=== PATIENT | male | born 1960 | race Hispanic/Latino ===

== ENCOUNTER 2019-07-14 14:22 | Observation (INO) | payer MEDICARE, OTHER ==
[~2019-07-14] VITALS: Ht 167.6 cm; Wt 92.6 kg
[~2019-07-14 14:22] MED LIST: TRUVADA 200 MG1 EACH
[2019-07-14] MEDS ORDERED: SODIUM CHLORIDE 0.9% 1000ML 1,000 ML IV STA (14:23)
--- OUTSIDE RECORDS SUMMARY | 2019-07-14 14:25 | XMS REPORT ---
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 Conditions or Problems Problem Name Problem Code Onset Date Status Entry Date Provider Comment Standard Description Annotate Hepatitis C antibody test positive 795.79 Active Nikolay Sol DAY CARE SUPERVISOR-C Other and unspecified nonspecific immunological findings Immunity status testing, antibody response V72.61 Active Nikolay Sol DAY CARE SUPERVISOR-C Antibody response examination Skin lesions, multiple 709.9 Active Nikolay Sol DAY CARE SUPERVISOR-C Unspecified disorder of skin and subcutaneous tissue Transaminases, serum, elevated 790.4 Active Nikolay Sol DAY CARE SUPERVISOR-C Nonspecific elevation of levels of transaminase or lactic acid dehydrogenase [LDH] Screening, colon cancer V76.51 Active Nikolay Sol DAY CARE SUPERVISOR-C Screening for malignant neoplasms of colon Astigmatism - OU 367.2 Active Angela Bhakhrani OD Astigmatism Myopia - OU 367.1 Active Angela Bhakhrani OD Myopia Corneal scar, 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 Efra Tariq OD Corneal opacity, unspecified Encounter for screening for eye and ear disorders Active Josesito Perry MD Obesity 278.00 Active Radha Posey MD Obesity, unspecified HYPERLIPIDEMIA 272.4 Active Chad Navarro MD Other and unspecified hyperlipidemia Open angle with borderline findings, high risk, 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 Efra Tariq OD Open angle with borderline findings, high risk BACK PAIN 724.5 1998 Active Chad Navarro MD Backache, unspecified Diabetes mellitus, type II 250.00 05/2014 Active Chad Navarro MD Diabetes mellitus without mention of complication, type II or unspecified type, not stated as uncontrolled HIV INFECTION 042 1997 Active Chad Navarro MD Human immunodeficiency virus [HIV] disease 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 Cherrie Munoz Herpes simplex without mention of complication Symptoms of DEPRESSION 311 12/2009 Active Venkata Michaels Depressive disorder, not elsewhere classified Loss of interest, Change in sleep pattern History of OTHER INJURY OF OTHER SITES OF TRUNK 959.19 1998 Correction Chad Navarro MD Other injury of other sites of trunk Lumbar Disc Injury Vaccination against influenza ICD-V04.81 Inactive Nikolay Sol DAY CARE SUPERVISOR-C Vaccination for strep pneumonia with pneumovax ICD-V03.82 Inactive Nikolay Sol DAY CARE SUPERVISOR-C Screening for std ICD-V74.5 Inactive Nikolay Sol DAY CARE SUPERVISOR-C Myopia - OU 367.1 Inactive Chad Navarro MD Myopia Myopia - OU ICD-367.1 Inactive Chad Navarro MD Regular astigmatism, bilateral 367.21 Inactive Chad Navarro MD Regular astigmatism Regular astigmatism, bilateral ICD-367.21 Inactive Chad Navarro MD URI 465.9 Inactive Chad Navarro MD Acute upper respiratory infections of unspecified site URI ICD-465.9 Inactive Chad Navarro MD Immunization update ICD-V15.9 Inactive Nikolay Sol DAY CARE SUPERVISOR-C Otitis media, right 382.9 Inactive Chad Navarro MD Unspecified otitis media Otitis media, right ICD-382.9 Inactive Chad Navarro MD GLAUCOMA, SUSPECT 365.01 Inactive Efra Tariq OD Open angle with borderline findings, low risk ALLERGIC RHINITIS ICD-477.9 Inactive Chad Navarro MD ASTIGMATISM 367.20 Inactive Chad Navarro MD Astigmatism, unspecified ASTIGMATISM 367.20 Inactive Chad Navarro MD Astigmatism, unspecified ASTIGMATISM 367.20 Inactive Chad Navarro MD Astigmatism, unspecified ASTIGMATISM ICD-367.20 Inactive Chad Navarro MD DIABETES MELLITUS, BORDERLINE 790.29 Inactive Radha Posey MD Other abnormal glucose HEPATITIS C ICD-070.51 Inactive Nikolay Sol DAY CARE SUPERVISOR-C MYOPIA 367.1 Inactive Chad Navarro MD Myopia MYOPIA 367.1 Inactive Chad Navarro MD Myopia MYOPIA 367.1 Inactive Chad Navarro MD Myopia MYOPIA ICD-367.1 Inactive Chad Navarro MD OTHER INJURY OF OTHER SITES OF TRUNK ICD-959.19 Inactive Chad Navarro MD PRESBYOPIA 367.4 Inactive Chad Navarro MD Presbyopia PRESBYOPIA 367.4 Inactive Chad Navarro MD Presbyopia PRESBYOPIA 367.4 Inactive Chad Navarro MD Presbyopia PRESBYOPIA 367.4 Inactive Chad Navarro MD Presbyopia PRESBYOPIA ICD-367.4 Inactive Chad Navarro MD THRUSH ICD-112.0 Inactive Chad Navarro MD Vaccination against influenza V04.81 Resolved Nikolay Sol DAY CARE SUPERVISOR-C Need for prophylactic vaccination and inoculation against influenza Vaccination for strep pneumonia with pneumovax V03.82 Resolved Nikolay Sol NP-Titus Need for prophylactic vaccination against Streptococcus pneumoniae [pneumococcus] Screening for std V74.5 Resolved Nikolay BRADEN Screening examination for venereal disease Immunization update V15.9 Resolved Nikolay BRADEN Unspecified personal history presenting hazards to health ALLERGIC RHINITIS 477.9 Resolved Chad Navarro MD Allergic rhinitis, cause unspecified DIABETES MELLITUS, BORDERLINE 790.29 Resolved Chad Navarro MD Other abnormal glucose HEPATITIS C 070.51 2004 Resolved Nikolay BLANCHARDC Acute hepatitis C without mention of hepatic coma S/P peg/riba 2004 THRUSH 112.0 Resolved Chad Navarro MD Candidiasis of mouth Medication List Medication Instructions Start Date Stop Date Generic Name NDC Status Provider Patient Instruction LISINOPRIL 5 MG ORAL TABLET Take one tablet by mouth once daily LISINOPRIL 12949254261 Active Nikolay Sol NP-C Active ATORVASTATIN CALCIUM 20 MG ORAL TABLET Take one tablet by mouth once daily at bedtime ATORVASTATIN CALCIUM 90786090783 Active Nikolay Sol NP-C Active GLIPIZIDE 5 MG ORAL TABLET Take one tablet by mouth once daily 30 minutes before breakfast GLIPIZIDE 10209231652 Active Nikolay Sol NP-C Active NIACIN ER (ANTIHYPERLIPIDEMIC) 500 MG ORAL TABLET EXTENDED RELEASE Take one tablet by mouth once daily with dinner NIACIN (ANTIHYPERLIPIDEMIC) 32133528776 Active Nikolay Sol DAY CARE SUPERVISOR-C Active CLINDAMYCIN PHOSPHATE 1 % GEL APPLY TO AFFECTED AREA(S) ONCE DAILY CLINDAMYCIN PHOSPHATE 07608666535 Active Chloe Franco MedAdherence, ob nurse Active METFORMIN HCL 1000 MG ORAL TABLET Take one tablet by mouth twice daily with a meal METFORMIN HCL 09297993849 Active Nikolay Sol DAY CARE SUPERVISOR-C Active VALACYCLOVIR HCL 1 GM ORAL TABLET Take one tablet by mouth once daily VALACYCLOVIR HCL 73667205999 Active Nikolay Sol DAY CARE SUPERVISOR-C Active DESCOVY 200-25 MG ORAL TABLET Take one tablet by mouth once daily EMTRICITABINE-TENOFOVIR AF 36816479575 Active Nikoaly Hernándezmons DAY CARE SUPERVISOR-C Active NORVIR 100 MG ORAL TABLET Take one tablet by mouth once daily with food RITONAVIR 04397620911 Active Nikolay Hernándezmons DAY CARE SUPERVISOR-C Active REYATAZ 300 MG ORAL CAPSULE Take one capsule by mouth once daily with food ATAZANAVIR SULFATE 38494751314 Active Nikolay Hernándezmons DAY CARE SUPERVISOR-C Active DOXYCYCLINE HYCLATE 100 MG ORAL CAPSULE Take one capsule by mouth every 12 hours DOXYCYCLINE HYCLATE 100 MG ORAL CAPSULE 1100140 DOXYCYCLINE HYCLATE Inactive CLINDAMYCIN PHOSPHATE 1 % EXTERNAL GEL Apply once daily to affected area CLINDAMYCIN PHOSPHATE 1 % EXTERNAL GEL 209874 CLINDAMYCIN PHOSPHATE Inactive FENOFIBRATE MICRONIZED 130 MG ORAL CAPSULE Take one tablet by mouth once daily FENOFIBRATE MICRONIZED 130 MG ORAL CAPSULE 182410 FENOFIBRATE MICRONIZED Inactive CLINDAMYCIN PHOSPHATE 1 % EXTERNAL GEL Apply to affected areas Twice a Day CLINDAMYCIN PHOSPHATE 1 % EXTERNAL GEL 679745 CLINDAMYCIN PHOSPHATE Inactive AMOXICILLIN-POT CLAVULANATE 875-125 MG ORAL TABLET 1 By Mouth Twice a Day for 10 days AMOXICILLIN-POT CLAVULANATE 875-125 MG ORAL TABLET 307909 AMOXICILLIN-POT CLAVULANATE Inactive METFORMIN HCL 500 MG ORAL TABLET 1 by mouth twice a day METFORMIN HCL 500 MG ORAL TABLET 879463 METFORMIN HCL Inactive AUGMENTIN 875-125 MG ORAL TABLET Take one tablet by mouth twice daily for 10 days AUGMENTIN 875-125 MG ORAL TABLET AMOXICILLIN-POT CLAVULANATE Inactive BROMFED DM 30-2-10 MG/5ML ORAL SYRUP 10 mL every four hours as needed for cough/congestion BROMFED DM 30-2-10 MG/5ML ORAL SYRUP 0697503 [id number] Inactive FLONASE ALLERGY RELIEF 50 MCG/ACT NASAL SUSPENSION 2 sprays each nostril every day FLONASE ALLERGY RELIEF 50 MCG/ACT NASAL SUSPENSION 6442475 FLUTICASONE PROPIONATE Inactive FENOFIBRATE MICRONIZED 134 MG ORAL CAPSULE 1 By Mouth Every Day FENOFIBRATE MICRONIZED 134 MG ORAL CAPSULE 545316 FENOFIBRATE MICRONIZED Inactive ZITHROMAX 250 MG ORAL TABLET 2 by mouth now, then 1 by mouth every day for 4 more days ZITHROMAX 250 MG ORAL TABLET 561749 AZITHROMYCIN Inactive VIAGRA 50 MG ORAL TABLET use as directed VIAGRA 50 MG ORAL TABLET 380934 SILDENAFIL CITRATE Inactive BENZOYL PEROXIDE-ERYTHROMYCIN 5-3 % EXTERNAL GEL Apply as directed BENZOYL PEROXIDE-ERYTHROMYCIN 5-3 % EXTERNAL GEL 017293 BENZOYL PEROXIDE-ERYTHROMYCIN Inactive BENZAMYCIN 5-3 % EXTERNAL GEL apply to face nightly at bedtime BENZAMYCIN 5-3 % EXTERNAL GEL 347069 BENZOYL PEROXIDE-ERYTHROMYCIN Inactive VIAGRA 50 MG ORAL TABLET take 1/2 a tablet PO at bedtime VIAGRA 50 MG ORAL TABLET 086514 SILDENAFIL CITRATE Inactive TRUVADA TABLET 1 By Mouth Every Day TRUVADA TABLET EMTRICITABINE- TENOFOVIR TABS Inactive DOXYCYCLINE HYCLATE 100 MG ORAL CAPSULE Take one capsule by mouth every 12 hours DOXYCYCLINE HYCLATE 96315867674 No Longer Active Nikolay Sol NP-C Active CLINDAMYCIN PHOSPHATE 1 % EXTERNAL GEL Apply once daily to affected area CLINDAMYCIN PHOSPHATE 19659464308 No Longer Active Nikolay Sol DAY CARE SUPERVISOR-C Active FENOFIBRATE MICRONIZED 130 MG ORAL CAPSULE Take one tablet by mouth once daily FENOFIBRATE MICRONIZED 40595434057 No Longer Active Nikolay Sol DAY CARE SUPERVISOR-C Active CLINDAMYCIN PHOSPHATE 1 % EXTERNAL GEL Apply to affected areas Twice a Day CLINDAMYCIN PHOSPHATE 20136218930 No Longer Active Nikolay Sol DAY CARE SUPERVISOR-C Active AMOXICILLIN-POT CLAVULANATE 875-125 MG ORAL TABLET 1 By Mouth Twice a Day for 10 days AMOXICILLIN-POT CLAVULANATE 81821981734 No Longer Active Josesito Perry MD Active METFORMIN HCL 500 MG ORAL TABLET 1 by mouth twice a day METFORMIN HCL 56484715891 No Longer Active Josesito Perry MD Active AUGMENTIN 875-125 MG ORAL TABLET Take one tablet by mouth twice daily for 10 days AMOXICILLIN-POT CLAVULANATE 95551176681 No Longer Active Chad Navarro MD Active BROMFED DM 30-2-10 MG/5ML ORAL SYRUP 10 mL every four hours as needed for cough/congestion [id number] 12300908365 No Longer Active Nikolay Sol NP-Titus Active FLONASE ALLERGY RELIEF 50 MCG/ACT NASAL SUSPENSION 2 sprays each nostril every day FLUTICASONE PROPIONATE 65486061872 No Longer Active Chad Navarro MD Active FENOFIBRATE MICRONIZED 134 MG ORAL CAPSULE 1 By Mouth Every Day FENOFIBRATE MICRONIZED 99254709209 No Longer Active Josesito Perry MD Active ZITHROMAX 250 MG ORAL TABLET 2 by mouth now, then 1 by mouth every day for 4 more days AZITHROMYCIN 48033109270 No Longer Active Nikolay BRADEN Active VIAGRA 50 MG ORAL TABLET use as directed SILDENAFIL CITRATE 19679019451 No Longer Active Nikolay BRADEN Active BENZOYL PEROXIDE-ERYTHROMYCIN 5-3 % EXTERNAL GEL Apply as directed BENZOYL PEROXIDE-ERYTHROMYCIN 62946103924 No Longer Active Chad Navarro MD Active BENZAMYCIN 5-3 % EXTERNAL GEL apply to face nightly at bedtime BENZOYL PEROXIDE-ERYTHROMYCIN 72424736934 No Longer Active Chad Navarro MD Active VIAGRA 50 MG ORAL TABLET take 1/2 a tablet PO at bedtime SILDENAFIL CITRATE 83531819332 No Longer Active Chad Navarro MD Active TRUVADA TABLET 1 By Mouth Every Day EMTRICITABINE-TENOFOVIR TABS 94648506415 No Longer Active Dona You Active Advance Directives Directive Description Start Date DISCUSSED - NO DECISION MADE Immunizations Vaccine Administration Date Value Standard Description influenza immunization (Flu Vax) has been administered given influenza virus vaccine, unspecified formulation pneumococcal immunization administered given pneumococcal polysaccharide vaccine, 23 valent influenza immunization (Flu Vax) has been administered given influenza virus vaccine, unspecified formulation influenza immunization (Flu Vax) has been administered given elsewhere influenza virus vaccine, unspecified formulation influenza immunization (Flu Vax) has been administered given influenza virus vaccine, unspecified formulation PEDIATRIC PNEUMOCOCCAL VACCINE ([id number]) #2 given pneumococcal conjugate vaccine, 13 valent influenza immunization (Flu Vax) has been administered given elsewhere influenza virus vaccine, unspecified formulation pneumococcal immunization administered given pneumococcal polysaccharide vaccine, 23 valent influenza immunization (Flu Vax) has been administered transcribed from official record influenza virus vaccine, unspecified formulation hepatitis B vaccine #1 given transcribed from official record hepatitis B vaccine, unspecified formulation hepatitis B vaccine #3 transcribed from official record hepatitis B vaccine, unspecified formulation dT (Diphtheria and Tetanus) immunization for children, #1 transcribed from official record Td(adult) unspecified formulation hepatitis B vaccine #2 given transcribed from official record hepatitis B vaccine, unspecified formulation hepatitis A immunization #1 transcribed from official record hepatitis A vaccine, unspecified formulation hepatitis B vaccine #1 given transcribed from official record hepatitis B vaccine, unspecified formulation PEDIATRIC PNEUMOCOCCAL VACCINE ([id number]) #1 transcribed from official record pneumococcal conjugate vaccine, 13 valent pneumococcal immunization administered transcribed from official record pneumococcal polysaccharide vaccine, 23 valent Vital Signs Date Name Value Unit Range Description blood pressure, diastolic, second observation 93 mm[Hg] BP tejeda blood pressure, diastolic 85 mm[Hg] BP tejeda blood pressure, systolic, second observation 137 mm[Hg] BP sys blood pressure, systolic 144 mm[Hg] BP sys height E&M 67 [in_us] Bdy height pulse rate E&M 97 /min Heart rate temperature E&M 98.0 [degF] Body temperature weight E&M 195.25 [lb_av] Weight Measured blood pressure, diastolic, second observation 86 mm[Hg] BP tejeda blood pressure, diastolic 86 mm[Hg] BP tejeda blood pressure, systolic, second observation 126 mm[Hg] BP sys blood pressure, systolic 126 mm[Hg] BP sys height E&M 67 [in_us] Bdy height pulse rate E&M 87 /min Heart rate respiratory rate E&M 16 /min Resp rate temperature E&M 98.5 [degF] Body temperature weight E&M 202.38 [lb_av] Weight Measured blood pressure, diastolic 89 mm[Hg] BP tejeda blood pressure, systolic 134 mm[Hg] BP sys height E&M 67 [in_us] Bdy height pulse rate E&M 93 /min Heart rate respiratory rate E&M 16 /min Resp rate temperature E&M 98.6 [degF] Body temperature weight E&M 204 [lb_av] Weight Measured Diagnostic Results Date Name Value Unit Range Description Lab Report: CD4/CD8 Ratio Profile, Comp. Metabolic Panel (14), Lipid Panel - Hematology T-helper cells (CD4) to T-suppressor cells (CD8) ratio 42.4 % 12.0-35.5 Lab Report: Lipid Panel - Chemistry very low density lipoproteins VLDLCH mg/dL mg/dL 5-40 Lab Report: CD4/CD8 Ratio Profile, Comp. Metabolic Panel (14), Lipid Barrera ... - Chemistry testosterone, total 515 ng/dL [phone] Lab Report: CD4/CD8 Ratio Profile, Comp. Metabolic Panel (14), RNA, Real ... - Chemistry hepatitis B surface antigen Negative Negative chloride, serum 97 mmol/L 96-106 Lab Report: CD4/CD8 Ratio Profile, Lipid Panel, Chlamydia/GC Amplificati ... - Microbiology hepatitis A antibody, total Positive Negative Lab Report: CD4/CD8 Ratio Profile, Comp. Metabolic Panel (14), RNA, Real ... - Chemistry urea nitrogen, blood 17 mg/dL 6-24 Lab Report: CD4/CD8 Ratio Profile, Comp. Metabolic Panel (14), Lipid Barrera ... - Hematology Quantiferon Gold TB blood test for tuberculosis screening Negative Negative Lab Report: CD4/CD8 Ratio Profile, Comp. Metabolic Panel (14), RNA, Real ... - Hematology mean corpuscular hemoglobin concentration, RBC 34.8 G/DL % 31.5-35.7 erythrocyte (RBC) count 5.32 X10E6/UL 10*6/mm3 4.14-5.80 Lab Report: CD4/CD8 Ratio Profile, Comp. Metabolic Panel (14), RNA, Real ... - Serology hepatitis C antibody, serum >11.0 0.0-0.9 Lab Report: CD4/CD8 Ratio Profile, Comp. Metabolic Panel (14), RNA, Real ... - Chemistry absolute CD8 764 742-033 3798/04/05 Absolute Neutrophils 3.0 X10E3/UL 10*3/uL 1.4-7.0 Lab Report: Lipid Panel - Chemistry LDL cholesterol, serum TRIGHI mg/dL mg/dL 0-99 Lab Report: CD4/CD8 Ratio Profile, Comp. Metabolic Panel (14), RNA, Real ... - Chemistry urea nitrogen/creatinine ratio, serum 19 9-20 Lab Report: CD4/CD8 Ratio Profile, Comp. Metabolic Panel (14), RNA, Real ... - Hematology mean corpuscular volume, RBC 92 fL 79-97 Lab Report: CD4/CD8 Ratio Profile, Comp. Metabolic Panel (14), Lipid Barrera ... - Serology Hepatitis C virus (HCV) RNA, PCR, quantitative HCV Not Detected IU/mL [iU]/mL Internal Correspondence: Pre-Visit Planning:f/u 06/14/15@11:30am-confirmed - CC care steam table attendant #1, name [facility] AM-B Jaydon Osborne MD, Chad Navarro MD, Nikolay Sol, DAY CARE SUPERVISOR-C, Yaya Cartagena, ALBERTO-C, Dalila Peoples MA, Marilu Barajas MA, Josey Castellanos MA, Preston Candelario MA, Lina Dias, [facility] Lab Report: Lipid Panel - Chemistry HDL cholesterol, serum 52 mg/dL >39 Lab Report: CD4/CD8 Ratio Profile, Comp. Metabolic Panel (14), RNA, Real ... - Hematology monocytes as percent of blood leukocytes 8 % Not Estab. Lab Report: CD4/CD8 Ratio Profile, Comp. Metabolic Panel (14), RNA, Real ... - Chemistry albumin/globulin ratio, serum 1.6 1.2-2.2 creatinine, serum 0.88 mg/dL 0.76-1.27 Lab Report: Lipid Panel - Chemistry cholesterol, serum 276 mg/dL 100-199 Lab Report: CD4/CD8 Ratio Profile, Comp. Metabolic Panel (14), RNA, Real ... - Chemistry bilirubin, serum, total 0.6 mg/dL 0.0-1.2 Lab Report: CD4/CD8 Ratio Profile, Comp. Metabolic Panel (14), RNA, Real ... - Hematology Eosinophil Absolute Count 0.4 X10E3/UL 10*3/uL 0.0-0.4 Lab Report: Chlamydia/GC Amplification - Lab chlamydia DNA probe Negative Negative Lab Report: CD4/CD8 Ratio Profile, Comp. Metabolic Panel (14), RNA, Real ... - Chemistry aspartate aminotransferase (SGOT), serum 33 U/L 0-40 Lab Report: CD4/CD8 Ratio Profile, Comp. Metabolic Panel (14), RNA, Real ... - Hematology red blood cell distribution width 14.2 % 12.3-15.4 leukocyte count, blood 6.1 X10E3/UL 10*3/mm3 3.4-10.8 Lab Report: CD4/CD8 Ratio Profile, Comp. Metabolic Panel (14), RNA, Real ... - Chemistry potassium, serum 4.1 mmol/L 3.5-5.2 albumin, serum 4.6 g/dL 3.5-5.5 immature granulocytes, percentage of total cells, blood 0 % Not Estab. Lab Report: CD4/CD8 Ratio Profile, Comp. Metabolic Panel (14), RNA, Real ... - Hematology lymphocyte count, blood, automated 2.1 X10E3/UL 10*3/mm3 0.7-3.1 hematocrit, blood 49.1 % 37.5-51.0 Lab Report: Chlamydia/GC Amplification - Microbiology Neisseria gonorrhoeae DNA probe Negative Negative Lab Report: CD4/CD8 Ratio Profile, Comp. Metabolic Panel (14), RNA, Real ... - Chemistry sodium, serum 137 mmol/L 134-144 Lab Report: CD4/CD8 Ratio Profile, Lipid Panel, Chlamydia/GC Amplificati ... - Serology toxoplasma gondii antibody, IgG <3.0 0.0-7.1 Lab Report: CD4/CD8 Ratio Profile, Comp. Metabolic Panel (14), RNA, Real ... - Hematology neutrophils as percent of blood leukocytes 50 % Not Estab. basophils as percent of blood leukocytes 1 % Not Estab. Internal Correspondence: Pre-Visit Planning=Mykel 05/27/14 @ 12:00pm LVM - Other List of providers caring for patient Eda Nogueira MD, Chad Navarro MD, Patricia Salazar MD, Ana Maria MOLINAP, Zelalem MOLINAP, Nikolay BLANCHARDC, Linda Ruggiero MA, Waldemar Burr M.A. ,, Dalila Peoples MA, Lou Ren MA, Dona Jimenez MA, Iraj You MA, Makenna Hicks MA, Cha Rodriguez CTAA[place] CTA. Lab Report: CD4/CD8 Ratio Profile, Comp. Metabolic Panel (14), RNA, Real ... - Serology HIV-1RNA, serum, by PCR, quantitative <20 copies/mL {Copies}/mL rapid plasma reagin antibody, serum Non Reactive Non Reactive Lab Report: CD4/CD8 Ratio Profile, Comp. Metabolic Panel (14), RNA, Real ... - Chemistry CD4/CD8 ratio 0.99 0.92-3.72 carbon dioxide, venous blood 21 mmol/L 20-29 Lab Report: CD4/CD8 Ratio Profile, Lipid Panel, Chlamydia/GC Amplificati ... - Serology hepatitis B core antibody, total Negative Negative Lab Report: Lipid Panel - Chemistry triglyceride, serum, fasting 615 mg/dL 0-149 Lab Report: CD4/CD8 Ratio Profile, Comp. Metabolic Panel (14), RNA, Real ... - Chemistry calcium, serum 10.0 mg/dL 8.7-10.2 alanine aminotransferase (SGPT), serum 65 U/L 0-44 Lab Report: CD4/CD8 Ratio Profile, Comp. Metabolic Panel (14), RNA, Real ... - Hematology mean corpuscular hemoglobin, RBC 32.1 pg 26.6-33.0 Lab Report: CD4/CD8 Ratio Profile, Comp. Metabolic Panel (14), RNA, Real ... - Chemistry protein, total, serum 7.4 g/dL 6.0-8.5 alkaline phosphatase, serum 80 U/L 39-117 Lab Report: CD4/CD8 Ratio Profile, Comp. Metabolic Panel (14), RNA, Real ... - Hematology T-helper cells (CD4) as percent of blood lymphocytes 36.0 % 30.8-58.5 hemoglobin, blood 17.1 g/dL 13.0-17.7 T-suppressor cells (CD8) as percent of blood lymphocytes 36.4 % 12.0-35.5 lymphocytes as percent of blood leukocytes 34 % Not Estab. Lab Report: CD4/CD8 Ratio Profile, Comp. Metabolic Panel (14), Lipid Barrera ... - Chemistry hemoglobin A1C, blood, as % of total hemoglobin 9.3 % 4.8-5.6 Lab Report: CD4/CD8 Ratio Profile, Comp. Metabolic Panel (14), RNA, Real ... - Genetics/fertility eGFR if 109 mL/min/1.73m2 >59 Lab Report: CD4/CD8 Ratio Profile, Comp. Metabolic Panel (14), RNA, Real ... - Hematology basophil count, absolute 0.0 x10E3/uL 0.0-0.2 Lab Report: CD4/CD8 Ratio Profile, Comp. Metabolic Panel (14), RNA, Real ... - Chemistry globulin, serum 2.8 1.5-4.5 Estimated Glomerular Filtration Rate (calc) 95 mL/min/1.73m2 >59 Lab Report: CD4/CD8 Ratio Profile, Lipid Panel, Chlamydia/GC Amplificati ... - Serology hepatitis B surface antibody Non Reactive Lab Report: CD4/CD8 Ratio Profile, Comp. Metabolic Panel (14), RNA, Real ... - Hematology eosinophils as percent of blood leukocytes 7 % Not Estab. Office Visit: HIV / DM F/U - Chemistry blood glucose, random 226 mg/dL Lab Report: CD4/CD8 Ratio Profile, Comp. Metabolic Panel (14), Lipid Barrera ... - Chemistry prostate specific antigen 1.3 ng/mL 0.0-4.0 Lab Report: CD4/CD8 Ratio Profile, Comp. Metabolic Panel (14), Lipid Panel - Chemistry estimated glomerular filtration rate >59 mL/min/1.73 mL/min >59 Lab Report: CD4/CD8 Ratio Profile, Comp. Metabolic Panel (14), RNA, Real ... - Hematology monocyte count, blood, automated 0.5 X10E3/UL 10*3/uL 0.1-0.9 T-helper cells (CD4) count 756 /UL uL 359-1519 platelet count 218 X10E3/UL 10*3/mm3 150-379 Encounters Date Encounter Provider Code Facility 16:28:17 CDT Est Patient Exp Problem - [id number] Nikolay Sol DAY CARE SUPERVISOR-C CPT-07450 [facility] Adult Medicine 14:21:32 PHYSICIAN SPECIALIST Est Patient Detailed - 84635 Nikolay Sol DAY CARE SUPERVISOR-C CPT-02297 [facility] Adult [facility] 08:59:34 CDT Est Patient Exp Problem - 63139 Nikolay Sol DAY CARE SUPERVISOR-C CPT-04192 [facility] Adult Medicine 14:25:15 CDT Est Patient Exp Problem - 78466 Nikolay Sol DAY CARE SUPERVISOR-C CPT-41735 [facility] Adult Medicine 11:04:02 CDT Ofc Vst, Est Level IV Chad Navarro MD CPT-87373 [facility] Adult Medicine 14:08:58 CDT Est Patient Detailed - 73440 Radha Posey MD CPT-51137 [facility] Adult [facility] 12:13:20 CDT Ofc Vst, Est Level IV Chad Navarro MD CPT-53974 [facility] Adult [facility] 12:09:57 CDT Ofc Vst, Est Level IV Chad Navarro MD CPT-13043 [facility] Adult Medicine 11:34:40 PHYSICIAN SPECIALIST Est Patient Exp Problem - 69693 Nikolay Sol DAY CARE SUPERVISOR-C CPT-46996 [facility] Adult Medicine 12:21:03 PHYSICIAN SPECIALIST Est Patient Detailed - [id number] Radha Posey MD CPT-39135 [facility] Adult Medicine 12:22:22 CDT Ofc Vst, Est Level IV Chad Navarro MD CPT-01228 [facility] Adult Medicine 12:16:04 CDT Ofc Vst, Est Level III Chad Navarro MD CPT-54398 [facility] Adult Medicine 10:56:56 PHYSICIAN SPECIALIST Ofc Vst, Est Level III Chad Navarro MD CPT-93448 [facility] Adult Medicine 12:25:42 CDT Ofc Vst, Est Level IV Chad Navarro MD CPT-46527 [facility] Adult Medicine Procedures Code Procedure Name Date Entry Date Standard Description CPT-82823 Pneumovax Vaccine PPSV23 16:41:12 PHYSICIAN SPECIALIST CPT-38712 INFLUENZA VACCINE QUADRIVALENT 3 YRS PLUS IM 16:41:12 PHYSICIAN SPECIALIST CPT-75660 Glucose Stick 16:41:11 PHYSICIAN SPECIALIST CPT-76899 Dispensing Visit (UNLIVSTED OPHTHALMOLOGICAL SERVICE/PROCEDURE) 15:01:33 CDT CPT-01045 COMPUTERIZED OPHTHALMIC IMAGING OPTIC NERVE 12:14:56 CDT CPT-99552 Est Patient Comprehensive Opt - 83539 12:14:56 CDT CPT-11395 Est Patient Intermediate Opt - 92225 11:44:03 CDT CPT-19775 INFLUENZA VACCINE QUADRIVALENT 3 YRS PLUS IM 14:09:09 CDT CPT-97946 Contact Insp/Mod (MODIFICAJ CONTACT LENX SPX SUPVJ ADAPTATION) 13:09:36 PHYSICIAN SPECIALIST CPT-69822 COMPUTERIZED OPHTHALMIC IMAGING OPTIC NERVE 15:29:08 PHYSICIAN SPECIALIST CPT-26633 Est Patient Intermediate Opt - 33677 15:29:07 PHYSICIAN SPECIALIST CPT-14274 Dispensing Visit (Non-Billable) 15:03:51 PHYSICIAN SPECIALIST CPT-29755 COMPUTERIZED OPHTHALMIC IMAGING OPTIC NERVE 15:03:51 PHYSICIAN SPECIALIST CPT-24360 Contact Lens Fitting (RX&FITG C-LENS SUPVJ CRNL LENS OU XCPT APHK) 14:41:10 PHYSICIAN SPECIALIST CPT-12876 Est Patient Intermediate Opt - 34027 14:41:09 PHYSICIAN SPECIALIST CPT-56596 Handling of specimen for transfer 10:31:14 PHYSICIAN SPECIALIST CPT-04849 Venipuncture 10:31:13 PHYSICIAN SPECIALIST CPT-11352 Dispensing Visit (UNLIVSTED OPHTHALMOLOGICAL SERVICE/PROCEDURE) 11:14:37 CDT CPT-56441 COMPUTERIZED OPHTHALMIC IMAGING OPTIC NERVE 14:15:48 CDT CPT-83704 Est Patient Intermediate Opt - 21342 14:15:48 CDT CPT-77022 Contact Lens Fitting (RX&FITG C-LENS SUPVJ CRNL LENS OU XCPT APHK) 13:30:24 CDT CPT-30151 Est Patient Intermediate Opt - 81666 13:30:24 CDT CPT-17939 Influenza - Adult - Injection 12:14:52 CDT CPT-56095 Handling of specimen for transfer 11:54:36 PHYSICIAN SPECIALIST CPT-58213 Venipuncture 11:54:36 PHYSICIAN SPECIALIST CPT-84456 Prevnar (PCV13) IM 12:10:04 CDT CPT-59584 Handling of specimen for transfer 11:11:04 CDT CPT-58875 Venipuncture 11:11:04 CDT CPT-50327 Dispensing Visit (UNLIVSTED OPHTHALMOLOGICAL SERVICE/PROCEDURE) 15:56:46 CDT CPT-29231 Contact Insp/Mod (MODIFICAJ CONTACT LENX SPX SUPVJ ADAPTATION) 09:50:41 CDT CPT-93151 OPH US DX CRNL PACHYMETRY UNI/BI 11:13:19 CDT CPT-92116 Est Patient Intermediate Opt - 89422 11:13:19 CDT CPT-86684 Contact Lens Fitting (RX&FITG C-LENS SUPVJ CRNL LENS OU XCPT APHK) 10:44:52 CDT CPT-55394 Est Patient Intermediate Opt - 29529 10:44:52 CDT CPT-38771 Pneumovax Vaccine 12:24:12 CDT
--- OUTSIDE RECORDS SUMMARY | 2019-07-14 14:26 | XMS REPORT ---
Author Author [facility] Address Unknown Phone Unavailable Care Team Providers Care Rn Plastics Name Role Phone Unavailable Unavailable Payers Payer Name Policy Type Policy Number Effective Date Expiration Date Problems This patient has no known problems. Allergies, Adverse Reactions, Alerts Allergy Name Allergy Type Status Severity Reaction(s) Onset Date Inactive Date Treating Clinician Comments No Known Allergies DA Active U 2019-02-14 00:00:00 No Known Contrast Allergies DA Active U 2007-09-07 00:00:00 No Known Drug Allergies DA Active U 2007-09-07 00:00:00 No Known Food Allergies DA Active U 2007-09-07 00:00:00 No Known Other Allergies DA Active U 2007-09-07 00:00:00 No Known Drug Intolerances DA Active U 2006-08-14 00:00:00 Medications This patient has no known medications. Results Test Description Test Time Test Comments Text Results Atomic Results Result Comments GLUBED 2019-02-15 23:57:00 GLUBED (test code=GLUBED) 148 mg/dL 74-106 Performed by certified plastic press operator at [facility] [id number] 20:52:00* Test Item Value Reference Range Comments GLUBED (test code=GLUBED) 271 mg/dL 74-106 Performed by certified plastic press operator at [facility] [id number] 17:36:00* Test Item Value Reference Range Comments GLUBED (test code=GLUBED) 241 mg/dL 74-106 Performed by certified plastic press operator at [facility] [id number] 11:22:00* Test Item Value Reference Range Comments GLUBED (test code=GLUBED) 195 mg/dL 74-106 Performed by certified plastic press operator at [facility] [id number] 08:09:00* Test Item Value Reference Range Comments GLUBED (test code=GLUBED) 358 mg/dL 74-106 Performed by certified plastic press operator at [facility] COMPREHENSIVE METABOLIC [id number] 04:09:00* Test Item Value Reference Range Comments SODIUM (test code=NA) 137 mmol/L 136-145 POTASSIUM (test code=K) 4.2 mmol/L 3.5-5.1 CHLORIDE (test code=CL) 103.0 mmol/L 98-107 CARBON DIOXIDE (test code=CO2) 28.0 mmol/L 21-32 ANION GAP (test code=GAP) 10.2 10-20 GLUCOSE (test code=GLU) 257 mg/dL 74-106 BLOOD UREA NITROGEN (test code=BUN) 31 mg/dL 7-18 GLOMERULAR FILTRATION RATE (test code=GFR) > 60 mL/min >=60 Estimated GFR by using Modified MDRD formula.Chronic kidney disease is defined as either kidney damageor GFR <60 mL/min/1.73 m2 for >3 months. CREATININE (test code=CREAT) 0.90 mg/dL 0.7-1.3 BUN/CREATININE RATIO (test code=BUN/CREA) 35.3 10-20 TOTAL PROTEIN (test code=PROT) 6.3 gram/dL 6.4-8.2 ALBUMIN (test code=ALB) 3.2 g/dL 3.4-5.0 GLOBULIN (test code=GLOB) 3.1 gram/dL 2.7-4.2 ALBUMIN/GLOBULIN RATIO (test code=A/G) 1.0 0.75-1.50 CALCIUM (test code=CA) 9.5 mg/dL 8.5-10.1 BILIRUBIN TOTAL (test code=BILT) 0.30 mg/dL 0.0-1.0 SGOT/AST (test code=AST) 18 IUnit/L 15-37 SGPT/ALT (test code=ALT) 27 IUnit/L 12-78 ALKALINE PHOSPHATASE TOTAL (test code=ALKP) 82 IUnit/L 45-117 Note change in reference range due to change in reagent. [id number] 04:09:00* Test Item Value Reference Range Comments PHOSPHORUS (test code=PHOS) 3.5 mg/dL 2.5-4.9 [id number] 04:09:00* Test Item Value Reference Range Comments MAGNESIUM (test code=MAG) 1.9 mg/dL 1.8-2.4 COMPREHENSIVE METABOLIC [id number] 04:02:00* Test Item Value Reference Range Comments SODIUM (test code=NA) 137 mmol/L 136-145 POTASSIUM (test code=K) 4.2 mmol/L 3.5-5.1 CHLORIDE (test code=CL) 103.0 mmol/L 98-107 CARBON DIOXIDE (test code=CO2) mmol/L 21-32 ANION GAP (test code=GAP) 10-20 GLUCOSE (test code=GLU) mg/dL 74-106 BLOOD UREA NITROGEN (test code=BUN) mg/dL 7-18 GLOMERULAR FILTRATION RATE (test code=GFR) mL/min >=60 CREATININE (test code=CREAT) mg/dL 0.7-1.3 BUN/CREATININE RATIO (test code=BUN/CREA) 10-20 TOTAL PROTEIN (test code=PROT) gram/dL 6.4-8.2 ALBUMIN (test code=ALB) g/dL 3.4-5.0 GLOBULIN (test code=GLOB) gram/dL 2.7-4.2 ALBUMIN/GLOBULIN RATIO (test code=A/G) 0.75-1.50 CALCIUM (test code=CA) mg/dL 8.5-10.1 BILIRUBIN TOTAL (test code=BILT) mg/dL 0.0-1.0 SGOT/AST (test code=AST) IUnit/L 15-37 SGPT/ALT (test code=ALT) IUnit/L 12-78 ALKALINE PHOSPHATASE TOTAL (test code=ALKP) IUnit/L 45-117 [id number] 04:02:00* Test Item Value Reference Range Comments PHOSPHORUS (test code=PHOS) mg/dL 2.5-4.9 [id number] 04:02:00* Test Item Value Reference Range Comments MAGNESIUM (test code=MAG) mg/dL 1.8-2.4 CBC W/O [id number] 04:01:00* Test Item Value Reference Range Comments WHITE BLOOD CELL (test code=WBC) 7.8 K/mm3 4.5-12.5 RED BLOOD CELL (test code=RBC) 4.20 mill/mm3 4.0-5.8 HEMOGLOBIN (test code=HGB) 13.3 gram/dL 13.0-17.5 RESULT VERIFIED BY REPEAT ANALYSIS HEMATOCRIT (test code=HCT) 38.5 % 42.0-52.0 MEAN CELL VOLUME (test code=MCV) 91.7 fL 80-98 MEAN CELL HGB (test code=MCH) 31.7 picogram 27.0-33.0 MEAN CELL HGB CONCETRATION (test code=MCHC) 34.5 gram/dL 33.0-36.0 RED CELL DISTRIBUTION WIDTH (test code=RDW) 12.3 % 11.6-16.2 PLATELET COUNT (test code=PLT) 194 K/mm3 150-450 RESULT VERIFIED BY REPEAT ANALYSIS MEAN PLATELET VOLUME (test code=MPV) 10.0 fL 6.7-11.0 BASIC METABOLIC [id number] 21:27:00* Test Item Value Reference Range Comments SODIUM (test code=NA) 141 mmol/L 136-145 POTASSIUM (test code=K) 3.7 mmol/L 3.5-5.1 CHLORIDE (test code=CL) 107.0 mmol/L 98-107 CARBON DIOXIDE (test code=CO2) 29.0 mmol/L 21-32 ANION GAP (test code=GAP) 8.7 10-20 GLUCOSE (test code=GLU) 87 mg/dL 74-106 BLOOD UREA NITROGEN (test code=BUN) 33 mg/dL 7-18 GLOMERULAR FILTRATION RATE (test code=GFR) > 60 mL/min >=60 Estimated GFR by using Modified MDRD formula.Chronic kidney disease is defined as either kidney damageor GFR <60 mL/min/1.73 m2 for >3 months. CREATININE (test code=CREAT) 0.90 mg/dL 0.7-1.3 BUN/CREATININE RATIO (test code=BUN/CREA) 35.4 10-20 CALCIUM (test code=CA) 10.1 mg/dL 8.5-10.1 SPECIMEN COMMENTS: Q4H while on insulin [id number] 20:55:00* Test Item Value Reference Range Comments GLUBED (test code=GLUBED) 74 mg/dL 74-106 Performed by certified plastic press operator at [facility] [id number] 19:14:00* Test Item Value Reference Range Comments GLUBED (test code=GLUBED) 158 mg/dL 74-106 [facility] certified plastic press [facility]~ BASIC METABOLIC [id number] 19:00:00* Test Item Value Reference Range Comments SODIUM (test code=NA) 137 mmol/L 136-145 RESULT VERIFIED BY REPEAT ANALYSIS POTASSIUM (test code=K) 3.9 mmol/L 3.5-5.1 CHLORIDE (test code=CL) 104.0 mmol/L 98-107 CARBON DIOXIDE (test code=CO2) 27.0 mmol/L 21-32 ANION GAP (test code=GAP) 9.9 10-20 GLUCOSE (test code=GLU) 234 mg/dL 74-106 BLOOD UREA NITROGEN (test code=BUN) 34 mg/dL 7-18 GLOMERULAR FILTRATION RATE (test code=GFR) > 60 mL/min >=60 Estimated GFR by using Modified MDRD formula.Chronic kidney disease is defined as either kidney damageor GFR <60 mL/min/1.73 m2 for >3 months. CREATININE (test code=CREAT) 1.10 mg/dL 0.7-1.3 BUN/CREATININE RATIO (test code=BUN/CREA) 31.5 10-20 CALCIUM (test code=CA) 10.2 mg/dL 8.5-10.1 SPECIMEN COMMENTS: Q4H while on insulin dripSPECIMEN COMMENTS: Q8H while on insu yen [id number] 19:00:00* Test Item Value Reference Range Comments MAGNESIUM (test code=MAG) 2.0 mg/dL 1.8-2.4 SPECIMEN COMMENTS: Q4H while on insulin dripSPECIMEN COMMENTS: Q8H while on insu yen [id number] 18:52:00* Test Item Value Reference Range Comments GLUBED (test code=GLUBED) 285 mg/dL 74-106 Performed by certified plastic press operator at [facility] [id number] 18:52:00* Test Item Value Reference Range Comments GLUBED (test code=GLUBED) 317 mg/dL 74-106 Performed by certified plastic press operator at [facility] [id number] 18:15:00* Test Item Value Reference Range Comments GLUBED (test code=GLUBED) 223 mg/dL 74-106 Performed by certified plastic press operator at [facility] - XR CHEST 1 [id number] 16:39:00 FAX: Smith Ramos MD [phone] [place]: St: ADM Name: JOHAN XAVIER [facility] : [birth year] 59 Age/S: 58/M [address] [facility] Unit #: [id number] [place]: [place] [address] Phys: Smith Ramos MD Acct: [id number] Dis Date: Status: ADM IN PHONE #: [phone] Exam Date: 02/14/2019 1620 FAX #: [phone] Reason: concern for PNA EXAMS: CPT CODE: [id number] XR CHEST 1 V 59800 REASON FOR EXAM: concern for PNA EXAM ORDER DATE: 02/14/2019 3:34 PM Ordering: Smith Ramos MD Attending:Sabine Mullins MD Location: PROCEDURE: - XR CHEST 1 V COMPARISON: FINDIN GS: Portable AP frontal view of the chest obtained at 4:20 PM shows clear lungs without evidence of consolidation. There is no evidence of effusion. The heart size is within normal limits. Pulmonary vasculatures are unrem arkable. IMPRESSION: No active disease. Electronica lly Signed by Cynthia Joy on 02/14/2019 at 1639 Reporte d and signed by: Nawaf Joy M.D. CC: Smith Ramos MD Technologist: Alyce Reyez) Trnscrd Date/Time/By: 02/14/2019 (1630) : By: LarisaL Orig Print D/T: S: 02/14/2019 (7791) PAGE 1 Signed Report VENOUS BLOOD GAS 2019-02-14 14:54:00* Test Item Value Reference Range Comments VENOUS BLOOD GAS PH (test code=PHV) 7.30 7.30-7.40 VENOUS BLOOD GAS PCO2 (test code=PCO2V) 51.0 mm Hg 39.0-51.0 VENOUS BLOOD GAS PO2 (test code=PO2V) < 45.9 mm Hg 30.0-50.0 VBG HCO3 (test code=HCO3V) 24.4 mmol/L 17.0-30.0 VBG BASE EXCESS (test code=RICK) -2.6 mmol/L -5.0-5.0 VENOUS BLOOD GAS O2 SAT. (test code=O2SATV) 51 % 94-98 VENOUS BLOOD GAS FIO2 (test code=FIO2V) 21.0 PT. HGB (test code=PHGBVBG) 13.8 gram/dL 13.0-17.5 VENOUS BLOOD GAS SITE (test code=SITEV) IVC HEMATOCRIT (test code=HCT/VBG) 41 % 42-52 HGB O2 SAT (test code=HBOSAT) 49.0 % 94.00-98.00 CARBOXYHEMOGLOBIN (test code=HOHGBT) 4.1 %totalHg 0.5-1.5 Results called to and read back by servando 14:54 - 02/14/2019; by aziza METHEMOGLOBIN (test code=METHGB) 0.3 % 0.0-1.50 BASIC METABOLIC [id number] 12:37:00* Test Item Value Reference Range Comments SODIUM (test code=NA) 128 mmol/L 136-145 POTASSIUM (test code=K) 4.0 mmol/L 3.5-5.1 CHLORIDE (test code=CL) 89.0 mmol/L 98-107 CARBON DIOXIDE (test code=CO2) 29.0 mmol/L 21-32 ANION GAP (test code=GAP) 14.0 10-20 GLUCOSE (test code=GLU) 529 mg/dL 74-106 Results called to [id number] by TANIKA 02/14/19 1236Critical results verified and read back by Nurse? Y BLOOD UREA NITROGEN (test code=BUN) 39 mg/dL 7-18 GLOMERULAR FILTRATION RATE (test code=GFR) 36 mL/min >=60 Estimated GFR by using Modified MDRD formula.Chronic kidney disease is defined as either kidney damageor GFR <60 mL/min/1.73 m2 for >3 months. CREATININE (test code=CREAT) 1.90 mg/dL 0.7-1.3 BUN/CREATININE RATIO (test code=BUN/CREA) 20.5 10-20 CALCIUM (test code=CA) 12.5 mg/dL 8.5-10.1 Results called to [id number] by WILLIENK1 02/14/19 1237Critical results verified and read back by Nurse? Y HEPATIC FUNCTION [id number] 12:37:00* Test Item Value Reference Range Comments TOTAL PROTEIN (test code=PROT) 8.3 gram/dL 6.4-8.2 ALBUMIN (test code=ALB) 3.9 g/dL 3.4-5.0 GLOBULIN (test code=GLOB) 4.4 gram/dL 2.7-4.2 ALBUMIN/GLOBULIN RATIO (test code=A/G) 0.9 0.75-1.50 BILIRUBIN TOTAL (test code=BILT) 0.40 mg/dL 0.0-1.0 BILIRUBIN DIRECT (test code=BILD) 0.09 mg/dL 0.0-0.20 SGOT/AST (test code=AST) 14 IUnit/L 15-37 SGPT/ALT (test code=ALT) 27 IUnit/L 12-78 ALKALINE PHOSPHATASE TOTAL (test code=ALKP) 130 IUnit/L 45-117 Note change in reference range due to change in reagent. [id number] 12:37:00* Test Item Value Reference Range Comments LIPASE (test code=LIP) 132 U/L 73.0-393.0 URINALYSIS [id number] 12:22:00* Test Item Value Reference Range Comments UA COLOR (test code=COLU) Light-Yellow YELLOW UA APPEARANCE (test code=APPU) CLEAR CLEAR UA GLUCOSE DIPSTICK (test code=DGLUU) >1000 (4+) mg/dL NEGATIVE UA BILIRUBIN DIPSTICK (test code=BILU) NEGATIVE mg/dL NEGATIVE UA KETONE DIPSTICK (test code=KETU) NEGATIVE mg/dL NEGATIVE UA SPECIFIC GRAVITY (test code=SGU) 1.017 1.001-1.035 UA BLOOD DIPSTICK (test code=MILAGROS) Negative mg/dL NEGATIVE UA PH DIPSTICK (test code=TEA) 5.5 5.0-8.0 UA PROTEIN DIPSTICK (test code=PROU) NEGATIVE mg/dL NEGATIVE UA UROBILINIOGEN DIPSTICK (test code=URO) Normal mg/dL NEGATIVE UA NITRITE DIPSTICK (test code=ROSIE) NEGATIVE NEGATIVE UA LEUKOCYTE ESTERASE W REFLEX (test code=LEUUR) NEGATIVE Karma/uL NEGATIVE UA WBC (test code=WBCU) 0-5 per HPF 0-5 UA RBC (test code=RBCU) NONE SEEN per HPF 0-5 UA EPITHELIAL CELLS (test code=EPIU) None seen per HPF Few UA BACTERIA (test code=BACU) NONE SEEN per HPF NONE UA MUCUS (test code=MUCU) FEW #/LPF FEW Urine Source? Clean CatchURINALYSIS [id number] 12:05:00* Test Item Value Reference Range Comments UA COLOR (test code=COLU) Light-Yellow YELLOW UA APPEARANCE (test code=APPU) CLEAR CLEAR UA GLUCOSE DIPSTICK (test code=DGLUU) >1000 (4+) mg/dL NEGATIVE UA BILIRUBIN DIPSTICK (test code=BILU) NEGATIVE mg/dL NEGATIVE UA KETONE DIPSTICK (test code=KETU) NEGATIVE mg/dL NEGATIVE UA SPECIFIC GRAVITY (test code=SGU) 1.017 1.001-1.035 UA BLOOD DIPSTICK (test code=MILAGROS) Negative mg/dL NEGATIVE UA PH DIPSTICK (test code=TEA) 5.5 5.0-8.0 UA PROTEIN DIPSTICK (test code=PROU) NEGATIVE mg/dL NEGATIVE UA UROBILINIOGEN DIPSTICK (test code=URO) Normal mg/dL NEGATIVE UA NITRITE DIPSTICK (test code=ROSIE) NEGATIVE NEGATIVE UA LEUKOCYTE ESTERASE W REFLEX (test code=LEUUR) NEGATIVE Karma/uL NEGATIVE UA WBC (test code=WBCU) 0-5 per HPF 0-5 UA RBC (test code=RBCU) per HPF 0-5 UA EPITHELIAL CELLS (test code=EPIU) per HPF Few UA BACTERIA (test code=BACU) per HPF NONE UA MUCUS (test code=MUCU) FEW #/LPF FEW Urine Source? Clean CatchBASIC METABOLIC [id number] 11:45:00* Test Item Value Reference Range Comments SODIUM (test code=NA) 128 mmol/L 136-145 POTASSIUM (test code=K) 4.0 mmol/L 3.5-5.1 CHLORIDE (test code=CL) 89.0 mmol/L 98-107 CARBON DIOXIDE (test code=CO2) mmol/L 21-32 ANION GAP (test code=GAP) 10-20 GLUCOSE (test code=GLU) mg/dL 74-106 BLOOD UREA NITROGEN (test code=BUN) mg/dL 7-18 GLOMERULAR FILTRATION RATE (test code=GFR) mL/min >=60 CREATININE (test code=CREAT) mg/dL 0.7-1.3 BUN/CREATININE RATIO (test code=BUN/CREA) 10-20 CALCIUM (test code=CA) mg/dL 8.5-10.1 HEPATIC FUNCTION [id number] 11:45:00* Test Item Value Reference Range Comments TOTAL PROTEIN (test code=PROT) gram/dL 6.4-8.2 ALBUMIN (test code=ALB) g/dL 3.4-5.0 GLOBULIN (test code=GLOB) gram/dL 2.7-4.2 ALBUMIN/GLOBULIN RATIO (test code=A/G) 0.75-1.50 BILIRUBIN TOTAL (test code=BILT) mg/dL 0.0-1.0 BILIRUBIN DIRECT (test code=BILD) mg/dL 0.0-0.20 SGOT/AST (test code=AST) IUnit/L 15-37 SGPT/ALT (test code=ALT) IUnit/L 12-78 ALKALINE PHOSPHATASE TOTAL (test code=ALKP) IUnit/L 45-117 [id number] 11:45:00* Test Item Value Reference Range Comments LIPASE (test code=LIP) U/L 73.0-393.0 CBC W/O [id number] 11:37:00* Test Item Value Reference Range Comments WHITE BLOOD CELL (test code=WBC) 7.6 K/mm3 4.5-12.5 RED BLOOD CELL (test code=RBC) 4.96 mill/mm3 4.0-5.8 HEMOGLOBIN (test code=HGB) 15.6 gram/dL 13.0-17.5 HEMATOCRIT (test code=HCT) 44.8 % 42.0-52.0 MEAN CELL VOLUME (test code=MCV) 90.3 fL 80-98 MEAN CELL HGB (test code=MCH) 31.5 picogram 27.0-33.0 MEAN CELL HGB CONCETRATION (test code=MCHC) 34.8 gram/dL 33.0-36.0 RED CELL DISTRIBUTION WIDTH (test code=RDW) 12.1 % 11.6-16.2 PLATELET COUNT (test code=PLT) 252 K/mm3 150-450 MEAN PLATELET VOLUME (test code=MPV) 10.4 fL 6.7-11.0 CBC W/O [id number] 11:20:00* Test Item Value Reference Range Comments WHITE BLOOD CELL (test code=WBC) K/mm3 4.5-12.5 RED BLOOD CELL (test code=RBC) mill/mm3 4.0-5.8 HEMOGLOBIN (test code=HGB) 15.6 gram/dL 13.0-17.5 HEMATOCRIT (test code=HCT) 44.8 % 42.0-52.0 MEAN CELL VOLUME (test code=MCV) fL 80-98 MEAN CELL HGB (test code=MCH) picogram 27.0-33.0 MEAN CELL HGB CONCETRATION (test code=MCHC) gram/dL 33.0-36.0 RED CELL DISTRIBUTION WIDTH (test code=RDW) % 11.6-16.2 PLATELET COUNT (test code=PLT) K/mm3 150-450 MEAN PLATELET VOLUME (test code=MPV) fL 6.7-11.0
--- OUTSIDE RECORDS SUMMARY | 2019-07-14 14:26 | XMS REPORT ---
Author Author Admin, [facility] Organization Unknown Address Unknown Phone Unavailable PROBLEMS Condition Status Date Provider Notes Immunity status testing, antibody response active Nikolay Sol Hepatitis C antibody test positive active Nikolay Sol Skin lesions, multiple active Nikolay Sol Transaminases, serum, elevated active Nikolay Sol Vaccination for strep pneumonia with pneumovax completed - Nikolay Sol Vaccination against influenza completed - Nikolay Sol Screening, colon cancer active Nikolay Sol Myopia - OU active Angela Bhakhrani Astigmatism - OU active Angela Zambranoi Screening for std completed - Nikolay Sol Encounter for screening for eye and ear disorders active Josesito Perry Corneal scar, left active Efra Tariq Regular astigmatism, bilateral completed - Chad Navarro Myopia - OU completed - Chad Navarro URI completed - Chad Navarro Obesity active Radha Shrikanth Immunization update completed - Nikolay Sol Otitis media, right completed - Chad Navarro HYPERLIPIDEMIA active Chad Navarro Open angle with borderline findings, high risk, bilateral active Efar Tariq ENCOUNTERS Date Type Provider Location Encounter Diagnosis - [facility] [place] Eligibility UNK - Ambulatory Encounter Naina Cordova [facility] Services UNK - Ambulatory Encounter [facility] [place] [facility] - [facility] - [facility] UNK - Ambulatory Encounter Mac Hernandez [facility] [place] [facility]ender UNK - Ambulatory Encounter Nikolay Sol [facility] [place] Adult Medicine UNK - Ambulatory Encounter Nikolay Hicks [facility] [place] Adult Medicine Vaccination against influenzaVaccination for strep pneumonia with pneumovaxHepatitis C antibody test positiveImmunity status testing, antibody response - Ambulatory Encounter Nikolay Franco [facility], [facility] [place] Adult Medicine UNK - Ambulatory Encounter Paz Campbell [facility] [place] [facility]ender UNK - Ambulatory Encounter Mac Hernandez [facility] [place] [facility] [employer]ender UNK - Ambulatory Encounter Nikolay Sol [facility] [place] Adult Medicine UNK - Ambulatory Encounter Nikolay Sol [facility] [place] Adult Medicine UNK - Ambulatory Encounter Nikolay Sol [facility] [place] Adult Medicine UNK - Ambulatory Encounter Nikolay Armendariz [facility] [place] Adult Medicine UNK - Ambulatory Encounter Nikolay Franco [facility], [facility] [place] Adult Medicine UNK - Ambulatory Encounter Catina Jackson [facility] [place] Adult Medicine UNK - Ambulatory Encounter Antoni Hurtado [facility] [place] Adult Medicine UNK - Ambulatory Encounter Nikolay Sol [facility] [place] [place] Adult Medicine UNK - Ambulatory Encounter Fax Status [facility] Services UNK - Ambulatory Encounter F[facility] Status [facility] UNK - Ambulatory Encounter F[facility] Status [facility] UNK - Ambulatory Encounter Nikolay Sparrow [facility] [place] Adult Medicine UNK - Ambulatory Encounter [facility] [place] Care Coordination Desktop [facility] Contact Center UNK - Ambulatory Encounter Nikolay Sol [facility] [place] [place] Adult Medicine UNK - Ambulatory Encounter Nikolay Sol [facility] [place] [place] Adult Medicine UNK - Ambulatory Encounter Nikolay Sol [facility] [place] Adult Medicine UNK - Ambulatory Encounter Nikolay Sparrow [facility] [place] Adult Medicine Vaccination against influenzaVaccination for strep pneumonia with pneumovaxTransaminases, serum, elevatedSkin lesions, multiple - Ambulatory Encounter Nikolay Sol [facility] [place] Adult Medicine UNK - Ambulatory Encounter Dona Eng [facility] [place] Adult Medicine UNK - Ambulatory Encounter Concepcion Canales [place] [facility] UNK - Ambulatory Encounter Naina Cordova [facility] Services UNK - Ambulatory Encounter Nikolay Leigh [facility] UNK - Ambulatory Encounter Nikolay Sol [employer] [place] Adult Medicine UNK - Ambulatory Encounter Nikolay Sol [employer] [place] Adult Medicine UNK - Ambulatory Encounter Josesito Perry Josesito Delgado Perry [employer] [place] Vision UNK - Ambulatory Encounter Nikolay Sol Chloe Greenfield [facility] [place] [place] Adult Medicine UNK - Ambulatory Encounter Chad Navarro [facility] [place] [place] Adult Medicine UNK - Ambulatory Encounter Chad Navarro [employer] [place] [place] Adult Medicine UNK - Ambulatory Encounter Tracey Bacon [facility] UNK - Ambulatory Encounter Tracey Bacon [facility] UNK - Ambulatory Encounter Fax Status [facility] Services UNK - Ambulatory Encounter Fax Status [facility] Services UNK - Ambulatory Encounter Fax Status [facility] Services UNK - Ambulatory Encounter Nikolay Sol [facility] [place] Adult Medicine UNK - Ambulatory Encounter Nikolay Sparrow [facility] [place] [place] Adult Medicine Immunization updateScreening for stdScreening, colon cancer - Ambulatory Encounter Barb Lopez [facility] UNK - Ambulatory Encounter Josesito Perry Josesito Delgado [facility] Vision UNK - Ambulatory Encounter Anaya Hassan [facility] [place] Vision UNK - Ambulatory Encounter Angela Bhakhrani Angela Bhakhrani C Vision UNK - Ambulatory Encounter Josesito Machuca [facility] [place] Vision UNK - Ambulatory Encounter Angela Bhakhrani Angela Bhakhrani [facility] [place] Vision UNK - Ambulatory Encounter Angela Bhrobhrani Angela Bhrobhrani [facility] UNK - Ambulatory Encounter Angela Bhrobhrani Angela Bhrobhrani Anaya Machuca [facility] Astigmatism - OUMyopia - OU - Ambulatory Encounter Chad Tobiasan [facility] [place] Adult Medicine UNK - Ambulatory Encounter Chad Greenfield [facility] [place] Adult Medicine UNK - Ambulatory Encounter Chad Greenfield [facility] [place] Adult Medicine UNK - Ambulatory Encounter Chad CottrellLogjoy Greenfield [facility] [place] Adult Medicine UNK - Ambulatory Encounter Chad CottrellLogic Chloe Greenfield [facility] [place] Adult Medicine UNK - Ambulatory Encounter Chad CottrellLogic Chloe Greenfield [facility] [place] Adult Medicine UNK - Ambulatory Encounter Chad CottrellLogic [facility] [place] Adult Medicine UNK - Ambulatory Encounter Chad Rice LM Adult Medicine UNK - Ambulatory Encounter Chad Navarro LM Adult Medicine UNK - Ambulatory Encounter Chad Greenfield [facility] [place] Adult Medicine UNK - Ambulatory Encounter Chad Navarro [employer] Chloe Tobiasan [facility] [place] Adult Medicine UNK - [facility] - Ambulatory Encounter Valentina Hernandez [facility] [place] [place] Adult Medicine UNK - Ambulatory Encounter Chad Navarro LM Adult Medicine UNK - Ambulatory Encounter Chad Navarro [facility] UNK - Ambulatory Encounter Chad Navarro LM Adult Medicine UNK - Ambulatory Encounter Chad Navarro [facility] UNK - Ambulatory Encounter Chad Navarro [facility] [place] [place] Adult Medicine Screening for std - Ambulatory Encounter Chad Greenfield [facility] [place] Adult Medicine UNK - Ambulatory Encounter Enedelia Renetta [employer] Chloe Greenfield [facility] [place] Adult Medicine UNK - Ambulatory Encounter Chad Greenfield [facility] [place] Adult Medicine UNK - Ambulatory Encounter Chad Greenfield [facility] [place] Adult Medicine UNK - Ambulatory Encounter Enedelia Renetta [facility] Chloe Greenfield LM Adult Medicine UNK - Ambulatory Encounter Enedelia Renetta [employer] Chloe Greenfield [facility] [place] [place] Adult Medicine UNK - Ambulatory Encounter Enedelia Renetta [facility] UNK - Ambulatory Encounter Enedelia Renetta [facility] UNK - Ambulatory Encounter Chad Navarro Enedelia Renetta [facility] Adult Medicine UNK - Ambulatory Encounter Enedelia Renetta [facility] UNK - Ambulatory Encounter Enedelia Renetta [facility] LM Adult Medicine UNK - Ambulatory Encounter Enedelia Renetta [facility] LM Adult Medicine UNK - Ambulatory Encounter Chad Navarro [facility] UNK - Ambulatory Encounter Chad Avilez [facility] UNK - Ambulatory Encounter Chad Navarro [facility] UNK - Ambulatory Encounter Chad Navarro [facility] UNK - Ambulatory Encounter Chad Navarro [facility] UNK - Ambulatory Encounter Chad Navarro [facility] UNK - Ambulatory Encounter Chad Navarro [facility] UNK - Ambulatory Encounter Chad Barajas C Adult Medicine URIMyopia - OURegular astigmatism, bilateral - Ambulatory Encounter Milana Lopez [facility] UNK - Ambulatory Encounter [facility] UNK - Ambulatory Encounter Chad Jackson [facility] UNK - Ambulatory Encounter Enedelia Jackson [facility] UNK - Ambulatory Encounter Chad Jackson [facility] Adult Medicine UNK - Ambulatory Encounter Enedelia Renetta [facility] UNK - Ambulatory Encounter Radha Posey [facility] UNK - Ambulatory Encounter Josesito Perry [facility] UNK - Ambulatory Encounter Efra Tariq C Vision UNK - Ambulatory Encounter Efra Tariq [facility] UNK - Ambulatory Encounter Efra Edmond [facility] UNK - Ambulatory Encounter Radha Posey [employer] [place] [place] Adult Medicine UNK - Ambulatory Encounter Efra Tariq [facility] UNK - Ambulatory Encounter Efra Tariq [facility] UNK - Ambulatory Encounter Josesito Perry C Vision UNK - Ambulatory Encounter Josesito Perry [facility] [place] Vision UNK - Ambulatory Encounter Tracey Bacon [facility] UNK - Ambulatory Encounter Josesito Perry Tracey Bacon [facility] [place] Vision Encounter for screening for eye and ear disorders - Ambulatory Encounter Efra Tariq [facility] UNK - Ambulatory Encounter Efra Tariq [facility] UNK - Ambulatory Encounter Efra Edmond LM Vision Open angle with borderline findings, high risk, bilateralMyopia - OURegular astigmatism, bilateralCorneal scar, left - Ambulatory Encounter Chad Navarro [employer] [place] Adult Medicine UNK - Ambulatory Encounter F[facility] - Ambulatory Encounter Fax Status [facility] UNK - Ambulatory Encounter [facility] - Ambulatory Encounter Radha Posey [facility] [place] [place] Adult Medicine UNK - Ambulatory Encounter Radha Rowlandmarlonishan [facility] UNK - Ambulatory Encounter Radha Rowlandmarlonishan [facility] UNK - Ambulatory Encounter Radha Rowlandmarlonishan Jen Lopez [facility] Adult Medicine UNK - Ambulatory Encounter Radha Posey Jenrai Lopez Stephanie Whittaker [facility] Adult Medicine UNK - Ambulatory Encounter Chad Navarro [facility] UNK - Ambulatory Encounter Chad Navarro [facility] UNK - Ambulatory Encounter Chad Greenfield [facility] Adult Medicine UNK - Ambulatory Encounter Lina Dias [facility] Adult Medicine UNK - Ambulatory Encounter Yuko Edmond [facility] UNK - Ambulatory Encounter Chad Veliz [facility] Services [facility] Center UNK - Ambulatory Encounter Chad Navarro [facility] UNK - Ambulatory Encounter Chad Navarro [facility] Adult [facility] UNK - Ambulatory Encounter Chad Hodgsonard [facility] Adult Medicine URI - Ambulatory Encounter Lina Dias [facility] Adult Medicine UNK - Ambulatory Encounter Chad Navarro [facility] UNK - Ambulatory Encounter Chad Navarro [facility] Adult [facility] UNK - Ambulatory Encounter Robert Mott [facility] Adult Medicine UNK - Ambulatory Encounter Robert Mott LM Adult Medicine UNK - Ambulatory Encounter [facility] - Ambulatory Encounter Radha Posey [facility] Adult Medicine UNK - Ambulatory Encounter Radha Rowlandnth [facility] Adult Medicine UNK - Ambulatory Encounter Radha Morah [facility] Adult Medicine UNK - Ambulatory Encounter Radha Morah LM Adult Medicine UNK - Ambulatory Encounter Christopher Chano [facility] Services UNK - Ambulatory Encounter Radha Morah Link[facility]ic LM Adult Medicine UNK - Ambulatory Encounter [facility] - Ambulatory Encounter Christopher Chano [facility] Services UNK - Ambulatory Encounter Radha Morah LM Adult Medicine UNK - Ambulatory Encounter Radha Morah [facility] UNK - Ambulatory Encounter Chad Navarro [facility] UNK - Ambulatory Encounter Chad Washburnophjoshua Madden [facility] Adult Medicine Otitis media, right - Ambulatory Encounter Radha Morah [facility] UNK - Ambulatory Encounter Radha Morah [facility] UNK - Ambulatory Encounter Lina Dias [facility] Adult Medicine UNK - Ambulatory Encounter Radha Posey [facility] UNK - Ambulatory Encounter Scott Roger Zhao LM Adult Medicine UNK - Ambulatory Encounter Fax Status [facility] UNK - Ambulatory Encounter Fax Status [facility]K - Ambulatory Encounter Fax Status [facility] UNK - Ambulatory Encounter Nikolay Sol LM Adult Medicine UNK - Ambulatory Encounter Nikolay Castellanos LM Adult Medicine UNK - Ambulatory Encounter Razia Azul [facility] UNK - Ambulatory Encounter Radha Posey [facility] UNK - Ambulatory Encounter Radha Posey [facility] Adult Medicine UNK - Ambulatory Encounter Radha Posey [facility] UNK - Ambulatory Encounter Radha Posey [facility] Adult Medicine UNK - Ambulatory Encounter Radha Posey [facility] UNK - Ambulatory Encounter Chad Greenfield [facility] Adult Medicine UNK - Ambulatory Encounter Enedelia Jackson [facility] Chloe Greenfield [facility] Adult Medicine UNK - Ambulatory Encounter Radha Posey [facility] UNK - Ambulatory Encounter Radha Wellingtonrai CastanedaJohn [facility] Adult Medicine Otitis media, rightImmunization updateObesity - Ambulatory Encounter Jenrichelle Lopez [facility] UNK - Ambulatory Encounter Radha Posey [facility] Adult [facility] UNK - Ambulatory Encounter [facility] UNK - Ambulatory Encounter Chad Greenfield [facility] [place] [place] Adult Medicine UNK - Ambulatory Encounter Enedelia Renetta [employer] Chloe Greenfield [facility] [place] [place] Adult Medicine UNK - Ambulatory Encounter Radha King LM Adult Medicine UNK - Ambulatory Encounter Chad Greenfield [facility] [place] [place] Adult Medicine UNK - Ambulatory Encounter Chda Greenfield LM Adult Medicine UNK - Ambulatory Encounter Chad Greenfield LM Adult Medicine UNK - Ambulatory Encounter Chad Greenfield LM Adult Medicine UNK - Ambulatory Encounter Chad Greenfield [facility] Adult Medicine UNK - Ambulatory Encounter Enedelia Renetta [facility] Chloe Greenfield [facility] Adult Medicine UNK - Ambulatory Encounter Enedelia Renetta LinkLogic Chloe Greenfield LM Adult Medicine UNK - Ambulatory Encounter Enedelia Renetta LinkLog[employer] Chloe Greenfield LM Adult Medicine UNK - Ambulatory Encounter Enedelia Renetta [employer]Log[employer] Chloe Greenfield LM Adult Medicine UNK - Ambulatory Encounter Enedelia Renetta [facility]Log[facility] Chloe Greenfield [facility] Adult Medicine UNK - Ambulatory Encounter Chad Navarro Enedelia Renetta [facility] Adult Medicine UNK - Ambulatory Encounter Chad Navarro Enedelia Renetta [facility] Adult Medicine UNK - Ambulatory Encounter Chad Navarro Enedelia Renetta [facility] Adult Medicine UNK - Ambulatory Encounter Chad Navarro Enedelia Renetta [facility] Adult Medicine UNK - Ambulatory Encounter Chad Navarro Enedelia Renetta [facility] Adult Medicine UNK - Ambulatory Encounter Enedelia Renetta [facility] Adult Medicine UNK - Ambulatory Encounter Enedelia Renetta [facility] Adult Medicine UNK - Ambulatory Encounter Enedelia Renetta [facility] Adult Medicine UNK - Ambulatory Encounter Enedelia Renetta [facility] Adult [facility] UNK - Ambulatory Encounter Enedelia Renetta [facility] Adult [facility] UNK - Ambulatory Encounter Lambert Jones [facility] Adult Medicine UNK - Ambulatory Encounter Chad Navarro [facility] Services UNK - Ambulatory Encounter Lambert Jones [facility] Adult Medicine UNK - Ambulatory Encounter Josesito Perry [facility] UNK - Ambulatory Encounter Efra Tariq [facility] UNK - Ambulatory Encounter Tracey Bacon [facility] UNK - Ambulatory Encounter Lambert Jones [facility] Adult Medicine UNK - Ambulatory Encounter Josesito Perry [facility] UNK - Ambulatory Encounter Yuko Edmond [facility] UNK - Ambulatory Encounter Efrajanet Tariq [facility] UNK - Ambulatory Encounter Chad Navarro [facility] UNK - Ambulatory Encounter Josesito Perry [facility] UNK - Ambulatory Encounter Josesito Perry [facility] UNK - Ambulatory Encounter Josesito Perry Traceyrai HaBacon [facility] UNK - Ambulatory Encounter Efra Tariq [facility] UNK - Ambulatory Encounter Efra Tariq [facility] UNK - Ambulatory Encounter Efra Tariq [facility] UNK - Ambulatory Encounter Efra Edmond [facility] - Ambulatory Encounter Chad Navarro [facility] UNK - Ambulatory Encounter Chad Navarro [facility] Adult [facility] UNK - Ambulatory Encounter Chad Navarro [facility] Adult [facility] UNK - Ambulatory Encounter Chad Jackson [facility] Adult Medicine UNK - Ambulatory Encounter Chad Jackson [facility] Adult Medicine UNK - Ambulatory Encounter Enedelia Jackson [facility] Adult Medicine UNK - Ambulatory Encounter Chad Jackson [facility] Adult Medicine UNK - Ambulatory Encounter Enedelia Renetta [facility] Adult Medicine UNK - Ambulatory Encounter Chad Navarro Enedelia Renetta [facility] Adult Medicine UNK - Ambulatory Encounter Enedelia Renetta [facility] Adult Medicine UNK - Ambulatory Encounter Enedelia Renetta [facility] Adult Medicine UNK - Ambulatory Encounter Enedelia Renetta [facility] Adult Medicine UNK - Ambulatory Encounter Enedelia Renetta [facility] Adult Medicine UNK - Ambulatory Encounter Dona You LM Adult Medicine UNK - Ambulatory Encounter Dona You [facility] Adult Medicine UNK - Ambulatory Encounter Dona You [facility] Adult Medicine UNK - Ambulatory Encounter Dona You [facility] Adult Medicine UNK - Ambulatory Encounter Enedelia Renetta LinkLogic Dona You [facility] Adult Medicine UNK - Ambulatory Encounter Enedelia Renetta LinkLogic Dona You [facility] Adult Medicine UNK - Ambulatory Encounter Enedelia Renetta LinkLog[facility] Dona You [facility] Adult Medicine UNK - Ambulatory Encounter Enedelia Renetta [facility] Dona oYu [facility] Adult Medicine UNK - Ambulatory Encounter Merry Garcia [facility] UNK - Ambulatory Encounter Chad Navarro LinkLogic Maria Eugenia Del Cidro LM Adult Medicine UNK - Ambulatory Encounter Chad Navarro [facility] Adult Medicine UNK - Ambulatory Encounter Merry Garcia [facility] [place] [place] Grain Blender UNK - Ambulatory Encounter Chad Ruggiero LM Adult Medicine HYPERLIPIDEMIA - Ambulatory Encounter Cha Girard-Michael LM Adult Medicine UNK - Ambulatory Encounter Chad Navarro LinkLogic LM Adult Medicine UNK - Ambulatory Encounter Chad Navarro LinkLogic LM Adult Medicine UNK - Ambulatory Encounter Chad Ren [facility] [place] Adult Medicine UNK - Ambulatory Encounter Chad Rodriges [facility] [place] Adult Medicine UNK - Ambulatory Encounter Enedelia Renetta LinkLogic Lou Ren [facility] [place] Adult Medicine UNK - Ambulatory Encounter Mario Bardales [facility] [place] Adult Medicine UNK - Ambulatory Encounter Chad Ren [facility] [place] Adult Medicine UNK - Ambulatory Encounter Enedelia Renetta LinkLogic Lou Ren [facility] [place] Adult Medicine UNK - Ambulatory Encounter Enedelia Renetta LinkLogic Lou Ren [facility] [place] Adult Medicine UNK - Ambulatory Encounter Cha Girard-Michael LM Adult Medicine UNK - Ambulatory Encounter Renee Palafox [facility] [place] Dental UNK - Ambulatory Encounter Chad Ren [facility] [place] Adult Medicine UNK - Ambulatory Encounter Enedelia Renetta LinkLogic Lou Ren [facility] [place] Adult Medicine UNK - Ambulatory Encounter Chad You [facility] [place] Adult Medicine UNK - Ambulatory Encounter Enedelia Renetta LinkLogic Dona You [facility] [place] [place] Adult Medicine UNK - Ambulatory Encounter Chad Peoples [facility] UNK - Ambulatory Encounter Enedelia Jackson LinkLogjoy Peoples [facility] Adult Medicine UNK - Ambulatory Encounter Chad Jackson [facility] Adult Medicine UNK - Ambulatory Encounter Enedelia Jackson LinkLogjoy Navarro [facility] Adult Medicine UNK - Ambulatory Encounter Chad Navarro [facility] Adult Medicine UNK - Ambulatory Encounter Chad Navarro [facility] Adult Medicine UNK - Ambulatory Encounter Chad Ruggiero [facility] Adult Medicine UNK - Ambulatory Encounter Aurora Vail [facility] Adult Medicine UNK - Ambulatory Encounter Chad Navarro [facility] Adult [facility] UNK - Ambulatory Encounter Cha Arriaza [facility] Adult Medicine UNK - Ambulatory Encounter Chad Navarro [facility] Services UNK - Ambulatory Encounter Chad Navarro [facility] Adult Medicine UNK - Ambulatory Encounter Chad Navarro [facility] Adult Medicine UNK - Ambulatory Encounter Chad Mitchell [facility] Adult Medicine UNK - Ambulatory Encounter Robert Mott [facility] UNK - Ambulatory Encounter Chad Ren [facility] UNK - Ambulatory Encounter Enedelia Jackson [facility] Ren [facility] UNK - Ambulatory Encounter Chad Navarro Enedelia Renetta [facility] UNK - Ambulatory Encounter Enedelia Renetta [facility] UNK - Ambulatory Encounter Kathe See [facility] UNK - Ambulatory Encounter Lou Mikal [facility] UNK - Ambulatory Encounter Lou Mikal [facility] UNK - Ambulatory Encounter Enedelia Renetta [facility] Lou Mikal [facility] UNK - Ambulatory Encounter Enedelia Renetta [facility] Lou Mikal [facility] UNK - Ambulatory Encounter Enedelia Renetta [facility] UNK - Ambulatory Encounter Enedelia Renetta [facility] UNK - Ambulatory Encounter Enedelia Renetta [facility] UNK - Ambulatory Encounter Enedelia Renetta [facility] UNK - Ambulatory Encounter Enedelia Renetta [facility] UNK - Ambulatory Encounter Enedelia Renetta [facility] UNK - Ambulatory Encounter Lou Mikal [facility] UNK - Ambulatory Encounter Lou Mikal [facility] UNK - Ambulatory Encounter Enedelia Renetta [facility] Lou Mikal [facility] UNK - Ambulatory Encounter Enedelia Renetta [facility] Lou Mikal [facility] UNK - Ambulatory Encounter Chad Navarro [facility] UNK - Ambulatory Encounter Gracie Jansen [facility] UNK - Ambulatory Encounter Chad Galeas [facility] - Ambulatory Encounter Chad Navarro Enedelia Renetta [facility] UNK - Ambulatory Encounter Enedelia Renetta [facility] Chad Navarro [facility] UNK - Ambulatory Encounter Chad Navarro Chelsi Fierro [facility] UNK - Ambulatory Encounter Enedelia Renetta [facility] Chelsi Fierro [facility] UNK - Ambulatory Encounter Chad Navarro [facility] UNK - Ambulatory Encounter Chad Navarro [facility] UNK - Ambulatory Encounter Chad Navarro Enedelia Renetta [facility] UNK - Ambulatory Encounter Chad Navarro Enedelia Renetta [facility] UNK - Ambulatory Encounter Enedelia Renetta [facility] UNK - Ambulatory Encounter Chad Navarro Enedelia Renetta [facility] UNK - Ambulatory Encounter Chad Navarro Enedelia Renetta [facility] UNK - Ambulatory Encounter Chad Navarro Enedelia Renetta [facility] UNK - Ambulatory Encounter Enedelia Renetta [facility] UNK - Ambulatory Encounter Enedelia Renetta [facility] UNK - Ambulatory Encounter Enedelia Renetta [facility] UNK - Ambulatory Encounter Efra Tariq [facility] UNK - Ambulatory Encounter Tracey Bacon [facility] UNK - Ambulatory Encounter Yuko Edmond [facility] UNK - Ambulatory Encounter Efra Tariq Yuko Edmond [facility] UNK - Ambulatory Encounter Yuko Edmond [facility] UNK - Ambulatory Encounter Yuko Edmond [facility] UNK - Ambulatory Encounter Josesito Sandy Orlando Bellamy Sandy Perry [facility] UNK - Ambulatory Encounter Efra Tariq Yuko Edmond [facility] Open angle with borderline findings, high risk, bilateral - Ambulatory Encounter Chad Navarro [facility] [place] Adult Medicine UNK - Ambulatory Encounter Chad Nevarez [facility] [place] Adult Medicine - Ambulatory Encounter Dona You [facility] [place] Adult Medicine UNK - Ambulatory Encounter Chad Navarro [facility] Adult Medicine UNK - Ambulatory Encounter Chad CottrellLogic [facility] [place] Adult Medicine UNK - Ambulatory Encounter Chad Velázquez [facility] [place] Adult Medicine UNK - Ambulatory Encounter Renée Zavala [facility] UNK - Ambulatory Encounter Renée Zavala [facility] UNK - Ambulatory Encounter Dona You [facility] [place] Adult Medicine UNK - Ambulatory Encounter Chad You [facility] [place] Adult Medicine UNK - Ambulatory Encounter Dona You [facility] UNK - Ambulatory Encounter Chad You [facility] Adult Medicine UNK - Ambulatory Encounter Chelsijohn Monroyamillo [facility] Medicine UNK - Ambulatory Encounter Chelsijohn Monroyamillo [facility] Medicine UNK - Ambulatory Encounter Venkata Michaels [facility] Adult Medicine - Ambulatory Encounter Chad Navarro [facility] UNK - Ambulatory Encounter Chad Navarro [facility] UNK - Ambulatory Encounter Chad Navarro [facility] UNK - Ambulatory Encounter Chad Navarro [facility] UNK - Ambulatory Encounter Chad Navarro [facility] UNK - Ambulatory Encounter Chad Navarro [facility] UNK - Ambulatory Encounter Elise Mejia [facility] - Ambulatory Encounter Martita Michaels [facility] [place] Adult Medicine - Ambulatory Encounter Yaya CottrellLogic Test Location of Care UNK - Ambulatory Encounter Yaya Olsen [facility] Test [facility] of Care UNK - [facility] [place] [facility] - [facility] [place] [facility] UNK - Ambulatory Encounter [facility] Lab Provider [facility] - Ambulatory Encounter [facility] Lab Provider [facility] - Ambulatory Encounter [facility] Lab Provider [facility] - Ambulatory Encounter [facility] Lab Provider [facility] VITAL SIGNS No Information Available Allergies No Known Allergy Information REASON FOR REFERRAL Start Date - End Date Service - Colonoscopy, Screening - External - Ultrasound - Liver and Gallbladder RESULTS Date Observation Value Provider Reference Range Interpretation Location blood glucose, random 226 mg/dL Tangela Reyados Neisseria gonorrhoeae DNA probe Negative Link[facility] Negative " chlamydia DNA probe Negative [facility] Negative hepatitis B surface antigen Negative [facility] Negative " hepatitis C antibody, serum >11.0 [facility] 0.0-0.9 High " rapid plasma reagin antibody, serum Non Reactive [facility] Non Reactive " HIV-1RNA, serum, by PCR, quantitative <20 copies/mL [facility] " alanine aminotransferase (SGPT), serum 65 1/L [facility] 0-44 High " aspartate aminotransferase (SGOT), serum 33 1/L [facility] 0-40 " alkaline phosphatase, serum 80 1/L [facility] 39-117 " bilirubin, serum, total 0.6 mg/dL [facility] 0.0-1.2 " albumin/globulin ratio, serum 1.6 [facility] 1.2-2.2 " globulin, serum 2.8 [facility] 1.5-4.5 " albumin, serum 4.6 g/dL [facility] 3.5-5.5 " protein, total, serum 7.4 g/dL [facility] 6.0-8.5 " calcium, serum 10.0 mg/dL [facility] 8.7-10.2 " carbon dioxide, venous blood 21 mmol/L [facility] 20-29 " chloride, serum 97 mmol/L [facility] 96-106 " potassium, serum 4.1 mmol/L [facility] 3.5-5.2 " sodium, serum 137 mmol/L [facility] 134-144 " urea nitrogen/creatinine ratio, serum 19 [facility] 9-20 " eGFR if 109 mL/min/((173/100).m2) [facility] >59 " Estimated Glomerular Filtration Rate (calc) 95 mL/min/((173/100).m2) [facility] >59 " creatinine, serum 0.88 mg/dL [facility] 0.76-1.27 " urea nitrogen, blood 17 mg/dL [facility] 6-24 " blood glucose, random 313 mg/dL [facility] 65-99 High " immature granulocytes, percentage of total cells, blood 0 % [facility] Not Estab. " basophil count, absolute 0.0 x10E3/uL [facility] 0.0-0.2 " Eosinophil Absolute Count 0.4 X10E3/UL [facility] 0.0-0.4 " monocyte count, blood, automated 0.5 X10E3/UL [facility] 0.1-0.9 " lymphocyte count, blood, automated 2.1 X10E3/UL [facility] 0.7-3.1 " Absolute Neutrophils 3.0 X10E3/UL [facility] 1.4-7.0 " basophils as percent of blood leukocytes 1 % [facility] Not Estab. " eosinophils as percent of blood leukocytes 7 % [facility] Not Estab. " monocytes as percent of blood leukocytes 8 % [facility] Not Estab. " lymphocytes as percent of blood leukocytes 34 % [facility] Not Estab. " neutrophils as percent of blood leukocytes 50 % [facility] Not Estab. " platelet count 218 X10E3/UL [facility] 150-379 " red blood cell distribution width 14.2 % [facility] 12.3-15.4 " mean corpuscular hemoglobin concentration, RBC 34.8 G/DL [facility] 31.5-35.7 " mean corpuscular hemoglobin, RBC 32.1 pg [facility] 26.6-33.0 " mean corpuscular volume, RBC 92 fL [facility] 79-97 " hematocrit, blood 49.1 % [facility] 37.5-51.0 " hemoglobin, blood 17.1 g/dL [facility] 13.0-17.7 " erythrocyte (RBC) count 5.32 X10E6/UL [facility] 4.14-5.80 " leukocyte count, blood 6.1 X10E3/UL [facility] 3.4-10.8 " CD4/CD8 ratio 0.99 [facility] 0.92-3.72 " T-suppressor cells (CD8) as percent of blood lymphocytes 36.4 % [facility] 12.0-35.5 High " absolute CD8 764 Link[facility] 109-897 " T-helper cells (CD4) as percent of blood lymphocytes 36.0 % [facility] 30.8-58.5 " T-helper cells (CD4) count 756 /UL [facility] [phone] LDL cholesterol, serum TRIGHI mg/dL [facility] 0-99 " very low density lipoproteins VLDLCH mg/dL [facility] 5-40 " HDL cholesterol, serum 52 mg/dL [facility] >39 " triglyceride, serum, fasting 615 mg/dL [facility] 0-149 Panic high " cholesterol, serum 276 mg/dL [facility] 100-199 High blood glucose, random 268 mg/dL Nikolay Sol rapid plasma reagin antibody, serum Non Reactive [facility]ic Non Reactive " hemoglobin A1C, blood, as % of total hemoglobin 9.3 % [facility] 4.8-5.6 High " HIV-1RNA, serum, by PCR, quantitative <20 copies/mL [facility] " LDL cholesterol, serum 139 mg/dL [facility] 0-99 High " very low density lipoproteins 77 mg/dL [facility] 5-40 High " HDL cholesterol, serum 60 mg/dL [facility] >39 " triglyceride, serum, fasting 387 mg/dL [facility] 0-149 High " cholesterol, serum 276 mg/dL [facility] 100-199 High " alanine aminotransferase (SGPT), serum 66 1/L [facility] 0-44 High " aspartate aminotransferase (SGOT), serum 43 1/L [facility] 0-40 High " alkaline phosphatase, serum 93 1/L [facility] 39-117 " bilirubin, serum, total 1.4 mg/dL [facility] 0.0-1.2 High " albumin/globulin ratio, serum 1.6 [facility] 1.2-2.2 " globulin, serum 2.7 [facility] 1.5-4.5 " albumin, serum 4.4 g/dL [facility] 3.5-5.5 " protein, total, serum 7.1 g/dL [facility] 6.0-8.5 " calcium, serum 9.6 mg/dL [facility] 8.7-10.2 " carbon dioxide, venous blood 24 mmol/L [facility] 20-29 " chloride, serum 97 mmol/L [facility] 96-106 " potassium, serum 4.3 mmol/L [facility] 3.5-5.2 " sodium, serum 137 mmol/L [facility] 134-144 " urea nitrogen/creatinine ratio, serum 22 [facility] 9-20 High " eGFR if 94 mL/min/((173/100).m2) [facility] >59 " Estimated Glomerular Filtration Rate (calc) 82 mL/min/((173/100).m2) [facility] >59 " creatinine, serum 1.01 mg/dL [facility] 0.76-1.27 " urea nitrogen, blood 22 mg/dL [facility] 6-24 " blood glucose, random 295 mg/dL [facility] 65-99 High " immature granulocytes, percentage of total cells, blood 0 % [facility] Not Estab. " basophil count, absolute 0.0 x10E3/uL [facility] 0.0-0.2 " Eosinophil Absolute Count 0.3 X10E3/UL [facility] 0.0-0.4 " monocyte count, blood, automated 0.6 X10E3/UL [facility] 0.1-0.9 " lymphocyte count, blood, automated 2.3 X10E3/UL [facility] 0.7-3.1 " Absolute Neutrophils 3.9 X10E3/UL [facility] 1.4-7.0 " basophils as percent of blood leukocytes 0 % [facility] Not Estab. " eosinophils as percent of blood leukocytes 4 % [facility] Not Estab. " monocytes as percent of blood leukocytes 8 % [facility] Not Estab. " lymphocytes as percent of blood leukocytes 32 % [facility] Not Estab. " neutrophils as percent of blood leukocytes 56 % [facility] Not Estab. " platelet count 199 X10E3/UL [facility] 150-379 " red blood cell distribution width 14.5 % [facility] 12.3-15.4 " mean corpuscular hemoglobin concentration, RBC 34.8 G/DL [facility] 31.5-35.7 " mean corpuscular hemoglobin, RBC 33.5 pg [facility] 26.6-33.0 High " mean corpuscular volume, RBC 96 fL [facility] 79-97 " hematocrit, blood 49.7 % [facility] 37.5-51.0 " hemoglobin, blood 17.3 g/dL [facility] 13.0-17.7 " erythrocyte (RBC) count 5.16 X10E6/UL [facility] 4.14-5.80 " leukocyte count, blood 7.2 X10E3/UL [facility] 3.4-10.8 " CD4/CD8 ratio 0.95 [facility] 0.92-3.72 " T-suppressor cells (CD8) as percent of blood lymphocytes 36.2 % [facility] 12.0-35.5 High " absolute CD8 833 [facility] 109-897 " T-helper cells (CD4) as percent of blood lymphocytes 34.5 % [facility] 30.8-58.5 " T-helper cells (CD4) count 794 /UL [facility] [id number] rapid plasma reagin antibody, serum Non Reactive [facility]ic Non Reactive " HIV-1RNA, serum, by PCR, quantitative 60 /mL [facility] " LDL cholesterol, serum TRIGHI mg/dL [facility] 0-99 " very low density lipoproteins VLDLCH mg/dL [facility] 5-40 " HDL cholesterol, serum 50 mg/dL [facility] >39 " triglyceride, serum, fasting 627 mg/dL [facility] 0-149 Panic high " cholesterol, serum 225 mg/dL [facility] 100-199 High " alanine aminotransferase (SGPT), serum 69 1/L [facility] 0-44 High " aspartate aminotransferase (SGOT), serum 36 1/L [facility] 0-40 " alkaline phosphatase, serum 93 1/L [facility] 39-117 " bilirubin, serum, total 1.0 mg/dL [facility] 0.0-1.2 " albumin/globulin ratio, serum 1.7 [facility] 1.2-2.2 " globulin, serum 2.7 [facility] 1.5-4.5 " albumin, serum 4.5 g/dL [facility] 3.5-5.5 " protein, total, serum 7.2 g/dL [facility] 6.0-8.5 " calcium, serum 9.9 mg/dL [facility] 8.7-10.2 " carbon dioxide, venous blood 21 mmol/L [facility] 18-29 " chloride, serum 100 mmol/L [facility] 96-106 " potassium, serum 4.3 mmol/L [facility] 3.5-5.2 " sodium, serum 140 mmol/L [facility] 134-144 " urea nitrogen/creatinine ratio, serum 24 [facility] 9-20 High " eGFR if 118 mL/min/((173/100).m2) [facility] >59 " Estimated Glomerular Filtration Rate (calc) 102 mL/min/((173/100).m2) [facility] >59 " creatinine, serum 0.75 mg/dL [facility] 0.76-1.27 Low " urea nitrogen, blood 18 mg/dL [facility] 6-24 " blood glucose, random 120 mg/dL [facility] 65-99 High " immature granulocytes, percentage of total cells, blood 0 % [facility] Not Estab. " basophil count, absolute 0.0 x10E3/uL [facility] 0.0-0.2 " Eosinophil Absolute Count 0.5 X10E3/UL [facility] 0.0-0.4 High " monocyte count, blood, automated 0.5 X10E3/UL [facility] 0.1-0.9 " lymphocyte count, blood, automated 2.5 X10E3/UL [facility] 0.7-3.1 " Absolute Neutrophils 3.5 X10E3/UL [facility] 1.4-7.0 " basophils as percent of blood leukocytes 0 % [facility] Not Estab. " eosinophils as percent of blood leukocytes 7 % [facility] Not Estab. " monocytes as percent of blood leukocytes 7 % [facility] Not Estab. " lymphocytes as percent of blood leukocytes 36 % [facility] Not Estab. " neutrophils as percent of blood leukocytes 50 % [facility] Not Estab. " platelet count 251 X10E3/UL [facility] 150-379 " red blood cell distribution width 14.2 % [facility] 12.3-15.4 " mean corpuscular hemoglobin concentration, RBC 35.1 G/DL [facility] 31.5-35.7 " mean corpuscular hemoglobin, RBC 32.7 pg [facility] 26.6-33.0 " mean corpuscular volume, RBC 93 fL [facility] 79-97 " hematocrit, blood 46.5 % [facility] 37.5-51.0 " hemoglobin, blood 16.3 g/dL [facility] 13.0-17.7 " erythrocyte (RBC) count 4.98 X10E6/UL [facility] 4.14-5.80 " leukocyte count, blood 7.1 X10E3/UL [facility] 3.4-10.8 " CD4/CD8 ratio 1.06 [facility] 0.92-3.72 " T-suppressor cells (CD8) as percent of blood lymphocytes 38.8 % [facility] 12.0-35.5 High " absolute CD8 970 [facility] 109-897 High " T-helper cells (CD4) as percent of blood lymphocytes 41.2 % [facility] 30.8-58.5 " T-helper cells (CD4) count 1030 /UL [facility] [id number] rapid plasma reagin antibody, serum Non Reactive LinkLog Non Reactive " HIV-1RNA, serum, by PCR, quantitative <20 copies/mL [facility] " LDL cholesterol, serum TRIGHI mg/dL [facility] 0-99 " very low density lipoproteins VLDLCH mg/dL [facility] 5-40 " HDL cholesterol, serum 51 mg/dL [facility] >39 " triglyceride, serum, fasting 839 mg/dL [facility] 0-149 Panic high " cholesterol, serum 269 mg/dL [facility] 100-199 High " alanine aminotransferase (SGPT), serum 93 1/L [facility] 0-44 High " aspartate aminotransferase (SGOT), serum 55 1/L [facility] 0-40 High " alkaline phosphatase, serum 92 1/L [facility] 39-117 " bilirubin, serum, total 2.0 mg/dL [facility] 0.0-1.2 High " albumin/globulin ratio, serum 1.6 [facility] 1.2-2.2 " globulin, serum 2.9 [facility] 1.5-4.5 " albumin, serum 4.5 g/dL [facility] 3.5-5.5 " protein, total, serum 7.4 g/dL [facility] 6.0-8.5 " calcium, serum 9.9 mg/dL [facility] 8.7-10.2 " carbon dioxide, venous blood 23 mmol/L [facility] 18-29 " chloride, serum 95 mmol/L [facility] 96-106 Low " potassium, serum 4.6 mmol/L [facility] 3.5-5.2 " sodium, serum 137 mmol/L [facility] 134-144 " urea nitrogen/creatinine ratio, serum 18 [facility] 9-20 " eGFR if 108 mL/min/((173/100).m2) [facility] >59 " Estimated Glomerular Filtration Rate (calc) 93 mL/min/((173/100).m2) [facility] >59 " creatinine, serum 0.91 mg/dL [facility] 0.76-1.27 " urea nitrogen, blood 16 mg/dL [facility] 6-24 " blood glucose, random 254 mg/dL [facility] 65-99 High " immature granulocytes, percentage of total cells, blood 0 % [facility] Not Estab. " basophil count, absolute 0.0 x10E3/uL [facility] 0.0-0.2 " Eosinophil Absolute Count 0.4 X10E3/UL [facility] 0.0-0.4 " monocyte count, blood, automated 0.5 X10E3/UL [facility] 0.1-0.9 " lymphocyte count, blood, automated 2.0 X10E3/UL [facility] 0.7-3.1 " Absolute Neutrophils 2.7 X10E3/UL [facility] 1.4-7.0 " basophils as percent of blood leukocytes 0 % [facility] Not Estab. " eosinophils as percent of blood leukocytes 7 % [facility] Not Estab. " monocytes as percent of blood leukocytes 9 % [facility] Not Estab. " lymphocytes as percent of blood leukocytes 35 % [facility] Not Estab. " neutrophils as percent of blood leukocytes 49 % [facility] Not Estab. " platelet count 206 X10E3/UL [facility] 150-379 " red blood cell distribution width 14.4 % [facility] 12.3-15.4 " mean corpuscular hemoglobin concentration, RBC 35.5 G/DL [facility] 31.5-35.7 " mean corpuscular hemoglobin, RBC 33.1 pg [facility] 26.6-33.0 High " mean corpuscular volume, RBC 93 fL [facility] 79-97 " hematocrit, blood 46.2 % [facility] 37.5-51.0 " hemoglobin, blood 16.4 g/dL [facility] 13.0-17.7 " erythrocyte (RBC) count 4.96 X10E6/UL [facility] 4.14-5.80 " leukocyte count, blood 5.7 X10E3/UL [facility] 3.4-10.8 " CD4/CD8 ratio 1.24 [facility] 0.92-3.72 " T-suppressor cells (CD8) as percent of blood lymphocytes 36.3 % [facility] 12.0-35.5 High " absolute CD8 726 [facility] 109-897 " T-helper cells (CD4) as percent of blood lymphocytes 45.1 % [facility] 30.8-58.5 " T-helper cells (CD4) count 902 /UL [facility] [id number] rapid plasma reagin antibody, serum Non Reactive LinkLog Non Reactive " hemoglobin A1C, blood, as % of total hemoglobin 6.6 % LinkLog 4.8-5.6 High " HIV-1RNA, serum, by PCR, quantitative <20 copies/mL [facility] " LDL cholesterol, serum 104 mg/dL [facility] 0-99 High " very low density lipoproteins 59 mg/dL [facility] 5-40 High " HDL cholesterol, serum 61 mg/dL [facility] >39 " triglyceride, serum, fasting 296 mg/dL [facility] 0-149 High " cholesterol, serum 224 mg/dL [facility] 100-199 High " alanine aminotransferase (SGPT), serum 33 1/L [facility] 0-44 " aspartate aminotransferase (SGOT), serum 25 1/L [facility] 0-40 " alkaline phosphatase, serum 94 1/L [facility] 39-117 " bilirubin, serum, total 0.8 mg/dL [facility] 0.0-1.2 " albumin/globulin ratio, serum 2.0 [facility] 1.2-2.2 " globulin, serum 2.4 [facility] 1.5-4.5 " albumin, serum 4.8 g/dL [facility] 3.5-5.5 " protein, total, serum 7.2 g/dL [facility] 6.0-8.5 " calcium, serum 10.3 mg/dL [facility] 8.7-10.2 High " carbon dioxide, venous blood 26 mmol/L [facility] 18-29 " chloride, serum 100 mmol/L [facility] 96-106 " potassium, serum 4.7 mmol/L [facility] 3.5-5.2 " sodium, serum 141 mmol/L [facility] 134-144 " urea nitrogen/creatinine ratio, serum 20 [facility] 9-20 " eGFR if 101 mL/min/((173/100).m2) [facility] >59 " Estimated Glomerular Filtration Rate (calc) 87 mL/min/((173/100).m2) [facility] >59 " creatinine, serum 0.96 mg/dL [facility] 0.76-1.27 " urea nitrogen, blood 19 mg/dL [facility] 6-24 " blood glucose, random 142 mg/dL [facility] 65-99 High " immature granulocytes, percentage of total cells, blood 0 % [facility] Not Estab. " basophil count, absolute 0.0 x10E3/uL [facility] 0.0-0.2 " Eosinophil Absolute Count 0.2 X10E3/UL [facility] 0.0-0.4 " monocyte count, blood, automated 0.5 X10E3/UL [facility] 0.1-0.9 " lymphocyte count, blood, automated 2.1 X10E3/UL [facility] 0.7-3.1 " Absolute Neutrophils 4.1 X10E3/UL [facility] 1.4-7.0 " basophils as percent of blood leukocytes 0 % [facility] Not Estab. " eosinophils as percent of blood leukocytes 3 % [facility] Not Estab. " monocytes as percent of blood leukocytes 8 % [facility] Not Estab. " lymphocytes as percent of blood leukocytes 31 % [facility] Not Estab. " neutrophils as percent of blood leukocytes 58 % [facility] Not Estab. " platelet count 226 X10E3/UL [facility] 150-379 " red blood cell distribution width 14.2 % [facility] 12.3-15.4 " mean corpuscular hemoglobin concentration, RBC 35.1 G/DL [facility] 31.5-35.7 " mean corpuscular hemoglobin, RBC 32.8 pg [facility] 26.6-33.0 " mean corpuscular volume, RBC 94 fL [facility] 79-97 " hematocrit, blood 46.5 % [facility] 37.5-51.0 " hemoglobin, blood 16.3 g/dL [facility] 12.6-17.7 " erythrocyte (RBC) count 4.97 X10E6/UL [facility] 4.14-5.80 " leukocyte count, blood 7.0 X10E3/UL [facility] 3.4-10.8 " CD4/CD8 ratio 0.97 [facility] 0.92-3.72 " T-suppressor cells (CD8) as percent of blood lymphocytes 38.2 % [facility] 12.0-35.5 High " absolute CD8 802 [facility] 109-897 " T-helper cells (CD4) as percent of blood lymphocytes 37.1 % [facility] 30.8-58.5 " T-helper cells (CD4) count 779 /UL [facility] [phone] Neisseria gonorrhoeae DNA probe Negative [facility] Negative " chlamydia DNA probe Negative [facility] Negative rapid plasma reagin antibody, serum Non Reactive [facility] Non Reactive " hemoglobin A1C, blood, as % of total hemoglobin 13.7 % [facility] 4.8-5.6 High " HIV-1RNA, serum, by PCR, quantitative <20 copies/mL [facility] " LDL cholesterol, serum 138 mg/dL [facility] 0-99 High " very low density lipoproteins 73 mg/dL [facility] 5-40 High " HDL cholesterol, serum 53 mg/dL [facility] >39 " triglyceride, serum, fasting 366 mg/dL [facility] 0-149 High " cholesterol, serum 264 mg/dL [facility] 100-199 High " alanine aminotransferase (SGPT), serum 72 1/L [facility] 0-44 High " aspartate aminotransferase (SGOT), serum 26 1/L [facility] 0-40 " alkaline phosphatase, serum 81 1/L [facility] 39-117 " bilirubin, serum, total 1.7 mg/dL [facility] 0.0-1.2 High " albumin/globulin ratio, serum 1.8 [facility] 1.1-2.5 " globulin, serum 2.5 [facility] 1.5-4.5 " albumin, serum 4.6 g/dL [facility] 3.5-5.5 " protein, total, serum 7.1 g/dL [facility] 6.0-8.5 " calcium, serum 9.4 mg/dL [facility] 8.7-10.2 " carbon dioxide, venous blood 21 mmol/L [facility] 18-29 " chloride, serum 98 mmol/L [facility] 96-106 " potassium, serum 4.3 mmol/L [facility] 3.5-5.2 " sodium, serum 138 mmol/L [facility] 134-144 " urea nitrogen/creatinine ratio, serum 15 [facility] 9-20 " eGFR if 117 mL/min/((173/100).m2) [facility] >59 " Estimated Glomerular Filtration Rate (calc) 101 mL/min/((173/100).m2) [facility] >59 " creatinine, serum 0.78 mg/dL [facility] 0.76-1.27 " urea nitrogen, blood 12 mg/dL [facility] 6-24 " blood glucose, random 254 mg/dL [facility] 65-99 High " immature granulocytes, percentage of total cells, blood 0 % [facility] " basophil count, absolute 0.0 x10E3/uL [facility] 0.0-0.2 " Eosinophil Absolute Count 0.2 X10E3/UL [facility] 0.0-0.4 " monocyte count, blood, automated 0.4 X10E3/UL [facility] 0.1-0.9 " lymphocyte count, blood, automated 2.5 X10E3/UL [facility] 0.7-3.1 " Absolute Neutrophils 2.6 X10E3/UL [facility] 1.4-7.0 " basophils as percent of blood leukocytes 1 % [facility] " eosinophils as percent of blood leukocytes 4 % [facility] " monocytes as percent of blood leukocytes 7 % [facility] " lymphocytes as percent of blood leukocytes 43 % [facility] " neutrophils as percent of blood leukocytes 45 % [facility] " platelet count 208 X10E3/UL [facility] 150-379 " red blood cell distribution width 14.9 % [facility] 12.3-15.4 " mean corpuscular hemoglobin concentration, RBC 35.1 G/DL [facility] 31.5-35.7 " mean corpuscular hemoglobin, RBC 31.6 pg [facility] 26.6-33.0 " mean corpuscular volume, RBC 90 fL [facility] 79-97 " hematocrit, blood 44.4 % [facility] 37.5-51.0 " hemoglobin, blood 15.6 g/dL [facility] 12.6-17.7 " erythrocyte (RBC) count 4.93 X10E6/UL [facility] 4.14-5.80 " leukocyte count, blood 5.8 X10E3/UL [facility] 3.4-10.8 " CD4/CD8 ratio 0.99 [facility] 0.92-3.72 " T-suppressor cells (CD8) as percent of blood lymphocytes 40.9 % [facility] 12.0-35.5 High " absolute CD8 1023 [facility] 109-897 High " T-helper cells (CD4) as percent of blood lymphocytes 40.6 % [facility] 30.8-58.5 " T-helper cells (CD4) count 1015 /UL [facility] [phone] Quantiferon Gold TB blood test for tuberculosis screening Negative [facility] Negative " rapid plasma reagin antibody, serum Non Reactive [facility] Non Reactive " hemoglobin A1C, blood, as % of total hemoglobin 7.7 % [facility] 4.8-5.6 High " HIV-1RNA, serum, by PCR, quantitative <20 copies/mL [facility] " LDL cholesterol, serum 98 mg/dL [facility] 0-99 " very low density lipoproteins 67 mg/dL [facility] 5-40 High " HDL cholesterol, serum 51 mg/dL [facility] >39 " triglyceride, serum, fasting 337 mg/dL [facility] 0-149 High " cholesterol, serum 216 mg/dL [facility] 100-199 High " alanine aminotransferase (SGPT), serum 45 1/L [facility] 0-44 High " aspartate aminotransferase (SGOT), serum 35 1/L [facility] 0-40 " alkaline phosphatase, serum 56 1/L [facility] 39-117 " bilirubin, serum, total 0.3 mg/dL [facility] 0.0-1.2 " albumin/globulin ratio, serum 1.6 [facility] 1.1-2.5 " globulin, serum 2.8 [facility] 1.5-4.5 " albumin, serum 4.6 g/dL [facility] 3.5-5.5 " protein, total, serum 7.4 g/dL [facility] 6.0-8.5 " calcium, serum 9.5 mg/dL [facility] 8.7-10.2 " carbon dioxide, venous blood 23 mmol/L [facility] 18-29 " chloride, serum 102 mmol/L [facility] 97-108 " potassium, serum 4.5 mmol/L [facility] 3.5-5.2 " sodium, serum 140 mmol/L [facility] 134-144 " urea nitrogen/creatinine ratio, serum 17 [facility] 9-20 " eGFR if 99 mL/min/((173/100).m2) [facility] >59 " Estimated Glomerular Filtration Rate (calc) 86 mL/min/((173/100).m2) [facility] >59 " creatinine, serum 0.98 mg/dL [facility] 0.76-1.27 " urea nitrogen, blood 17 mg/dL [facility] 6-24 " blood glucose, random 145 mg/dL [facility] 65-99 High " immature granulocytes, percentage of total cells, blood 0 % [facility] " basophil count, absolute 0.0 x10E3/uL [facility] 0.0-0.2 " Eosinophil Absolute Count 0.2 X10E3/UL [facility] 0.0-0.4 " monocyte count, blood, automated 0.5 X10E3/UL [facility] 0.1-0.9 " lymphocyte count, blood, automated 2.1 X10E3/UL [facility] 0.7-3.1 " Absolute Neutrophils 3.1 X10E3/UL [facility] 1.4-7.0 " basophils as percent of blood leukocytes 1 % [facility] " eosinophils as percent of blood leukocytes 4 % [facility] " monocytes as percent of blood leukocytes 8 % [facility] " lymphocytes as percent of blood leukocytes 35 % [facility] " neutrophils as percent of blood leukocytes 52 % [facility] " platelet count 218 X10E3/UL [facility] 150-379 " red blood cell distribution width 14.3 % [facility] 12.3-15.4 " mean corpuscular hemoglobin concentration, RBC 34.9 G/DL [facility] 31.5-35.7 " mean corpuscular hemoglobin, RBC 32.5 pg [facility] 26.6-33.0 " mean corpuscular volume, RBC 93 fL [facility] 79-97 " hematocrit, blood 47.0 % [facility] 37.5-51.0 " hemoglobin, blood 16.4 g/dL [facility] 12.6-17.7 " erythrocyte (RBC) count 5.04 X10E6/UL [facility] 4.14-5.80 " leukocyte count, blood 5.9 X10E3/UL [facility] 3.4-10.8 " CD4/CD8 ratio 1.17 [facility] 0.92-3.72 " T-suppressor cells (CD8) as percent of blood lymphocytes 35.6 % [facility] 12.0-35.5 High " [id number] " T-helper cells (CD4) as percent of blood lymphocytes 41.5 % [facility] 30[facility]58[facility] " T-helper cells (CD4) count 872 /UL [facility] [phone] HIV-1RNA, serum, by PCR, quantitative 40 /mL [facility] rapid plasma reagin antibody, serum Non Reactive [facility] Non Reactive " hemoglobin A1C, blood, as % of total hemoglobin 11.8 % [facility] 4.8-5.6 High " Hepatitis C virus (HCV) RNA, PCR, quantitative HCV Not Detected IU/mL [facility] " LDL cholesterol, serum 80 mg/dL [facility] 0-99 " very low density lipoproteins 71 mg/dL [facility] 5-40 High " HDL cholesterol, serum 52 mg/dL [facility] >39 " [facility], serum, [facility] " cholesterol, serum 203 mg/dL [facility] 100-199 High " alanine aminotransferase (SGPT), serum 49 1/L [facility] 0-44 High " aspartate aminotransferase (SGOT), serum 31 1/L [facility] 0-40 " alkaline phosphatase, serum 165 1/L [facility] 39-117 High " bilirubin, serum, total 0.4 mg/dL [facility] 0.0-1.2 " albumin/globulin ratio, serum 1.7 [facility] 1.1-2.5 " globulin, serum 2.5 [facility] 1.5-4.5 " albumin, serum 4.3 g/dL [facility] 3.5-5.5 " protein, total, serum 6.8 g/dL [facility] 6.0-8.5 " calcium, serum 9.2 mg/dL [facility] 8.7-10.2 " carbon dioxide, venous blood 24 mmol/L [facility] 18-29 " chloride, serum 97 mmol/L [facility] 97-108 " potassium, serum 4.4 mmol/L [facility] 3.5-5.2 " sodium, serum 137 mmol/L [facility] 134-144 " urea nitrogen/creatinine ratio, serum 22 [facility] 9-20 High " eGFR if 111 mL/min/((173/100).m2) [facility] >59 " Estimated Glomerular Filtration Rate (calc) 96 mL/min/((173/100).m2) [facility] >59 " creatinine, serum 0.90 mg/dL [facility] 0.76-1.27 " urea nitrogen, blood 20 mg/dL [facility] 6-24 " blood glucose, random 251 mg/dL [facility] 65-99 High " immature granulocytes, percentage of total cells, blood 0 % [facility] " basophil count, absolute 0.0 x10E3/uL [facility] 0.0-0.2 " Eosinophil Absolute Count 0.2 X10E3/UL [facility] 0.0-0.4 " monocyte count, blood, automated 0.4 X10E3/UL [facility] 0.1-0.9 " lymphocyte count, blood, automated 2.6 X10E3/UL [facility] 0.7-3.1 " Absolute Neutrophils 3.7 X10E3/UL [facility] 1.4-7.0 " basophils as percent of blood leukocytes 0 % [facility] " eosinophils as percent of blood leukocytes 3 % [facility] " monocytes as percent of blood leukocytes 6 % [facility] " lymphocytes as percent of blood leukocytes 38 % [facility] " neutrophils as percent of blood leukocytes 53 % [facility] " platelet count 232 X10E3/UL [facility] 150-379 " red blood cell distribution width 14.4 % [facility] 12.3-15.4 " mean corpuscular hemoglobin concentration, RBC 34.2 G/DL [facility] 31.5-35.7 " mean corpuscular hemoglobin, RBC 33.0 pg [facility] 26.6-33.0 " mean corpuscular volume, RBC 97 fL [facility] 79-97 " hematocrit, blood 47.7 % [facility] 37.5-51.0 " hemoglobin, blood 16.3 g/dL [facility] 12.6-17.7 " erythrocyte (RBC) count 4.94 X10E6/UL [facility] 4.14-5.80 " leukocyte count, blood 7.0 X10E3/UL [facility] 3.4-10.8 " CD4/CD8 ratio 1.06 [facility] 0.92-3.72 " T-suppressor cells (CD8) as percent of blood lymphocytes 38.9 % [facility] 12.0-35.5 High " absolute CD8 1011 [facility] 109-897 High " T-helper cells (CD4) as percent of blood lymphocytes 41.1 % [facility] 30.8-58.5 " T-helper cells (CD4) count 1069 /UL [facility] [id number] rapid plasma reagin antibody, serum Non Reactive [facility] Non Reactive " HIV-1RNA, serum, by PCR, quantitative 20 /mL [facility] " LDL cholesterol, serum 155 mg/dL [facility] 0-99 High " very low density lipoproteins 51 mg/dL [facility] 5-40 High " HDL cholesterol, serum 63 mg/dL [facility] >39 " triglyceride, serum, fasting 253 mg/dL [facility] 0-149 High " cholesterol, serum 269 mg/dL [facility] 100-199 High " alanine aminotransferase (SGPT), serum 71 1/L [facility] 0-44 High " aspartate aminotransferase (SGOT), serum 26 1/L [facility] 0-40 " alkaline phosphatase, serum 92 1/L [facility] 39-117 " bilirubin, serum, total 0.5 mg/dL [facility] 0.0-1.2 " albumin/globulin ratio, serum 1.8 [facility] 1.1-2.5 " globulin, serum 2.5 [facility] 1.5-4.5 " albumin, serum 4.6 g/dL [facility] 3.5-5.5 " protein, total, serum 7.1 g/dL [facility] 6.0-8.5 " calcium, serum 9.8 mg/dL [facility] 8.7-10.2 " carbon dioxide, venous blood 22 mmol/L [facility] 18-29 " chloride, serum 98 mmol/L [facility] 97-108 " potassium, serum 4.3 mmol/L [facility] 3.5-5.2 " sodium, serum 139 mmol/L [facility] 134-144 " urea nitrogen/creatinine ratio, serum 19 [facility] 9-20 " eGFR if 111 mL/min/((173/100).m2) [facility] >59 " Estimated Glomerular Filtration Rate (calc) 96 mL/min/((173/100).m2) [facility] >59 " creatinine, serum 0.90 mg/dL [facility] 0.76-1.27 " urea nitrogen, blood 17 mg/dL [facility] 6-24 " blood glucose, random 211 mg/dL [facility] 65-99 High " immature granulocytes, percentage of total cells, blood 0 % [facility] " basophil count, absolute 0.0 x10E3/uL [facility] 0.0-0.2 " Eosinophil Absolute Count 0.1 X10E3/UL [facility] 0.0-0.4 " monocyte count, blood, automated 0.4 X10E3/UL [facility] 0.1-0.9 " lymphocyte count, blood, automated 2.4 X10E3/UL [facility] 0.7-3.1 " Absolute Neutrophils 3.6 X10E3/UL [facility] 1.4-7.0 " basophils as percent of blood leukocytes 0 % [facility] " eosinophils as percent of blood leukocytes 2 % [facility] " monocytes as percent of blood leukocytes 7 % [facility] " lymphocytes as percent of blood leukocytes 36 % [facility] " neutrophils as percent of blood leukocytes 55 % [facility] " platelet count 182 X10E3/UL [facility] 150-379 " red blood cell distribution width 14.2 % [facility] 12.3-15.4 " mean corpuscular hemoglobin concentration, RBC 35.0 G/DL [facility] 31.5-35.7 " mean corpuscular hemoglobin, RBC 33.3 pg [facility] 26.6-33.0 High " mean corpuscular volume, RBC 95 fL [facility] 79-97 " hematocrit, blood 48.0 % [facility] 37.5-51.0 " hemoglobin, blood 16.8 g/dL [facility] 12.6-17.7 " erythrocyte (RBC) count 5.04 X10E6/UL [facility] 4.14-5.80 " leukocyte count, blood 6.5 X10E3/UL [facility] 3.4-10.8 " CD4/CD8 ratio 0.95 [facility] 0.92-3.72 " T-suppressor cells (CD8) as percent of blood lymphocytes 41.0 % [facility] 12.0-35.5 High " absolute CD8 984 [facility] 109-897 High " T-helper cells (CD4) as percent of blood lymphocytes 39.1 % [facility] 30.8-58.5 " T-helper cells (CD4) count 938 /UL [facility] [id number] hepatitis A antibody, total Positive [facility] Negative Abnormal " hepatitis B core antibody, total Negative [facility] Negative " hepatitis B surface antigen Negative [facility] Negative " rapid plasma reagin antibody, serum Non Reactive [facility] Non Reactive " hepatitis C antibody, serum >11.0 [facility] 0.0-0.9 High " toxoplasma gondii antibody, IgG <3.0 [facility] 0.0-7.1 " hepatitis B surface antibody Non Reactive [facility] " HIV-1RNA, serum, by PCR, quantitative <20 copies/mL [facility] " Neisseria gonorrhoeae DNA probe Negative [facility] Negative " chlamydia DNA probe Negative [facility] Negative " LDL cholesterol, serum TRIGHI mg/dL [facility] 0-99 " very low density lipoproteins VLDLCH mg/dL [facility] 5-40 " HDL cholesterol, serum 32 mg/dL [facility] >39 Low " triglyceride, serum, fasting 2225 mg/dL [facility] 0-149 Panic high " cholesterol, serum 485 mg/dL [facility] 100-199 High " immature granulocytes, percentage of total cells, blood 0 % [facility] " basophil count, absolute 0.0 x10E3/uL [facility] 0.0-0.2 " Eosinophil Absolute Count 0.2 X10E3/UL [facility] 0.0-0.4 " monocyte count, blood, automated 0.3 X10E3/UL [facility] 0.1-0.9 " lymphocyte count, blood, automated 2.0 X10E3/UL [facility] 0.7-3.1 " Absolute Neutrophils 2.6 X10E3/UL [facility] 1.4-7.0 " basophils as percent of blood leukocytes 1 % [facility] " eosinophils as percent of blood leukocytes 4 % [facility] " monocytes as percent of blood leukocytes 5 % [facility] " lymphocytes as percent of blood leukocytes 39 % [facility] " neutrophils as percent of blood leukocytes 51 % [facility] " platelet count 173 X10E3/UL [facility] 150-379 " red blood cell distribution width 14.0 % [facility] 12.3-15.4 " mean corpuscular hemoglobin concentration, RBC 36.3 G/DL [facility] 31.5-35.7 High " mean corpuscular hemoglobin, RBC 33.9 pg [facility] 26.6-33.0 High " mean corpuscular volume, RBC 93 fL [facility] 79-97 " hematocrit, blood 45.2 % [facility] 37.5-51.0 " hemoglobin, blood 16.4 g/dL [facility] 12.6-17.7 " erythrocyte (RBC) count 4.84 X10E6/UL [facility] 4.14-5.80 " leukocyte count, blood 5.0 X10E3/UL [facility] 3.4-10.8 " CD4/CD8 ratio 0.89 [facility] 0.92-3.72 Low " T-suppressor cells (CD8) as percent of blood lymphocytes 37.4 % [facility] 12.0-35.5 High " absolute CD8 748 [facility] 109-897 " T-helper cells (CD4) as percent of blood lymphocytes 33.3 % [facility] 30.8-58.5 " T-helper cells (CD4) count 666 /UL [facility] [phone] HIV-1RNA, serum, by PCR, quantitative <20 copies/mL [facility] " rapid plasma reagin antibody, serum Non Reactive [facility] Non Reactive " prostate specific antigen 1.3 ng/mL [facility] 0.0-4.0 " LDL cholesterol, serum 80 mg/dL [facility] 0-99 " very low density lipoproteins 79 mg/dL [facility] 5-40 High " HDL cholesterol, serum 57 mg/dL [facility] >39 " triglyceride, serum, fasting 395 mg/dL [facility] 0-149 High " cholesterol, serum 216 mg/dL [facility] 100-199 High " alanine aminotransferase (SGPT), serum 73 1/L [facility] 0-44 High " aspartate aminotransferase (SGOT), serum 39 1/L [facility] 0-40 " alkaline phosphatase, serum 71 1/L [facility] 39-117 " bilirubin, serum, total 0.9 mg/dL [facility] 0.0-1.2 " albumin/globulin ratio, serum 1.6 [facility] 1.1-2.5 " globulin, serum 2.8 [facility] 1.5-4.5 " albumin, serum 4.6 g/dL [facility] 3.5-5.5 " protein, total, serum 7.4 g/dL [facility] 6.0-8.5 " calcium, serum 9.9 mg/dL [facility] 8.7-10.2 " carbon dioxide, venous blood 22 mmol/L [facility] 18-29 " chloride, serum 100 mmol/L [facility] 97-108 " potassium, serum 4.4 mmol/L [facility] 3.5-5.2 " sodium, serum 138 mmol/L [facility] 134-144 " urea nitrogen/creatinine ratio, serum 14 [facility] 9-20 " eGFR if 67 mL/min/((173/100).m2) [facility] >59 " Estimated Glomerular Filtration Rate (calc) 58 mL/min/((173/100).m2) [facility] >59 Low " creatinine, serum 1.38 mg/dL [facility] 0.76-1.27 High " urea nitrogen, blood 19 mg/dL [facility] 6-24 " blood glucose, random 126 mg/dL [facility] 65-99 High " immature granulocytes, percentage of total cells, blood 0 % [facility] " basophil count, absolute 0.0 x10E3/uL [facility] 0.0-0.2 " Eosinophil Absolute Count 0.2 X10E3/UL [facility] 0.0-0.4 " monocyte count, blood, automated 0.4 X10E3/UL [facility] 0.1-0.9 " lymphocyte count, blood, automated 2.0 X10E3/UL [facility] 0.7-3.1 " Absolute Neutrophils 3.1 X10E3/UL [facility] 1.4-7.0 " basophils as percent of blood leukocytes 1 % [facility] " eosinophils as percent of blood leukocytes 4 % [facility] " monocytes as percent of blood leukocytes 7 % [facility] " lymphocytes as percent of blood leukocytes 35 % [facility] " neutrophils as percent of blood leukocytes 53 % [facility] " platelet count 223 X10E3/UL [facility] 150-379 " red blood cell distribution width 14.6 % [facility] 12.3-15.4 " mean corpuscular hemoglobin concentration, RBC 33.5 G/DL [facility] 31.5-35.7 " mean corpuscular hemoglobin, RBC 32.7 pg [facility] 26.6-33.0 " mean corpuscular volume, RBC 98 fL [facility] 79-97 High " hematocrit, blood 48.6 % [facility] 37.5-51.0 " hemoglobin, blood 16.3 g/dL [facility] 12.6-17.7 " erythrocyte (RBC) count 4.98 X10E6/UL [facility] 4.14-5.80 " leukocyte count, blood 5.8 X10E3/UL [facility] 3.4-10.8 " CD4/CD8 ratio 0.95 [facility] 0.92-3.72 " T-suppressor cells (CD8) as percent of blood lymphocytes 37.1 % [facility] 12.0-35.5 High " absolute CD8 742 [facility] 109-897 " T-helper cells (CD4) as percent of blood lymphocytes 35.3 % [facility] 30.8-58.5 " T-helper cells (CD4) count 706 /UL [facility] [phone] " Quantiferon Gold TB blood test for tuberculosis screening Negative [facility] Negative " Neisseria gonorrhoeae DNA probe Negative [facility] Negative " chlamydia DNA probe Negative [facility] Negative HIV-1RNA, serum, by PCR, quantitative <20 copies/mL [facility] " hepatitis A antibody, total Positive [facility] Negative Abnormal " hepatitis B core antibody, total Negative [facility] Negative " hepatitis B surface antigen Negative [facility] Negative " rapid plasma reagin antibody, serum Non Reactive [facility] Non Reactive " hepatitis C antibody, serum >11.0 [facility] 0.0-0.9 High " toxoplasma gondii antibody, IgG <3.0 [facility] 0.0-5.9 " hepatitis B surface antibody Non Reactive [facility] " LDL cholesterol, serum Triglyceride result indicated is too high for an accurate LDL mg/dL [facility] 0-99 " very low density lipoproteins The calculation for the VLDL cholesterol is not valid when mg/dL [facility] 5-40 " HDL cholesterol, serum 36 mg/dL [facility] >39 Low " triglyceride, serum, fasting 1111 mg/dL [facility] 0-149 Panic high " cholesterol, serum 244 mg/dL [facility] 100-199 High " alanine aminotransferase (SGPT), serum 68 1/L [facility] 0-44 High " aspartate aminotransferase (SGOT), serum 28 1/L [facility] 0-40 " alkaline phosphatase, serum 123 1/L [facility] 39-117 High " bilirubin, serum, total 0.4 mg/dL [facility] 0.0-1.2 " albumin/globulin ratio, serum 1.5 [facility] 1.1-2.5 " globulin, serum 2.8 [facility] 1.5-4.5 " albumin, serum 4.2 g/dL [facility] 3.5-5.5 " protein, total, serum 7.0 g/dL [facility] 6.0-8.5 " calcium, serum 9.0 mg/dL [facility] 8.7-10.2 " carbon dioxide, venous blood 24 mmol/L [facility] 18-29 " chloride, serum 99 mmol/L [facility] 97-108 " potassium, serum 4.2 mmol/L [facility] 3.5-5.2 " sodium, serum 138 mmol/L [facility] 134-144 " urea nitrogen/creatinine ratio, serum 18 [facility] 9-20 " eGFR if 115 mL/min/((173/100).m2) [facility] >59 " Estimated Glomerular Filtration Rate (calc) 99 mL/min/((173/100).m2) [facility] >59 " creatinine, serum 0.84 mg/dL [facility] 0.76-1.27 " urea nitrogen, blood 15 mg/dL [facility] 6-24 " blood glucose, random 239 mg/dL [facility] 65-99 High " immature granulocytes, percentage of total cells, blood 0 % [facility] " basophil count, absolute 0.0 x10E3/uL [facility] 0.0-0.2 " Eosinophil Absolute Count 0.4 X10E3/UL [facility] 0.0-0.4 " monocyte count, blood, automated 0.5 X10E3/UL [facility] 0.1-0.9 " lymphocyte count, blood, automated 2.2 X10E3/UL [facility] 0.7-3.1 " Absolute Neutrophils 3.2 X10E3/UL [facility] 1.4-7.0 " basophils as percent of blood leukocytes 1 % [facility] " eosinophils as percent of blood leukocytes 6 % [facility] " monocytes as percent of blood leukocytes 7 % [facility] " lymphocytes as percent of blood leukocytes 35 % [facility] " neutrophils as percent of blood leukocytes 51 % [facility] " platelet count 184 X10E3/UL [facility] 150-379 " red blood cell distribution width 13.9 % [facility] 12.3-15.4 " mean corpuscular hemoglobin concentration, RBC 35.2 G/DL [facility] 31.5-35.7 " mean corpuscular hemoglobin, RBC 33.8 pg [facility] 26.6-33.0 High " mean corpuscular volume, RBC 96 fL [facility] 79-97 " hematocrit, blood 45.7 % [facility] 37.5-51.0 " hemoglobin, blood 16.1 g/dL [facility] 12.6-17.7 " erythrocyte (RBC) count 4.77 X10E6/UL [facility] 4.14-5.80 " leukocyte count, blood 6.4 X10E3/UL [facility] 3.4-10.8 " CD4/CD8 ratio 0.93 [facility] 0.92-3.72 " T-suppressor cells (CD8) as percent of blood lymphocytes 39.9 % [facility] 12.0-35.5 High " absolute CD8 878 [facility] [id number] " T-helper cells (CD4) as percent of blood lymphocytes 37.2 % [facility] 30.8-58.5 " T-helper cells (CD4) count 818 /UL [facility] [phone] PSA (prostate specific antigent), recommendation and action CONSIDER [place] HIV-1RNA, serum, by PCR, quantitative <20 copies/mL [facility] " hepatitis A antibody, total Positive [facility] Negative Abnormal " hepatitis B core antibody, total Negative [facility] Negative " hepatitis B surface antigen Negative [facility] Negative " rapid plasma reagin antibody, serum Non Reactive [facility] Non Reactive " hepatitis C antibody, serum >11.0 [facility] 0.0-0.9 High " toxoplasma gondii antibody, IgG <3.0 [facility] 0.0-5.9 " hepatitis B surface antibody Non Reactive [facility] " LDL cholesterol, serum Triglyceride result indicated is too high for an accurate LDL mg/dL [facility] 0-99 " very low density lipoproteins The calculation for the VLDL cholesterol is not valid when mg/dL [facility] 5-40 " HDL cholesterol, serum 48 mg/dL [facility] >39 " triglyceride, serum, fasting 444 mg/dL [facility] 0-149 High " cholesterol, serum 186 mg/dL [facility] 100-199 " alanine aminotransferase (SGPT), serum 65 1/L [facility] 0-44 High " aspartate aminotransferase (SGOT), serum 40 1/L [facility] 0-40 " alkaline phosphatase, serum 77 1/L [facility] 39-117 " bilirubin, serum, total 1.8 mg/dL [facility] 0.0-1.2 High " albumin/globulin ratio, serum 1.8 [facility] 1.1-2.5 " globulin, serum 2.5 [facility] 1.5-4.5 " albumin, serum 4.6 g/dL [facility] 3.5-5.5 " protein, total, serum 7.1 g/dL [facility] 6.0-8.5 " calcium, serum 9.8 mg/dL [facility] 8.7-10.2 " carbon dioxide, venous blood 24 mmol/L [facility] 18-29 " chloride, serum 100 mmol/L [facility] 97-108 " potassium, serum 4.3 mmol/L [facility] 3.5-5.2 " sodium, serum 138 mmol/L [facility] 134-144 " urea nitrogen/creatinine ratio, serum 14 [facility] 9-20 " eGFR if 86 mL/min/((173/100).m2) [facility] >59 " Estimated Glomerular Filtration Rate (calc) 75 mL/min/((173/100).m2) [facility] >59 " creatinine, serum 1.12 mg/dL [facility] 0.76-1.27 " urea nitrogen, blood 16 mg/dL [facility] 6-24 " blood glucose, random 100 mg/dL [facility] 65-99 High " immature granulocytes, percentage of total cells, blood 0 % [facility] 0-2 " basophil count, absolute 0.0 x10E3/uL [facility] 0.0-0.2 " Eosinophil Absolute Count 0.3 X10E3/UL [facility] 0.0-0.4 " monocyte count, blood, automated 0.5 X10E3/UL [facility] 0.1-0.9 " lymphocyte count, blood, automated 2.1 X10E3/UL [facility] 0.7-3.1 " Absolute Neutrophils 3.5 X10E3/UL [facility] 1.4-7.0 " basophils as percent of blood leukocytes 1 % [facility] 0-3 " eosinophils as percent of blood leukocytes 5 % [facility] 0-5 " monocytes as percent of blood leukocytes 8 % [facility] 4-12 " lymphocytes as percent of blood leukocytes 32 % [facility] 14-46 " neutrophils as percent of blood leukocytes 54 % [facility] 40-74 " platelet count 163 X10E3/UL [facility] 150-379 " red blood cell distribution width 14.8 % [facility] 12.3-15.4 " mean corpuscular hemoglobin concentration, RBC 34.6 G/DL [facility] 31.5-35.7 " mean corpuscular hemoglobin, RBC 33.1 pg [facility] 26.6-33.0 High " mean corpuscular volume, RBC 96 fL [facility] 79-97 " hematocrit, blood 47.7 % [facility] 37.5-51.0 " hemoglobin, blood 16.5 g/dL [facility] 12.6-17.7 " erythrocyte (RBC) count 4.99 X10E6/UL [facility] 4.14-5.80 " leukocyte count, blood 6.4 X10E3/UL [facility] 3.4-10.8 " CD4/CD8 ratio 1.04 [facility] 0.92-3.72 " T-suppressor cells (CD8) as percent of blood lymphocytes 38.3 % [facility] 12.0-35.5 High " absolute CD8 804 [facility] [id number] " T-helper cells (CD4) as percent of blood lymphocytes 39.9 % [facility] 30.8-58.5 " T-helper cells (CD4) count 838 /UL [facility] [id number] HIV-1RNA, serum, by PCR, quantitative <20 copies/mL [facility] " rapid plasma reagin antibody, serum Non Reactive [facility] Non Reactive " LDL cholesterol, serum 134 mg/dL [facility] 0-99 High " very low density lipoproteins 52 mg/dL [facility] 5-40 High " HDL cholesterol, serum 59 mg/dL [facility] >39 " triglyceride, serum, fasting 259 mg/dL [facility] 0-149 High " cholesterol, serum 245 mg/dL [facility] 100-199 High " alanine aminotransferase (SGPT), serum 62 1/L [facility] 0-44 High " aspartate aminotransferase (SGOT), serum 38 1/L [facility] 0-40 " alkaline phosphatase, serum 87 1/L [facility] 39-117 " bilirubin, serum, total 0.9 mg/dL [facility] 0.0-1.2 " albumin/globulin ratio, serum 1.6 [facility] 1.1-2.5 " globulin, serum 2.9 [facility] 1.5-4.5 " albumin, serum 4.7 g/dL [facility] 3.5-5.5 " protein, total, serum 7.6 g/dL [facility] 6.0-8.5 " calcium, serum 9.5 mg/dL [facility] 8.7-10.2 " carbon dioxide, venous blood 17 mmol/L [facility] 19-28 Low " chloride, serum 105 mmol/L [facility] 97-108 " potassium, serum 4.5 mmol/L [facility] 3.5-5.2 " sodium, serum 144 mmol/L [facility] 134-144 " urea nitrogen/creatinine ratio, serum 20 [facility] 9-20 " eGFR if 108 mL/min/((173/100).m2) [facility] >59 " Estimated Glomerular Filtration Rate (calc) 93 mL/min/((173/100).m2) [facility] >59 " creatinine, serum 0.93 mg/dL [facility] 0.76-1.27 " urea nitrogen, blood 19 mg/dL [facility] 6-24 " blood glucose, random 115 mg/dL [facility] 65-99 High " immature granulocytes, percentage of total cells, blood 0 % [facility] 0-2 " basophil count, absolute 0.0 x10E3/uL [facility] 0.0-0.2 " Eosinophil Absolute Count 0.4 X10E3/UL [facility] 0.0-0.4 " monocyte count, blood, automated 0.6 X10E3/UL [facility] 0.1-0.9 " lymphocyte count, blood, automated 1.7 X10E3/UL [facility] 0.7-3.1 " Absolute Neutrophils 3.1 X10E3/UL [facility] 1.4-7.0 " basophils as percent of blood leukocytes 1 % [facility] 0-3 " eosinophils as percent of blood leukocytes 6 % [facility] 0-5 High " monocytes as percent of blood leukocytes 11 % [facility] 4-12 " lymphocytes as percent of blood leukocytes 29 % [facility] 14-46 " neutrophils as percent of blood leukocytes 53 % [facility] 40-74 " platelet count 185 X10E3/UL [facility] 155-379 " red blood cell distribution width 14.0 % [facility] 12.3-15.4 " mean corpuscular hemoglobin concentration, RBC 34.6 G/DL [facility] 31.5-35.7 " mean corpuscular hemoglobin, RBC 33.8 pg [facility] 26.6-33.0 High " mean corpuscular volume, RBC 98 fL [facility] 79-97 High " hematocrit, blood 46.5 % [facility] 37.5-51.0 " hemoglobin, blood 16.1 g/dL [facility] 12.6-17.7 " erythrocyte (RBC) count 4.77 X10E6/UL [facility] 4.14-5.80 " leukocyte count, blood 5.8 X10E3/UL [facility] 3.4-10.8 " CD4/CD8 ratio 0.95 [facility] 0.92-3.72 " absolute CD8 629 [facility] 109-897 " T-helper cells (CD4) as percent of blood lymphocytes 35.2 % [facility] 30.8-58.5 " T-helper cells (CD4) count 598 /UL [facility] [phone] HIV-1RNA, serum, by PCR, quantitative <20 copies/mL [facility] " rapid plasma reagin antibody, serum Non Reactive [facility] Non Reactive " LDL cholesterol, serum 107 mg/dL [facility] 0-99 High " very low density lipoproteins 52 mg/dL [facility] 5-40 High " HDL cholesterol, serum 47 mg/dL [facility] >39 " triglyceride, serum, fasting 262 mg/dL [facility] 0-149 High " cholesterol, serum 206 mg/dL [facility] 100-199 High " alanine aminotransferase (SGPT), serum 107 1/L [facility] 0-44 High " aspartate aminotransferase (SGOT), serum 57 1/L [facility] 0-40 High " alkaline phosphatase, serum 80 1/L [facility] 25-150 " bilirubin, serum, total 0.6 mg/dL [facility] 0.0-1.2 " albumin/globulin ratio, serum 1.4 [facility] 1.1-2.5 " globulin, serum 3.3 [facility] 1.5-4.5 " albumin, serum 4.5 g/dL [facility] 3.5-5.5 " protein, total, serum 7.8 g/dL [facility] 6.0-8.5 " calcium, serum 9.1 mg/dL [facility] 8.7-10.2 " carbon dioxide, venous blood 23 mmol/L [facility] 20-32 " chloride, serum 104 mmol/L [facility] 97-108 " potassium, serum 4.2 mmol/L [facility] 3.5-5.2 " sodium, serum 138 mmol/L [facility] 134-144 " urea nitrogen/creatinine ratio, serum 18 [facility] 9-20 " Estimated Glomerular Filtration Rate (calc) 95 mL/min/((173/100).m2) [facility] >59 " creatinine, serum 0.92 mg/dL [facility] 0.76-1.27 " urea nitrogen, blood 17 mg/dL [facility] 6-24 " blood glucose, random 107 mg/dL [facility] 65-99 High " immature granulocytes, percentage of total cells, blood 0 % [facility] 0-2 " basophil count, absolute 0.0 x10E3/uL [facility] 0.0-0.2 " Eosinophil Absolute Count 0.4 X10E3/UL [facility] 0.0-0.4 " monocyte count, blood, automated 0.5 X10E3/UL [facility] 0.1-1.0 " lymphocyte count, blood, automated 2.1 X10E3/UL [facility] 0.7-4.5 " Absolute Neutrophils 2.5 X10E3/UL [facility] 1.8-7.8 " basophils as percent of blood leukocytes 1 % [facility] 0-3 " eosinophils as percent of blood leukocytes 8 % [facility] 0-7 High " monocytes as percent of blood leukocytes 9 % [facility] 4-13 " lymphocytes as percent of blood leukocytes 37 % [facility] 14-46 " neutrophils as percent of blood leukocytes 45 % [facility] 40-74 " platelet count 239 X10E3/UL [facility] 140-415 " red blood cell distribution width 14.3 % [facility] 12.3-15.4 " mean corpuscular hemoglobin concentration, RBC 36.0 G/DL [facility] 31.5-35.7 High " mean corpuscular hemoglobin, RBC 34.1 pg [facility] 26.6-33.0 High " mean corpuscular volume, RBC 95 fL [facility] 79-97 " hematocrit, blood 46.9 % [facility] 37.5-51.0 " hemoglobin, blood 16.9 g/dL [facility] 12.6-17.7 " erythrocyte (RBC) count 4.95 X10E6/UL [facility] 4.14-5.80 " leukocyte count, blood 5.6 X10E3/UL [facility] 4.0-10.5 " CD4/CD8 ratio 0.90 [facility] 0.92-3.72 Low " absolute CD8 846 [facility] 109-897 " T-helper cells (CD4) as percent of blood lymphocytes 36.4 % [facility] 30.8-58.5 " T-helper cells (CD4) count 764 /UL [facility] [phone] Hepatitis C virus (HCV) RNA, PCR, quantitative HCV Not Detected IU/mL [facility] " HIV-1RNA, serum, by PCR, quantitative <20 copies/mL [facility] rapid plasma reagin antibody, serum Non Reactive [facility] Non Reactive " LDL cholesterol, serum Triglyceride result indicated is too high for an accurate LDL mg/dL [facility] 0-99 " very low density lipoproteins The calculation for the VLDL cholesterol is not valid when mg/dL [facility] 5-40 " HDL cholesterol, serum 41 mg/dL [facility] >39 " triglyceride, serum, fasting 653 mg/dL [facility] 0-149 Panic high " cholesterol, serum 224 mg/dL [facility] 100-199 High " alanine aminotransferase (SGPT), serum 67 1/L [facility] 0-55 High " aspartate aminotransferase (SGOT), serum 44 1/L [facility] 0-40 High " alkaline phosphatase, serum 86 1/L [facility] 25-150 " bilirubin, serum, total 1.6 mg/dL [facility] 0.0-1.2 High " albumin/globulin ratio, serum 1.4 [facility] 1.1-2.5 " globulin, serum 2.9 [facility] 1.5-4.5 " albumin, serum 4.1 g/dL [facility] 3.5-5.5 " protein, total, serum 7.0 g/dL [facility] 6.0-8.5 " calcium, serum 9.2 mg/dL [facility] 8.7-10.2 " carbon dioxide, venous blood 23 mmol/L [facility] 20-32 " chloride, serum 102 mmol/L [facility] 97-108 " potassium, serum 4.0 mmol/L [facility] 3.5-5.2 " sodium, serum 140 mmol/L [facility] 134-144 " urea nitrogen/creatinine ratio, serum 16 [facility] 9-20 " Estimated Glomerular Filtration Rate (calc) 99 mL/min/((173/100).m2) [facility] >59 " creatinine, serum 0.88 mg/dL [facility] 0.76-1.27 " urea nitrogen, blood 14 mg/dL [facility] 6-24 " blood glucose, random 101 mg/dL [facility] 65-99 High " immature granulocytes, percentage of total cells, blood 0 % [facility] 0-2 " basophil count, absolute 0.0 x10E3/uL [facility] 0.0-0.2 " Eosinophil Absolute Count 0.4 X10E3/UL [facility] 0.0-0.4 " monocyte count, blood, automated 0.6 X10E3/UL [facility] 0.1-1.0 " lymphocyte count, blood, automated 1.6 X10E3/UL [facility] 0.7-4.5 " Absolute Neutrophils 3.5 X10E3/UL [facility] 1.8-7.8 " basophils as percent of blood leukocytes 1 % [facility] 0-3 " eosinophils as percent of blood leukocytes 7 % [facility] 0-7 " monocytes as percent of blood leukocytes 10 % [facility] 4-13 " lymphocytes as percent of blood leukocytes 26 % [facility] 14-46 " neutrophils as percent of blood leukocytes 56 % [facility] 40-74 " platelet count 195 X10E3/UL [facility] 140-415 " red blood cell distribution width 15.3 % [facility] 12.3-15.4 " mean corpuscular hemoglobin concentration, RBC 33.5 G/DL [facility] 31.5-35.7 " mean corpuscular hemoglobin, RBC 32.4 pg [facility] 26.6-33.0 " mean corpuscular volume, RBC 97 fL [facility] 79-97 " hematocrit, blood 46.6 % [facility] 37.5-51.0 " hemoglobin, blood 15.6 g/dL [facility] 12.6-17.7 " erythrocyte (RBC) count 4.81 X10E6/UL [facility] 4.14-5.80 " leukocyte count, blood 6.2 X10E3/UL [facility] 4.0-10.5 " CD4/CD8 ratio 1.02 [facility] 0.92-3.72 " absolute CD8 624 [facility] 109-897 " T-helper cells (CD4) as percent of blood lymphocytes 39.9 % [facility] 30.8-58.5 " T-helper cells (CD4) count 638 /UL [facility] [id number] HIV-1RNA, serum, by PCR, quantitative <20 copies/mL [facility] rapid plasma reagin antibody, serum Non Reactive [facility] Non Reactive " testosterone, total 515 ng/dL [facility] [phone] " LDL cholesterol, serum Triglyceride result indicated is too high for an accurate LDL mg/dL [facility] 0-99 " very low density lipoproteins The calculation for the VLDL cholesterol is not valid when mg/dL [facility] 5-40 " HDL cholesterol, serum 36 mg/dL [facility] >39 Low " triglyceride, serum, fasting 508 mg/dL [facility] 0-149 High " cholesterol, serum 206 mg/dL [facility] 100-199 High " alanine aminotransferase (SGPT), serum 62 1/L [facility] 0-55 High " aspartate aminotransferase (SGOT), serum 37 1/L [facility] 0-40 " alkaline phosphatase, serum 93 1/L [facility] 25-150 " bilirubin, serum, total 1.5 mg/dL [facility] 0.0-1.2 High " albumin/globulin ratio, serum 1.3 [facility] 1.1-2.5 " globulin, serum 3.3 [facility] 1.5-4.5 " albumin, serum 4.2 g/dL [facility] 3.5-5.5 " protein, total, serum 7.5 g/dL [facility] 6.0-8.5 " calcium, serum 9.7 mg/dL [facility] 8.7-10.2 " carbon dioxide, venous blood 22 mmol/L [facility] 20-32 " chloride, serum 103 mmol/L [facility] 97-108 " potassium, serum 4.0 mmol/L [facility] 3.5-5.2 " sodium, serum 140 mmol/L [facility] 134-144 " urea nitrogen/creatinine ratio, serum 19 [facility] 9-20 " eGFR if 107 mL/min/((173/100).m2) [facility] >59 " Estimated Glomerular Filtration Rate (calc) 92 mL/min/((173/100).m2) [facility] >59 " creatinine, serum 0.95 mg/dL [facility] 0.76-1.27 " urea nitrogen, blood 18 mg/dL [facility] 6-24 " blood glucose, random 96 mg/dL [facility] 65-99 " immature granulocytes, percentage of total cells, blood 0 % [facility] 0-2 " basophil count, absolute 0.1 x10E3/uL [facility] 0.0-0.2 " Eosinophil Absolute Count 0.4 X10E3/UL [facility] 0.0-0.4 " monocyte count, blood, automated 0.7 X10E3/UL [facility] 0.1-1.0 " lymphocyte count, blood, automated 3.0 X10E3/UL [facility] 0.7-4.5 " Absolute Neutrophils 4.3 X10E3/UL [facility] 1.8-7.8 " basophils as percent of blood leukocytes 1 % [facility] 0-3 " eosinophils as percent of blood leukocytes 5 % [facility] 0-7 " monocytes as percent of blood leukocytes 9 % [facility] 4-13 " lymphocytes as percent of blood leukocytes 35 % [facility] 14-46 " neutrophils as percent of blood leukocytes 50 % [facility] 40-74 " platelet count 246 X10E3/UL [facility] 140-415 " red blood cell distribution width 14.0 % [facility] 11.7-15.0 " mean corpuscular hemoglobin concentration, RBC 34.3 G/DL [facility] 32.0-36.0 " mean corpuscular hemoglobin, RBC 33.0 pg [facility] 27.0-34.0 " mean corpuscular volume, RBC 96 fL [facility] 80-98 " hematocrit, blood 45.8 % [facility] 36.0-50.0 " hemoglobin, blood 15.7 g/dL [facility] 12.5-17.0 " erythrocyte (RBC) count 4.76 X10E6/UL [facility] 4.10-5.60 " leukocyte count, blood 8.5 X10E3/UL [facility] 4.0-10.5 " CD4/CD8 ratio 0.88 [facility] 0.92-3.72 Low " absolute CD8 1251 [facility] 109-897 High " T-helper cells (CD4) as percent of blood lymphocytes 36.6 % [facility] 30.8-58.5 " T-helper cells (CD4) count 1098 /UL [facility] [id number] Neisseria gonorrhoeae DNA probe Negative [facility] Negative " chlamydia DNA probe Negative [facility] Negative rapid plasma reagin antibody, serum nr Martita Adhiakri HIV-1RNA, serum, by PCR, quantitative <20 copies/mL [facility] hepatitis A antibody, total Positive [facility] (Negative) Abnormal " hepatitis B core antibody, total Negative [facility] (Negative) " hepatitis B surface antigen Negative [facility] (Negative) " hepatitis C antibody, serum >11.0 [facility] (0.0-0.9) High toxoplasma gondii antibody, IgG <6.5 [facility] (0.0-6.4) hepatitis B surface antibody 0.23 [facility] (0.00-0.99) rapid plasma reagin antibody, serum Non Reactive [facility] (Non Reactive) LDL cholesterol, serum Triglyceride result indicated is too high for an accurate LDL mg/dL [facility] (0-99) " very low density lipoproteins The calculation for the VLDL cholesterol is not valid when mg/dL [facility] (5-40) HDL cholesterol, serum 42 mg/dL [facility] (>39) triglyceride, serum, fasting 1078 mg/dL [facility] (0-149) Panic high cholesterol, serum 220 mg/dL [facility] (100-199) High " alanine aminotransferase (SGPT), serum 119 1/L [facility] (0-55) High " aspartate aminotransferase (SGOT), serum 57 1/L [facility] (0-40) High " alkaline phosphatase, serum 88 1/L [facility] (25-150) " bilirubin, serum, total 0.5 mg/dL [facility] (0.0-1.2) " albumin/globulin ratio, serum 1.7 [facility] (1.1-2.5) " globulin, serum 2.6 [facility] (1.5-4.5) " albumin, serum 4.5 g/dL [facility] (3.5-5.5) " protein, total, serum 7.1 g/dL [facility] (6.0-8.5) " calcium, serum 8.9 mg/dL [facility] (8.7-10.2) " carbon dioxide, venous blood 24 mmol/L [facility] (20-32) " chloride, serum 103 mmol/L [facility] (97-108) " potassium, serum 4.1 mmol/L [facility] (3.5-5.2) " sodium, serum 140 mmol/L [facility] (135-145) " urea nitrogen/creatinine ratio, serum 24 [facility] (9-20) High " creatinine, serum 0.84 mg/dL [facility] (0.76-1.27) " urea nitrogen, blood 20 mg/dL [facility] (6-24) " blood glucose, random 84 mg/dL [facility] (65-99) immature granulocytes, percentage of total cells, blood 0 % [facility] (0-2) " basophil count, absolute 0.1 x10E3/uL [facility] (0.0-0.2) " Eosinophil Absolute Count 0.5 X10E3/UL [facility] (0.0-0.4) High " monocyte count, blood, automated 0.7 X10E3/UL [facility] (0.1-1.0) " lymphocyte count, blood, automated 2.5 X10E3/UL [facility] (0.7-4.5) " Absolute Neutrophils 2.8 X10E3/UL [facility] (1.8-7.8) " basophils as percent of blood leukocytes 1 % [facility] (0-3) " eosinophils as percent of blood leukocytes 8 % [facility] (0-7) High " monocytes as percent of blood leukocytes 10 % [facility] (4-13) " lymphocytes as percent of blood leukocytes 38 % [facility] (14-46) " neutrophils as percent of blood leukocytes 43 % [facility] (40-74) " platelet count 236 X10E3/UL [facility] (140-415) " red blood cell distribution width 14.6 % [facility] (11.7-15.0) " mean corpuscular hemoglobin concentration, RBC 35.3 G/DL [facility] (32.0-36.0) " mean corpuscular hemoglobin, RBC 34.6 pg [facility] (27.0-34.0) High " mean corpuscular volume, RBC 98 fL [facility] (80-98) " hematocrit, blood 44.5 % [facility] (36.0-50.0) " hemoglobin, blood 15.7 g/dL [facility] (12.5-17.0) " erythrocyte (RBC) count 4.54 X10E6/UL [facility] (4.10-5.60) " leukocyte count, blood 6.5 X10E3/UL [facility] (4.0-10.5) absolute CD8 1083 [facility] (109-897) High " T-helper cells (CD4) as percent of blood lymphocytes 36.9 % [facility] (30.8-58.5) " T-helper cells (CD4) count 923 /UL [facility] ([id number]) LDL cholesterol, serum 99 mg/dL [facility] 0-99 " very low density lipoproteins 40 mg/dL [facility] 5-40 " HDL cholesterol, serum 49 mg/dL [facility] >39 " triglyceride, serum, fasting 202 mg/dL [facility] 0-149 High " cholesterol, serum 188 mg/dL [facility] 100-199 " alanine aminotransferase (SGPT), serum 47 1/L [facility] 0-55 " aspartate aminotransferase (SGOT), serum 31 1/L [facility] 0-40 " alkaline phosphatase, serum 93 1/L [facility] 25-150 " bilirubin, serum, total 0.6 mg/dL [facility] 0.1-1.2 " albumin/globulin ratio, serum 1.7 [facility] 1.1-2.5 " globulin, serum 2.6 [facility] 1.5-4.5 " albumin, serum 4.4 g/dL [facility] 3.5-5.5 " protein, total, serum 7.0 g/dL [facility] 6.0-8.5 " calcium, serum 9.6 mg/dL [facility] 8.5-10.6 " carbon dioxide, venous blood 19 mmol/L [facility] 20-32 Low " chloride, serum 104 mmol/L [facility] 97-108 " potassium, serum 4.3 mmol/L [facility] 3.5-5.2 " sodium, serum 143 mmol/L [facility] 135-145 " urea nitrogen/creatinine ratio, serum 19 [facility] 8-27 " estimated glomerular filtration rate >59 mL/min/1.73 [facility] >59 " creatinine, serum 0.97 mg/dL [facility] 0.76-1.27 " urea nitrogen, blood 18 mg/dL [facility] 5-26 " blood glucose, random 100 mg/dL [facility] 65-99 High basophil count, absolute 0.1 x10E3/uL [facility] 0.0-0.2 " Eosinophil Absolute Count 0.4 X10E3/UL [facility] 0.0-0.4 " monocyte count, blood, automated 0.4 X10E3/UL [facility] 0.1-1.0 " lymphocyte count, blood, automated 1.8 X10E3/UL [facility] 0.7-4.5 " Absolute Neutrophils 3.0 X10E3/UL [facility] 1.8-7.8 " basophils as percent of blood leukocytes 1 % [facility] 0-3 " eosinophils as percent of blood leukocytes 7 % [facility] 0-7 " monocytes as percent of blood leukocytes 7 % [facility] 4-13 " lymphocytes as percent of blood leukocytes 32 % [facility] 14-46 " neutrophils as percent of blood leukocytes 53 % [facility] 40-74 " platelet count 202 X10E3/UL [facility] 140-415 " red blood cell distribution width 14.1 % [facility] 11.7-15.0 " mean corpuscular hemoglobin concentration, RBC 34.3 G/DL [facility] 32.0-36.0 " mean corpuscular hemoglobin, RBC 32.8 pg [facility] 27.0-34.0 " mean corpuscular volume, RBC 96 fL [facility] 80-98 " hematocrit, blood 44.2 % [facility] 36.0-50.0 " hemoglobin, blood 15.2 g/dL [facility] 12.5-17.0 " erythrocyte (RBC) count 4.62 X10E6/UL [facility] 4.10-5.60 " leukocyte count, blood 5.7 X10E3/UL [facility] 4.0-10.5 CD4/CD8 ratio 0.75 [facility] 0.92-3.72 Low " T-helper cells (CD4) to T-suppressor cells (CD8) ratio 41.7 % [facility] 12.0-35.5 High " absolute CD8 751 [facility] 109-897 " T-helper cells (CD4) count 31.3 % [facility] 30.8-58.5 " T-helper cells (CD4) as percent of blood lymphocytes 563 /UL [facility] [id number] HIV-1RNA, serum, by PCR, quantitative <48 copies/mL [facility] LDL cholesterol, serum 48 mg/dL [facility] 0-99 " very low density lipoproteins 61 mg/dL [facility] 5-40 High " HDL cholesterol, serum 52 mg/dL [facility] >39 " triglyceride, serum, fasting 307 mg/dL [facility] 0-149 High " cholesterol, serum 161 mg/dL [facility] 100-199 " alanine aminotransferase (SGPT), serum 45 1/L [facility] 0-55 " aspartate aminotransferase (SGOT), serum 27 1/L [facility] 0-40 " alkaline phosphatase, serum 112 1/L [facility] 25-150 " bilirubin, serum, total 1.1 mg/dL [facility] 0.1-1.2 " albumin/globulin ratio, serum 1.4 [facility] 1.1-2.5 " globulin, serum 3.0 [facility] 1.5-4.5 " albumin, serum 4.1 g/dL [facility] 3.5-5.5 HISTORY OF IMMUNIZATIONS No Information Available HISTORY OF MEDICATION USE Medication Instructions Dates Provider Comments LISINOPRIL 5 MG ORAL TABLET Take one tablet by mouth once daily Nikolay Sol CLINDAMYCIN PHOSPHATE 1 % GEL APPLY TO AFFECTED AREA(S) ONCE DAILY Nikolay Sol DOXYCYCLINE HYCLATE 100 MG ORAL CAPSULE Take one capsule by mouth every 12 hours - Nikolay Sol ATORVASTATIN CALCIUM 20 MG ORAL TABLET Take one tablet by mouth once daily at bedtime Nikolay Sol NIACIN ER (ANTIHYPERLIPIDEMIC) 500 MG ORAL TABLET EXTENDED RELEASE Take one tablet by mouth once daily with dinner Nikolay Sol GLIPIZIDE 5 MG ORAL TABLET Take one tablet by mouth once daily 30 minutes before breakfast Nikolay Sol FENOFIBRATE MICRONIZED 130 MG ORAL CAPSULE Take one tablet by mouth once daily - Nikolay Sol CLINDAMYCIN PHOSPHATE 1 % EXTERNAL GEL Apply once daily to affected area - Nikolay Sol CLINDAMYCIN PHOSPHATE 1 % EXTERNAL GEL Apply to affected areas Twice a Day - Nikolay Sol METFORMIN HCL 1000 MG ORAL TABLET Take one tablet by mouth twice daily with a meal Nikolay Sol METFORMIN HCL 500 MG ORAL TABLET 1 by mouth twice a day - Josesito Perry AMOXICILLIN-POT CLAVULANATE 875-125 MG ORAL TABLET 1 By Mouth Twice a Day for 10 days - Josesito Perry FLOYA ALLERGY RELIEF 50 MCG/ACT NASAL SUSPENSION 2 sprays each nostril every day - Chad Navarro BROMFED DM 30-2-10 MG/5ML ORAL SYRUP 10 mL every four hours as needed for cough/congestion - Nikolay Sol AUGMENTIN 875-125 MG ORAL TABLET Take one tablet by mouth twice daily for 10 days - Chad Navarro ZITHROMAX 250 MG ORAL TABLET 2 by mouth now, then 1 by mouth every day for 4 more days - Nikolay Sol FENOFIBRATE MICRONIZED 134 MG ORAL CAPSULE 1 By Mouth Every Day - Josesito Perry VIAGRA 50 MG ORAL TABLET use as directed - Nikolay Sol BENZOYL PEROXIDE-ERYTHROMYCIN 5-3 % EXTERNAL GEL Apply as directed - Chad Navarro DESCOVY 200-25 MG ORAL TABLET Take one tablet by mouth once daily Nikolay Sol BENZAMYCIN 5-3 % EXTERNAL GEL apply to face nightly at bedtime - Chad Navarro VIAGRA 50 MG ORAL TABLET take 1/2 a tablet PO at bedtime - Chad Navarro VALACYCLOVIR HCL 1 GM ORAL TABLET Take one tablet by mouth once daily Nikolay Sol NORVIR 100 MG ORAL TABLET Take one tablet by mouth once daily with food Nikolay Sol REYATAZ 300 MG ORAL CAPSULE Take one capsule by mouth once daily with food Nikolay Sol SOCIAL HISTORY Date Observation Value Provider drug use, illicit Never Tangela Hicks " alcohol use Currently Tangela Hicks " social history E&M Single. Not homeless. Born in [facility]. City: [address]. State: [place]. 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 Gender of partner(s): female. Age of first sexual intercourse: 14. Tangela Hicks " social history reviewed E&M reviewed today Tangela Hicks " sexual orientation Heterosexual Tangela Hicks " assessment of health literacy ([facility] 2014 Standards, 3C10) Adequate Tangela Hicks " passive cigarette smoke exposure No Tangela Hicks " smoking status former smoker Tangela Hicks " Exercise Program Referral T Tangela Reyados " Weight Management Counseling Provided T Tangela Hicks " Nutrition intervention T Tangela Reyados Exercise Program Referral T Nikolay Sol " Weight Management Counseling Provided T Nikolay Sol " Nutrition intervention T Nikolay Sol " drug use, illicit Never Lori J Sparrow " alcohol use Currently Lori J Sparrow " social history E&M Single. Not homeless. Born in [facility]. City: [address]. State: [place]. 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 Gender of partner(s): female. Age of first sexual intercourse: 14. Lori J Sparrow " social history reviewed E&M reviewed today Lori J Sparrow " passive cigarette smoke exposure No Lori J Sparrow " smoking status former smoker Lori J Sparrow time of call 10/29/2017 3:13 PM Magda Leigh Exercise Program Referral T Nikolay Sol " Weight Management Counseling Provided T Nikolay Sol " Nutrition intervention T Nikolay Sol " sexual orientation Heterosexual Lori J Sparrow " drug use, illicit Never Lori J Sparrow " alcohol use Currently Lori J Sparrow " social history E&M Single. Not homeless. Born in [facility]. City: [address]. State: [place]. 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 Gender of partner(s): female. Age of first sexual intercourse: 14. Lori J Sparrow " social history reviewed E&M reviewed today Lori J Sparrow " assessment of health literacy ([facility] 2014 Standards, 3C10) Adequate Lori J Sparrow " passive cigarette smoke exposure No Lori J Sparrow " smoking status former smoker Lori J Sparrow time of call 09/10/2017 2:49 PM Barb Lopez sexual orientation Heterosexual Rekha Machuca sexual orientation Heterosexual Anaya Hassan time of call 07/05/2017 4:26 PM Renetta Adleros drug use, illicit Never Marilu Barajas " alcohol use Currently Marilu Barajas " sexual orientation Heterosexual Marilu Barajas " smoking status former smoker Marilu Barajas " passive cigarette smoke exposure No Marilu Barajas " assessment of health literacy ([facility] 2014 Standards, 3C10) Adequate Marilu Barajas " social history E&M Single. Not homeless. Born in [facility]. City: [place] [address]. State: [place]. 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 Gender of partner(s): female. Age of first sexual intercourse: 14. Marilu Barajas " social history reviewed E&M reviewed today Marilu Barajas " Exercise Program Referral T Marilu Barajas " Weight Management Counseling Provided T Marilu Barajas " Nutrition intervention T Marilu Barajas sexual orientation Heterosexual Yuko Edmond drug use, illicit Never Jen John " alcohol use Currently Jen John " social history E&M Single. Not homeless. Born in [facility]. City: [address]. State: [place]. 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 Gender of partner(s): female. Age of first sexual intercourse: 14. Jen John " social history reviewed E&M reviewed today Jen John " is there any chance that you could be ? No Jen John " passive cigarette smoke exposure No Jen John " smoking status former smoker Jen Lopez time of call 11/04/2015 11:39 AM Cindi De Leon sexual orientation Heterosexual Chad Navarro " Exercise Program Referral T Chad Navarro " Weight Management Counseling Provided Jose Navarro " Nutrition intervention T Chad Navarro " drug use, illicit Never Marilu Barajas " alcohol use Currently Marilu Barajas " social history E&M Single. Not homeless. Born in [facility]. City: [address]. State: [place]. 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 Gender of partner(s): female. Age of first sexual intercourse: 14. Marilu Barajas " social history reviewed E&M reviewed today Marilu Barajas " passive cigarette smoke exposure No Marilu Barajas " smoking status former smoker Marilu Barajas sexual orientation Heterosexual Chad Navarro " drug use, illicit Never Marilu Barajas " alcohol use Currently Marilu Barajas " social history E&M Single. Not homeless. Born in [facility]. City: [address]. State: [place]. 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 Gender of partner(s): female. Age of first sexual intercourse: 14. Marilu Barajas " social history reviewed E&M reviewed today Marilu Barajas " passive cigarette smoke exposure No Marilu Barajas " smoking status former smoker Marilu Barajas drug use, illicit Never Liudmila Castellanos " alcohol use Currently Liudmila Castellanos " passive cigarette smoke exposure No Liudmila Castellanos " smoking status former smoker Liudmila Castellanos drug use, illicit Never Jen John " alcohol use Currently Jen John " social history E&M Single. Not homeless. Born in [facility]. City: [place] [address]. State: [place]. 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 Gender of partner(s): female. Age of first sexual intercourse: 14. Jen John " social history reviewed E&M reviewed today Jen John " passive cigarette smoke exposure No Jen John " smoking status former smoker Jen John sexual orientation Heterosexual Tracey Jordi sexual orientation Heterosexual Yuko Mayito sexual orientation Heterosexual Chad Martínezmarybel " social history E&M Single. Not homeless. Born in [facility]. City: [place] [address]. State: [place]. 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 Gender of partner(s): female. Age of first sexual intercourse: 14. Chad Navarro " social history reviewed E&M reviewed today Chad Nemecek " passive cigarette smoke exposure No Linda Ruggiero " smoking, advice to quit Yes Linda Ruggiero " smoking status former smoker Linda Woodruffardo time of call 03/02/2014 3:47 PM Mario Bardales time of call 02/24/2014 8:11 AM Renee Palafox alcohol use, frequency few times per week Chad Melanie " alcohol use Currently Chad Navarro " social history E&M Single. Not homeless. Born in [facility]. City: [place]. State: [place]. 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 Gender of partner(s): female. Age of first sexual intercourse: 14. Chad Navarro " social history reviewed E&M reviewed today Chad Navarro " sexual orientation Heterosexual Chad Navarro " sex at male Linda Ruggiero " passive cigarette smoke exposure No Lindaaddison Woodruffardo " cigarettes, number smoked per day 20 a week Linda Ruggiero " smoking, advice to quit Yes Linda Ruggiero " smoking status current every day smoker Lindaaddison Bailono " social history E&M Single. Not homeless. Born in [facility]. City: [address]. State: [place]. 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 Gender of partner(s): female. Age of first sexual intercourse: 14. Chad Nemecek " social history reviewed E&M reviewed today Chad Navarro " sexual orientation Heterosexual Chad Navarro " drug use, illicit Never Cammy Adal " alcohol use Never Cammy Galeas " passive cigarette smoke exposure No Cammy Adal " smoking status former smoker Cammy Adal sexual orientation Heterosexual Yuko Edmond sexual orientation Heterosexual Chad Navarro " drug use, illicit Never Sara Vente " alcohol use, frequency few times per month Sara Vente " alcohol use Currently Sara Vente " social history reviewed E&M reviewed today Sara Vente " social history E&M Single. Not homeless. Born in [facility]. City: [address]. State: [place]. 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 Gender of partner(s): female. Age of first sexual intercourse: 14. 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 Sara Vente " patient considered to be homeless No Sara Nevarez " passive cigarette smoke exposure No Sara Nevarez " smoking, advice to quit Yes Sara Nevarez " smoking status current every day smoker Sara Nevarez FUNCTIONAL STATUS No Information Available MENTAL STATUS Date Observation Value Provider assessment of mood and affect E&M no agitation Nikolay Sol " Generalized Anxiety Disorder Questionnaire - Question 2 0 Tangela Hicks " Generalized Anxiety Disorder Questionnaire - Question 1 0 Tangela Hicks assessment of mood and affect E&M no agitation Nikolay Sol " Generalized Anxiety Disorder Questionnaire - Question 2 0 Lori Sparrow " Generalized Anxiety Disorder Questionnaire - Question 1 0 Lori Sparrow assessment of mood and affect E&M no agitation Nikolay Sol " Generalized Anxiety Disorder Questionnaire - Question 2 0 Lori Sparrow " Generalized Anxiety Disorder Questionnaire - Question 1 0 Lori Sparrow assessment of mood and affect E&M good eye contact, normal affect Josesito Perry " mental status examination: orientation E&M alert and oriented to person, place, and time Josesito Perry mental status examination: orientation E&M alert and oriented to person, place, and time Chad Navarro " assessment of mood and affect E&M good eye contact, normal affect Chad Navarro " Generalized Anxiety Disorder Questionnaire - Question 2 0 Marilu Barajas " Generalized Anxiety Disorder Questionnaire - Question 1 0 Marilu Barajas assessment of mood and affect E&M good eye contact, normal affect Josesito Perry " mental status examination: orientation E&M alert and oriented to person, place, and time Josesito Perry Generalized Anxiety Disorder Questionnaire - Question 2 0 Jen Lopez " Generalized Anxiety Disorder Questionnaire - Question 1 0 Jen Lopez assessment of mood and affect E&M no depression, anxiety, or agitation Chad Navarro " Generalized Anxiety Disorder Questionnaire - Question 2 0 Marilu Barajas " Generalized Anxiety Disorder Questionnaire - Question 1 0 Marilu Barajas assessment of mood and affect E&M no depression, anxiety, or agitation Chad Nemmarybel " Generalized Anxiety Disorder Questionnaire - Question 2 0 Marilu Barajas " Generalized Anxiety Disorder Questionnaire - Question 1 0 Marilu Barajas Generalized Anxiety Disorder Questionnaire - Question 2 0 Liudmila Castellanos " Generalized Anxiety Disorder Questionnaire - Question 1 0 Liudmila Castellanos assessment of judgment and insight E&M intact Radha Posey " assessment of mood and affect E&M no depression, anxiety, or agitation Radhajuan c Rowlandntishan " Generalized Anxiety Disorder Questionnaire - Question 2 0 Jen Lopez " Generalized Anxiety Disorder Questionnaire - Question 1 0 Jen Lopez assessment of mood and affect E&M good eye contact, normal affect Josesito Perry " mental status examination: orientation E&M alert and oriented to person, place, and time Josesito Delgado Perry assessment of mood and affect E&M good eye contact, normal affect Chad Lazarok " Generalized Anxiety Disorder Questionnaire - Question 2 0 Linda Ruggiero " Generalized Anxiety Disorder Questionnaire - Question 1 0 Linda Ruggiero assessment of mood and affect E&M good eye contact, normal affect Chad Nemecek " Generalized Anxiety Disorder Questionnaire - Question 2 0 Linda Ruggiero " Generalized Anxiety Disorder Questionnaire - Question 1 0 Linda Ruggiero Generalized Anxiety Disorder Questionnaire - Question 2 0 Cammy Galeas " Generalized Anxiety Disorder Questionnaire - Question 1 0 Cammy Galeas assessment of mood and affect E&M good eye contact, normal affect Josesito Perry " mental status examination: orientation E&M alert and oriented to person, place, and time Josesito Umañayer MEDICAL EQUIPMENT No Information Available FAMILY HISTORY No Information Available INSURANCE PROVIDERS Payer name Policy type / Coverage type Covered green party ID Errol White 101-200% Other [id number] Errol White 101-200% Other Errol White 101-200% Other Errol White 101-200% Other Sliding Fee - Cat 5 [employer] [id number] Errol White 101-200% Other [id number] Errol White 101-200% Other Errol White 101-200% 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 Metabolic Panel (14) CBC With Differential/Platelet CD4/CD8 Ratio Profile RNA, Real Time PCR (Graph) Hep B Surface Ab Hep B Core Ab, Tot HCV RNA by PCR, Qn Rfx Mary Hemoglobin A1c Chlamydia/GC Amplification (Urine) HBsAg Screen HCV Antibody Lipid Panel RPR, Rfx Qn RPR/Confirm TP Comp. Metabolic Panel (14) CBC With Differential/Platelet CD4/CD8 Ratio Profile RNA, Real Time PCR (Graph) Lipid Panel RPR, Rfx Qn RPR/Confirm TP Comp. Metabolic Panel (14) CBC With Differential/Platelet CD4/CD8 Ratio Profile RNA, Real Time PCR (Graph) Hemoglobin A1c RPR, Rfx Qn RPR/Confirm TP Comp. Metabolic Panel (14) CBC With Differential/Platelet CD4/CD8 Ratio Profile Lipid Panel RNA, Real Time PCR (Graph) RPR, Rfx Qn RPR/Confirm TP Comp. Metabolic Panel (14) CBC With Differential/Platelet CD4/CD8 Ratio Profile Lipid Panel RNA, Real Time PCR (Graph) RPR, Rfx Qn RPR/Confirm TP Comp. Metabolic Panel (14) CBC With Differential/Platelet CD4/CD8 Ratio Profile Lipid Panel RNA, Real Time PCR (Graph) Hemoglobin A1c Chlamydia/GC Amplification (Urine) Hemoglobin A1c RPR, Rfx Qn RPR/Confirm TP Comp. Metabolic Panel (14) CD4/CD8 Ratio Profile Lipid Panel RNA, Real Time PCR (Graph) QuantiFERON TB Gold (In Tube) Lipid Panel RPR, Rfx Qn RPR/Confirm TP Comp. Metabolic Panel (14) CD4/CD8 Ratio Profile RNA, Real Time PCR (Graph) Hemoglobin A1c HCV RT-PCR, Quant (Graph) Lipid Panel RPR, Rfx Qn RPR/Confirm TP Comp. Metabolic Panel (14) CD4/CD8 Ratio Profile RNA, Real Time PCR (Graph) Hemoglobin A1c FIT- Fecal immunoassay test Lipid Panel RPR, Rfx Qn RPR/Confirm TP Comp. Metabolic Panel (14) CD4/CD8 Ratio Profile RNA, Real Time PCR (Graph) Toxoplasma gondii Ab, IgG, Qn RPR RNA, Real Time PCR (Graph) Lipid Panel HCV Antibody HBsAg Screen Hep B Surface Ab Hep B Core Ab, Tot Hep A Ab, Total Chlamydia/GC Amplification CD4/CD8 Ratio Profile PSA, Serum (Serial Monitor) QuantiFERON TB Gold (In Tube) Chlamydia/GC Amplification Lipid Panel RPR, Rfx Qn RPR/Confirm TP Comp. Metabolic Panel (14) CD4/CD8 Ratio Profile RNA, Real Time PCR (Graph) Toxoplasma gondii Ab, IgG, Qn RPR RNA, Real Time PCR (Graph) Lipid Panel HCV Antibody HBsAg Screen Hep B Surface Ab Hep B Core Ab, Tot Hep A Ab, Total Comp. Metabolic Panel (14) CD4/CD8 Ratio Profile Toxoplasma gondii Ab, IgG, Qn RPR RNA, Real Time PCR (Graph) Lipid Panel HCV Antibody HBsAg Screen Hep B Surface Ab Hep B Core Ab, Tot Hep A Ab, Total Comp. Metabolic Panel (14) CD4/CD8 Ratio Profile Lipid Panel RPR, Rfx Qn RPR/Confirm TP Comp. Metabolic Panel (14) CD4/CD8 Ratio Profile RNA, Real Time PCR (Graph) Lipid Panel RPR, Rfx Qn RPR/Confirm TP Comp. Metabolic Panel (14) CD4/CD8 Ratio Profile RNA, Real Time PCR (Graph) - - Est Patient Exp Problem - 26020 Primary Care - Assesment-Brief - SLW Primary Care Service Linkage Primary Care Service Linkage Est Patient Detailed - 43360 Pneumovax Vaccine [id number] INFLUENZA VACCINE QUADRIVALENT 3 YRS PLUS IM Glucose Stick Dispensing Visit (UNLIVSTED OPHTHALMOLOGICAL SERVICE/PROCEDURE) Est Patient Exp Problem - 23911 Est Patient Exp Problem - 08564 COMPUTERIZED OPHTHALMIC IMAGING OPTIC NERVE Est Patient Comprehensive Opt - 20332 Spherocyl, SV, plano to +/- 4.00d sphere, 0.12 to 2.00d cyl, per lens Spherocyl, SV, plano to +/- 4.00d sphere, 2.12 to 4.00d cyl, per lens Add to lens; tint, any color, solid, gradient or equal, excl photochro, any niles Frames, purchases Est Patient Intermediate Opt - 54891 Ofc Vst, Est Level IV Contact Insp/Mod (MODIFICAJ CONTACT LENX SPX SUPVJ ADAPTATION) COMPUTERIZED OPHTHALMIC IMAGING OPTIC NERVE Est [facility] [address] Dispensing Visit (Non-Billable) COMPUTERIZED OPHTHALMIC IMAGING OPTIC NERVE Contact Lens Fitting (RX&FITG C-LENS SUPVJ CRNL LENS OU XCPT APHK) Est [facility]mediate [facility] 13862 Est Patient Detailed - 27380 INFLUENZA VACCINE QUADRIVALENT 3 YRS PLUS IM Ofc Vst, Est Level IV Nutrition - Internal Ofc Vst, Est Level IV Est Patient Exp Problem - 64212 Est Patient Detailed - 87620 Handling of specimen for transfer Venipuncture Dispensing Visit (UNLIVSTED OPHTHALMOLOGICAL SERVICE/PROCEDURE) Add to lens; tint, any color, solid, gradient or equal, excl photochro, any niles Frames, purchases Spherocyl, SV, +/- 4.25 to +/- 7.00 sphere, 0.12 to 2.00d cyl, per lens Spherocyl, SV, plano to +/- 4.00d sphere, 0.12 to 2.00d cyl, per lens COMPUTERIZED OPHTHALMIC IMAGING OPTIC NERVE Est Patient Intermediate Opth - 44167 Contact Lens Fitting (RX&FITG C-LENS SUPVJ CRNL LENS OU XCPT APHK) Est Patient Intermediate Opth - 90397 Primary Care - Assesment-Brief - SLW Primary Care Service Linkage Ofc Vst, Est Level IV Influenza - Adult - Injection Handling of specimen for transfer Venipuncture Ofc Vst, Est Level III Prevnar (PCV13) IM Handling of specimen for transfer Venipuncture Ofc Vst, Est Level III Pfh Referral (N) Pfh Message Delivered (C) Pfh Clinic Visit (R) Pfh Session Conducted (Y) Dispensing Visit (UNLIVSTED OPHTHALMOLOGICAL SERVICE/PROCEDURE) Contact lens, gas permeable, spherical, per lens Contact Insp/Mod (MODIFICAJ CONTACT LENX SPX SUPVJ ADAPTATION) Tint, photochromatic, per lens Frames, purchases Spherocyl, SV, +/- 4.25 to +/- 7.00 sphere, 0.12 to 2.00d cyl, per lens OPH US DX CRNL PACHYMETRY UNI/BI Est Patient Intermediate Opth - 19516 Contact Lens Fitting (RX&FITG C-LENS SUPVJ CRNL LENS OU XCPT APHK) Est Patient Intermediate Opth - 07142 Ofc Vst, Est Level IV Pneumovax Vaccine Primary Care Medical Case Management Primary Care Medical Case Management HISTORY OF PROCEDURES Procedure Date Procedure Name Provider Procedure Notes Status Primary Care - Assesment-Brief - SLW Mac Hernandez Time spent with patient: 15 completed Primary Care Service Linkage Mac Hernandez Time spent with patient: 60 completed Primary Care Service Linkage Mac Hernandez Time spent with patient: 20 completed Glucose Stick Nikolay Sol completed Dispensing Visit (UNLIVSTED OPHTHALMOLOGICAL SERVICE/PROCEDURE) Tracey Bacon completed COMPUTERIZED OPHTHALMIC IMAGING OPTIC NERVE Josesito Perry completed Est Patient Comprehensive Opt - 65554 Josesito Perry completed Spherocyl, SV, plano to +/- 4.00d sphere, 0.12 to 2.00d cyl, per lens Anaya Hassan completed Spherocyl, SV, plano to +/- 4.00d sphere, 2.12 to 4.00d cyl, per lens Anaya Hassan completed Add to lens; tint, any color, solid, gradient or equal, excl photochro, any niles [employer] completed Frames, purchases [employer] Frame #[id number] (Pd 5.00) completed Est Patient Intermediate Opt - 23344 Angela Aldrich completed Contact Insp/Mod (MODIFICAJ CONTACT LENX SPX SUPVJ ADAPTATION) Efra Tariq completed COMPUTERIZED OPHTHALMIC IMAGING OPTIC NERVE Josesito Perry completed Est [facility] [address] Josesito Perry completed Dispensing Visit (Non-Billable) Tracey Bacon completed COMPUTERIZED OPHTHALMIC IMAGING OPTIC NERVE Tracey Bacon completed Contact Lens Fitting (RX&FITG C-LENS SUPVJ CRNL LENS OU XCPT APHK) Efra Tariq completed Est Patient Intermediate Opt - 88084 Efra Tariq completed Venipuncture Radha Posey completed Dispensing Visit (UNLIVSTED OPHTHALMOLOGICAL SERVICE/PROCEDURE) Tracey Bacon completed Add to lens; tint, any color, solid, gradient or equal, excl photochro, any niles Yuko Edmond 5.00 completed Frames, purchases Yuko Edmond completed Spherocyl, SV, +/- 4.25 to +/- 7.00 sphere, 0.12 to 2.00d cyl, per lens Yuko Edmond completed Spherocyl, SV, plano to +/- 4.00d sphere, 0.12 to 2.00d cyl, per lens Yuko Edmond completed COMPUTERIZED OPHTHALMIC IMAGING OPTIC NERVE Josesito Perry completed Est Patient Intermediate Opt - 86479 Josesito Perry completed Contact Lens Fitting (RX&FITG C-LENS SUPVJ CRNL LENS OU XCPT APHK) Efra Tariq completed Est Patient Intermediate Opt - 65014 Efra Tariq completed Primary Care - Assesment-Brief - SLW Merry Gracia Time spent with patient:15 completed Primary Care Service Linkage Merry Garcia Time spent with patient:60 completed Venipuncture Chad Navarro completed Venipuncture Chad Navarro completed Pfh Referral (N) Chad Navarro completed Pfh Message Delivered (C) Chad Navarro completed Pfh Clinic Visit (R) Chad Navarro completed Pfh Session Conducted (Y) Chad Navarro completed Dispensing Visit (UNLIVSTED OPHTHALMOLOGICAL SERVICE/PROCEDURE) Tracey Bacon completed Contact lens, gas permeable, spherical, per lens Yuko Edmond completed Contact Insp/Mod (MODIFICAJ CONTACT LENX SPX SUPVJ ADAPTATION) Efra Tariq completed Tint, photochromatic, per lens Yuko Edmond $5.00 completed Frames, purchases Yuko Edmond completed Spherocyl, SV, +/- 4.25 to +/- 7.00 sphere, 0.12 to 2.00d cyl, per lens Yuko Edmond completed OPH US DX CRNL PACHYMETRY UNI/BI Josesito Perry completed Est Patient Intermediate Opth - 61755 Josesito Perry completed Contact Lens Fitting (RX&FITG C-LENS SUPVJ CRNL LENS OU XCPT APHK) Efra Tariq completed Est Patient Intermediate Opth - 04624 Efra Tariq completed Primary Care Medical Case Management Renée Zavala Time spent with patient: 15 completed Primary Care Medical Case Management Renée Zavala Time spent with patient: 15 completed GOALS No Information Available HEALTH CONCERNS No Information Available
--- OUTSIDE RECORDS SUMMARY | 2019-07-14 14:28 | XMS REPORT ---
Author Author Admin, [place] Organization Unknown Address Unknown Phone Unavailable PROBLEMS [...] Angela Bhakhrani Astigmatism - OU active Angela Bhdamiani Screening for std completed - Nikolay Sol [...] with borderline findings, high risk, bilateral active Efra Tariq ENCOUNTERS Date Type Provider Location Encounter Diagnosis - Ambulatory Encounter Nikolay Sol [facility] LM Adult Medicine UNK - Ambulatory Encounter Nikolay Sol [facility] LM Adult Medicine UNK - Ambulatory Encounter Nikolay Sol Dona Sandyierrez [facility] Adult Medicine UNK - Ambulatory Encounter Nikolay Sol [facility] Adult Medicine UNK - Ambulatory Encounter Nikolay Sol [facility] Adult Medicine UNK - Ambulatory [facility] UNK - Ambulatory Encounter Mario Rojas [facility] Tian Eligibility UNK - Ambulatory Encounter Naina Cordova [facility] Services UNK - Ambulatory Encounter Fax Status [facility] Services UNK - Ambulatory Encounter Fax Status [facility] Services UNK - Ambulatory Encounter Fax Status [facility] Services UNK - Ambulatory Encounter Fax Status [facility] Services UNK - Ambulatory Encounter Mac Hernandez [facility] Program Review Director UNK - Ambulatory Encounter Nikolay Sol [facility] Adult Medicine UNK - Ambulatory Encounter Nikolay Hicks [facility] Adult Medicine Vaccination against influenzaVaccination for strep pneumonia with pneumovaxHepatitis C antibody test positiveImmunity status testing, antibody response - Ambulatory Encounter Nikolay Franco [facility], [facility] Adult Medicine UNK - Ambulatory Encounter Paz Campbell [facility] Program Review Director UNK - Ambulatory Encounter Mac Hernandez [facility] Program Review Director UNK - Ambulatory Encounter [facility] UNK - Ambulatory Encounter Nikolay Sol [facility] LM Adult Medicine UNK - Ambulatory Encounter Nikolay Sol [facility] LM Adult Medicine UNK - Ambulatory Encounter Nikolay Sol Max Armendariz LM Adult Medicine UNK - Ambulatory Encounter Nikolay Franco [facility], LM Adult Medicine UNK - Ambulatory Encounter Catina Jackson LM Adult Medicine UNK - Ambulatory Encounter Antoni Hurtado [facility] Adult Medicine UNK - Ambulatory Encounter Nikolay Sol [facility] Adult Medicine UNK - Ambulatory Encounter Fax Status [facility] Services UNK - Ambulatory Encounter Fax Status [facility] Services UNK - Ambulatory Encounter Fax Status [facility] Services UNK - Ambulatory Encounter Nikolay Sparrow [facility] Adult Medicine UNK - Ambulatory Encounter [facility] Care Coordination Desktop Lori Scott [facility] Services Contact Center UNK - Ambulatory Encounter Nikolay Sol [facility] LM Adult Medicine UNK - Ambulatory Encounter Nikolay Sol LM Adult Medicine UNK - Ambulatory Encounter Nikolay Sol LM Adult Medicine UNK - Ambulatory Encounter Nikolay Sparrow LM Adult Medicine Vaccination against influenzaVaccination for strep pneumonia with pneumovaxTransaminases, serum, elevatedSkin lesions, multiple - Ambulatory Encounter Nikolay Sol [facility] Adult Medicine UNK - Ambulatory Encounter Dona Eng [facility] Adult Medicine UNK - Ambulatory En[facility] Con[facility]ion [facility] UNK - Ambulatory Encounter Naina Cordova [facility] Services UNK - Ambulatory Encounter Nikolay Faganrade [facility] UNK - Ambulatory Encounter Nikolay Sol [facility] Adult Medicine UNK - Ambulatory Encounter Nikolay Sol [facility] Adult Medicine UNK - Ambulatory Encounter Josesito Perry [facility] Vision UNK - Ambulatory Encounter Nikolay Greenfield [facility] Adult Medicine UNK - Ambulatory Encounter Chad Navarro [facility] Adult Medicine UNK - Ambulatory Encounter Chad Navarro [facility] Adult Medicine UNK - Ambulatory Encounter Tracey Bacon [facility] Vision UNK - Ambulatory Encounter Tracey Bacon [facility] Vision UNK - Ambulatory Encounter Fax Status [facility] Services UNK - Ambulatory Encounter Fax Status [facility] Services UNK - Ambulatory Encounter [facility] - Ambulatory Encounter Nikolay Sol [facility] Adult Medicine UNK - Ambulatory Encounter Nikolay Whittaker Lori J Sparrow [facility] Adult Medicine Immunization updateScreening for stdScreening, colon cancer - Ambulatory Encounter Barb Lopez [facility] Public Health Services UNK - Ambulatory Encounter Josesito Perry [facility] Vision UNK - Ambulatory Encounter Anaya Hassan [facility] Vision UNK - Ambulatory Encounter Angela Bhakhrani Angela Bhakhrani [facility] Vision UNK - Ambulatory Encounter Josesito Perry Rekha Machuca [facility] Vision UNK - Ambulatory Encounter Angela Bhakhrani Angela Bhakhrani [facility] Vision UNK - Ambulatory Encounter Angela Bhakhrani Angela Bhakhrani [facility] Vision UNK - Ambulatory Encounter Angela Bhakhrani Angela Bhakhrani Anaya Gonzalezra Machuca [facility] Vision Astigmatism - OUMyopia - OU - Ambulatory Encounter Chad Corona Greenfield [facility] Adult Medicine UNK - Ambulatory Encounter Chad Greenfield [facility] Adult Medicine UNK - Ambulatory Encounter Chad Corona Greenfield [facility] Adult Medicine UNK - Ambulatory Encounter Chad CottrellLogjoy Greenfield [facility] Adult Medicine UNK - Ambulatory Encounter Chad Greenfield [facility] Adult Medicine UNK - Ambulatory Encounter Chad Greenfield [facility] Adult Medicine UNK - Ambulatory Encounter [facility] Adult Medicine UNK - Ambulatory Encounter Chad Lundkiran Manzano Rice LM Adult Medicine UNK - Ambulatory Encounter Chad Navarro LM Adult Medicine UNK - Ambulatory Encounter Chad Greenfield [facility] Adult Medicine UNK - Ambulatory Encounter Chad Navarro [facility] Greenfield [facility] Adult Medicine UNK - Ambulatory Encounter Montserrat Siucios [facility] UNK - Ambulatory Encounter Valentina Hernandez [facility] Adult Medicine UNK - Ambulatory Encounter Chad Navarro [facility] Adult Medicine UNK - Ambulatory Encounter Chad Navarro [facility] LM Adult Medicine UNK - Ambulatory Encounter Chad Navarro LM Adult Medicine UNK - Ambulatory Encounter Chad Navarro [facility] LM Adult Medicine UNK - Ambulatory Encounter Chad Navarro [facility] Adult Medicine Screening for std - Ambulatory Encounter Chad Greenfield [facility] Adult Medicine UNK - Ambulatory Encounter Enedleia Jackson [facility]Logic Chloe Greenfield [facility] Adult Medicine UNK - Ambulatory Encounter Chad Greenfield LM Adult Medicine UNK - Ambulatory Encounter Chad Greenfield [facility] Adult Medicine UNK - Ambulatory Encounter Enedelia Jackson [facility]Logic Chloe Greenfield [facility] Adult Medicine UNK - Ambulatory Encounter Enedelia [...] [facility] Adult Medicine UNK - Ambulatory Encounter Chda Navarro [facility] Adult Medicine UNK - Ambulatory Encounter Chad Navarro [facility] Adult Medicine UNK - Ambulatory Encounter Chad Navarro [facility] Adult Medicine UNK - Ambulatory Encounter Chad Navarro [facility] Adult Medicine UNK - Ambulatory Encounter Chad Navarro [facility] Adult Medicine UNK - Ambulatory Encounter Chad Barajas C Adult Medicine URIMyopia - OURegular astigmatism, bilateral - Ambulatory Encounter Milana Lopez [facility] Services [facility] Center UNK - Ambulatory Encounter [facility] UNK - Ambulatory Encounter Chad Jackson [facility] Adult Medicine UNK - Ambulatory Encounter Enedelia Jackson [facility] Adult Medicine UNK - Ambulatory Encounter Chad Tanyamarybel Bonilla Lazaroraquel Mcdaniels Renetta [facility] Adult Medicine UNK - Ambulatory [...] Perry [facility] Vision UNK - Ambulatory Encounter Tracey Bacon [facility] Vision UNK - Ambulatory Encounter Josesito Perry Tracey Bacon [facility] Vision Encounter for screening for eye and ear disorders - Ambulatory Encounter Efra Tariq [facility] Vision UNK - Ambulatory Encounter Efra Tariq [facility] Vision UNK - Ambulatory Encounter Efra Edmond C Vision Open angle with borderline findings, high risk, bilateralMyopia - OURegular astigmatism, bilateralCorneal scar, left - Ambulatory Encounter Chad Navarro [facility] Adult Medicine UNK - Ambulatory Encounter [facility] - Ambulatory Encounter Fax Status [facility] Services UNK - Ambulatory Encounter Fax Status [facility] UNK - Ambulatory Encounter Radha Posey LM Adult Medicine UNK - Ambulatory Encounter Radha Spearikamarlonh [facility] Adult Medicine UNK - Ambulatory Encounter Radha Rowlandnth [facility] Adult Medicine UNK - Ambulatory Encounter Radha Morah Jen Lopez [facility] Adult Medicine UNK - Ambulatory Encounter Radhajuan c Spearikanth Jenrai Whittaker [facility] Adult Medicine UNK - Ambulatory Encounter Chad Navarro [facility] Adult Medicine UNK - Ambulatory Encounter Chad Navarro [facility] Adult Medicine UNK - Ambulatory Encounter Chad Greenfield [facility] Adult Medicine UNK - Ambulatory Encounter Lina Dias [facility] Adult Medicine UNK - Ambulatory Encounter Yuko Edmond [facility] Vision UNK - Ambulatory Encounter Chad Veliz [facility] Contact Center UNK - Ambulatory Encounter Chad Navarro [facility] Adult Medicine UNK - Ambulatory Encounter Chad Navarro [facility] Adult Medicine UNK - Ambulatory Encounter Chad Navarro Marilu Barajas [facility] Adult Medicine URI - Ambulatory Encounter Lina Dias [facility] Adult Medicine UNK - Ambulatory Encounter Chad Navarro [facility] Adult Medicine UNK - Ambulatory Encounter Chad Navarro [facility] Adult Medicine UNK - Ambulatory Encounter Robert Mott [facility] Adult Medicine UNK - Ambulatory Encounter Robert Mott [facility] Adult Medicine UNK - Ambulatory Encounter Christopher Chano [facility] Health Services UNK - Ambulatory Encounter Radha Posey [facility] Adult Medicine UNK - Ambulatory Encounter Radha Posey [facility] Adult Medicine UNK - Ambulatory Encounter Radha Posey [facility] Adult Medicine UNK - Ambulatory Encounter Radha Posey [facility] Adult Medicine UNK - Ambulatory [facility]counter [facility] - Ambulatory Encounter Radha Posey [facility] Adult Medicine UNK - Ambulatory Encounter Christopher Chano [facility] Services UNK - Ambulatory Encounter [facility] - Ambulatory Encounter Radha Morah [facility] Adult Medicine UNK - Ambulatory Encounter Radha Posey [facility] Adult Medicine UNK - Ambulatory Encounter Chad Navarro [facility] Adult Medicine UNK - Ambulatory Encounter Chad Madden LM Adult Medicine Otitis media, right - Ambulatory Encounter Radha Posey [facility] Adult Medicine UNK - Ambulatory Encounter Radha Posey [facility] LM Adult Medicine UNK - Ambulatory Encounter Lina Dias LM Adult Medicine UNK - Ambulatory Encounter Radha Posey [facility] LM Adult Medicine UNK - Ambulatory Encounter Scott [place] Cece LM Adult Medicine UNK - Ambulatory Encounter Fax Status [facility] - Ambulatory Encounter Fax Status [facility] UN[facility] - Ambulatory Encounter Fax Status [facility] UNK - Ambulatory Encounter Nikolay Sol [facility] Adult Medicine UNK - Ambulatory Encounter Nikolay Castellanos [facility] Adult Medicine UNK - Ambulatory Encounter Razia [facility] UNK - Ambulatory Encounter Radha Posey [facility] Adult Medicine UNK - Ambulatory Encounter Radha Posey LM Adult Medicine UNK - Ambulatory Encounter Radha Posey [facility] Adult Medicine UNK - Ambulatory Encounter Radha Posey [facility] Adult Medicine UNK - Ambulatory Encounter Radha Posey [facility] Adult Medicine UNK - Ambulatory Encounter Chad Greenfield [facility] Adult Medicine UNK - Ambulatory Encounter Enedelia Greenfield [facility] Adult Medicine UNK - Ambulatory Encounter Radha Posey [facility] Adult Medicine UNK - Ambulatory Encounter Radha Lopez [facility] Adult Medicine Otitis media, rightImmunization updateObesity - Ambulatory Encounter Jen Lopez [facility] Adult Medicine UNK - Ambulatory Encounter Radha Posey [facility] Adult Medicine UNK - Ambulatory Encounter Elaina Canales [facility] Services [facility] Center UNK - Ambulatory Encounter Chad Greenfield [facility] Adult Medicine UNK - Ambulatory Encounter Enedelia Greenfield [facility] Adult Medicine UNK - Ambulatory Encounter Radha King [facility] Adult Medicine UNK - Ambulatory Encounter Chad Greenfield [facility] Adult Medicine UNK - Ambulatory Encounter Chad Greenfield [facility] Adult Medicine UNK - Ambulatory Encounter Chad Greenfield [facility] Adult Medicine UNK - Ambulatory Encounter Chad Navarro Chloe Gin LM Adult Medicine UNK - Ambulatory Encounter Chad Navarro Chloe Greenfield LM Adult Medicine UNK - Ambulatory Encounter Enedelia Renetta [facility] Chloe Gin LM Adult Medicine UNK - Ambulatory Encounter Enedelia Renetta [facility]ic Chloe Gin LM Adult Medicine UNK - Ambulatory Encounter Enedelia Renetta [facility] Chloedaniele Greenfield LM Adult Medicine UNK - Ambulatory Encounter Enedelia Renetta [facility] Chloedaniele Greenfield LM Adult Medicine UNK - Ambulatory [...] UNK - Ambulatory Encounter Chad Navarro [facility] Services UNK - Ambulatory Encounter Lambert Jones [facility] Adult Medicine UNK - Ambulatory Encounter Josesito Perry [facility] Vision UNK - Ambulatory Encounter Efrajanet [...] - Ambulatory Encounter Josesito Perry Tracey Bacon [facility] Vision UNK - Ambulatory Encounter Efra [...] Adult Medicine UNK - Ambulatory Encounter Enedelia Renteta [facility] Adult Medicine UNK - Ambulatory [...] [facility] Adult Medicine UNK - Ambulatory Encounter Enedeliasujit Jackson [facility] Dona Avelnio [facility] Adult Medicine UNK - Ambulatory Encounter Enedeliasujit Jackson [facility] Dona Avelino [facility] Adult Medicine UNK - Ambulatory Encounter Merry Garcia LinkLogic [facility] Program Review Director UNK - Ambulatory Encounter Chad Navarro [facility] Maria Eugenia Wolfe LM Adult Medicine UNK - Ambulatory Encounter Chad Navarro [facility] Adult Medicine UNK - Ambulatory Encounter Merry Garcia [facility] Program Review Director UNK - Ambulatory Encounter Chad Ruggiero [facility] Adult Medicine HYPERLIPIDEMIA - Ambulatory Encounter Cha Mitchell LM Adult Medicine UNK - Ambulatory Encounter Chad Navarro [facility] Adult Medicine UNK - Ambulatory Encounter Chad Navarro [facility] Adult Medicine UNK - Ambulatory Encounter Chad Ren [facility] Adult Medicine UNK - Ambulatory Encounter Chad Rodrgies LM Adult Medicine UNK - Ambulatory Encounter Enedelia Renetta [facility]ic Lou Ren LM Adult Medicine UNK - Ambulatory Encounter Mario Bardales LM Adult Medicine UNK - Ambulatory Encounter Chad Ren [facility] Adult Medicine UNK - Ambulatory Encounter Enedelia Renetta [facility]ic Lou Ren LM Adult Medicine UNK - Ambulatory Encounter Enedelia Renetta [facility]ic Lou Ren [facility] Adult Medicine UNK - Ambulatory Encounter Cha Mitchell LM Adult Medicine UNK - Ambulatory Encounter Renee Javy [facility] Dental UNK - Ambulatory Encounter Chad Navarro Lou Mikal [facility] Adult Medicine UNK - Ambulatory Encounter Enedelia Jackson LinkLogjoy Lou Mikal [facility] Adult Medicine UNK - Ambulatory Encounter Chad You [facility] Adult Medicine UNK - Ambulatory Encounter Enedelia You LM Adult Medicine UNK - Ambulatory Encounter Chad Peoples [facility] Adult Medicine UNK - Ambulatory Encounter Enedelia Jackson [facility] Dalila Peoples [facility] Adult Medicine UNK - Ambulatory Encounter Chad Jackson [facility] Adult Medicine UNK - Ambulatory Encounter Enedelia Jackson LinkLogjoy Navarro [facility] Adult Medicine UNK - Ambulatory Encounter Chad Navarro Link[facility] Adult Medicine UNK - Ambulatory Encounter Chad Navarro [facility] Adult Medicine UNK - Ambulatory Encounter Chad Ruggiero [facility] Adult Medicine UNK - Ambulatory Encounter Aurora Vail [facility] Adult Medicine UNK - Ambulatory Encounter Chad CottrellLogjoy LM Adult Medicine UNK - Ambulatory Encounter Cha Arriaza [facility] Adult Medicine UNK - Ambulatory Encounter Chad Navarro [facility] UNK - Ambulatory Encounter Chad Navarro [facility]ic [facility] Adult Medicine UNK - Ambulatory Encounter Chad Navarro [facility] Adult Medicine UNK - Ambulatory Encounter Chad Navarro Cha MarciMichael [facility] Adult Medicine UNK - Ambulatory Encounter Robert Mott [facility] Adult Medicine UNK - Ambulatory Encounter Chad Navarro Lou Mikal [facility] Adult Medicine UNK - Ambulatory Encounter Enedelia Renetta [facility]ic Lou Mikal [facility] Adult Medicine UNK - Ambulatory Encounter Chad Navarro Enedelia Renetta [facility] Adult Medicine UNK - Ambulatory Encounter Enedelia Renetta [facility] Adult Medicine UNK - Ambulatory Encounter Kathe See [facility] Services UNK - Ambulatory Encounter Lou Mikal [...] LM Adult Medicine UNK - Ambulatory Encounter Lou [facility] Adult Medicine UNK - Ambulatory Encounter Lou [facility] Adult Medicine UNK - Ambulatory Encounter Enedelia Renetta [facility] Adult Medicine UNK - Ambulatory Encounter Enedelia Renetta [facility] Adult Medicine UNK - Ambulatory Encounter Chad Navarro LinkLogic [facility] Adult Medicine UNK - Ambulatory Encounter Gracie Jansen [facility] Adult Medicine UNK - Ambulatory Encounter Chad Galeas [facility] Adult Medicine - Ambulatory Encounter Chad Navarro Enedelia Renetta LM Adult Medicine UNK - Ambulatory Encounter Enedelia Renetta [facility]Logic Chad Navarro LM Adult Medicine UNK - Ambulatory Encounter Chad Navarro Chelsi Fierro LM Adult Medicine UNK - Ambulatory Encounter Enedelia Renetta [facility]ic Chelsi Fierro LM Adult Medicine UNK - Ambulatory Encounter Chad Navarro [facility] Adult Medicine UNK - Ambulatory Encounter Chad Navarro LinkLogic LM Adult Medicine UNK - Ambulatory Encounter Chad Navarro Enedelia Renetta LM Adult Medicine UNK - Ambulatory Encounter Chad Navarro Enedelia Renetta LM Adult Medicine UNK - Ambulatory Encounter [...] [facility] Adult Medicine UNK - Ambulatory Encounter Eneedlia Renetta [facility] Adult Medicine UNK - Ambulatory Encounter Efra Tariq [facility] Vision UNK - Ambulatory Encounter Tracey Haarra [facility] Vision UNK - Ambulatory Encounter Yuko [...] bilateral - Ambulatory Encounter Chad Navarro [facility] Adult Medicine UNK - Ambulatory Encounter Chad Nevarez [facility] Adult Medicine - Ambulatory Encounter Dona You LM Adult Medicine UNK - Ambulatory Encounter Chad Navarro [facility] Adult Medicine UNK - Ambulatory Encounter Chad Navarro [facility] Adult Medicine UNK - Ambulatory Encounter Chad Velázquez LM Adult Medicine UNK - Ambulatory Encounter Renée Zavaal [facility] Program Review Director UNK - Ambulatory Encounter Renée Zavala [facility] Program Review Director UNK - Ambulatory Encounter Dona Avelino [facility] Adult Medicine UNK - Ambulatory Encounter Chad You [facility] Adult Medicine UNK - Ambulatory Encounter Dona You [facility] Adult Medicine UNK - Ambulatory Encounter Chad You LM Adult Medicine UNK - Ambulatory Encounter Chelsi Fierro [facility] Adult Medicine UNK - Ambulatory Encounter Chelsi Fierro [facility] Adult Medicine UNK - Ambulatory Encounter Venkata Michaels [facility] Adult Medicine - Ambulatory Encounter Chad Navarro [...] Mejia [facility] Vision - Ambulatory Encounter Martita Munoz Venkata Michaels [facility] Adult Medicine - Ambulatory Encounter Yaya Olsen [facility] Test Location of Care UNK - Ambulatory Encounter Yaya Olsen [facility] Test Location of Care UNK - Ambulatory Encounter LC Lab Provider [facility] Services UNK - Ambulatory Encounter LC Lab Provider [facility] Services UNK - Ambulatory Encounter LC Lab Provider [facility] Services UNK - Ambulatory Encounter LC Lab Provider [facility] Services UNK - Ambulatory Encounter LC Lab Provider [facility] Services UNK - Ambulatory Encounter LC Lab Provider [facility] Services UNK - Ambulatory Encounter LC Lab Provider [facility] Services UNK - Ambulatory Encounter LC Lab Provider [facility] Services UNK VITAL SIGNS No Information Available Allergies No Known Allergy Information REASON FOR REFERRAL Start Date - End Date Service - Colonoscopy, Screening - External - Ultrasound - Liver and Gallbladder RESULTS Date Observation Value Provider Reference Range Interpretation Location rapid plasma reagin antibody, serum Non Reactive [facility] Non Reactive " hemoglobin A1C, blood, as % of total hemoglobin 14.1 % [facility] 4.8-5.6 High " HIV-1RNA, serum, by PCR, quantitative <20 copies/mL [facility] " LDL cholesterol, serum TRIGHI mg/dL [facility] 0-99 " very low density lipoproteins VLDLCH mg/dL [facility] 5-40 " HDL cholesterol, serum 44 mg/dL [facility] >39 " triglyceride, serum, fasting 1804 mg/dL [facility] 0-149 Panic high " cholesterol, serum 384 mg/dL [facility] 100-199 High " alanine aminotransferase (SGPT), serum 15 1/L [facility] 0-44 " aspartate aminotransferase (SGOT), serum 11 1/L [facility] 0-40 " alkaline phosphatase, serum 160 1/L [facility] 39-117 High " bilirubin, serum, total 1.1 mg/dL [facility] 0.0-1.2 " albumin/globulin ratio, serum 1.7 [facility] 1.2-2.2 " globulin, serum 2.7 [facility] 1.5-4.5 " albumin, serum 4.7 g/dL [facility] 3.5-5.5 " protein, total, serum 7.4 g/dL [facility] 6.0-8.5 " calcium, serum 10.5 mg/dL [facility] 8.7-10.2 High " carbon dioxide, venous blood 17 mmol/L [facility] 20-29 Low " chloride, serum 90 mmol/L [facility] 96-106 Low " potassium, serum 4.8 mmol/L [facility] 3.5-5.2 " sodium, serum 129 mmol/L [facility] 134-144 Low " urea nitrogen/creatinine ratio, serum 23 [facility] 9-20 High " eGFR if 94 mL/min/((173/100).m2) [facility] >59 " Estimated Glomerular Filtration Rate (calc) 81 mL/min/((173/100).m2) [facility] >59 " creatinine, serum 1.01 mg/dL [facility] 0.76-1.27 " urea nitrogen, blood 23 mg/dL [facility] 6-24 " blood glucose, random 632 mg/dL [facility] 65-99 " immature granulocytes, percentage of total cells, blood 0 % [facility] Not Estab. " basophil count, absolute 0.0 x10E3/uL [facility] 0.0-0.2 " Eosinophil Absolute Count 0.4 X10E3/UL [facility] 0.0-0.4 " monocyte count, blood, automated 0.5 X10E3/UL [facility] 0.1-0.9 " lymphocyte count, blood, automated 2.3 X10E3/UL [facility] 0.7-3.1 " Absolute Neutrophils 5.2 X10E3/UL LinkLogic 1.4-7.0 " basophils as percent of blood leukocytes 0 % LinkLogic Not Estab. " eosinophils as percent of blood leukocytes 5 % LinkLog[facility] Not Estab. " monocytes as percent of blood leukocytes 6 % LinkLog[facility] Not Estab. " lymphocytes as percent of blood leukocytes 27 % [employer] Not Estab. " neutrophils as percent of blood leukocytes 62 % LinkLog[facility] Not Estab. " platelet count 282 X10E3/UL LinkLogic 150-450 " red blood cell distribution width 13.1 % LinkLog[facility] 12.3-15.4 " mean corpuscular hemoglobin concentration, RBC 34.0 G/DL [facility] 31.5-35.7 " mean corpuscular hemoglobin, RBC 32.4 pg [facility] 26.6-33.0 " mean corpuscular volume, RBC 95 fL [facility] 79-97 " hematocrit, blood 47.3 % [facility] 37.5-51.0 " hemoglobin, blood 16.1 g/dL [facility] 13.0-17.7 " erythrocyte (RBC) count 4.97 X10E6/UL Link[facility] 4.14-5.80 " leukocyte count, blood 8.5 X10E3/UL [facility] 3.4-10.8 " CD4/CD8 ratio 1.12 LinkLog[facility] 0.92-3.72 " T-suppressor cells (CD8) as percent of blood lymphocytes 34.8 % [facility] 12.0-35.5 " absolute CD8 800 LinkLog[facility] 109-897 " T-helper cells (CD4) as percent of blood lymphocytes 38.9 % [facility] 30.8-58.5 " T-helper cells (CD4) count 895 /UL Link[facility] 359-1519 blood glucose, random 226 mg/dL Tangela Hicks Neisseria gonorrhoeae DNA probe Negative LinkLog[facility] Negative [...] LinkLogic 12.0-35.5 High " absolute CD8 764 LinkLog 109-897 " T-helper cells (CD4) as percent [...] as % of total hemoglobin 9.3 % LinkLog 4.8-5.6 High " HIV-1RNA, serum, by PCR, quantitative <20 copies/mL LinkLog " LDL cholesterol, serum 139 mg/dL [facility]Log[facility] [...] as % of total hemoglobin 6.6 % [facility] 4.8-5.6 High " HIV-1RNA, serum, [...] for tuberculosis screening Negative [facility] Negative " rapid plasma reagin [...] " mean corpuscular volume, RBC 93 fL LinkLog 79-97 " hematocrit, blood 47.0 % LinkLog 37.5-51.0 " hemoglobin, blood 16.4 g/dL [facility] 12.6-17.7 " erythrocyte (RBC) count 5.04 X10E6/UL [facility] 4.14-5.80 " leukocyte count, blood 5.9 X10E3/UL [facility] 3.4-10.8 " CD4/CD8 ratio 1.17 Link[facility] 0.92-3.72 " T-suppressor cells (CD8) as percent of blood lymphocytes 35.6 % [facility] 12.0-35.5 High " absolute CD8 748 LinkLog 109-897 " T-helper cells (CD4) as percent of blood lymphocytes 41.5 % LinkLog 30.8-58.5 " T-helper cells (CD4) count 872 /UL LinkLog 359-1519 HIV-1RNA, serum, by PCR, quantitative 40 /mL [facility] rapid plasma reagin antibody, serum Non [facility]active [facility] Non [facility] " hemoglobin A1C, blood, as % of total hemoglobin 11.8 % LinkLog 4.8-5.6 High " Hepatitis C virus (HCV) RNA, PCR, quantitative HCV Not Detected IU/mL [facility] " LDL cholesterol, serum 80 mg/dL LinkLog 0-99 " very low density lipoproteins 71 mg/dL [facility] 5-40 High " HDL cholesterol, serum 52 mg/dL Link[facility] >39 " triglyceride, serum, fasting 356 mg/dL [facility] 0-149 High " cholesterol, serum 203 mg/dL [...] specific antigent), recommendation and action CONSIDER Aurora Belloez HIV-1RNA, serum, by PCR, quantitative <20 copies/mL [...] LinkLogic Non Reactive " LDL cholesterol, serum Triglyceride [...] rapid plasma reagin antibody, serum nr Martita Adhikari HIV-1RNA, serum, by PCR, quantitative <20 copies/mL [...] alkaline phosphatase, serum 93 1/L Link[facility] 25-150 HISTORY OF IMMUNIZATIONS No Information Available HISTORY OF MEDICATION USE Medication Instructions Dates Provider Comments LISINOPRIL 5 MG ORAL TABLET Take one tablet by mouth once daily Nikolay Sol CLINDAMYCIN PHOSPHATE 1 % GEL APPLY TO AFFECTED AREA(S) ONCE DAILY iNkolay Sol DOXYCYCLINE HYCLATE 100 MG ORAL CAPSULE [...] Day for 10 days - Josesito Perry FLONASE ALLERGY RELIEF 50 MCG/ACT NASAL SUSPENSION [...] history E&M Single. Not homeless. Born in [facility]. City: [place]. State: [place]. 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 Gender of partner(s): female. Age of first sexual intercourse: 14. Tangela Hicks " social history reviewed E&M reviewed today Tangela Hicks " sexual orientation Heterosexual Tangela Hicks " assessment of health literacy ([facility] 2014 Standards, 3C10) Adequate Tangela Hicks " passive cigarette smoke exposure No Tangela Hicks " smoking status former smoker Tangela Hicks " Exercise Program Referral T Tangela Hicks " Weight Management Counseling Provided T Tangela Hicsk " Nutrition intervention Jose Hicks Exercise Program Referral Jose Sol " Weight Management Counseling Provided Jose Sol " Nutrition intervention T Nikolay Sol " drug use, illicit Never Lori Sparrow " alcohol use Currently Lori Sparrow " social history E&M Single. Not homeless. Born in [facility]. City: [place]. State: [place]. 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 Gender of partner(s): female. Age of first sexual intercourse: 14. Lori Sparrow " social history reviewed E&M reviewed today Lori Sparrow " passive cigarette smoke exposure No Lori Sparrow " smoking status former smoker Lori Sparrow time of call 10/29/2017 3:13 PM Magda Leigh Exercise Program Referral T Nikolay Sol " Weight Management Counseling Provided Jose Sol " Nutrition intervention Jose Sol " sexual orientation Heterosexual Lori Sparrow " drug use, illicit Never Lori Sparrow " alcohol use Currently Lori Sparrow " social history E&M Single. Not homeless. Born in [facility]. City: [place]. State: [place]. 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 Gender of partner(s): female. Age of first sexual intercourse: 14. Lori Sparrow " social history reviewed E&M reviewed today Lori Sparrow " assessment of health literacy ([facility] 2014 Standards, 3C10) Adequate Lori J Sparrow " passive cigarette smoke exposure No Lori Evelin OsmanSparrow " smoking status former smoker Lori Sparrow time of call 09/10/2017 2:49 PM Barb Lopez sexual orientation Heterosexual Rekha Machuca sexual orientation Heterosexual Anaya Hassan time of call 07/05/2017 4:26 PM Renetta Lars drug use, illicit Never Marilu Barajas " alcohol use Currently Marilu Barajas " sexual orientation Heterosexual Marilu Barajas " smoking status former smoker Marilu Barajas " passive cigarette smoke exposure No Marilu Barajas " assessment of health literacy ([facility] 2014 Standards, 3C10) Adequate Marilu Barajas " social history E&M Single. Not homeless. Born in [facility]. City: [place]. State: [place]. 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 Gender of [...] history E&M Single. Not homeless. Born in [facility]. City: [place]. State: [place]. 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 Gender of partner(s): female. Age of first sexual intercourse: 14. Jen John " social history reviewed E&M reviewed today Jen Lopez " is there any chance that you could be ? No Jen Lopez " passive cigarette smoke exposure No Jen John " smoking status former smoker Jen Lopez time of call 11/04/2015 11:39 AM Cindi De Leon sexual orientation Heterosexual Chad Navarro " Exercise Program Referral Jose Navarro " Weight Management Counseling Provided Jose Navarro " Nutrition intervention Jose Navarro " drug use, illicit Never Marilu Barajas " alcohol use Currently Marilu Barajas " social history E&M Single. Not homeless. Born in [facility]. City: [place]. State: [place]. 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 Gender of partner(s): female. Age of first sexual intercourse: 14. Marilu Barajas " social history reviewed E&M reviewed today Marilu Barajas " passive cigarette smoke exposure No Marilu Barajas " smoking status former smoker Marilu Barajas sexual orientation Heterosexual Chad Martínezmarybel " drug use, illicit Never Marilu Barajas " alcohol use Currently Marilu Barajas " social history E&M Single. Not homeless. Born in [facility]. City: [place]. State: [place]. 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 Gender of [...] history E&M Single. Not homeless. Born in [facility]. City: [place]. State: [place]. 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 Gender of partner(s): female. Age of first sexual intercourse: 14. Jen Lopez " social history reviewed E&M reviewed today Jen Lopez " passive cigarette smoke exposure No Jen Lopez " smoking status former smoker Jen Lopez sexual orientation Heterosexual Tracey Bacon sexual orientation Heterosexual Yuko Edmond sexual orientation Heterosexual Chad Navarro " social history E&M Single. Not homeless. Born in [facility]. City: [place]. State: [place]. 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 Gender of partner(s): female. Age of first sexual intercourse: 14. Chad Navarro " social history reviewed E&M reviewed today Chad Navarro " passive cigarette smoke exposure No Linda Ruggiero " smoking, advice to quit Yes Linda Ruggiero " smoking status former smoker Lindaaddison Woodruffardo time of call 03/02/2014 3:47 PM Mario Bardales time of call 02/24/2014 8:11 AM Renee Palafox alcohol use, frequency few times per week Chad Navarro " alcohol use Currently Chad Tanyamarybel " social history E&M Single. Not homeless. Born in [facility]. City: [place]. State: [place]. 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 Gender of partner(s): female. Age of first sexual intercourse: 14. Chad Navarro " social history reviewed E&M reviewed today Chad Navarro " sexual orientation Heterosexual Chad Willisraquel " sex at male Linda Bailono " passive cigarette smoke exposure No Linda Ruggiero " cigarettes, number smoked per day 20 a week Linda Ruggiero " smoking, advice to quit Yes Linda Ruggiero " smoking status current every day smoker Linda Ruggiero " social history E&M Single. Not homeless. Born in [facility]. City: [place]. State: [place]. 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 Gender of partner(s): female. Age of first sexual intercourse: 14. Chad Navarro " social history reviewed E&M reviewed today Chad Navarro " sexual orientation Heterosexual Chad Navarro " drug use, illicit Never Cammy Galeas " alcohol use Never Cammyrai Galeas " passive cigarette smoke exposure No [...] history E&M Single. Not homeless. Born in [facility]. City: [place]. State: [place]. 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 Gender of partner(s): female. Age of first sexual intercourse: 14. 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 Sara Vente " patient considered to be homeless No Sara Vente " passive cigarette smoke exposure No Sara Vente " smoking, advice to quit Yes Sara Vente " smoking status current every day smoker Sara Vente FUNCTIONAL STATUS No Information Available MENTAL STATUS [...] Disorder Questionnaire - Question 1 0 Marilu Jenn assessment of mood and affect E&M good eye contact, normal affect [facility] " mental status examination: orientation E&M alert and oriented to person, place, and time [facility] Generalized Anxiety Disorder Questionnaire - Question 2 0 Jen Lopez " Generalized Anxiety Disorder Questionnaire - Question 1 0 Jen Lopez assessment of mood and affect E&M no depression, anxiety, or agitation Chad Nemecek " Generalized Anxiety Disorder Questionnaire - Question 2 0 Marilu Barajas " Generalized Anxiety Disorder Questionnaire - Question 1 0 Marilu Hodgsonard assessment of mood and affect E&M no depression, anxiety, or agitation Chad Nemecek " Generalized Anxiety Disorder Questionnaire - Question 2 0 Marilu Barajas " Generalized Anxiety Disorder Questionnaire - Question 1 0 Marilu Barajas Generalized Anxiety Disorder Questionnaire - Question 2 0 Liudmila Castellanos " Generalized Anxiety Disorder Questionnaire - Question 1 0 Liudmila Castellanos assessment of judgment and insight [facility] assessment of mood and affect E&M no depression, anxiety, or agitation Radha Shrikanth " Generalized Anxiety Disorder Questionnaire - Question 2 0 Jen Lopez " Generalized Anxiety Disorder Questionnaire - Question 1 0 Jen Lopez assessment of mood and affect E&M good eye contact, normal affect [facility] " mental status examination: orientation E&M alert and oriented to person, place, and time [facility] assessment of mood and affect E&M good [...] affect E&M good eye contact, normal affect [facility] " mental status examination: orientation E&M alert and oriented to person, place, and time Josesito Perry MEDICAL EQUIPMENT No Information Available FAMILY HISTORY No Information Available INSURANCE PROVIDERS Payer name Policy type / Coverage type Covered green party ID Errol White 101-200% Other [id number] Errol White 101-200% Other Errol White 101-200% Other 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 White 101-200% Other [id number] Errol White 101-200% Other Errol White 101-200% Other Errol White 101-200% Other 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 [id number] Errol White 101-200% Other [id number] Errol White 101-200% Other Errol White 101-200% Other 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 White 101-200% Other Errol White 101-200% Other 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 [id number] Errol White 101-200% Other [id number] 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 [id number] Sliding Fee Scale 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 [id number] Errol White up to 300% Other [id number] ADVANCE DIRECTIVES Name Date DISCUSSED - NO [...] - - Est Patient Exp Problem - 57387 Primary Care - Assesment-Brief - SLW Primary Care Service Linkage Primary Care Service Linkage Est Patient Detailed - 34267 Pneumovax Vaccine PPSV23 INFLUENZA VACCINE QUADRIVALENT 3 YRS PLUS IM Glucose Stick Dispensing Visit (UNLIVSTED OPHTHALMOLOGICAL SERVICE/PROCEDURE) Est Patient Exp Problem - 92830 Est Patient Exp Problem - 90238 COMPUTERIZED OPHTHALMIC IMAGING OPTIC NERVE Est Patient Comprehensive Opth - 84474 Spherocyl, SV, plano to +/- 4.00d sphere, 0.12 to 2.00d cyl, per lens Spherocyl, SV, plano to +/- 4.00d sphere, 2.12 to 4.00d cyl, per lens Add to lens; tint, any color, solid, gradient or equal, excl photochro, any niles Frames, purchases Est Patient Intermediate Opth - 77073 Ofc Vst, Est Level IV Contact Insp/Mod (MODIFICAJ CONTACT LENX SPX SUPVJ ADAPTATION) COMPUTERIZED OPHTHALMIC IMAGING OPTIC NERVE Est Patient Intermediate Opth - 70042 Dispensing Visit (Non-Billable) COMPUTERIZED OPHTHALMIC IMAGING OPTIC NERVE Contact Lens Fitting (RX&FITG C-LENS SUPVJ CRNL LENS OU XCPT APHK) Est Patient Intermediate Opth - 31170 Est Patient Detailed - 95726 INFLUENZA VACCINE QUADRIVALENT 3 YRS PLUS IM Ofc Vst, Est Level IV Nutrition - Internal Ofc Vst, Est Level IV Est Patient Exp Problem - 28487 Est Patient Detailed - 72910 Handling of specimen for transfer Venipuncture Dispensing [...] OPTIC NERVE Est Patient Intermediate Opth - 31038 Contact Lens Fitting (RX&FITG C-LENS SUPVJ CRNL LENS OU XCPT APHK) Est Patient Intermediate Opth - 30517 Primary Care - Assesment-Brief - SLW Primary [...] DX CRNL PACHYMETRY UNI/BI Est Patient Intermediate Opt - 46870 Contact Lens Fitting (RX&FITG C-LENS SUPVJ CRNL LENS OU XCPT APHK) Est Patient Intermediate Opt - 62387 Ofc Vst, Est Level IV Pneumovax Vaccine [...] Perry completed Est Patient Comprehensive Opt - 50518 Josesito Perry completed Spherocyl, SV, plano to +/- 4.00d sphere, 0.12 to 2.00d cyl, per lens Anaya Hassan completed Spherocyl, SV, plano to +/- 4.00d sphere, 2.12 to 4.00d cyl, per lens Anaya Hassan completed Add to lens; tint, any color, solid, gradient or equal, excl photochro, any niles Anaya Hassan completed Frames, purchases Anaya Hassan Frame #[id number] (Pd 5.00) completed Est Patient Intermediate Opt - 60805 Angela Aldrich completed Contact Insp/Mod (MODIFICAJ CONTACT LENX SPX SUPVJ ADAPTATION) Efra Tariq completed COMPUTERIZED OPHTHALMIC IMAGING OPTIC NERVE Josesito Perry completed Est Patient Intermediate Opt - 60874 Josesito Perry completed Dispensing Visit (Non-Billable) Tracey Bacon completed COMPUTERIZED OPHTHALMIC IMAGING OPTIC NERVE Tracey Bacon completed Contact Lens Fitting (RX&FITG C-LENS SUPVJ CRNL LENS OU XCPT APHK) Efra Tariq completed Est Patient Intermediate Opt - 11547 Efra Tariq completed Venipuncture Radha Posey completed Dispensing Visit (UNLIVSTED OPHTHALMOLOGICAL SERVICE/PROCEDURE) Tracey Bacon completed Add to lens; tint, any color, solid, gradient or equal, excl photochro, any niles Yuko Edmond 5.00 completed Frames, purchases Yuko Edmond completed Spherocyl, SV, +/- 4.25 to +/- 7.00 sphere, 0.12 to 2.00d cyl, per lens Yuko Mayito completed Spherocyl, SV, plano to +/- 4.00d sphere, 0.12 to 2.00d cyl, per lens Yukoshaheen Edmond completed COMPUTERIZED OPHTHALMIC IMAGING OPTIC NERVE Josesito Perry completed Est Patient Intermediate Opt - 04084 Josesito Perry completed Contact Lens Fitting (RX&FITG C-LENS SUPVJ CRNL LENS OU XCPT APHK) Efra Tariq completed Est Patient Intermediate Opt - 00900 Efra Tariq completed Primary Care - Assesment-Brief - SLW Merry Garcia Time spent with patient:15 completed Primary Care Service Linkage Merry Garcia Time spent with patient:60 completed Venipuncture Chad Navarro completed Venipuncture Chad Navarro completed [facility] Referral (N) Chad Navarro completed [facility] Message Delivered (C) Chad Navarro completed [facility] Clinic Visit (R) Chad Martíneznancyraquel completed [facility] Session Conducted (Y) Chad Martínezmarybel completed Dispensing Visit (UNLIVSTED OPHTHALMOLOGICAL SERVICE/PROCEDURE) Tracey [...] Perry completed Est Patient Intermediate Opth - 49931 Josesito Perry completed Contact Lens Fitting (RX&FITG C-LENS SUPVJ CRNL LENS OU XCPT APHK) Efra Tariq completed Est Patient Intermediate Opt - 18839 Efra Tariq completed Primary Care Medical Case Management Renée Zavala Time spent with patient: 15 completed Primary Care Medical Case Management Renée Zavala Time spent with patient: 15 completed GOALS No Information Available HEALTH CONCERNS No Information Available
--- OUTSIDE RECORDS SUMMARY | 2019-07-14 14:29 | XMS REPORT ---
Author Author Admin, [place] Organization Unknown Address Unknown Phone Unavailable PROBLEMS Condition Status Date Provider Notes Immunity status testing, antibody response active Nikolay Sol Hepatitis C antibody test positive active Nikolay Sol Skin lesions, multiple active Nikolay Sol Transaminases, serum, elevated active Nikolay Sol Vaccination for strep pneumonia with pneumovax completed - Nikolay Slo Vaccination against influenza completed - Nikolay Sol [...] Location Encounter Diagnosis - Ambulatory Encounter Nikolay Armendariz LM Adult Medicine UNK - Ambulatory Encounter Nikolay Hernandez [facility] Adult Medicine UNK - Ambulatory Encounter Nikolay Franco [facility], [facility] Adult Medicine UNK - Ambulatory Encounter Dona Eng LM Adult Medicine UNK - Ambulatory Encounter Nikolay Black [facility]Adherence [facility] UNK - Ambulatory Encounter Nikolay Sol LinkLogic LM Adult Medicine UNK - Ambulatory Encounter Nikolay Sol LinkLogic LM Adult Medicine UNK - Ambulatory Encounter Nikolay Eng LM Adult Medicine UNK - Ambulatory Encounter Nikolay Sol [facility]Logic LM Adult Medicine UNK - Ambulatory Encounter Nikolay Sol LinkLogic LM Adult Medicine UNK - Ambulatory Encounter Nikolay Sol LinkLogic [facility] Adult Medicine UNK - Ambulatory Encounter Mario Canales [place] [facility] Eligibility UNK - Ambulatory Encounter Naina Cordova [facility] UNK - Ambulatory Encounter Fax Status [facility] UNK - Ambulatory Encounter Fax Status [facility] Services UNK - Ambulatory Encounter Fax Status [facility] UNK - Ambulatory Encounter Fax Status [facility] UNK - Ambulatory Encounter Mac Hernandez [facility] Community Youth Secretary UNK - Ambulatory Encounter Nikolay Sol LM Adult Medicine UNK - Ambulatory Encounter Nikolay Hicks [facility] Adult Medicine Vaccination against influenzaVaccination for strep pneumonia with pneumovaxHepatitis C antibody test positiveImmunity status testing, antibody response - Ambulatory Encounter Nikolay Franco MedAdherence, [facility] Adult Medicine UNK - Ambulatory Encounter Paz Campbell [facility] Community Youth Secretary UNK - Ambulatory Encounter Mac Hernandez [facility] Community Youth Secretary UNK - Ambulatory [facility] - [facility] - [facility]ulatory [facility] UNK - Ambulatory Encounter Nikolay Armendariz [facility] Adult Medicine UNK - Ambulatory Encounter Nikolay Franco MedAdherence, [facility] Adult Medicine UNK - Ambulatory Encounter Lorenzodemarcusbeulah Jackson [facility] Adult Medicine UNK - Ambulatory Encounter Antoni Hurtado [facility] Adult Medicine UNK - Ambulatory Encounter Nikolay Sol [facility] Adult Medicine UNK - Ambulatory Encounter Fax Status [facility] Services UNK - Ambulatory Encounter Fax Status [facility] Services UNK - Ambulatory Encounter Fax Status [facility] Services UNK - Ambulatory Encounter Nikolay Sparrow [facility] Adult Medicine UNK - Ambulatory Encounter [facility] UNK - Ambulatory Encounter Nikolay Sol [facility] Adult Medicine UNK - Ambulatory Encounter Nikolay Sol [facility] Adult Medicine UNK - Ambulatory Encounter Nikolay Sol [facility] Adult Medicine UNK - Ambulatory Encounter Nikolay Sparrow [facility] Adult Medicine Vaccination against influenzaVaccination for strep pneumonia with pneumovaxTransaminases, serum, elevatedSkin lesions, multiple - Ambulatory Encounter Nikolay Sol [facility] Adult Medicine UNK - Ambulatory Encounter Dona Eng [facility] Adult Medicine UNK - Ambulatory Encounter Concepcion Rodgers [facility] PROTECTION CONSULTANT UNK - Ambulatory Encounter Naina Cordova [facility] Services UNK - Ambulatory Encounter Nikolay Leigh [facility] UNK - Ambulatory Encounter Nikolay Sol [...] Vision UNK - Ambulatory Encounter [facility] - [facility]ulatory Encounter [facility]K - Ambulatory Encounter Fax Status [facility] Services UNK - Ambulatory Encounter Nikolay Sol [facility] Adult Medicine UNK - Ambulatory Encounter Nikolay Sparrow [facility] Adult Medicine Immunization updateScreening for stdScreening, colon cancer - Ambulatory Encounter Barb Lopez [facility] Services UNK - Ambulatory Encounter Josesito Perry LM Vision UNK - Ambulatory Encounter Anaya Hassan [facility] Vision UNK - Ambulatory Encounter Angela Bhakhrani Angela Bhakhrani [facility] Vision UNK - Ambulatory Encounter Josesito Perry Rekha Machuca [facility] Vision UNK - Ambulatory Encounter Angela Bhakhrani Angela Bhakhrani [facility] Vision UNK - Ambulatory Encounter Angela Bhakhrani Angela Bhakhrani [facility] Vision UNK - Ambulatory Encounter Angela Bhakhrani Angela Bhakhrani Anaya Landonndra Machuca [facility] Vision Astigmatism - OUMyopia - OU - Ambulatory Encounter Chad Greenfield [facility] Adult Medicine UNK - Ambulatory Encounter Chad Greenfield [facility] Adult Medicine UNK - Ambulatory Encounter Chad Navarro Chloe Greenfield [facility] Adult Medicine UNK - Ambulatory Encounter Chad Navarro LinkLogic Chloe Greenfield LM Adult Medicine UNK - Ambulatory Encounter Chad Navarro LinkLogic Chloe Greenfield LM Adult Medicine UNK - Ambulatory Encounter Chad Navarro LinkLogic Chloe Greenfield [facility] Adult Medicine UNK - Ambulatory Encounter Chad Navarro [facility] Adult Medicine UNK - Ambulatory Encounter Chad Rice [facility] Adult Medicine UNK - Ambulatory Encounter Chad Navarro LM Adult Medicine UNK - Ambulatory Encounter Chad Navarro Chloe Greenfield [facility] Adult Medicine UNK - Ambulatory Encounter Chad Navarro LinkLogic Chloe Greenfield [facility] Adult Medicine UNK - Ambulatory Encounter Choice [facility] UNK - Ambulatory Encounter Valentina Hernandez LM Adult Medicine UNK - Ambulatory Encounter Chad Navarro [facility] Adult Medicine UNK - Ambulatory Encounter Chad Navarro [facility] Adult Medicine UNK - Ambulatory Encounter Chad Navarro LM Adult Medicine UNK - Ambulatory Encounter Chad Navarro [facility] Adult Medicine UNK - Ambulatory Encounter Chad Navarro [facility] Adult Medicine Screening for std - Ambulatory Encounter Chad Navarro Chloe Greenfield [...] Ambulatory Encounter Enedelia Renetta LinkLogic Chloe Greenfield [facility] Adult Medicine UNK - Ambulatory Encounter Enedelia [...] Adult Medicine UNK - Ambulatory Encounter Chad Evans Avilez [facility] Adult Medicine UNK - Ambulatory Encounter Chad Navarro [facility] Adult Medicine UNK - Ambulatory Encounter Chad Navarro [facility] Adult Medicine UNK - Ambulatory Encounter Chad Navarro [facility] Adult Medicine UNK - Ambulatory Encounter Chad Navarro LM Adult Medicine UNK - Ambulatory Encounter Chad Navarro [facility] Adult Medicine UNK - Ambulatory Encounter Chad Chavez [facility] Adult Medicine URIMyopia - OURegular astigmatism, bilateral - Ambulatory Encounter Milana Lopez [facility] UNK - Ambulatory Encounter [facility] UNK - Ambulatory Encounter Chad Jackson LM Adult Medicine UNK - Ambulatory Encounter Enedelia Jackson LinkLogic [facility] Adult Medicine UNK - Ambulatory Encounter Chad Jackson [facility] Adult Medicine UNK - Ambulatory Encounter Enedelia Jackson [facility] Adult Medicine UNK - Ambulatory Encounter Radha Posey LinkLogic LM Adult Medicine UNK - Ambulatory Encounter Josesito Perry [facility]Logic C Vision UNK - Ambulatory Encounter Efra Tariq [facility] Vision UNK - Ambulatory Encounter Efra Tariq [facility] Vision UNK - Ambulatory Encounter Efra Edmond [facility] Vision UNK - Ambulatory Encounter Radha Posey LinkLogic LM Adult Medicine UNK - Ambulatory Encounter Efra Tariq [facility] Vision UNK - Ambulatory Encounter Efra Tariq [facility] Vision UNK - Ambulatory Encounter Josesito Perry [facility] Vision UNK - Ambulatory Encounter Josesito Perry LM Vision UNK - Ambulatory Encounter Tracey Bacon [facility] Vision UNK - Ambulatory Encounter Josesito Perry Tracey Bacon [facility] Vision Encounter for screening for eye and ear disorders - Ambulatory Encounter Efra Tariq [facility] Vision UNK - Ambulatory Encounter Efra Tariq [facility] Vision UNK - Ambulatory Encounter Efra Ricoilia Mayito [facility] Vision Open angle with borderline findings, high risk, bilateralMyopia - OURegular astigmatism, bilateralCorneal scar, left - Ambulatory Encounter Chad Navarro LinkLogic [facility] Adult Medicine UNK - Ambulatory Encounter Fax Status [facility] UNK - Ambulatory Encounter Fax Status [facility] UNK - Ambulatory Encounter [facility] UNK - Ambulatory Encounter Radha Posey LM Adult Medicine UNK - Ambulatory Encounter Radha Posey LinkLogic LM Adult Medicine UNK - Ambulatory Encounter Radha Posey LinkLogic LM Adult Medicine UNK - Ambulatory Encounter Radhajuan c Lopez [facility] Adult Medicine UNK - Ambulatory Encounter Radha Whittaker LM Adult Medicine UNK - Ambulatory Encounter Chad Navarro [facility] Adult Medicine UNK - Ambulatory Encounter Chad Navarro [facility] Adult Medicine UNK - Ambulatory Encounter Chad Navarro Chloe Greenfield [facility] Adult Medicine UNK - Ambulatory Encounter Lina Dias [facility] Adult Medicine UNK - Ambulatory Encounter Yuko Edmond [facility] Vision UNK - Ambulatory Encounter Chad Veliz [facility] Center UNK - Ambulatory Encounter Chad Navarro [facility] Adult Medicine UNK - Ambulatory Encounter Chad Navarro [facility] Adult Medicine UNK - Ambulatory Encounter Chad Chavez [facility] Adult Medicine URI - Ambulatory Encounter Lina Dias [facility] Adult Medicine UNK - Ambulatory Encounter Chad Navarro [facility] Adult Medicine UNK - Ambulatory Encounter Chad Navarro [facility] Adult Medicine UNK - Ambulatory Encounter Robert Mott [facility] Adult Medicine UNK - Ambulatory Encounter Robert Mott [facility] Adult Medicine UNK - Ambulatory Encounter Michael Madden [facility] Services UNK - Ambulatory Encounter Radha Posey [facility] Adult Medicine UNK - Ambulatory Encounter Radha Posey [facility] Adult Medicine UNK - Ambulatory Encounter Radha Posey [facility] Adult Medicine UNK - Ambulatory Encounter Radha Posey [facility] Adult Medicine UNK - Ambulatory En[facility] - Ambulatory Encounter Radha Posey [facility] Adult Medicine UNK - Ambulatory Encounter Christopher Chano [facility] UNK - Ambulatory Encounter Christopher Chano [facility] Services UNK - Ambulatory Encounter Radha Posey [...] Adult Medicine UNK - Ambulatory Encounter Scott Zhao [facility] Adult Medicine UNK - Ambulatory Encounter Fax Status [facility] - Ambulatory Encounter Fax Status [facility] - Ambulatory Encounter Fax Status [facility] - Ambulatory Encounter Nikolay Sol LM Adult Medicine UNK - Ambulatory Encounter Nikolay Castellanos LM Adult Medicine UNK - Ambulatory Encounter Razia Azul [facility] UNK - Ambulatory Encounter Radha Morah [facility] Adult Medicine UNK - Ambulatory Encounter Radha Spearikamarlonh [facility] Adult Medicine UNK - Ambulatory Encounter [...] Medicine UNK - Ambulatory Encounter Radha Lopez LM Adult Medicine Otitis media, rightImmunization updateObesity - Ambulatory Encounter Jen Lopez [facility] Adult Medicine UNK - Ambulatory Encounter Radha Posey LinkLogic LM Adult Medicine UNK - Ambulatory Encounter Elaina Burleson [facility] Contact Center UNK - Ambulatory Encounter Chad Greenfield LM Adult Medicine UNK - Ambulatory Encounter Enedelia Renetta LinkLogic Chloe Greenfield [facility] Adult Medicine UNK - Ambulatory Encounter Radha King [facility] Adult Medicine UNK - Ambulatory Encounter Chad Corona Greenfield [facility] Adult Medicine UNK - Ambulatory Encounter Chad Corona Greenfield [facility] Adult Medicine UNK - Ambulatory Encounter Chad Corona Greenfield [facility] Adult Medicine UNK - Ambulatory Encounter Chad Corona Greenfield [facility] Adult Medicine UNK - Ambulatory Encounter Chad Corona Greenfield [facility] Adult Medicine UNK - Ambulatory Encounter Enedelia Renetta LinkLogic Chloe Greenfield [facility] Adult Medicine UNK - Ambulatory Encounter Enedelia Renetta LinkLogic Chloe Greenfield [facility] Adult Medicine UNK - Ambulatory Encounter Enedelia Renetta LinkLogic Chloe [facility] Adult Medicine UNK - Ambulatory Encounter Enedelia Renetta LinkLogic Chloe [facility] Adult Medicine UNK - Ambulatory Encounter Enedelia Renetta LinkLogic Chloe Greenfield [facility] Adult Medicine UNK - Ambulatory Encounter Chad [...] UNK - Ambulatory Encounter Chad Navarro [facility] Services UNK - Ambulatory Encounter Lambert [...] UNK - Ambulatory Encounter Josesito Perry Traceyrai Bacon [facility] Vision UNK - Ambulatory Encounter [...] UNK - Ambulatory Encounter Enedeliasujit Jackson [facility] Adult Medicine UNK - Ambulatory Encounter Dona You [facility] Adult Medicine UNK - Ambulatory Encounter Dona You [facility] Adult Medicine UNK - Ambulatory Encounter Donaaddison You [facility] Adult Medicine UNK - Ambulatory Encounter Donaaddison You [facility] Adult Medicine UNK - Ambulatory Encounter Enedelia Renetta LinkLogic Donaaddison You LM Adult Medicine UNK - Ambulatory Encounter Enedelia Renetta LinkLogic Donaaddison You LM Adult Medicine UNK - Ambulatory Encounter Enedelia Renetta LinkLogic Donaaddison You LM Adult Medicine UNK - Ambulatory Encounter Enedelia Renetta LinkLogic Dona You LM Adult Medicine UNK - Ambulatory Encounter Merry Gracia LinkLogic [facility] Community Youth Secretary UNK - Ambulatory Encounter Chad Navarro LinkLogic Maria Eugenia Wolfe LM Adult Medicine UNK - Ambulatory Encounter Chad Navarro [facility] Adult Medicine UNK - Ambulatory Encounter Merry Garcia [facility] Community Youth Secretary UNK - Ambulatory Encounter Chad Ruggiero LM Adult Medicine HYPERLIPIDEMIA - Ambulatory Encounter Cha Girard-Michael LM Adult Medicine UNK - Ambulatory Encounter Chad Navarro [facility] Adult Medicine UNK - Ambulatory Encounter Chad Navarro LinkLogic LM Adult Medicine UNK - Ambulatory Encounter Chad Ren [facility] Adult Medicine UNK - Ambulatory Encounter Chad Navarro Otto Rodriges [facility] Adult Medicine UNK - Ambulatory Encounter Enedelia Renetta LinkLogic Lou Ren [facility] Adult Medicine UNK - Ambulatory Encounter Mario Bardales [facility] Adult Medicine UNK - Ambulatory Encounter Chad Navarro Lou Ren [facility] Adult Medicine UNK - Ambulatory Encounter Enedelia Renetta LinkLogic Lou Ren [facility] Adult Medicine UNK - Ambulatory Encounter Enedelia Renetta LinkLogic Lou Ren [facility] Adult Medicine UNK - Ambulatory Encounter Cha Mitchell [facility] Adult Medicine UNK - Ambulatory Encounter Renee Palafox [facility] Dental UNK - Ambulatory Encounter Chad Navarro Lou Ren [facility] Adult Medicine UNK - Ambulatory Encounter Enedelia Renetta LinkLogic Lou Ren [facility] Adult Medicine UNK - Ambulatory Encounter Chad You LM Adult Medicine UNK - Ambulatory Encounter Enedelia Renetta LinkLogic Dona You LM Adult Medicine UNK - Ambulatory Encounter Chad Peoples [facility] Adult Medicine UNK - Ambulatory Encounter Enedelia Renetta LinkLogic Dalila Peoples LM Adult Medicine UNK - Ambulatory Encounter Chad Jackson LM Adult Medicine UNK - Ambulatory Encounter Enedelia Renetta LinkLogic Chad Navarro LM Adult Medicine UNK - Ambulatory Encounter Chad Navarro [facility] Adult Medicine UNK - Ambulatory Encounter Chad Navarro [facility] Adult Medicine UNK - Ambulatory Encounter Chad Navarro Linda Bahman [facility] Adult Medicine UNK - Ambulatory Encounter Aurora Vail [facility] Adult Medicine UNK - Ambulatory Encounter Chad Navarro [facility] Adult Medicine UNK - Ambulatory Encounter Cha Arriaza LM Adult Medicine UNK - [facility] Chad Navarro [facility] Adult Medicine UNK - Ambulatory Encounter Chad Navarro LinkLogic LM Adult Medicine UNK - Ambulatory Encounter Chad Mitchell LM Adult Medicine UNK - Ambulatory Encounter Robert Mott LM Adult Medicine UNK - Ambulatory Encounter Chad Ren [facility] Adult Medicine UNK - Ambulatory Encounter Enedelia Renetta LinkLogic Lou Ren [facility] Adult Medicine UNK - Ambulatory Encounter Chad Jackson [facility] Adult Medicine UNK - Ambulatory Encounter Enedelia Renetta LinkLogic LM Adult Medicine UNK - Ambulatory Encounter Kathe See [facility] Services UNK - Ambulatory Encounter Lou Ren [facility] Adult Medicine UNK - Ambulatory Encounter Lou Ren [facility] Adult Medicine UNK - Ambulatory Encounter Enedelia Renetta LinkLogic Lou Ren [facility] Adult Medicine UNK - Ambulatory Encounter Enedelia Renetta [facility] Adult Medicine UNK - Ambulatory Encounter Enedelia Reentta [facility] Adult Medicine UNK - Ambulatory Encounter Enedelia Renetta [facility] Adult Medicine UNK - Ambulatory Encounter Enedelia Renetta [facility] Adult Medicine UNK - Ambulatory Encounter Enedelia Renetta [facility]Logic [facility] Adult Medicine UNK - Ambulatory Encounter Enedelia Renetta [facility]ic [facility] Adult Medicine UNK - Ambulatory Encounter Enedelia Renetta LinkLogic LM Adult Medicine UNK - Ambulatory Encounter [facility] Adult Medicine UNK - Ambulatory Encounter [facility] Adult Medicine UNK - Ambulatory Encounter Enedelia Renetta [facility] Adult Medicine UNK - Ambulatory Encounter Enedelia Renetta [facility] Adult Medicine UNK - Ambulatory Encounter Chad Navarro LinkLogic LM Adult Medicine UNK - Ambulatory Encounter Gracie Jansen LM Adult Medicine UNK - Ambulatory Encounter Chad Galeas [facility] Adult Medicine - Ambulatory Encounter Chad Navarro Enedelia Renetta [facility] Adult Medicine UNK - Ambulatory Encounter Enedelia Renetta LinkLogic Chad Navarro LM Adult Medicine UNK - Ambulatory Encounter Chad Fierro LM Adult Medicine UNK - Ambulatory [...] [facility] Vision UNK - Ambulatory Encounter Tracey Jordi [facility] Vision UNK - Ambulatory Encounter Yuko Edmond [facility] Vision UNK - Ambulatory Encounter Efra Edmond [facility] Vision UNK - Ambulatory Encounter Yuko Edmond C Vision UNK - Ambulatory Encounter Yuko Edmond C Vision UNK - Ambulatory Encounter Josesito Perry LM Vision UNK - Ambulatory Encounter Efra Ricoilia Mayito [facility] Vision Open angle with borderline findings, high risk, bilateral - Ambulatory Encounter Chad Navarro LinkLogic [facility] Adult Medicine UNK - Ambulatory Encounter Chad Nevarez [facility] Adult Medicine - Ambulatory Encounter Dona You [facility] Adult Medicine UNK - Ambulatory Encounter Chad Navarro LinkLogic [facility] Adult Medicine UNK - Ambulatory Encounter Chad Navarro LinkLogic [facility] Adult Medicine UNK - Ambulatory Encounter Chad Velázquez [facility] Adult Medicine UNK - Ambulatory Encounter Renéedavid Zavala [facility] Community Youth Secretary UNK - Ambulatory Encounter Renée Zavala [facility] Community Youth Secretary UNK - Ambulatory Encounter Dona oYu [facility] Adult Medicine UNK - Ambulatory Encounter Chad You [facility] Adult Medicine UNK - Ambulatory Encounter Dona You [facility] Adult Medicine UNK - Ambulatory Encounter Chad You [facility] Adult Medicine UNK - Ambulatory Encounter Chelsi Fierro [facility] Adult Medicine UNK - Ambulatory Encounter Chelsi Fierro [facility] Adult Medicine UNK - Ambulatory Encounter Venkata Michaels [facility] Adult Medicine - Ambulatory Encounter Chad CottrellLogic [facility] Adult Medicine UNK - Ambulatory Encounter Chad Martínezecek LinkLogic LM Adult Medicine UNK - Ambulatory Encounter Chad Melanie Navarro LinkLogic LM Adult Medicine UNK - Ambulatory Encounter Chad Bonilla Melanie LinkLogic [facility] Adult Medicine UNK - Ambulatory Encounter Chad Martínezmarybel Chad Melanie LinkLogic [facility] Adult Medicine UNK - Ambulatory Encounter Chad Martínezmarybel Chad Melanie LinkLogic [facility] Adult Medicine UNK - Ambulatory Encounter Elise Mejia [facility] Vision - Ambulatory Encounter Martita Michaels [facility] Adult Medicine - Ambulatory Encounter Yaya CottrellLogic Test Location of Care UNK - Ambulatory Encounter Yaya CottrellLogic Test Location of Care UNK - Ambulatory Encounter LC Lab Provider [facility] Services UNK - Ambulatory Encounter LC Lab Provider [facility] Services UNK - Ambulatory Encounter LC Lab Provider [facility] Services UNK - Ambulatory Encounter LC [facility] UNK - Ambulatory Encounter LC [facility] UNK - Ambulatory Encounter LC Lab Provider [facility] Services UNK - Ambulatory Encounter LC Lab Provider [facility] Services UNK - Ambulatory Encounter LC Lab Provider [facility] Services UNK VITAL SIGNS Date Observation Value Provider blood pressure, diastolic, second observation 93 mm[Hg] Tangela Hicks " blood pressure, systolic, second observation 137 mm[Hg] Tangela Hicks " temperature E&M 98.0 [degF] Tangela Hicks " pulse rate E&M 97 /min Tangela Hicks " oxygen saturation, oximetry 98 % Tangela Hicks " blood pressure, diastolic 85 mm[Hg] Tangela Hicks " blood pressure, systolic 144 mm[Hg] Tangela Hicks " weight E&M 195.25 lbs. Tangela Hicks " weight in kilograms E&M 88.75 kg Tangela Hicks " blood pressure, site #1 left arm Tangela Hicks " Blood Pressure Position 01 sitting Tangela Hicks " method used to obtain blood pressure automatic Tangela Hicks " temperature site oral Tangela Hicks " height E&M 67 [in_i] Tangela Hicks " height in centimeters E&M 170.18 cm Tangela Hicks BP diastolic #1 66 mm[Hg] Nikolay Sol " BP systolic #1 86 mm[Hg] Nikolay Griffins " blood pressure, diastolic, second observation 86 mm[Hg] Lorichiki Sparrow " blood pressure, systolic, second observation 126 mm[Hg] Lori Sparrow " blood pressure, diastolic 86 mm[Hg] Nikolay Hernándezmons " blood pressure, systolic 126 mm[Hg] Nikolay Griffins " oxygen saturation, oximetry 98 % Lori Sparrow " respiratory rate E&M 16 /min Lori Sparrow " pulse rate E&M 87 /min Lorichiki Sparrow " temperature E&M 98.5 [degF] Lori Sparrow " weight E&M 202.38 lbs. Lori Sparrow " weight in kilograms E&M 91.99 kg Lori Sparrow " method used to obtain blood pressure automatic Lori Sparrow " Blood Pressure Position 01 sitting Lori Sparrow " blood pressure, site #1 left arm Lori Sparrow " temperature site oral Lori Sparrow " height E&M 67 [in_i] Lori Sparrow " height in centimeters E&M 170.18 cm Lori Sparrow blood pressure, diastolic 89 mm[Hg] Lori Sparrow " blood pressure, systolic 134 mm[Hg] Lori Sparrow " oxygen saturation, oximetry 97 % Lori Sparrow " respiratory rate E&M 16 /min Lorichiki Sparrow " pulse rate E&M 93 /min Lorichiki Sparrow " temperature E&M 98.6 [degF] Lorichiki Sparrow " weight E&M 204 lbs. Lorichiki Sparrow " weight in kilograms E&M 92.73 kg Lorichiki Shahz " method used to obtain blood pressure automatic Lorichiki Shahz " Blood Pressure Position 01 sitting Lorichiki Osmanmez " blood pressure, site #1 left arm Lorichiki Osmanmez " temperature site tympanic Lorichiki Sparrow " height E&M 67 [in_i] Lori Sparrow " height in centimeters E&M 170.18 cm Lori Waters Sparrow blood pressure, diastolic 88 mm[Hg] Marilu Chavez " blood pressure, systolic 126 mm[Hg] Marilu Chavez " pulse rate E&M 103 /min Marilu Chavez " method used to obtain blood pressure automatic Marilu Chavez " Blood Pressure Position 01 sitting Marilu Chavez " blood pressure, site #1 left arm Marilu Chavez " respiratory rate E&M 20 /min Marilu Chavez " temperature site tympanic Marilu Chavez " oxygen saturation, oximetry 98 % Marilu Chavez " temperature E&M 97.5 [degF] Marilu Chavez " weight E&M 188 lbs. Marilu Chavez " weight in kilograms E&M 85.45 kg Marilu Chavez " height E&M 67 [in_i] Marilu Chavez " height in centimeters E&M 170.18 cm Marilu Chavez blood pressure, diastolic 91 mm[Hg] Jen John " blood pressure, systolic 136 mm[Hg] Jen John " method used to obtain blood pressure automatic Jen John " Blood Pressure Position 01 sitting Jenrichelle Lopez " blood pressure, site #1 left arm Jenrai Lopez " oxygen saturation, oximetry 97 % Jen Lopez " pulse rate E&M 78 /min Jen John " temperature E&M 96.1 [degF] Jen John " weight E&M 230 lbs. Jen John " weight in kilograms E&M 104.55 kg Jen Lopez " temperature site tympanic Jen Lopez " height E&M 67 [in_i] Jen Lopez " height in centimeters E&M 170.18 cm Jen Lopez blood pressure, diastolic 85 mm[Hg] Marilu Chavez " blood pressure, systolic 117 mm[Hg] Marilu Chavez " pulse rate E&M 97 /min Marilu Chavez " method used to obtain blood pressure automatic Marilu Chavez " Blood Pressure Position 01 sitting Marilu Chavez " blood pressure, site #1 left arm Marilu Chavez " temperature site tympanic Marilu Chavez " temperature E&M 97.7 [degF] Marilu Chavez " oxygen saturation, oximetry 98 % Marilu Chavez " weight E&M 218.20 lbs. Marilu Chavez " weight in kilograms E&M 99.18 kg Marilu Chavez " height E&M 67 [in_i] Marilu Chavez " height in centimeters E&M 170.18 cm Marilu Chavez blood pressure, diastolic 89 mm[Hg] Marilu Chavez " blood pressure, systolic 150 mm[Hg] Marilu Chavez " pulse rate E&M 101 /min Marilu Chavez " method used to obtain blood pressure automatic Marilu Chavez " Blood Pressure Position 01 sitting Marilu Chavez " blood pressure, site #1 left arm Marilu Chavez " temperature site tympanic Marilu Chavez " oxygen saturation, oximetry 96 % Marilu Chavez " temperature E&M 97.3 [degF] Marilu Chavez " weight E&M 213.20 lbs. Marilu Chavez " weight in kilograms E&M 96.91 kg Marilu Chavez " height E&M 67 [in_i] Marilu Chavez " height in centimeters E&M 170.18 cm Marilu Chavez blood pressure, diastolic 94 mm[Hg] Liudmila Castellanos " blood pressure, systolic 129 mm[Hg] Liudmila Castellanos " blood pressure, site #1 left arm Liudmila Castellanos " oxygen saturation, oximetry 98 % Liudmila Castellanos " pulse rate E&M 90 /min Liudmila Castellanos " temperature E&M 96.7 [degF] Liudmila Castellanos " weight E&M 210.40 lbs. Liudmila Castellanos " weight in kilograms E&M 95.64 kg Liudmila Castellanos " Blood Pressure Position 01 210.4 Liudmila Castellanos " method used to obtain blood pressure automatic Liudmila Castellanos " temperature site tympanic Liudmila Castellanos " height E&M 67 [in_i] Liudmila Castellanos " height in centimeters E&M 170.18 cm Liudmila Castellanos blood pressure, diastolic 89 mm[Hg] Jen Lopez " blood pressure, systolic 128 mm[Hg] Jen Lopez " oxygen saturation, oximetry 97 % Jen Lopez " pulse rate E&M 115 /min Jen Lopez " temperature E&M 97.3 [degF] Jen John " weight E&M 220 lbs. Jen Lopez " weight in kilograms E&M 100 kg Jen Lopez " method used to obtain blood pressure automatic Jen Lopez " Blood Pressure Position 01 sitting Jen John " blood pressure, site #1 left arm Jen John " temperature site tympanic Jenrai Lopez " height E&M 67 [in_i] Jen John " height in centimeters E&M 170.18 cm Jen Lopez method used to obtain blood pressure manual Lindaaddison Bailono " Blood Pressure Position 01 sitting Linda Ruggiero " blood pressure, site #1 right arm Linda Ruggiero " blood pressure, diastolic 90 mm[Hg] Linda Ruggiero " blood pressure, systolic 136 mm[Hg] Linda Ruggiero " oxygen saturation, oximetry 98 % Linda Ruggiero " temperature E&M 98.0 [degF] Linda Ruggiero " pulse rate E&M 102 /min Linda Ruggiero " weight E&M 242.40 lbs. Linda Ruggiero " weight in kilograms E&M 110.18 kg Linda Ruggiero " temperature site oral Linda Ruggiero " height E&M 67 [in_i] Linda Ruggiero " height in centimeters E&M 170.18 cm Linda Woodruffardo method used to obtain blood pressure manual Lindaaddison Woodruffardo " Blood Pressure Position 01 sitting Lindaaddison Bailono " blood pressure, site #1 right arm Lindaaddison Bailono " blood pressure, diastolic 90 mm[Hg] Linda Ruggiero " blood pressure, systolic 142 mm[Hg] Linda Ruggiero " temperature site tympanic Linda Woodruffardo " oxygen saturation, oximetry 96 % Linda Woodruffardo " pulse rate E&M 110 /min Linda Woodruffardo " temperature E&M 97.6 [degF] Linda Woodruffardo " weight E&M 232 lbs. Linda Bailono " weight in kilograms E&M 105.45 kg Linda Bailono " height E&M 67 [in_i] Linda Woodruffardo " height in centimeters E&M 170.18 cm Linda Bahman blood pressure, site #1 right arm Cammy Galeas " blood pressure, diastolic 80 mm[Hg] Cammy Galeas " blood pressure, systolic 140 mm[Hg] Cammy Galeas " temperature E&M 97.6 [degF] Cammy Galeas " pulse rate E&M 109 /min Cammy Galeas " oxygen saturation, oximetry 94 % Cammy Galeas " weight E&M 234 lbs. Cammy Galeas " weight in kilograms E&M 106.36 kg Cammy Galeas " method used to obtain blood pressure manual Cammy Galeas " Blood Pressure Position 01 sitting Cammy Galeas " temperature site oral Cammy Galeas " height E&M 67 [in_i] Cammy Galeas " height in centimeters E&M 170.18 cm Cammy Galeas method used to obtain blood pressure manual Sara Vente " Blood Pressure Position 01 sitting Sara Vente " blood pressure, site #1 left arm Sara Vente " blood pressure, diastolic 98 mm[Hg] Sara Vente " blood pressure, systolic 138 mm[Hg] Sara Vente " temperature site oral Sara Vente " temperature E&M 96.3 [degF] Sara Vente " oxygen saturation, oximetry 99 % Sara Vente " pulse rate E&M 76 /min Sara Vente " weight E&M 233.38 lbs. Sara Nevarez " weight in kilograms E&M 106.08 kg Sarahumphrey Nevarez " height E&M 67 [in_i] Sara Nevarez " height in centimeters E&M 170.18 cm Sara Nevarez oxygen saturation, oximetry 95 % Venkata Michaels " pulse rate E&M 105 /min Venkata Michaels " temperature E&M 98.4 [degF] Venkata Michaels " blood pressure, diastolic 80 mm[Hg] Venkata Michaels " blood pressure, systolic 118 mm[Hg] Venkata Michaels " weight E&M 220.13 lbs. Venkata Michaels " height E&M 67 [in_i] Venkatawilmer Michaels oxygen saturation, oximetry 98 % Martita Adhikari " pulse rate E&M 103 /min Martita Adhikari " blood pressure, diastolic 80 mm[Hg] Martita Adhikari " blood pressure, systolic 128 mm[Hg] Martita Adhikari " weight E&M 211 lbs. Martita Adhikari " height E&M 67 [in_i] Martita Adhikari Allergies No Known Allergy Information REASON FOR [...] [id number] blood glucose, random 226 mg/dL Tangela [facility] Neisseria gonorrhoeae DNA probe Negative Link[facility] Negative [...] [facility] 12.0-35.5 High " absolute CD8 970 [facility] 109-897 High " T-helper cells (CD4) as percent of blood lymphocytes 41.2 % [facility] 30.8-58.5 " T-helper cells (CD4) count 1030 /UL Link[facility] [id number] rapid plasma reagin antibody, serum Non [...] [facility] 79-97 " hematocrit, blood 44.4 % [facility] 37.5-51.0 " hemoglobin, blood 15.6 g/dL [facility] 12.6-17.7 " erythrocyte (RBC) count 4.93 X10E6/UL [facility] 4.14-5.80 " leukocyte count, blood 5.8 X10E3/UL [facility] 3.4-10.8 " CD4/CD8 ratio 0.99 [facility] 0.92-3.72 " T-suppressor cells (CD8) as percent of blood lymphocytes 40.9 % [facility] 12.0-35.5 High " absolute CD8 1023 [facility] 109-897 High " T-helper cells (CD4) as percent of blood lymphocytes 40.6 % [facility] 30.8-58.5 " T-helper cells (CD4) count 1015 /UL [facility] [id number] Quantiferon Gold TB blood test for [...] as percent of blood leukocytes 52 % LinkLog " platelet count 218 X10E3/UL [facility] 150-379 " red blood cell distribution width 14.3 % [facility] 12.3-15.4 " mean corpuscular hemoglobin concentration, RBC 34.9 G/DL [facility] 31.5-35.7 " mean corpuscular hemoglobin, RBC 32.5 pg [facility] 26.6-33.0 " mean corpuscular volume, RBC 93 fL [facility] 79-97 " hematocrit, blood 47.0 % [facility] 37.5-51.0 " hemoglobin, blood 16.4 g/dL [facility] 12.6-17.7 " erythrocyte (RBC) count 5.04 X10E6/UL [facility] 4.14-5.80 " leukocyte count, blood 5.9 [facility]E3/[facility] " CD4/CD8 ratio 1.17 [facility]Log 0.92-3.72 " T-suppressor cells (CD8) as percent of blood lymphocytes 35.6 % [facility] 12.0-35.5 High " absolute CD8 748 [facility] 109-897 " T-helper cells (CD4) as percent of blood lymphocytes 41.5 % [facility] 30.8-58.5 " T-helper cells (CD4) count 872 /UL [facility] [id number] HIV-1RNA, serum, by PCR, quantitative 40 /mL [facility] rapid plasma reagin antibody, serum Non Reactive [facility] Non Reactive " hemoglobin A1C, blood, as % of total hemoglobin 11.8 % LinkLog 4.8-5.6 High " Hepatitis C virus (HCV) RNA, PCR, quantitative HCV Not Detected IU/mL [facility] " LDL cholesterol, serum 80 mg/dL [facility] 0-99 " very low density lipoproteins 71 mg/dL Link[facility] 5-40 High " HDL cholesterol, serum 52 mg/dL [facility] >39 " triglyceride, serum, fasting 356 mg/dL [facility] 0-149 High " cholesterol, serum 203 mg/dL [...] as percent of blood leukocytes 53 % LinkLog " platelet count 232 X10E3/UL [facility] 150-379 " red blood cell distribution width 14.4 % [facility] 12.3-15.4 " mean corpuscular hemoglobin concentration, RBC 34.2 G/DL [facility] 31.5-35.7 " mean corpuscular hemoglobin, RBC 33.0 pg [facility] 26.6-33.0 " mean corpuscular volume, RBC 97 fL [facility] 79-97 " hematocrit, blood 47.7 % [facility] 37.5-51.0 " hemoglobin, blood 16.3 g/dL [facility] 12.6-17.7 " erythrocyte (RBC) count 4.94 X10E6/UL [facility] 4.14-5.80 " leukocyte count, blood 7.0 X10E3/UL [facility] 3.4-10.8 " CD4/CD8 ratio 1.06 Link[facility] 0.92-3.72 " T-suppressor cells (CD8) as percent of blood lymphocytes 38.9 % [facility] 12.0-35.5 High " absolute CD8 1011 [facility] 109-897 High " T-helper cells (CD4) as percent of blood lymphocytes 41.1 % [facility] 30.8-58.5 " T-helper cells (CD4) count 1069 /UL [facility] [id number] rapid plasma reagin antibody, serum Non Reactive [facility] Non Reactive " HIV-1RNA, serum, by PCR, quantitative 20 /mL [facility] " LDL cholesterol, serum 155 mg/dL [facility] 0-99 High " very low density lipoproteins [...] 79-97 High " hematocrit, blood 48.6 % [facility] 37.5-51.0 " hemoglobin, blood 16.3 g/dL [facility] 12.6-17.7 " erythrocyte (RBC) count 4.98 X10E6/UL [facility] 4.14-5.80 " leukocyte count, blood 5.8 X10E3/UL [facility] 3.4-10.8 " CD4/CD8 ratio 0.95 [facility] 0.92-3.72 " T-suppressor cells (CD8) as percent of blood lymphocytes 37.1 % [facility] 12.0-35.5 High " absolute CD8 742 [facility] 109-897 " T-helper cells (CD4) as percent of blood lymphocytes 35.3 % [facility] 30.8-58.5 " T-helper cells (CD4) count 706 /UL [facility] [phone] " Quantiferon Gold TB blood test [...] [facility]Logic 0.92-3.72 Low " absolute CD8 846 [facility] 109-897 " T-helper cells (CD4) as percent of blood lymphocytes 36.4 % [facility] 30.8-58.5 " T-helper cells (CD4) count 764 /UL [facility] [phone] Hepatitis C virus (HCV) RNA, PCR, quantitative HCV Not Detected IU/mL [facility] " HIV-1RNA, serum, by PCR, quantitative <20 copies/mL [facility] rapid plasma reagin antibody, serum Non Reactive [facility] Non Reactive " LDL cholesterol, serum Triglyceride result indicated is too high for an accurate LDL mg/dL [facility] 0-99 " very low density lipoproteins The calculation for the VLDL cholesterol is not valid when mg/dL [facility] 5-40 " HDL cholesterol, serum 41 mg/dL [facility] >39 " triglyceride, serum, fasting 653 mg/dL [facility] 0-149 Panic high " cholesterol, serum 224 [...] " carbon dioxide, venous blood 23 mmol/L [facility] " chloride, serum 102 mmol/L [facility] [...] Instructions Dates Provider Comments LISINOPRIL 5 MG TABLET TAKE ONE TABLET BY MOUTH DAILY [facility]OS[facility] 1 % GEL APPLY TO [...] with dinner Nikolay Sol GLIPIZIDE 5 MG TABLET TAKE ONE TABLET BY MOUTH EVERY MORNING 30 MINUTES BEFORE BREAKFAST Lisa Black [facility] FENOFIBRATE MICRONIZED 130 MG ORAL CAPSULE Take [...] bedtime - Chad Navarro VALACYCLOVIR HCL 1 GRAM TABLET TAKE ONE TABLET BY MOUTH DAILY Nikolay Sol NORVIR 100 MG ORAL TABLET Take one tablet by mouth once daily with food Nikolay Sol REYATAZ 300 MG ORAL CAPSULE Take one capsule by mouth once daily with food Nikolay Sol SOCIAL HISTORY Date Observation Value Provider drug use, illicit Never Tangela Hicks " alcohol use Currently Tangela Hicks " social history E&M Single. Not homeless. Born in [facility] [place]. City: [place]. State: [place]. 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 Gender of partner(s): female. Age of first sexual intercourse: 14. Tangela Reyados " social history reviewed E&M reviewed today Tangela Hicks " sexual orientation Heterosexual Tangela Hicks " assessment of health literacy ([facility] 2014 Standards, 3C10) Adequate Tangela Hicks " passive cigarette smoke exposure No Tangela Hicks " smoking status former smoker Tangela Hicks " Exercise Program Referral T Tangela Hicks " Weight Management Counseling Provided T Tangela Hicks " Nutrition intervention T Tangela Hicks Exercise Program Referral Jose Sol " Weight Management Counseling Provided T Nikolay Sol " Nutrition intervention T Nikolay Sol " drug use, illicit Never Lori J Sparrow " alcohol use Currently Lori Sparrow " social history E&M Single. Not homeless. Born in [facility] [place]. City: [place]. State: [place]. 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 Gender of partner(s): female. Age of first sexual intercourse: 14. Lorichiki Sparrow " social history reviewed E&M reviewed [...] J Sparrow " alcohol use Currently Lori Sparrow " social history E&M Single. Not homeless. Born in [facility] [place]. City: [place]. State: [place]. 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 Gender of partner(s): female. Age of first sexual intercourse: 14. Lori Sparrow " social history reviewed E&M reviewed today Lori Sparrow " assessment of health literacy ([facility] 2014 Standards, 3C10) Adequate Lori J Sparrow " passive cigarette smoke exposure No Lori J Sparrow " smoking status former smoker Lori Osmanmez time of call 09/10/2017 2:49 PM Barb Lopez sexual orientation Heterosexual Rekha Machuca sexual orientation Heterosexual Anaya Hassan time of call 07/05/2017 4:26 PM Renetta Sosua drug use, illicit Never Marilu Chavez " alcohol use Currently Marilu Chavez " sexual orientation Heterosexual Marilu Chavez " smoking status former smoker Marilu Chavez " passive cigarette smoke exposure No Marilu Chavez " assessment of health literacy ([facility] 2014 Standards, 3C10) Adequate Marilu Chavez " social history E&M Single. Not homeless. Born in [facility] [place]. City: [place]. State: [place]. 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 Gender of partner(s): female. Age of first sexual intercourse: 14. Marilu Chavez " social history reviewed E&M reviewed today Marilu Chavez " Exercise Program Referral T Marilu Chavez " Weight Management Counseling Provided T Marilu Chavez " Nutrition intervention T Marilu Chavez sexual orientation Heterosexual Yuko Edmond drug use, illicit Never Jen Lopez " alcohol use Currently Jen Lopez " social history E&M Single. Not homeless. Born in [facility] [place]. City: [place]. State: [place]. 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 Gender [...] Navarro " drug use, illicit Never Marilu Chavez " alcohol use Currently Marilu Chavez " social history E&M Single. Not homeless. Born in [facility] [place]. City: [place]. State: [place]. 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 Gender of partner(s): female. Age of first sexual intercourse: 14. Marilu Chavez " social history reviewed E&M reviewed today Marilu Chavez " passive cigarette smoke exposure No Marilu Chavez " smoking status former smoker Marilu Chavez sexual orientation Heterosexual Chad Navarro " drug use, illicit Never Marilu Chavez " alcohol use Currently Marilu Chavez " social history E&M Single. Not homeless. Born in [facility] [place]. City: [place]. State: [place]. 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 Gender of partner(s): female. Age of first sexual intercourse: 14. Marilu Chavez " social history reviewed E&M reviewed today Marilu Chavez " passive cigarette smoke exposure No Marilu Chavez " smoking status former smoker Marilu Chavez drug use, illicit Never Liudmila Castellanos " alcohol use Currently Liudmila Castellanos " passive cigarette smoke exposure No Liudmila Castellanos " smoking status former smoker Liudmila Castellanos drug use, illicit Never Jen John " alcohol use Currently Jen John " social history E&M Single. Not homeless. Born in [facility] [place]. City: [place]. State: [place]. 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 Gender [...] history E&M Single. Not homeless. Born in [facility] [place]. City: [place]. State: [place]. 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 Gender of partner(s): female. Age of first sexual intercourse: 14. Chad Navarro " social history reviewed E&M reviewed today Chad Navarro " passive cigarette smoke exposure No Linda Ruggiero " smoking, advice to quit Yes Linda Ruggiero " smoking status former smoker Linda Ruggiero time of call 03/02/2014 3:47 PM Mario Bardales time of call 02/24/2014 8:11 AM Renee Palafox alcohol use, frequency few times per week Chad Navarro " alcohol use Currently Chad Navarro " social history E&M Single. Not homeless. Born in [facility] [place]. City: [place]. State: [place]. 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 Gender of partner(s): female. Age of first sexual intercourse: 14. Chad Navarro " social history reviewed E&M reviewed today Chad Navarro " sexual orientation Heterosexual Chad Navarro " sex at male Lindaaddison Bailono " passive cigarette smoke exposure No Linda Ruggiero " cigarettes, number smoked per day 20 a week Linda Ruggiero " smoking, advice to quit Yes Linda Ruggiero " smoking status current every day smoker Linda Ruggiero " social history E&M Single. Not homeless. Born in [facility] [place]. City: [place]. State: [place]. 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 Gender of partner(s): female. Age of first sexual intercourse: 14. Chad Navarro " social history reviewed E&M reviewed today Chad Navarro " sexual orientation Heterosexual Chad Navarro " drug use, illicit Never Cammy Galeas " alcohol use Never Cammy Galeas " passive cigarette smoke exposure No Cammy Galeas " smoking status former smoker Cammy Galeas sexual orientation Heterosexual Yuko Edmond sexual orientation Heterosexual Chad Martínezmarybel " drug use, illicit Never Sara Vente " alcohol use, frequency few times per month Sara Vente " alcohol use Currently Sara Vente " social history reviewed E&M reviewed today Sara Vente " social history E&M Single. Not homeless. Born in [facility] [place]. City: [place]. State: [place]. 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 Gender of partner(s): female. Age of first sexual intercourse: 14. 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 Sara Vente " patient considered to [...] Disorder Questionnaire - Question 2 0 Marilu Chavez " Generalized Anxiety Disorder Questionnaire - Question 1 0 Marilu Chavez assessment of mood and affect E&M good eye contact, normal affect Josesito Perry " mental status examination: orientation E&M alert and oriented to person, place, and time Josesito S Perry Generalized Anxiety Disorder Questionnaire - Question 2 0 Jen Lopez " Generalized Anxiety Disorder Questionnaire - Question 1 0 Jen Lopez assessment of mood and affect E&M no depression, anxiety, or agitation Chad Nemecek " Generalized Anxiety Disorder Questionnaire - Question 2 0 Marilu Chavez " Generalized Anxiety Disorder Questionnaire - Question 1 0 Marilu Chavez assessment of mood and affect E&M no depression, anxiety, or agitation Chad Nemecek " Generalized Anxiety Disorder Questionnaire - Question 2 0 Marilu Kathy " Generalized Anxiety Disorder Questionnaire - Question 1 0 Marilu Chavez Generalized Anxiety Disorder Questionnaire - Question 2 0 Liudmila Castellanos " Generalized Anxiety Disorder Questionnaire - Question 1 0 Liudmila Emanuel assessment of judgment and insight E&M intact Radha Shrikamarlonh " assessment of mood and affect E&M no depression, anxiety, or agitation Radha Shrikanth " Generalized Anxiety Disorder Questionnaire - Question 2 0 Jen Lopez " Generalized Anxiety Disorder Questionnaire - Question 1 0 Jen Lopez assessment of mood and affect E&M good eye contact, normal affect Josesito S Perry " mental status examination: orientation E&M alert and oriented to person, place, and time Josesito S Perry assessment of mood and affect E&M [...] E&M good eye contact, normal affect Josesito S Perry " mental status examination: orientation E&M alert and oriented to person, place, and time Josesito S [employer] No Information Available FAMILY HISTORY No Information Available INSURANCE PROVIDERS Payer name Policy type / Coverage type Covered green party ID 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 White 101-200% Other [id number] Errol White 101-200% Other Errol White 101-200% Other Errol White 101-200% Other [id number] Errol White 101-200% Other Errol White 101-200% Other Errol White 101-200% Other 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 [id number] Errol White 101-200% Other [id number] Errol White 101-200% Other Errol White 101-200% Other 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 White 101-200% Other Errol White 101-200% Other 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 [id number] Errol White 101-200% Other [id number] 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 [id number] Sliding Fee Scale 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 [id number] Errol White up to 300% Other [id number] ADVANCE DIRECTIVES Name Date DISCUSSED - NO DECISION MADE TREATMENT PLAN Date Name RPR, Rfx Qn RPR/Confirm TP Comp. Metabolic Panel (14) CBC With Differential/Platelet CD4/CD8 Ratio Profile Lipid Panel RNA, Real Time PCR (Graph) SPOT Urine Protein: creatine ratio Hemoglobin A1c [...] - - Est Patient Exp Problem - 71712 Primary Care - Assesment-Brief - SLW Primary Care Service Linkage Primary Care Service Linkage Est Patient Detailed - 51521 Pneumovax Vaccine PPSV23 INFLUENZA VACCINE QUADRIVALENT 3 YRS PLUS IM Glucose Stick Dispensing Visit (UNLIVSTED OPHTHALMOLOGICAL SERVICE/PROCEDURE) Est Patient Exp Problem - 24621 Est Patient Exp Problem - 90666 COMPUTERIZED OPHTHALMIC IMAGING OPTIC NERVE Est Patient Comprehensive Opth - 40791 Spherocyl, SV, plano to +/- 4.00d sphere, 0.12 to 2.00d cyl, per lens Spherocyl, SV, plano to +/- 4.00d sphere, 2.12 to 4.00d cyl, per lens Add to lens; tint, any color, solid, gradient or equal, excl photochro, any niles Frames, purchases Est Patient Intermediate Opth - 48868 Ofc Vst, Est Level IV Contact Insp/Mod (MODIFICAJ CONTACT LENX SPX SUPVJ ADAPTATION) COMPUTERIZED OPHTHALMIC IMAGING OPTIC NERVE Est Patient Intermediate Opth - 07803 Dispensing Visit (Non-Billable) COMPUTERIZED OPHTHALMIC IMAGING OPTIC NERVE Contact Lens Fitting (RX&FITG C-LENS SUPVJ CRNL LENS OU XCPT APHK) Est Patient Intermediate Opt - 64251 Est Patient Detailed - 32541 INFLUENZA VACCINE QUADRIVALENT 3 YRS PLUS IM Ofc Vst, Est Level IV Nutrition - Internal Ofc Vst, Est Level IV Est Patient Exp Problem - 12067 Est Patient Detailed - 84618 Handling of specimen for transfer Venipuncture Dispensing Visit (UNLIVSTED OPHTHALMOLOGICAL SERVICE/PROCEDURE) Add to lens; tint, any color, solid, gradient or equal, excl photochro, any niles Frames, purchases Spherocyl, SV, +/- 4.25 to +/- 7.00 sphere, 0.12 to 2.00d cyl, per lens Spherocyl, SV, plano to +/- 4.00d sphere, 0.12 to 2.00d cyl, per lens COMPUTERIZED OPHTHALMIC IMAGING OPTIC NERVE Est Patient Intermediate Opt - 02823 Contact Lens Fitting (RX&FITG C-LENS SUPVJ CRNL LENS OU XCPT APHK) Est Patient Intermediate Opt - 71849 Primary Care - Assesment-Brief - SLW Primary [...] PACHYMETRY UNI/BI Est Patient Intermediate Opt - 87443 Contact Lens Fitting (RX&FITG C-LENS SUPVJ CRNL LENS OU XCPT APHK) Est Patient Intermediate Opt - 87772 Ofc Vst, Est Level IV Pneumovax Vaccine [...] Perry completed Est Patient Comprehensive Opt - 18393 Josesito Perry completed Spherocyl, SV, plano to [...] 5.00) completed Est Patient Intermediate Opt - 59883 Angela Valdemar completed Contact Insp/Mod (MODIFICAJ CONTACT LENX SPX SUPVJ ADAPTATION) Efra Tariq completed COMPUTERIZED OPHTHALMIC IMAGING OPTIC NERVE Josesito Perry completed Est Patient Intermediate Opt - 49128 Josesito Umañayer completed Dispensing Visit (Non-Billable) Tracey Bacon completed COMPUTERIZED OPHTHALMIC IMAGING OPTIC NERVE Tracey Bacon completed Contact Lens Fitting (RX&FITG C-LENS SUPVJ CRNL LENS OU XCPT APHK) Efra Tariq completed Est Patient Intermediate Opt - 20766 Efra Tariq completed Venipuncture Radha Posey completed Dispensing Visit (UNLIVSTED OPHTHALMOLOGICAL SERVICE/PROCEDURE) Tracey Bacon completed Add to lens; tint, any color, solid, gradient or equal, excl photochro, any niles Yuko Mayito 5.00 completed Frames, purchases Yuko Edmond completed Spherocyl, SV, +/- 4.25 to +/- 7.00 sphere, 0.12 to 2.00d cyl, per lens Yuko Edmond completed Spherocyl, SV, plano to +/- 4.00d sphere, 0.12 to 2.00d cyl, per lens Yuko Edmond completed COMPUTERIZED OPHTHALMIC IMAGING OPTIC NERVE Josesito Perry completed Est Patient Intermediate Opt - 88553 Josesito Delgado Orlando completed Contact Lens Fitting (RX&FITG C-LENS SUPVJ CRNL LENS OU XCPT APHK) Efra Tariq completed Est Patient Intermediate Opt - 55812 Efra Tariq completed Primary Care - Assesment-Brief [...] Perry completed Est Patient Intermediate Opth - 95945 Josesito Perry completed Contact Lens Fitting (RX&FITG C-LENS SUPVJ CRNL LENS OU XCPT APHK) Efra Tariq completed Est Patient Intermediate Opth - 20111 Efra Tariq completed Primary Care Medical Case Management Renée Zavala Time spent with patient: 15 completed Primary Care Medical Case Management Renée Zavala Time spent with patient: 15 completed GOALS No Information Available HEALTH CONCERNS No Information Available
--- OUTSIDE RECORDS SUMMARY | 2019-07-14 14:31 | XMS REPORT ---
Author Author Admin, [place] Organization Unknown Address Unknown Phone Unavailable PROBLEMS [...] Angela Bhakhrani Astigmatism - OU active Angela Aldrich Screening for std completed - Nikolay Sol [...] Provider Location Encounter Diagnosis - Ambulatory Encounter Tangela Hicks [facility] Adult Medicine UNK - Ambulatory Encounter Nikolay Sol [facility]ic [facility] Adult Medicine UNK - Ambulatory Encounter Dona Sandyierrez [facility] UNK - Ambulatory Encounter Nikolay Armendariz [facility] Adult Medicine UNK - Ambulatory Encounter Nikolay Hernandez MedAdherence [facility] Adult Medicine UNK - Ambulatory Encounter Nikolay Franco MedAdherence, [facility] Adult Medicine UNK - Ambulatory Encounter Dona Adamsrez [facility] Adult Medicine UNK - Ambulatory Encounter Nikolay Black MedAdherence [facility] UNK - Ambulatory Encounter Nikolay Sol [facility]ic [facility] Adult Medicine UNK - Ambulatory Encounter Nikolay Sol [facility]ic [facility] Adult Medicine UNK - Ambulatory Encounter Nikolay Fernandesica Velasquez [facility] Adult Medicine UNK - Ambulatory Encounter Nikolay Sol [facility] Adult Medicine UNK - Ambulatory Encounter Nikolay Sol [facility] Adult Medicine UNK - Ambulatory Encounter Nikolay Sol [facility] Adult Medicine UNK - Ambulatory Encounter Mario Canales [facility] Tian Eligibility UNK - Ambulatory Encounter Naina Cordova [facility] Services UNK - Ambulatory Encounter Fax Status [facility] Services UNK - Ambulatory Encounter Fax Status [facility] Services UNK - Ambulatory Encounter Fax Status [facility] Services UNK - Ambulatory Encounter Fax Status [facility] Services UNK - Ambulatory Encounter Mac Hernandez [facility] Chiropractic Practice Manager UNK - Ambulatory Encounter Nikolay Sol [facility] Adult Medicine UNK - Ambulatory Encounter Nikolay Hicks [facility] Adult Medicine Vaccination against influenzaVaccination for strep pneumonia with pneumovaxHepatitis C antibody test positiveImmunity status testing, antibody response - Ambulatory Encounter Nikolay Franco MedAdherence, [facility] Adult Medicine UNK - Ambulatory Encounter Paz Campbell [facility] Chiropractic Practice Manager UNK - Ambulatory Encounter Mac Hernandez [facility] Chiropractic Practice Manager UNK - Ambulatory Encounter Nikolay Sol [facility]Logic [facility] Adult Medicine UNK - Ambulatory Encounter Nikolay Sol [facility]Logic [facility] Adult Medicine UNK - Ambulatory Encounter Nikolay Sol LinkLogic [facility] Adult Medicine UNK - Ambulatory Encounter Nikolay Armendariz [facility] Adult Medicine UNK - Ambulatory Encounter Nikolay Franco MedAdherence, [facility] Adult Medicine UNK - Ambulatory Encounter Catina Jackson [facility] Adult Medicine UNK - Ambulatory Encounter Antoni Hurtado [facility] Adult Medicine UNK - Ambulatory Encounter Nikolay Sol [facility] Adult Medicine UNK - Ambulatory Encounter Fax Status [facility] UNK - Ambulatory Encounter Fax Status [facility] UNK - Ambulatory [facility] - Ambulatory Encounter Nikolya Sparrow [facility] UNK - Ambulatory Encounter [facility] - Ambulatory Encounter Nikolay Sol [facility]ic [facility] Adult Medicine UNK - Ambulatory Encounter Nikolay Sol [facility] Adult Medicine UNK - Ambulatory Encounter Nikolay Sol [facility] Adult Medicine UNK - Ambulatory Encounter Nikolay Sparrow [facility] Adult Medicine Vaccination against influenzaVaccination for strep pneumonia with pneumovaxTransaminases, serum, elevatedSkin lesions, multiple - Ambulatory Encounter Nikoaly Sol [facility] Adult Medicine UNK - Ambulatory Encounter Dona Eng [facility] Adult Medicine UNK - Ambulatory Encounter Concepcion Rodgers [facility] DENTAL CERAMIST UNK - Ambulatory Encounter Naina Cordova [facility] Services UNK - Ambulatory Encounter Nikolay Leigh [facility] Services UNK - Ambulatory Encounter Nikolay Sol [facility] Adult Medicine UNK - Ambulatory Encounter Nikolay Sol [facility] Adult Medicine UNK - Ambulatory Encounter Josesito Perry [facility] Vision UNK - Ambulatory Encounter Nikolay Greenfield [facility] Adult Medicine UNK - Ambulatory Encounter Chad Navarro [facility] Adult Medicine UNK - Ambulatory Encounter Cahd Melanie Navarro [facility]Log[facility] Adult Medicine UNK - Ambulatory Encounter Tracey Haarra [facility] Vision UNK - Ambulatory Encounter Tracey Landaa [facility] Vision UNK - Ambulatory Encounter Fax Status [facility] Services UNK - Ambulatory Encounter Fax Status [facility] Services UNK - Ambulatory Encounter Fax Status [facility] UNK - Ambulatory Encounter Nikolay Sol [facility] Adult Medicine UNK - Ambulatory Encounter Nikolay Sparrow [facility] Adult Medicine Immunization updateScreening for stdScreening, colon cancer - Ambulatory Encounter Barb Lopez [facility] Public [facility] Services UNK - Ambulatory Encounter Josesito Perry [facility] Vision UNK - Ambulatory Encounter Anaya Hassan [facility] Vision UNK - Ambulatory Encounter Angela Bhakhrani Angela Bhakhrani [facility] Vision UNK - Ambulatory Encounter Josesito Perry Rekha Machuca [facility] Vision UNK - Ambulatory Encounter Angela Bhakhrani Angela Bhakhrani [facility] Vision UNK - Ambulatory Encounter Angela Bhakhrani Angela Bhakhrani [facility] Vision UNK - Ambulatory Encounter Angela Bhakhrani Angela Bhakhrani Anaya Landonndra Machuca [facility] Vision Astigmatism - OUMyopia - OU - Ambulatory Encounter Chad Navarro Chloe Greenfield [facility] Adult Medicine UNK - Ambulatory Encounter Chad Navarro Chloe Greenfield [facility] Adult Medicine UNK - Ambulatory Encounter Chad Navarro Chloe Greenfield [facility] Adult Medicine UNK - Ambulatory Encounter Chad Navarro LinkLogic Chloe Greenfield [facility] Adult Medicine UNK - Ambulatory Encounter Chad CottrellLogic Chloe Greenfield [facility] Adult Medicine UNK - Ambulatory Encounter Chad CottrellLogic Chloe Greenfield [facility] Adult Medicine UNK - Ambulatory Encounter Chad Navarro LinkLogic [facility] Adult Medicine UNK - Ambulatory Encounter Chad Rice [facility] Adult Medicine UNK - Ambulatory Encounter Chad Navarro [facility] Adult Medicine UNK - Ambulatory Encounter Chad Navarro Chloe Greenfield [facility] Adult Medicine UNK - Ambulatory Encounter Chad CottrellLogjoy Chloe Greenfield [facility] Adult Medicine UNK - Ambulatory Encounter Choice Marina Sousa [facility] Services [facility] UNK - Ambulatory Encounter Valentina Hernandez [facility] Adult Medicine UNK - Ambulatory Encounter Chad Navarro [facility] Adult Medicine UNK - Ambulatory Encounter Chad CottrellLogic LM Adult Medicine UNK - Ambulatory Encounter Chad Navarro [facility] Adult Medicine UNK - Ambulatory Encounter Chad Navarro LinkLogic LM Adult Medicine UNK - Ambulatory Encounter Chad Navarro [facility] Adult Medicine Screening for std - Ambulatory Encounter Chad Navarro Chloe Greenfield [facility] Adult Medicine UNK - Ambulatory Encounter Enedelia Renetta [facility]Logic Chloe Greenfield [facility] Adult Medicine UNK - Ambulatory Encounter Chad Navarro Chloe Greenfield [facility] Adult Medicine UNK - Ambulatory Encounter Chad Navarro Chloe Greenfield [facility] Adult Medicine UNK - Ambulatory Encounter Enedelia Renetta LinkLogic Chloe Greenfield [facility] Adult Medicine UNK - Ambulatory Encounter Enedelia Renetta LinkLogic Chloe Greenfield [facility] Adult Medicine UNK - Ambulatory Encounter Enedelia [...] Medicine UNK - Ambulatory Encounter Chad Navarro Nathan Avilez [facility] Adult Medicine UNK - Ambulatory Encounter Chad Navarro [facility] Adult Medicine UNK - Ambulatory Encounter Chad Navarro [facility] Adult Medicine UNK - Ambulatory Encounter Chad Navarro [facility] Adult Medicine UNK - Ambulatory Encounter Chad Navarro [facility] Adult Medicine UNK - Ambulatory Encounter Chad Navarro [facility] Adult Medicine UNK - Ambulatory Encounter Chad Navarro Marilu Chavez [facility] Adult Medicine URIMyopia - OURegular astigmatism, bilateral - Ambulatory Encounter Milana Lopez [facility] UNK - Ambulatory Encounter [facility] UNK - Ambulatory Encounter Chad Navarro Enedelia [...] left - Ambulatory Encounter Chad Navarro LinkLogic LM Adult Medicine UNK - Ambulatory Encounter Fax Status [facility] - Ambulatory Encounter Fax Status [facility] UN[facility] - Ambulatory Encounter Fax Status [facility] UNK - Ambulatory Encounter Radha Posey [facility] Adult Medicine UNK - Ambulatory Encounter Radha Posey [facility] Adult Medicine UNK - Ambulatory Encounter Radha Posey [facility] Adult Medicine UNK - Ambulatory Encounter Radha Lopez [facility] Adult Medicine UNK - Ambulatory Encounter Radha Castanedaroberto carlos Brown Panfilo [facility] Adult Medicine UNK - Ambulatory Encounter Chad Navarro [facility] Adult Medicine UNK - Ambulatory Encounter Chad Navarro [facility] Adult Medicine UNK - Ambulatory Encounter Chad Greenfield [facility] Adult Medicine UNK - Ambulatory Encounter Lina Dias [facility] Adult Medicine UNK - Ambulatory Encounter Yuko Edmond [facility] Vision UNK - Ambulatory Encounter Chad Veliz [facility] UNK - Ambulatory Encounter Chad Navarro [...] Medicine UNK - Ambulatory Encounter Michael Madden [facility] Services UNK - Ambulatory Encounter Radhajuan c [place] [facility] Adult Medicine UNK - Ambulatory Encounter Radha [place] [facility]ic [facility] Adult Medicine UNK - Ambulatory Encounter Radha Kalpesh [place] [facility] Adult Medicine UNK - Ambulatory Encounter Radhajuan c [place] [facility] Adult Medicine UNK - Ambulatory En[facility] - Ambulatory Encounter Radhajuan c [place] [facility]ic [facility] Adult Medicine UNK - Ambulatory Encounter Christopher Chano [facility] Services UNK - Ambulatory Encounter Christopher Chano [facility] Services UNK - Ambulatory Encounter Radha Morah [facility] Adult Medicine UNK - Ambulatory Encounter Radha Spearsacha [place] [facility] Adult Medicine UNK - Ambulatory Encounter Chad Navarro [facility] Adult Medicine UNK - Ambulatory Encounter Chad Washburnophjoshua Madden [facility] Adult Medicine Otitis media, right - Ambulatory Encounter Radhajuan c [place] [facility] Adult Medicine UNK - Ambulatory Encounter Radha Kalpesh [place] [facility] Adult Medicine UNK - Ambulatory Encounter Lina Dias [facility] Adult Medicine UNK - Ambulatory Encounter Radha [place] [facility] Adult Medicine UNK - Ambulatory Encounter Scott Zhao [facility] Adult Medicine UNK - Ambulatory Encounter Fax Status LinkLogic [facility] Services UNK - Ambulatory Encounter Fax Status [facility]Logic [facility] Services UNK - Ambulatory Encounter Fax Status LinkLogic [facility] Services UNK - Ambulatory Encounter Nikolay Sol [facility] Adult Medicine UNK - Ambulatory Encounter Nikolay Castellanos LM Adult Medicine UNK - Ambulatory Encounter Razia Jorge Alberto [facility] Health UNK - Ambulatory Encounter Radha Posey LM [...] Ambulatory Encounter Enedelia Jackson LinkLogic Chloe Greenfield LM Adult Medicine UNK - Ambulatory Encounter Radha Posey LM Adult Medicine UNK - Ambulatory Encounter Radha Lopez [facility] Adult Medicine Otitis media, rightImmunization updateObesity - Ambulatory Encounter Jen Lopez [facility] Adult Medicine UNK - Ambulatory Encounter Radha Posey [facility] Adult Medicine UNK - Ambulatory Encounter Elaina Canales [facility] UNK - Ambulatory Encounter Chad Corona iGn [facility] Adult Medicine UNK - Ambulatory Encounter Enedelia Renetta LinkLogic Chloe Greenfield LM Adult Medicine UNK - Ambulatory Encounter Radha King [facility] Adult Medicine UNK - Ambulatory Encounter Chad Greenfield [facility] Adult Medicine UNK - Ambulatory Encounter Chad Tobiasan [facility] Adult Medicine UNK - Ambulatory Encounter Chad Corona Greenfield [facility] Adult Medicine UNK - Ambulatory Encounter Chad Corona Greenfield [facility] Adult Medicine UNK - Ambulatory Encounter Chad Corona Greenfield [facility] Adult Medicine UNK - Ambulatory Encounter Enedelia Renetta LinkLogic Chloe Gin [facility] Adult Medicine UNK - Ambulatory Encounter Enedelia Renetta LinkLogic Chloe Gin LM Adult Medicine UNK - Ambulatory Encounter Enedelia Renetta LinkLogic Chloe Gin LM Adult Medicine UNK - Ambulatory Encounter Enedelia Renetta LinkLogic Chloe Gin [facility] Adult Medicine UNK - Ambulatory Encounter Enedelia Renetta LinkLogic Chloe Gin [facility] Adult Medicine UNK - Ambulatory Encounter Chad [...] [facility] Adult Medicine UNK - Ambulatory Encounter Lamberttu Jones [facility] Adult Medicine UNK - Ambulatory Encounter Chad Navaror LinkLogic [facility] Services UNK - Ambulatory Encounter Lambert Jones [facility] Adult Medicine UNK - Ambulatory Encounter Josesito Perry [facility] Vision UNK - Ambulatory Encounter Efra Tariq [facility] Vision UNK - Ambulatory Encounter Traceyrai HaBacon [facility] Vision UNK - Ambulatory Encounter Lambert [...] Ambulatory Encounter Enedelia Renetta LinkLogic Donaaddison You [facility] Adult Medicine UNK - Ambulatory Encounter Enedelia Renetta LinkLogic Donaaddison You [facility] Adult Medicine UNK - Ambulatory Encounter Enedelia Renetta LinkLogic Dona You LM Adult Medicine UNK - Ambulatory Encounter Enedelia Renetta LinkLogic Donaaddison You LM Adult Medicine UNK - Ambulatory Encounter Merry Garcia [facility]Log[facility] Chiropractic Practice Manager UNK - Ambulatory Encounter Chad Navarro LinkLogic Maria Eugenia Del Cidro LM Adult Medicine UNK - Ambulatory Encounter Chad Navarro [facility] Adult Medicine UNK - Ambulatory Encounter Merry Garcia [facility] Chiropractic Practice Manager UNK - Ambulatory Encounter Chad Ruggiero LM Adult Medicine HYPERLIPIDEMIA - Ambulatory Encounter Cha Mitchell LM Adult Medicine UNK - Ambulatory Encounter Chad Navarro [facility]ic LM Adult Medicine UNK - Ambulatory Encounter Chad Navarro LinkLogic LM Adult Medicine UNK - Ambulatory Encounter Chad Navarro Lou Ren [facility] Adult Medicine UNK - Ambulatory Encounter Chad Rodriges [facility] Adult Medicine UNK - Ambulatory Encounter Enedelia Renetta LinkLogic Lou Ren [facility] Adult Medicine UNK - Ambulatory Encounter Mario Bardales [facility] Adult Medicine UNK - Ambulatory Encounter Chad Navarro [place] Adult Medicine UNK - Ambulatory Encounter Enedelia Renetta LinkLogic Lou Ren [facility] Adult Medicine UNK - Ambulatory Encounter Enedelia Renetta LinkLogic Lou Ren [facility] Adult Medicine UNK - Ambulatory Encounter Cha AndersontidarrelMichael [facility] Adult Medicine UNK - Ambulatory Encounter Renee Palafox [facility] Dental UNK - Ambulatory Encounter Chad Navarro [facility] [place] Adult Medicine UNK - Ambulatory Encounter Enedelia Renetta LinkLogic Lou Ren [facility] Adult Medicine UNK - Ambulatory Encounter Chad You LM Adult Medicine UNK - Ambulatory Encounter Enedelia Renetta LinkLogic Dona You LM Adult Medicine UNK - Ambulatory Encounter Chad Peoples [facility] Adult Medicine UNK - Ambulatory Encounter Enedelia Renetta LinkLogic Dalila Peoples [facility] Adult Medicine UNK - Ambulatory Encounter Chad Jackson [facility] Adult Medicine UNK - Ambulatory Encounter Enedelia Jackson LinkLogjoy Navarro [facility] Adult Medicine UNK - Ambulatory Encounter Chad Navarro [facility]ic [facility] Adult Medicine UNK - Ambulatory Encounter Chad Navarro [facility] Adult Medicine UNK - Ambulatory Encounter Chad Navarro Linda Bahman LM Adult Medicine UNK - Ambulatory Encounter Aurora Vali LM Adult Medicine UNK - Ambulatory Encounter Chad Navarro LinkLogic LM Adult Medicine UNK - Ambulatory Encounter Cha Arriaza LM Adult Medicine UNK - Ambulatory Encounter Chad CottrellLogic [facility] UNK - Ambulatory Encounter Chad Navarro LinkLogic LM Adult Medicine UNK - Ambulatory Encounter Chad Navarro LinkLogic LM Adult Medicine UNK - Ambulatory Encounter Chad Mitchell LM Adult Medicine UNK - Ambulatory Encounter Robert Mott LM Adult Medicine UNK - Ambulatory Encounter Chad Ren LM Adult Medicine UNK - Ambulatory Encounter Enedelia Jackson LinkLogic Lou Ren [facility] Adult Medicine UNK - Ambulatory Encounter Chad Jackson LM Adult Medicine UNK - Ambulatory Encounter Enedelai Jackson [facility]ic [facility] Adult Medicine UNK - Ambulatory Encounter Kathe See [facility] Services UNK - Ambulatory Encounter [...] Medicine UNK - Ambulatory Encounter Lou Mikal LM Adult Medicine UNK - Ambulatory Encounter Lou Mikal [facility] Adult Medicine UNK - Ambulatory Encounter Enedelia Renetta LinkLogic Lou Mikal [facility] Adult Medicine UNK - Ambulatory Encounter Enedelia Renetta LinkLogic Lou Mikal [facility] Adult Medicine UNK - Ambulatory Encounter Cahd Navarro [facility] Adult Medicine UNK - Ambulatory Encounter Gracie Jansen [facility] Adult Medicine UNK - Ambulatory Encounter Chad Galeas [facility] Adult Medicine - Ambulatory Encounter Chad Navarro Enedelia Renetta [facility] Adult Medicine UNK - Ambulatory Encounter Enedelia Renetta LinkLogic Chad Navarro [facility] Adult Medicine UNK - Ambulatory Encounter Chad Monroyamillo [facility] Adult Medicine UNK - Ambulatory [...] Medicine UNK - Ambulatory Encounter Chad Navarro Eneedlia Renetta [facility] Adult Medicine UNK - Ambulatory [...] Perry C Vision UNK - Ambulatory Encounter Efra Tariq Yuko Edmond [facility] Vision Open angle with borderline findings, high risk, bilateral - Ambulatory Encounter Chad Navarro LinkLogic [facility] Adult Medicine UNK - Ambulatory Encounter Chad Nevarez [facility] Adult Medicine - Ambulatory Encounter Dona You [facility] Adult Medicine UNK - Ambulatory Encounter Chad CottrellLogic [facility] Adult Medicine UNK - Ambulatory Encounter Chad Navarro LinkLogic [facility] Adult Medicine UNK - Ambulatory Encounter Chad Velázquez [facility] Adult Medicine UNK - Ambulatory Encounter Renée Lucas [facility] Chiropractic Practice Manager UNK - Ambulatory Encounter Renée Zavala [facility] Chiropractic Practice Manager UNK - Ambulatory Encounter Dona You [facility] Adult Medicine UNK - Ambulatory Encounter Chad You [facility] Adult Medicine UNK - Ambulatory Encounter Dona You [facility] Adult Medicine UNK - Ambulatory Encounter Chad You [facility] Adult Medicine UNK - Ambulatory Encounter Chelsi Fierro [facility] Adult Medicine UNK - Ambulatory Encounter Chelsi Sri [facility] Adult Medicine UNK - Ambulatory Encounter [...] [facility] Adult Medicine UNK - Ambulatory Encounter lEise Mejia [facility] Vision - Ambulatory Encounter Martita Michaels [facility] Adult Medicine - Ambulatory Encounter Yaya CottrellLogic Test Location of Care UNK - Ambulatory Encounter Yaya Olsen LinkLogic Test Location of Care UNK - Ambulatory Encounter [facility] - [facility] - Ambulatory Encounter LC Lab [facility] UNK - Ambulatory Encounter LC Lab Provider [facility] UNK - Ambulatory Encounter LC [facility] UNK - Ambulatory Encounter LC Lab Provider [facility] UNK - Ambulatory Encounter LC Lab Provider [facility] Services UNK - Ambulatory Encounter [facility] V[facility] SIGNS Date Observation Value Provider [...] " BP systolic #1 86 mm[Hg] Nikolay Sol " blood pressure, diastolic, second observation 86 mm[Hg] Lori Evelin Sparrow " blood pressure, systolic, second observation 126 mm[Hg] Lori Sparrow " blood pressure, diastolic 86 mm[Hg] Nikolay Sol " blood pressure, systolic 126 mm[Hg] Nikolay Sol " oxygen saturation, oximetry 98 % Lori Sparrow " respiratory rate E&M 16 /min Lori Sparrow " pulse rate E&M 87 /min Lori Sparrow " temperature E&M 98.5 [degF] Lori [...] Sparrow blood pressure, diastolic 89 mm[Hg] Lori J Andrews " blood pressure, systolic 134 mm[Hg] Lori Waters Andrews " oxygen saturation, oximetry 97 % Lori J Andrews " respiratory rate E&M 16 /min Lori J Andrews " pulse rate E&M 93 /min Lori Evelin Andrews " temperature E&M 98.6 [degF] Lori J Andrews " weight E&M 204 lbs. Lori Osmanmez " weight in kilograms E&M 92.73 kg Lori J Andrews " method used to obtain blood pressure automatic Lori Sparrow " Blood Pressure Position 01 sitting Lori J Andrews " blood pressure, site #1 left arm Lori J Andrews " temperature site tympanic Lori Waters Andrews " height E&M 67 [in_i] Lori Evelin Andrews " height in centimeters E&M 170.18 cm Lori Sparrow blood pressure, diastolic 88 mm[Hg] Marilu [...] Chavez blood pressure, diastolic 91 mm[Hg] Jen Lopez " blood pressure, systolic 136 mm[Hg] Jen John " method used to obtain blood pressure automatic Jen John " Blood Pressure Position 01 sitting Jen Lopez " blood pressure, site #1 left arm Jen Lopez " oxygen saturation, oximetry 97 % Jen Lopez " pulse rate E&M 78 /min Jen Lopez " temperature E&M 96.1 [degF] Jen Lopez " weight E&M 230 lbs. Jen Lopez " weight in kilograms E&M 104.55 kg [...] height in centimeters E&M 170.18 cm Liudmila Emanuel blood pressure, diastolic 89 mm[Hg] Jen John " blood pressure, systolic 128 mm[Hg] Jen [...] arm Jen John " temperature site tympanic Jen John " height E&M 67 [in_i] Jen John " height in centimeters E&M 170.18 cm Jen Lopez method used to obtain blood pressure manual Linda Ruggiero " Blood Pressure Position 01 sitting Linda [...] height in centimeters E&M 170.18 cm Linda Ruggiero method used to obtain blood pressure manual Linda Ruggiero " Blood Pressure Position 01 sitting Linda Ruggiero " blood pressure, site #1 right arm Linda Ruggiero " blood pressure, diastolic 90 mm[Hg] Linda Ruggiero " blood pressure, systolic 142 mm[Hg] Linda Ruggiero " temperature site tympanic Linda Ruggiero " oxygen saturation, oximetry 96 % Linda Ruggiero " pulse rate E&M 110 /min Linda Ruggiero " temperature E&M 97.6 [degF] Linda Ruggiero " weight E&M 232 lbs. Linda Ruggiero " weight in kilograms E&M 105.45 kg Linda Ruggiero " height E&M 67 [in_i] Linda Ruggiero " height in centimeters E&M 170.18 cm Linda Ruggiero blood pressure, site #1 right arm Cammy [...] Cammy Galeas " height E&M 67 [in_i] aCmmy Galeas " height in centimeters E&M 170.18 cm Cammy Galeas method used to obtain blood pressure manual Sara Vente " Blood Pressure Position 01 sitting Sara Vente " blood pressure, site #1 left arm Sara Vente " blood pressure, diastolic 98 mm[Hg] Sara Vente " blood pressure, systolic 138 mm[Hg] Sara Vente " temperature site oral Sara Katinae " temperature E&M 96.3 [degF] Sara Vente " oxygen saturation, oximetry 99 % Sara Katinae " pulse rate E&M 76 /min Sara Katinae " weight E&M 233.38 lbs. Sara Katinae " weight in kilograms E&M 106.08 kg Sara Katinae " height E&M 67 [in_i] Sara Katinae " height in centimeters E&M 170.18 cm Sara Katinae oxygen saturation, oximetry 95 % Venkata Michaels " pulse rate E&M 105 /min Venkata Michaels " temperature E&M 98.4 [degF] Venkata Michaels " blood pressure, diastolic 80 mm[Hg] Venkatawilmer Michaels " blood pressure, systolic 118 mm[Hg] Venkata Michaels " weight E&M 220.13 lbs. Venkatawilmer Michaels " height E&M 67 [in_i] Venkata Michaels oxygen saturation, oximetry 98 % Martita [...] <20 copies/mL [facility] " LDL cholesterol, serum 62 mg/dL [facility] 0-99 " very low density lipoproteins 60 mg/dL [facility] 5-40 High " HDL cholesterol, serum 49 mg/dL [facility] >39 " triglyceride, serum, fasting 299 mg/dL [facility] 0-149 High " cholesterol, serum 171 mg/dL [facility] 100-199 " alanine aminotransferase (SGPT), serum 29 1/L [facility] 0-44 " aspartate aminotransferase (SGOT), serum 22 1/L [facility] 0-40 " alkaline phosphatase, serum 91 1/L [facility] 39-117 " bilirubin, serum, total 0.8 mg/dL [facility] 0.0-1.2 " albumin/globulin ratio, serum 1.8 [facility] 1.2-2.2 " globulin, serum 2.4 [facility] 1.5-4.5 " albumin, serum 4.3 g/dL [facility] 3.8-4.9 " protein, total, serum 6.7 g/dL [facility] 6.0-8.5 " calcium, serum 10.0 mg/dL [facility] 8.7-10.2 " carbon dioxide, venous blood 22 mmol/L [facility] 20-29 " chloride, serum 98 mmol/L [facility] 96-106 " potassium, serum 4.6 mmol/L [facility] 3.5-5.2 " sodium, serum 137 mmol/L [facility] 134-144 " urea nitrogen/creatinine ratio, serum 24 [facility] 9-20 High " eGFR if 115 mL/min/((173/100).m2) [facility] >59 " Estimated Glomerular Filtration Rate (calc) 100 mL/min/((173/100).m2) [facility] >59 " creatinine, serum 0.76 mg/dL [facility] 0.76-1.27 " urea nitrogen, blood 18 mg/dL [facility] 6-24 " blood glucose, random 172 mg/dL [facility] 65-99 High " immature granulocytes, percentage of total cells, blood 0 % [facility] Not Estab. " basophil count, absolute 0.0 x10E3/uL [facility] 0.0-0.2 " Eosinophil Absolute Count 0.6 X10E3/UL [facility] 0.0-0.4 High " monocyte count, blood, automated 0.5 X10E3/UL [facility] 0.1-0.9 " lymphocyte count, blood, automated 2.5 X10E3/UL [facility] 0.7-3.1 " Absolute Neutrophils 2.5 X10E3/UL [facility] 1.4-7.0 " basophils as percent of blood leukocytes 1 % [facility] Not Estab. " eosinophils as percent of blood leukocytes 10 % [facility] Not Estab. " monocytes as percent of blood leukocytes 9 % [facility] Not Estab. " lymphocytes as percent of blood leukocytes 40 % [facility] Not Estab. " neutrophils as percent of blood leukocytes 40 % [facility] Not Estab. " platelet count 200 X10E3/UL [facility] 150-450 " red blood cell distribution width 13.9 % [facility] 11.6-15.4 " mean corpuscular hemoglobin concentration, RBC 34.6 G/DL [facility] 31.5-35.7 " mean corpuscular hemoglobin, RBC 32.0 pg [facility] 26.6-33.0 " mean corpuscular volume, RBC 93 fL [facility] 79-97 " hematocrit, blood 41.9 % [facility] 37.5-51.0 " hemoglobin, blood 14.5 g/dL [facility] 13.0-17.7 " erythrocyte (RBC) count 4.53 X10E6/UL [facility] 4.14-5.80 " leukocyte count, blood 6.2 X10E3/UL [facility] 3.4-10.8 " CD4/CD8 ratio 1.13 [facility] 0.92-3.72 " T-suppressor cells (CD8) as percent of blood lymphocytes 37.4 % [facility] 12.0-35.5 High " absolute CD8 935 [facility] 109-897 High " T-helper cells (CD4) as percent of blood lymphocytes 42.4 % [facility] 30.8-58.5 " T-helper cells (CD4) count 1060 /UL [facility] 359-1519 rapid plasma reagin antibody, [...] HIV-1RNA, serum, by PCR, quantitative 40 /mL [facility] rapid plasma reagin antibody, serum Non Reactive [facility] Non Reactive " hemoglobin A1C, blood, as % of total hemoglobin 11.8 % [facility] 4.8-5.6 High " Hepatitis C virus (HCV) RNA, PCR, quantitative HCV Not Detected IU/mL [facility] " LDL cholesterol, serum 80 mg/dL [...] is not valid when mg/dL [facility] (5-40) HISTORY OF IMMUNIZATIONS No Information Available HISTORY OF MEDICATION USE Medication Instructions Dates Provider Comments LISINOPRIL 5 MG TABLET TAKE ONE TABLET BY MOUTH DAILY [facility] CLINDAM[facility] PHOSPHATE 1 % GEL APPLY TO [...] a tablet PO at bedtime - Chad Navaror VALACYCLOVIR HCL 1 GRAM TABLET TAKE ONE [...] history E&M Single. Not homeless. Born in [facility]. City: [place]. State: [place]. 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 Gender of partner(s): female. Age of first sexual intercourse: 14. Tangela Reyados " social history reviewed E&M reviewed today Tangela Hicks " sexual orientation Heterosexual Tangela Hicks " assessment of health literacy ([employer] 2014 Standards, 3C10) Adequate Tangela Hicks " [...] Sol " drug use, illicit Never Lori Evelin Sparrow " alcohol use Currently Lori Sparrow " social history E&M Single. Not homeless. Born in [facility]. City: [place]. State: [place]. 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 Gender of partner(s): female. Age of first sexual intercourse: 14. Lori Sparrow " social history reviewed E&M reviewed today Lori Sparrow " passive cigarette smoke exposure No Lori J Sparrow " smoking status former smoker Lori Evelin OsmanSparrow time of call 10/29/2017 3:13 PM Magda Leigh Exercise Program Referral T Nikolay Sol " Weight Management Counseling Provided T Nikolay Sol " Nutrition intervention T Nikolay Sol " sexual orientation Heterosexual Lori J Sparrow " drug use, illicit Never Lori J Sparrow " alcohol use Currently Lorichiki Sparrow " social history E&M Single. Not homeless. Born in [facility]. City: [place]. State: [place]. 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 Gender of partner(s): female. Age of first sexual intercourse: 14. Lori Sparrow " social history reviewed E&M reviewed today Lori Sparrow " assessment of health literacy ([employer] 2014 Standards, 3C10) Adequate Lori J Sparrow " passive cigarette smoke exposure No Lori J Sparrow " smoking status former smoker Lori Osmanmez time of call 09/10/2017 2:49 PM Barb Lopez sexual orientation Heterosexual Rekha Machuca sexual orientation Heterosexual Anaya Hassan time of call 07/05/2017 4:26 PM Renetta Sousa drug use, illicit Never Marilu Chavez " alcohol use Currently Marilu Chavez " sexual orientation Heterosexual Marilu Chavez " smoking status former smoker Marilu Chavez " passive cigarette smoke exposure No Marilu Chavez " assessment of health literacy ([employer] 2014 Standards, 3C10) Adequate Marilu Chavez " social history E&M Single. Not homeless. Born in [facility]. City: [place]. State: [place]. 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 Gender of partner(s): female. Age of first sexual intercourse: 14. Marilu Chavez " social history reviewed E&M reviewed today Marilu Chavez " Exercise Program Referral T Marilu Kathy " Weight Management Counseling Provided T Mariludavid Chavez " Nutrition intervention T Marilu Kathy sexual orientation Heterosexual Yuko Mayito drug use, illicit Never Jen Lopez " alcohol use Currently Jen Lopez " social history E&M Single. Not homeless. Born in [facility]. City: [place]. State: [place]. 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 Highest education [...] Cindi De Leon sexual orientation Heterosexual Chad Tanyamarybel " Exercise Program Referral Jose Navarro " Weight Management Counseling Provided Jose Navarro " Nutrition intervention Jose Navarro " drug use, illicit Never Marilu Chavez " alcohol use Currently Marilu Chavez " social history E&M Single. Not homeless. Born in [facility]. City: [place]. State: [place]. 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 [...] history E&M Single. Not homeless. Born in [facility]. City: [place]. State: [place]. 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 Highest education [...] Liudmila Castellanos drug use, illicit Never Jen Lopez " alcohol use Currently Jen Lopez " social history E&M Single. Not homeless. Born in [facility]. City: [place]. State: [place]. 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 Gender of partner(s): female. Age of first sexual intercourse: 14. Jen Lopez " social history reviewed E&M reviewed today Jen Castanedanandez " passive cigarette smoke exposure No Jen Lopez " smoking status former smoker Jen Lopez sexual orientation Heterosexual Tracey Bacon sexual orientation Heterosexual Yuko Edmond sexual orientation Heterosexual Chad Navarro " social history E&M Single. Not homeless. Born in [facility]. City: [place]. State: [place]. 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 [...] history E&M Single. Not homeless. Born in [facility]. City: [place]. State: [place]. 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 Gender of partner(s): female. Age of first sexual intercourse: 14. Chad Willisraquel " social history reviewed E&M reviewed today [...] history E&M Single. Not homeless. Born in [facility]. City: [place]. State: [place]. 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 [...] history E&M Single. Not homeless. Born in [facility]. City: [place]. State: [place]. 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 [id number] Errol White 101-200% Other [id number] 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 [id number] Sliding Fee Scale 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 [id number] Errol White up to 300% Other [id number] ADVANCE DIRECTIVES Name Date DISCUSSED - NO [...] - - Est Patient Exp Problem - 43004 Primary Care - Assesment-Brief - SLW Primary Care Service Linkage Primary Care Service Linkage Est Patient Detailed - 57492 Pneumovax Vaccine PPSV23 INFLUENZA VACCINE QUADRIVALENT 3 YRS PLUS IM Glucose Stick Dispensing Visit (UNLIVSTED OPHTHALMOLOGICAL SERVICE/PROCEDURE) Est Patient Exp Problem - 57499 Est Patient Exp Problem - 12421 COMPUTERIZED OPHTHALMIC IMAGING OPTIC NERVE Est Patient Comprehensive Opth - 73487 Spherocyl, SV, plano to +/- 4.00d sphere, 0.12 to 2.00d cyl, per lens Spherocyl, SV, plano to +/- 4.00d sphere, 2.12 to 4.00d cyl, per lens Add to lens; tint, any color, solid, gradient or equal, excl photochro, any niles Frames, purchases Est Patient Intermediate Opth - 29822 Ofc Vst, Est Level IV Contact Insp/Mod (MODIFICAJ CONTACT LENX SPX SUPVJ ADAPTATION) COMPUTERIZED OPHTHALMIC IMAGING OPTIC NERVE Est Patient Intermediate Opth - 29237 Dispensing Visit (Non-Billable) COMPUTERIZED OPHTHALMIC IMAGING OPTIC NERVE Contact Lens Fitting (RX&FITG C-LENS SUPVJ CRNL LENS OU XCPT APHK) Est Patient Intermediate Opth - 50226 Est Patient Detailed - 55356 INFLUENZA VACCINE QUADRIVALENT 3 YRS PLUS IM Ofc Vst, Est Level IV Nutrition - Internal Ofc Vst, Est Level IV Est Patient Exp Problem - 47445 Est Patient Detailed - 03163 Handling of specimen for transfer Venipuncture Dispensing [...] OPTIC NERVE Est Patient Intermediate Opt - 06558 Contact Lens Fitting (RX&FITG C-LENS SUPVJ CRNL LENS OU XCPT APHK) Est Patient Intermediate Opt - 36282 Primary Care - Assesment-Brief - SLW Primary [...] PACHYMETRY UNI/BI Est Patient Intermediate Opt - 52993 Contact Lens Fitting (RX&FITG C-LENS SUPVJ CRNL LENS OU XCPT APHK) Est Patient Intermediate Opt - 40331 Ofc Vst, Est Level IV Pneumovax Vaccine Primary Care Medical Case Management Primary Care Medical Case Management HISTORY OF PROCEDURES Procedure Date Procedure Name Provider Procedure Notes Status Primary Care - Assesment-Brief - SLW Mac Hernandez Time spent with patient: 15 completed Primary Care Service Linkage Mac Hernandez Time spent with patient: 60 completed Primary Care Service Linkage Mac Hernadnez Time spent with patient: 20 completed Glucose Stick Nikolay Sol completed Dispensing Visit (UNLIVSTED OPHTHALMOLOGICAL SERVICE/PROCEDURE) Tracey Bacon completed COMPUTERIZED OPHTHALMIC IMAGING OPTIC NERVE Josesito Perry completed Est Patient Comprehensive Opt - 09038 Josesito Perry completed Spherocyl, SV, plano to [...] 5.00) completed Est Patient Intermediate Opt - 63099 Angela Annbonifacio completed Contact Insp/Mod (MODIFICAJ CONTACT LENX SPX SUPVJ ADAPTATION) Efra Tariq completed COMPUTERIZED OPHTHALMIC IMAGING OPTIC NERVE Josesito Perry completed Est Patient Intermediate Opt - 35330 Josesito Delgado Orlando completed Dispensing Visit (Non-Billable) Tracey Bacon completed COMPUTERIZED OPHTHALMIC IMAGING OPTIC NERVE Tracey Bacon completed Contact Lens Fitting (RX&FITG C-LENS SUPVJ CRNL LENS OU XCPT APHK) Efra Tariq completed Est Patient Intermediate Opt - 61924 Efra Tariq completed Venipuncture Radha Posey completed Dispensing Visit (UNLIVSTED OPHTHALMOLOGICAL SERVICE/PROCEDURE) Tracey Haarra completed Add to lens; tint, any color, solid, gradient or equal, excl photochro, any niles Yukoshaheen Edmond 5.00 completed Frames, purchases Yuko Edmond completed Spherocyl, SV, +/- 4.25 to +/- 7.00 sphere, 0.12 to 2.00d cyl, per lens Yuko Edmond completed Spherocyl, SV, plano to +/- 4.00d sphere, 0.12 to 2.00d cyl, per lens Yuko Edmond completed COMPUTERIZED OPHTHALMIC IMAGING OPTIC NERVE Josesito Perry completed Est Patient Intermediate Opt - 78270 Josesito Delgado Orlando completed Contact Lens Fitting (RX&FITG C-LENS SUPVJ CRNL LENS OU XCPT APHK) Efra Tariq completed Est Patient Intermediate Opt - 09050 Efra Tariq completed Primary Care - Assesment-Brief - W Merry Garcia Time spent with patient:15 completed Primary Care Service Linkage Merry Garcia Time spent with patient:60 completed Venipuncture Chad Navarro completed Venipuncture Chad Navarro completed [facility] Referral (N) Chad Navarro completed [facility] Message Delivered (C) Chad Navarro completed [facility] Clinic Visit (R) Chad Navarro completed [facility] Session Conducted (Y) Chad Navarro completed Dispensing Visit (UNLIVSTED OPHTHALMOLOGICAL SERVICE/PROCEDURE) Tracey Jordi completed Contact lens, gas permeable, spherical, per [...] Perry completed Est Patient Intermediate Opth - 32772 Josesito Perry completed Contact Lens Fitting (RX&FITG C-LENS SUPVJ CRNL LENS OU XCPT APHK) Efra Tariq completed Est Patient Intermediate Opth - 43195 Efra Tariq completed Primary Care Medical Case Management Renée Zavala Time spent with patient: 15 completed Primary Care Medical Case Management Renée Zavala Time spent with patient: 15 completed GOALS No Information Available HEALTH CONCERNS No Information Available
--- OUTSIDE RECORDS SUMMARY | 2019-07-14 14:33 | XMS REPORT ---
Author Author Admin, [place] Organization Unknown Address Unknown Phone Unavailable PROBLEMS Condition Status Date Provider Notes Hip pain, left active Nikolay Sol Immunity status testing, antibody response active Nikolay Sol Hepatitis C antibody test positive active Nikolay Sol Skin lesions, multiple completed - Nikolay Sol Transaminases, serum, elevated completed - Nikolay Sol Vaccination for strep pneumonia with pneumovax completed - Nikolay Sol Vaccination against influenza completed - Nikolay Sol Screening, colon cancer active Nikolay Sol Myopia - OU active Angela Bhakhrani Astigmatism - OU active Angela Bhakhrani Screening for std completed - Nikolay Sol [...] Provider Location Encounter Diagnosis - Ambulatory Encounter Fax Status [facility] Services UNK - Ambulatory Encounter Fax Status [facility] UNK - Ambulatory Encounter Fax Status [facility] UNK - Ambulatory Encounter Nikolay CottrellLogic [facility] Adult Medicine UNK - Ambulatory Encounter Nikolay Sol [facility] Adult Medicine UNK - Ambulatory Encounter Nikolay Honeycutt [facility] Adult Medicine Transaminases, serum, elevatedSkin lesions, multipleHip pain, left - Ambulatory Encounter Tangela Hicks [facility] Adult Medicine UNK - Ambulatory Encounter Nikolay Sol LinkLog[facility] Adult Medicine UNK - Ambulatory Encounter Dona Eng [facility] Adult Medicine UNK - Ambulatory Encounter Nikolay Armendariz [facility] Adult Medicine UNK - Ambulatory Encounter Nikolay Hernandez MedAdherence [facility] Adult Medicine UNK - Ambulatory Encounter Nikolay Franco [facility]herence, [facility] Adult Medicine UNK - Ambulatory Encounter Dona Eng [facility] Adult Medicine UNK - Ambulatory Encounter Nikolay Black MedAdherence [facility] UNK - Ambulatory Encounter Nikolay Sol [facility] Adult Medicine UNK - Ambulatory Encounter Nikolay Sol [facility] Adult Medicine UNK - Ambulatory Encounter Nikolay Eng [facility] Adult Medicine UNK - Ambulatory Encounter Nikolay Sol [facility] Adult Medicine UNK - [facility] - [facility] - Ambulatory Encounter Mario Rojas [facility] Eligibility UNK - Ambulatory Encounter Naina Cordova [facility] UNK - Ambulatory Encounter Fax Status [facility] UNK - Ambulatory Encounter Fax Status [facility] UNK - Ambulatory Encounter Fax Status [facility] UNK - Ambulatory Encounter Fax Status [facility] Services UNK - Ambulatory Encounter Mac Hernandez [facility] Egg Packer UNK - Ambulatory Encounter Nikolay Sol [facility] Adult Medicine UNK - Ambulatory Encounter Nikolay Hicks [facility] Adult Medicine Vaccination against influenzaVaccination for strep pneumonia with pneumovaxHepatitis C antibody test positiveImmunity status testing, antibody response - Ambulatory Encounter Nikolay Franco MedAdherence, [facility] Adult Medicine UNK - Ambulatory Encounter Paz Campbell [facility] Packer UNK - Ambulatory Encounter Mac Hernandez [facility] Egg Packer UNK - Ambulatory Encounter [facility] - [facility] - Ambulatory Encounter Nikolay Sol [facility] Adult Medicine UNK - Ambulatory Encounter Nikolay Armendariz [facility] Adult Medicine UNK - Ambulatory Encounter Nikolay Franco [facility]herence, [facility] Adult Medicine UNK - Ambulatory Encounter Catina Jackson [facility] Adult Medicine UNK - Ambulatory Encounter Antoni Hurtado [facility] Adult Medicine UNK - Ambulatory Encounter Nikolay Sol [facility] Adult Medicine UNK - Ambulatory Encounter Fax Status [facility] UNK - Ambulatory Encounter Fax Status [facility] UNK - Ambulatory Encounter Fax Status [facility] UNK - Ambulatory Encounter Nikolay Sparrow [facility] Adult Medicine UNK - Ambulatory Encounter LM Care Coordination Desktop [facility] UNK - Ambulatory Encounter Nikolay Sol [facility] LM Adult Medicine UNK - Ambulatory Encounter Nikolay Sol LM Adult Medicine UNK - Ambulatory Encounter Nikolay Sol LM Adult Medicine UNK - Ambulatory Encounter Nikolay Sparrow [facility] Adult Medicine Vaccination against influenzaVaccination for strep pneumonia with pneumovaxTransaminases, serum, elevatedSkin lesions, multiple - Ambulatory Encounter Nikolay Sol [facility] LM Adult Medicine UNK - Ambulatory Encounter Dona Eng [facility] Adult Medicine UNK - Ambulatory Encounter Concepcion Rodgers [facility] ASSISTANT PRESS 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 OFFSET UNK - Ambulatory Encounter Naina Cordova [facility] UNK - Ambulatory Encounter Nikolay Faganrade [facility] UNK - Ambulatory Encounter Nikolay Sol [facility]Logic [facility] Adult Medicine UNK - Ambulatory Encounter Nikolay Sol [facility]Log[facility] Adult Medicine UNK - Ambulatory Encounter Josesito Perry [facility] Vision UNK - Ambulatory Encounter Nikolay Greenfield [facility] Adult Medicine UNK - Ambulatory Encounter Chad Navarro [facility] Adult Medicine UNK - Ambulatory Encounter Chad Navarro [facility] Adult Medicine UNK - Ambulatory Encounter Tracey Bacon [facility] UNK - Ambulatory Encounter Tracey Haarra [facility] UNK - Ambulatory Encounter Fax Status [facility] Services UNK - Ambulatory Encounter Fax Status [facility] Services UNK - Ambulatory Encounter [facility] - Ambulatory Encounter Nikolay Sol [facility] Adult Medicine UNK - Ambulatory Encounter Nikolay Sparrow [facility] Adult Medicine Immunization updateScreening for stdScreening, colon cancer - Ambulatory Encounter Barb Lopez [facility] UNK - Ambulatory Encounter Josesito Perry [facility] UNK - Ambulatory Encounter Anaya Hassan [facility] UNK - Ambulatory Encounter Angela Bhakhrani Angela Bhakhrani [facility] UNK - Ambulatory Encounter Josesito Perry Rekha Machuca [facility] UNK - Ambulatory Encounter Angela Bhakhrani Angela Bhakhrani [facility] UNK - Ambulatory Encounter Angela Bhakhrani Angela Bhakhrani [facility] UNK - Ambulatory Encounter Angela Bhakhrani Angela Bhakhrani Anaya Gonzalezra Machuca [facility] Astigmatism - OUMyopia - OU - Ambulatory Encounter Chad Greenfield [facility] Adult Medicine UNK - Ambulatory Encounter Chad Corona Greenfield [facility] Adult Medicine UNK - Ambulatory Encounter Chad Greenfield [facility] Adult Medicine UNK - Ambulatory Encounter Chad Greenfield [facility] Adult Medicine UNK - Ambulatory Encounter Chad Greenfield [facility] Adult Medicine UNK - Ambulatory Encounter Chad Greenfield [facility] Adult Medicine UNK - Ambulatory Encounter Chad Mcintyre [facility] Adult Medicine UNK - Ambulatory Encounter Chad Rice [facility] Adult Medicine UNK - Ambulatory Encounter Chad Navarro [facility] Adult Medicine UNK - Ambulatory Encounter Chad Greenfield [facility] Adult Medicine UNK - Ambulatory Encounter Chad Navarro [facility] [place] [facility] Adult Medicine UNK - Ambulatory Encounter Montserrat Sousa [facility] UNK - Ambulatory Encounter Valentina Hernandez LM Adult Medicine UNK - Ambulatory Encounter Chad Navarro LM Adult Medicine UNK - Ambulatory Encounter Chad Navarro [facility] LM Adult Medicine UNK - Ambulatory Encounter Chad Navarro LM Adult Medicine UNK - Ambulatory Encounter Chad Navarro [facility] LM Adult Medicine UNK - Ambulatory Encounter Chad Navarro [facility] Adult Medicine Screening for std - Ambulatory Encounter Chad Greenfield [facility] Adult Medicine UNK - Ambulatory Encounter Enedelia [...] Adult Medicine UNK - Ambulatory Encounter Chad Ambrosioo [facility] Adult Medicine UNK - Ambulatory Encounter [...] astigmatism, bilateral - Ambulatory Encounter Milana Lopez [facility] UNK - Ambulatory Encounter [facility] UNK - Ambulatory Encounter Chad Jackson [facility] Adult [facility] UNK - Ambulatory Encounter Enedelia Renetta [facility] Adult [facility] UNK - Ambulatory Encounter Chad Navarro Enedelia Jackson [facility] Adult Medicine UNK - Ambulatory Encounter Enedelia Jackson [facility] Adult [facility] UNK - Ambulatory Encounter Radha Rowlandmarlonishan Posey [facility] UNK - Ambulatory Encounter Josesito Perry [facility] UNK - Ambulatory Encounter Efra Tariq [facility] UNK - Ambulatory Encounter Efra Tariq [facility] UNK - Ambulatory Encounter Efra Edmond [facility] UNK - Ambulatory Encounter Radha Rainerjorgeishan Rahdajuan c Rowlandmarlonishan [facility] Adult Medicine UNK - Ambulatory Encounter Efra [...] - Ambulatory Encounter Efra Edmond [facility] Open angle with borderline findings, high risk, bilateralMyopia - OURegular astigmatism, bilateralCorneal scar, left - Ambulatory Encounter Chad Navarro [facility] Adult [facility] UNK - Ambulatory Encounter Fax Status [facility] UNK - Ambulatory Encounter Fax Status [facility] UNK - Ambulatory Encounter Fax Status [facility] UNK - Ambulatory Encounter Radha Posey [facility] Adult Medicine UNK - Ambulatory Encounter Radha Morah [facility] Adult [facility] UNK - Ambulatory Encounter Radha Posey [facility] Adult [facility] UNK - Ambulatory Encounter Radha Lopez [facility] Adult Medicine UNK - Ambulatory Encounter Radha Whittaker [facility] Adult Medicine UNK - Ambulatory Encounter Chad Navarro [facility] Adult [facility] UNK - Ambulatory Encounter Chad Navarro [facility] Adult [facility] UNK - Ambulatory Encounter Chad Greenfield [facility] Adult Medicine UNK - Ambulatory Encounter Lina Dias [facility] Adult Medicine UNK - Ambulatory Encounter Yuko Edmond [facility] UNK - Ambulatory Encounter Chad Veliz [facility] Contact Center UNK - Ambulatory Encounter Chad Navarro [facility] Adult [facility] UNK - Ambulatory Encounter Chad Navarro [facility] Adult Medicine UNK - Ambulatory Encounter Chad Navarro Marilu Chavez [facility] Adult Medicine URI - Ambulatory Encounter Lina Dias [facility] Adult Medicine UNK - Ambulatory Encounter Chad Navarro [facility] Adult [facility] UNK - Ambulatory Encounter Chad Navarro [facility] UNK - Ambulatory Encounter Robert Mott [facility] Adult Medicine UNK - Ambulatory Encounter Robert Mott [facility] Adult Medicine UNK - Ambulatory Encounter [facility] - Ambulatory Encounter Radha Posey [facility] Adult Medicine UNK - Ambulatory Encounter Radha Posey [facility] Adult [facility] UNK - Ambulatory Encounter Radha Posey [facility] Adult Medicine UNK - Ambulatory Encounter Radha Posey [facility] Adult Medicine UNK - Ambulatory Encounter Christopher Chano [facility] UNK - Ambulatory Encounter Radha oPsey [facility] Adult Medicine UNK - Ambulatory Encounter Christopher Chano [facility] UNK - Ambulatory Encounter Christopher Chano [facility] UNK - Ambulatory Encounter Radha Morah [facility] Adult Medicine UNK - Ambulatory Encounter Radha Posey [facility] UNK - Ambulatory Encounter Chda Navarro [facility] Adult Medicine UNK - Ambulatory Encounter Chad Madden [facility] Adult Medicine Otitis media, right - Ambulatory Encounter Radha Poesy [facility] UNK - Ambulatory Encounter Radha Posey [facility] UNK - Ambulatory Encounter Lina Dias [facility] Adult Medicine UNK - Ambulatory Encounter Radha Posey [facility] LM Adult Medicine UNK - Ambulatory Encounter Scott DuboseLefty Cece LM Adult Medicine UNK - Ambulatory Encounter Fax Status [facility] UNK - Ambulatory Encounter Fax Status [facility] UNK - Ambulatory Encounter Fax Status [facility] UNK - Ambulatory Encounter [...] Adult Medicine UNK - Ambulatory Encounter Enedelia CottrellLogic Chloe Greenfield [facility] Adult Medicine UNK - Ambulatory Encounter Radha Posey [facility] Adult [facility] UNK - Ambulatory Encounter Radha Lopez [facility] Adult [facility] Otitis media, rightImmunization updateObesity - Ambulatory Encounter Jen Lopez [facility] Adult [facility] UNK - Ambulatory Encounter Radha Posey [facility] Adult [facility] UNK - Ambulatory Encounter Elaina Burleson [facility] UNK - Ambulatory [...] UNK - Ambulatory Encounter Chad Navarro [facility] UNK - Ambulatory Encounter [...] [facility] UNK - Ambulatory Encounter Josesito Webb Bacon [facility] UNK - Ambulatory Encounter [...] - Ambulatory Encounter Enedelia Renetta [facility] Dona Avelino LM Adult Medicine UNK - Ambulatory Encounter Merry Garcia [facility] LM Egg Packer UNK - Ambulatory Encounter Chad Navarro [facility] Maria Eugenia Wolfe LM Adult Medicine UNK - Ambulatory Encounter Chad CottrellLogic LM Adult Medicine UNK - Ambulatory Encounter Merry Radha [facility] Egg Packer UNK - Ambulatory Encounter Chad Lopezica Bahman [facility] Adult Medicine HYPERLIPIDEMIA - Ambulatory Encounter Cha Girard-Michael [facility] Adult Medicine UNK - Ambulatory Encounter Chad Navarro [facility] LM Adult Medicine UNK - Ambulatory Encounter Chad Navarro [facility] LM Adult Medicine UNK - Ambulatory Encounter Chad Ren [facility] Adult Medicine UNK - Ambulatory Encounter Chad Rodriges LM Adult Medicine UNK - Ambulatory Encounter Enedelia Jackson [facility] Lou Ren [facility] Adult Medicine UNK - Ambulatory Encounter Mario Bardales LM Adult Medicine UNK - Ambulatory Encounter Chad Ren LM Adult Medicine UNK - Ambulatory Encounter Enedelia Renetta [facility] Lou Ren [facility] Adult Medicine UNK - Ambulatory Encounter Enedelia Renetta [facility] Lou Ren [facility] Adult Medicine UNK - Ambulatory Encounter Cha Girard-Michael LM Adult Medicine UNK - Ambulatory Encounter Renee Palafox [facility] Dental UNK - Ambulatory Encounter Chad Navarro Amanda Mikal LM Adult Medicine UNK - Ambulatory Encounter Enedelia Jackson [facility] Lou Ren [facility] Adult Medicine UNK - Ambulatory Encounter Chad Venturassaddison You LM Adult Medicine UNK - Ambulatory Encounter Enedelia Jackson [facility] Dona You [facility] Adult Medicine UNK - Ambulatory Encounter Chad Peoples [facility] Adult Medicine UNK - Ambulatory Encounter Enedelia Jackson [facility]Log[facility] Dalila Peoples [facility] Adult Medicine UNK - Ambulatory Encounter Chad Jackson [facility] Adult Medicine UNK - Ambulatory Encounter Enedelia Jackson [facility] Chad Navarro LM Adult Medicine UNK - Ambulatory Encounter Chad Navarro [facility] LM Adult Medicine UNK - Ambulatory Encounter Chad Navarro LM Adult Medicine UNK - Ambulatory Encounter Chad Ruggiero LM Adult Medicine UNK - Ambulatory Encounter Aurora Vail LM Adult Medicine UNK - Ambulatory Encounter Chad CottrellLogic LM Adult Medicine UNK - Ambulatory Encounter Cha Arriaza LM Adult Medicine UNK - Ambulatory Encounter Chad Navarro [facility] Services UNK - Ambulatory Encounter Chad Navarro [...] Medicine UNK - Ambulatory Encounter Kathe See [facility] UNK - Ambulatory Encounter Lou Mikal [...] Medicine UNK - Ambulatory Encounter Lou Ren [facility] Adult Medicine UNK - Ambulatory Encounter Enedelia Renetta [facility] Lou Ren [facility] Adult Medicine UNK - Ambulatory Encounter Enedelia Renetta [facility] Lou Ren [facility] Adult Medicine UNK - Ambulatory Encounter Chad Navarro [facility] LM Adult Medicine UNK - Ambulatory Encounter Gracie Jansen LM Adult Medicine UNK - Ambulatory Encounter Chad Galeas LM Adult Medicine - Ambulatory Encounter Chad Jackson LM Adult [...] UNK - Ambulatory Encounter Chad Navarro Enedelia Oseiez [facility] Adult Medicine UNK - Ambulatory Encounter [...] Adult Medicine - Ambulatory Encounter Dona You [facility] Adult Medicine UNK - Ambulatory Encounter Chad Navarro [facility] Adult Medicine UNK - Ambulatory Encounter Chad Navarro [facility] Adult Medicine UNK - Ambulatory Encounter Chad Velázquez LM Adult Medicine UNK - Ambulatory Encounter Renée Zavala [facility] UNK - Ambulatory Encounter Renée Zavala [facility] UNK - Ambulatory Encounter Dona Avelino [facility] Adult Medicine UNK - Ambulatory Encounter Chad You [facility] Adult Medicine UNK - Ambulatory Encounter Dona Avelino [facility] Adult Medicine UNK - Ambulatory Encounter Chad You LM Adult Medicine UNK - Ambulatory Encounter Cehlsi Fierro [facility] Adult Medicine UNK - Ambulatory Encounter Chelsi Fierro [facility] Adult Medicine UNK - Ambulatory Encounter Venkata Michaels [facility] Adult Medicine - Ambulatory Encounter Chad Navarro [...] [facility] - Ambulatory Encounter Martita Michaels [facility] Adult Medicine - Ambulatory Encounter Yaya Raúl [facility] Test Location of Care UNK - Ambulatory Encounter Yaya Olsen [facility] Test Location of Care UNK - Ambulatory Encounter LC Lab Provider [facility] Services UNK - Ambulatory Encounter LC Lab Provider [facility] Services UNK - Ambulatory Encounter LC Lab Provider [facility] Services UNK - Ambulatory Encounter LC Lab Provider [facility] Services UNK - Ambulatory Encounter LC Lab Provider [facility] Services UNK - Ambulatory Encounter LC Lab Provider [facility] Services UNK - Ambulatory Encounter LC Lab Provider [facility] Services UNK - Ambulatory Encounter LC Lab Provider [facility] Services UNK VITAL SIGNS Date Observation Value Provider blood pressure, diastolic 86 mm[Hg] Tangela Hicks " blood pressure, systolic 120 mm[Hg] Tangela Hicks " oxygen saturation, oximetry 97 % Tangela Hicks " pulse rate E&M 93 /min Tangela Hicks " temperature E&M 98.2 [degF] Tangela Hicks " weight E&M 207 lbs. Tangela Hicks " weight in kilograms E&M 94.09 kg Tangela Hicks " blood pressure, site #1 left arm Tangela Hicks " Blood Pressure Position 01 laying Tangela Hicks " method used to obtain blood pressure automatic Tangela Hicks " temperature site oral Tangela Hicks " height E&M 67 [in_i] Tangela Hicks " height in centimeters E&M 170.18 cm Tangela Hicks blood pressure, diastolic, second observation 93 mm[Hg] [...] blood pressure, systolic, second observation 126 mm[Hg] Lorichiki Sparrow " blood pressure, diastolic 86 mm[Hg] Nikolay Hernándezmons " blood pressure, systolic 126 mm[Hg] Nikolay Griffins " oxygen saturation, oximetry 98 % Lori Sparrow " respiratory rate E&M 16 /min Lori Evelin Sparrow " pulse rate E&M 87 /min Lori Evelin Sparrow " temperature E&M 98.5 [degF] Lorichiki Sparrow " weight E&M 202.38 lbs. Lori Sparrow " weight in kilograms E&M 91.99 kg Lori Sparrow " method used to obtain blood pressure automatic Lori Sparrow " Blood Pressure Position 01 sitting Lori Sparrow " blood pressure, site #1 left arm Lori Sparrow " temperature site oral Lori Sparrow " height E&M 67 [in_i] Lorichiki Sparrow " height in centimeters E&M 170.18 cm Lori Sparrow blood pressure, diastolic 89 mm[Hg] Lori J Andrews " blood pressure, systolic 134 mm[Hg] Lorichiki Sparrow " oxygen saturation, oximetry 97 % Lori Sparrow " respiratory rate E&M 16 /min Lori Evelin Sparrow " pulse rate E&M 93 /min Lorichiki Sparrow " temperature E&M 98.6 [degF] Lorichiki Sparrow " weight E&M 204 lbs. Lorichiki Sparrow " weight in kilograms E&M 92.73 kg Lorichiki Sparrow " method used to obtain blood pressure automatic Lori J Sparrow " Blood Pressure Position 01 sitting Lorichiki Sparrow " blood pressure, site #1 left arm Lorichiki Sparrow " temperature site tympanic Lorichiki Sparrow " height E&M 67 [in_i] Lorichiki Sparrow " height in centimeters E&M 170.18 cm Lori Shahz blood pressure, diastolic 88 mm[Hg] Marilu Chavez [...] site #1 left arm Jen John " oxygen saturation, oximetry 97 % Jen John " pulse rate E&M 78 /min Jen John " temperature E&M 96.1 [degF] Jen John " weight E&M 230 lbs. Jen John " weight in kilograms E&M 104.55 kg Jen John " temperature site tympanic Jen John " height E&M 67 [in_i] Jenrai Lopez " height in centimeters E&M 170.18 [...] " weight in kilograms E&M 99.18 kg Marliu Chavez " height E&M 67 [in_i] Marilu [...] " blood pressure, systolic 128 mm[Hg] Jen John " oxygen saturation, oximetry 97 % Jen John " pulse rate E&M 115 /min Jen Lopez " temperature E&M 97.3 [degF] Jen John " weight E&M 220 lbs. Jenrichelle Lopez " weight in kilograms E&M 100 kg Jen John " method used to obtain blood pressure automatic Jen John " Blood Pressure Position 01 sitting Jen John " blood pressure, site #1 left arm Jen John " temperature site tympanic Jenrichelle Lopez " height E&M 67 [in_i] Jen John " height in centimeters E&M 170.18 cm Jen Lopez method used to obtain blood pressure manual Lindaaddison Bailono " Blood Pressure Position 01 sitting Lindaaddison Ruggiero " blood pressure, site #1 right [...] blood pressure, site #1 right arm Linda Bailono " blood pressure, diastolic 90 mm[Hg] Linda Woodruffardo " blood pressure, systolic 142 mm[Hg] Linda Ruggiero " temperature site tympanic Linda Bailono " oxygen saturation, oximetry 96 % Linda Bailono " pulse rate E&M 110 /min Linda Bailnoo " temperature E&M 97.6 [degF] Linda Woodruffardo " weight E&M 232 lbs. Linda Woodruffardo " weight in kilograms E&M 105.45 kg Linda Bailono " height E&M 67 [in_i] Linda Bailono " height in centimeters E&M 170.18 cm Linda Ruggiero blood pressure, site #1 right arm Cammy Adal " blood pressure, diastolic 80 mm[Hg] Cammy Adal " blood pressure, systolic 140 mm[Hg] Cammy Galeas " temperature E&M 97.6 [degF] Cammy Galeas " pulse rate E&M 109 /min Cammy Galeas " oxygen saturation, oximetry 94 % Cammyrai Galeas " weight E&M 234 lbs. Cammy Adal " weight in kilograms E&M 106.36 kg [...] Vente " weight E&M 233.38 lbs. Sara Vente " weight in kilograms E&M 106.08 kg Sara Vente " height E&M 67 [in_i] Sara Vente " height in centimeters E&M 170.18 cm Sara Nevarez oxygen saturation, oximetry 95 % Venkata Michaels " pulse rate E&M 105 /min Venkata Michaels " temperature E&M 98.4 [degF] Venkata Michaels " blood pressure, diastolic 80 mm[Hg] Venkata Michaels " blood pressure, systolic 118 mm[Hg] Venkata Michaels " weight E&M 220.13 lbs. Venkata Michaels " height E&M 67 [in_i] Venkata [...] Start Date - End Date Service - Orthopedics - External - Colonoscopy, Screening - External - Ultrasound - Liver and Gallbladder RESULTS Date Observation Value Provider Reference Range Interpretation Location hemoglobin A1C, blood, as % of total hemoglobin 9.1 % [facility] 4.8-5.6 High blood glucose, random 189 mg/dL Tangela Hicks rapid plasma reagin antibody, serum Non Reactive [...] [id number] blood glucose, random 226 mg/dL Tangela [facility] Neisseria gonorrhoeae DNA probe Negative [facility] Negative [...] % [facility] " platelet count 218 X10E3/UL [facility] 150-379 " red blood cell distribution width 14.3 % [facility] 12.3-15.4 " mean corpuscular hemoglobin concentration, RBC 34.9 G/DL [facility] 31.5-35.7 " mean corpuscular hemoglobin, RBC 32.5 pg [facility] 26.6-33.0 " mean corpuscular volume, RBC 93 fL [facility] 79-97 " hematocrit, blood 47.0 % [facility] 37.5-51.0 " hemoglobin, blood 16.4 g/dL [facility] 12.6-17.7 " erythrocyte (RBC) count 5.04 X10E6/UL [facility] 4.14-5.80 " leukocyte count, blood 5.9 [facility] " CD4/CD8 ratio 1.17 [facility] 0.92-3.72 " T-suppressor cells (CD8) as percent of blood lymphocytes 35.6 % [facility] 12.0-35.5 High " absolute CD8 748 [facility] [phone] " T-helper cells (CD4) as percent of blood lymphocytes 41.5 % [facility] 30.8-58.5 " T-helper cells (CD4) count 872 /UL [facility] [phone] HIV-1RNA, serum, by PCR, quantitative 40 /mL [facility] rapid plasma reagin antibody, serum Non Reactive [facility] Non Reactive " hemoglobin A1C, blood, as % of total hemoglobin 11.8 % [facility] 4.8-5.6 High " Hepatitis C virus (HCV) RNA, PCR, quantitative HCV Not Detected IU/mL [facility] " LDL cholesterol, serum 80 mg/dL [facility] 0-99 " very low density lipoproteins 71 mg/dL [facility] 5-40 High " HDL cholesterol, serum 52 mg/dL [facility] >39 " triglyceride, serum, fasting 356 mg/dL [facility] 0-149 High " cholesterol, serum 203 mg/dL [...] 12.6-17.7 " erythrocyte (RBC) count 4.94 X10E6/UL [facility] 4.14-5.80 " leukocyte count, blood 7.0 X10E3/UL [facility] 3.4-10.8 " CD4/CD8 ratio 1.06 [facility] 0.92-3.72 " T-suppressor cells (CD8) as percent of blood lymphocytes 38.9 % [facility] 12.0-35.5 High " absolute CD8 1011 [facility] [phone] High " T-helper cells (CD4) as percent of blood lymphocytes 41.1 % [facility] 30.8-58.5 " T-helper cells (CD4) count 1069 /UL [facility] [phone] rapid plasma reagin antibody, serum Non Reactive [facility] Non Reactive " HIV-1RNA, serum, by PCR, quantitative 20 /mL [facility] " LDL cholesterol, serum 155 mg/dL [facility] [...] [facility] 0.92-3.72 Low " absolute CD8 846 [facility] 109-897 " T-helper cells (CD4) as percent of blood lymphocytes 36.4 % [facility] 30.8-58.5 " T-helper cells (CD4) count 764 /UL [facility] [phone] Hepatitis C virus (HCV) RNA, PCR, quantitative HCV Not Detected IU/mL [facility] " HIV-1RNA, serum, by PCR, quantitative <20 copies/mL [facility] rapid plasma reagin antibody, serum Non [...] " carbon dioxide, venous blood 23 mmol/L [facility] 20-32 " chloride, serum 102 mmol/L [facility] [...] antibody, serum Non Reactive [facility] (Non Reactive) HISTORY OF IMMUNIZATIONS No Information Available HISTORY OF MEDICATION USE Medication Instructions Dates Provider Comments LISINOPRIL 5 MG TABLET TAKE ONE TABLET BY MOUTH DAILY Lisa Black MedAdheryunier CLINDAMYCIN PHOSPHATE 1 % GEL APPLY TO AFFECTED AREA(S) ONCE DAILY - Nikolay Sol DOXYCYCLINE HYCLATE 100 MG ORAL [...] Sol SOCIAL HISTORY Date Observation Value Provider smoking, advice to quit Yes Tangela Hicks " tobacco use (cigarettes, cigar, chew, pipe) Currently Tangela Hicks " drug use, illicit Never Tangela Hicks " alcohol use Currently Tangela Hicks " social history E&M Single. Not homeless. Born in [facility]. City: [place]. State: [place]. 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 Gender of partner(s): female. Age of first sexual intercourse: 14. Tangela Hicks " social history reviewed E&M reviewed today Tangela Hicks " is there any chance that you could be ? No Tangela Hicks " sexual orientation Heterosexual Tangela Hicks " assessment of health literacy ([facility] 2014 Standards, 3C10) Adequate Tangela Hicks " passive cigarette smoke exposure No Tangelarai ReyHicks " if the patient is using/has used a vaping item, Current, Former, Never Used, Not asked No Tangela Hicks " smoking status current some day smoker Tangela Hicks " Exercise Program Referral T Tangela Hicks " Weight Management Counseling Provided T Tangela Hicks " Nutrition intervention Jose Hicks drug use, illicit Never Tangela Hicks " alcohol use Currently Tangela Hicks " social history E&M Single. Not homeless. Born in [facility]. City: [place]. State: [place]. 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 Gender of partner(s): female. Age of first sexual intercourse: 14. Tangela Hicks " social history reviewed E&M reviewed today Tangela Hicks " sexual orientation Heterosexual Tangela Hicks " assessment of health literacy ([facility] 2014 Standards, 3C10) Adequate Tangela Hicks [...] history E&M Single. Not homeless. Born in [facility]. City: [place]. State: [place]. 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 Gender of partner(s): female. Age of first sexual intercourse: 14. Lori Sparrow " social history reviewed E&M reviewed today Lori Sparrow " passive cigarette smoke exposure No Lori Sparrow " smoking status former smoker Lori Sparrow time of call 10/29/2017 3:13 PM Magda Leigh Exercise Program Referral Jose Sol " Weight Management Counseling Provided Jose Sol " Nutrition intervention Jose Sol " sexual orientation Heterosexual Lroi Sparrow " drug use, illicit Never Lori Sparrow " alcohol use Currently Lori Sparrow " social history E&M Single. Not homeless. Born in [facility]. City: [place]. State: [place]. 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 Gender of partner(s): female. Age of first sexual intercourse: 14. Lori Sparrow " social history reviewed E&M reviewed today Lori Sparrow " assessment of health literacy ([facility] 2014 Standards, 3C10) Adequate Lori Sparrow " passive cigarette smoke exposure [...] Marilu Chavez " assessment of health literacy ([facility] 2014 Standards, 3C10) Adequate Marilu Chavez " social history E&M Single. Not homeless. Born in [facility]. City: [place]. State: [place]. 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 Gender of partner(s): female. Age of first sexual intercourse: 14. Marilu Chavez " social history reviewed E&M reviewed today Marilu Chavez " Exercise Program Referral T Mariludavid Chavez " Weight Management Counseling Provided T Marilu Chavez " Nutrition intervention T Marilu Chavez sexual orientation Heterosexual Yuko Edmond drug use, illicit Never Jen Lopez " alcohol use Currently Jen Lopez " social history E&M Single. Not homeless. Born in [facility]. City: [place]. State: [place]. 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 Gender [...] Cindi De Leon sexual orientation Heterosexual Chad Martínezmarybel " Exercise Program Referral Jose Navarro " Weight Management Counseling Provided Jose Navarro " Nutrition intervention T Chad Navarro " drug use, illicit Never Marilu Chavez " alcohol use Currently Marilu Chavez " social history E&M Single. Not homeless. Born in [facility]. City: [place]. State: [place]. 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 Gender [...] history E&M Single. Not homeless. Born in [facility]. City: [place]. State: [place]. 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 Gender [...] Castellanos " smoking status former smoker Liudmila Meridaado drug use, illicit Never Jen Lopez " alcohol use Currently Jen Lopez " social history E&M Single. Not homeless. Born in [facility]. City: [place]. State: [place]. 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 Gender [...] history E&M Single. Not homeless. Born in [facility]. City: [place]. State: [place]. 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 Gender of partner(s): female. Age of first sexual intercourse: 14. Chad Navarro " social history reviewed E&M reviewed today Chad Navarro " passive cigarette smoke exposure No Lindaaddison Bailono " smoking, advice to quit Yes Lindaaddison Ruggiero " smoking status former smoker Linda Woodruffardo time of call 03/02/2014 3:47 PM Mario Bardales time of call 02/24/2014 8:11 AM Renee Palafox alcohol use, frequency few times per week Chad Navarro " alcohol use Currently Chad Navarro " social history E&M Single. Not homeless. Born in [facility]. City: [place]. State: [place]. 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 Gender of partner(s): female. Age of first sexual intercourse: 14. Chad Navarro " social history reviewed E&M reviewed today Chad Navarro " sexual orientation Heterosexual Chad Navarro " sex at male Linda Ruggiero " passive cigarette smoke exposure No Linda Ruggiero " cigarettes, number smoked per day 20 a week Linda Ruggiero " smoking, advice to quit Yes Linda Ruggiero " smoking status current every day smoker Linda Ruggiero " social history E&M Single. Not homeless. Born in [facility]. City: [place]. State: [place]. 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 Gender of partner(s): female. Age of first sexual intercourse: 14. Chad Navarro " social history reviewed E&M reviewed today Chad Navarro " sexual orientation Heterosexual Chad Navarro " drug use, illicit Never Cammy Adal " alcohol use Never Cammy Adal " passive cigarette smoke exposure No Cammy Adal " smoking status former smoker Cammy Galeas sexual orientation Heterosexual Yuko Edmond sexual orientation Heterosexual Chad Navarro " drug use, illicit Never Sara Vente " alcohol use, frequency few times per month Sara Vente " alcohol use Currently Sara Vente " social history reviewed E&M reviewed today Sara Vente " social history E&M Single. Not homeless. Born in [facility]. City: [place]. State: [place]. 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 Gender of partner(s): female. Age of first sexual intercourse: 14. 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 Sara Vente " patient considered to [...] affect E&M good eye contact, normal affect [facility] " mental status examination: orientation E&M alert and oriented to person, place, and time [facility] mental status examination: orientation E&M alert and oriented to person, place, and time Chad Navarro " assessment of mood and affect E&M good eye contact, normal affect Chad Navarro " Generalized Anxiety Disorder Questionnaire - Question 2 0 Marilu Chavez " Generalized Anxiety Disorder Questionnaire - Question 1 0 Marilu Chavez assessment of mood and affect E&M good eye contact, normal affect [facility] " mental status examination: orientation E&M alert and oriented to person, place, and time [facility] Generalized Anxiety Disorder Questionnaire - Question 2 0 Jen Lopez " Generalized Anxiety Disorder Questionnaire - Question 1 0 Jen Lopez assessment of mood and affect E&M no depression, anxiety, or agitation Chad Nemecek " Generalized Anxiety Disorder Questionnaire - Question 2 0 Marilu Chavez " Generalized Anxiety Disorder Questionnaire - Question 1 0 Marilu Kathy assessment of mood and affect E&M no [...] Disorder Questionnaire - Question 1 0 Jen Lpoez assessment of mood and affect E&M good eye contact, normal affect [facility] " mental status examination: orientation E&M alert and oriented to person, place, and time [facility] assessment of mood and affect E&M [...] 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 White 101-200% Other [id number] Errol [employer] 101-200% Other Errol [employer] 101-200% Other Errol [employer] 101-200% Other [id number] [employer]rol [employer] 101-200% Other Errol White 101-200% Other Errol White 101-200% Other 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 Metabolic Panel (14) CBC With Differential/Platelet CD4/CD8 Ratio Profile RNA, Real Time PCR (Graph) Hemoglobin A1c HCV RNA by PCR, Qn Rfx Mary HBsAg Screen Hep B Surface Ab Hep B Core Ab, Tot Hemoglobin A1c RPR, Rfx Qn RPR/Confirm TP [...] RNA, Real Time PCR (Graph) - - - Est Patient Exp Problem - 93672 Finger Stick Glucose Est Patient Exp Problem - 87225 Primary Care - Assesment-Brief - SLW Primary Care Service Link[facility] Primary Care Service Linkage Est Patient Detailed - 26251 Pneumovax Vaccine PPSV23 INFLUENZA VACCINE QUADRIVALENT 3 YRS PLUS IM Glucose Stick Dispensing Visit (UNLIVSTED OPHTHALMOLOGICAL SERVICE/PROCEDURE) Est Patient Exp Problem - 81132 Est Patient Exp Problem - 43654 COMPUTERIZED OPHTHALMIC IMAGING OPTIC NERVE Est Patient Comprehensive Opth - 61297 Spherocyl, SV, plano to +/- 4.00d sphere, 0.12 to 2.00d cyl, per lens Spherocyl, SV, plano to +/- 4.00d sphere, 2.12 to 4.00d cyl, per lens Add to lens; tint, any color, solid, gradient or equal, excl photochro, any niles Frames, purchases Est Patient Intermediate Opth - 30015 Ofc Vst, Est Level IV Contact Insp/Mod (MODIFICAJ CONTACT LENX SPX SUPVJ ADAPTATION) COMPUTERIZED OPHTHALMIC IMAGING OPTIC NERVE Est Patient Intermediate Opth - 34411 Dispensing Visit (Non-Billable) COMPUTERIZED OPHTHALMIC IMAGING OPTIC NERVE Contact Lens Fitting (RX&FITG C-LENS SUPVJ CRNL LENS OU XCPT APHK) Est Patient Intermediate Opth - 87783 Est Patient Detailed - 84849 INFLUENZA VACCINE QUADRIVALENT 3 YRS PLUS IM Ofc Vst, Est Level IV Nutrition - Internal Ofc Vst, Est Level IV Est Patient Exp Problem - 48063 Est Patient Detailed - 98804 Handling of specimen for transfer Venipuncture Dispensing [...] OPTIC NERVE Est Patient Intermediate Opt - 28065 Contact Lens Fitting (RX&FITG C-LENS SUPVJ CRNL LENS OU XCPT APHK) Est Patient Intermediate Opt - 44652 Primary Care - Assesment-Brief - SLW Primary Care Service Linkage Ofc Vst, Est Level IV Influenza - Adult - Injection Handling of specimen for transfer Venipuncture Ofc Vst, Est Level III Prevnar (PCV13) IM Handling of specimen for transfer Venipuncture [facility] Vst, Est Level III Pfh Referral (N) [...] PACHYMETRY UNI/BI Est Patient Intermediate Opt - 57904 Contact Lens Fitting (RX&FITG C-LENS SUPVJ CRNL LENS OU XCPT APHK) Est Patient Intermediate Opt - 55387 Ofc Vst, Est Level IV Pneumovax Vaccine Primary Care Medical Case Management Primary Care Medical Case Management HISTORY OF PROCEDURES Procedure Date Procedure Name Provider Procedure Notes Status Finger Stick Glucose Nikolay Sol completed Primary Care - Assesment-Brief - SLW Mac Hernandez Time spent with patient: 15 completed Primary Care Service Linkage Mac Hernandez Time spent with patient: 60 completed Primary Care Service Linkage Mac Hernandez Time spent with patient: 20 completed Glucose Stick Nikolay Sol completed Dispensing Visit (UNLIVSTED OPHTHALMOLOGICAL SERVICE/PROCEDURE) Tracey Bacon completed COMPUTERIZED OPHTHALMIC IMAGING OPTIC NERVE Josesito Delgado Perry completed Est Patient Comprehensive Opt - 93705 Josesito Delgado Perry completed Spherocyl, SV, plano to +/- 4.00d sphere, 0.12 to 2.00d cyl, per lens Anaya Hassan completed Spherocyl, SV, plano to +/- 4.00d sphere, 2.12 to 4.00d cyl, per lens Anaya Hassan completed Add to lens; tint, any color, solid, gradient or equal, excl photochro, any niles [employer] completed Frames, purchases [employer] Frame #[id number] (Pd 5.00) completed Est Patient Intermediate Opt - 82968 Angela Aldrich completed Contact Insp/Mod (MODIFICAJ CONTACT LENX SPX SUPVJ ADAPTATION) Efra Tariq completed COMPUTERIZED OPHTHALMIC IMAGING OPTIC NERVE Josesito Delgado Orlando completed Est Patient Intermediate Opth - 15219 Josesito Delgado Orlando completed Dispensing Visit (Non-Billable) Tracey Bacon completed COMPUTERIZED OPHTHALMIC IMAGING OPTIC NERVE Tracey Bacon completed Contact Lens Fitting (RX&FITG C-LENS SUPVJ CRNL LENS OU XCPT APHK) Efra Tariq completed Est Patient Intermediate Opt - 40432 Efra Tariq completed Venipuncture Radha Posey completed [...] Perry completed Est Patient Intermediate Opt - 00871 Josesito Perry completed Contact Lens Fitting (RX&FITG C-LENS SUPVJ CRNL LENS OU XCPT APHK) Efra Tariq completed Est Patient Intermediate Opt - 48462 Efra Tariq completed Primary Care - Assesment-Brief [...] Perry completed Est Patient Intermediate Opth - 37293 Josesito Perry completed Contact Lens Fitting (RX&FITG C-LENS SUPVJ CRNL LENS OU XCPT APHK) Efra Tariq completed Est Patient Intermediate Opt - 55184 Efra Tariq completed Primary Care Medical Case Management Renée Zavala Time spent with patient: 15 completed Primary Care Medical Case Management Renée Zavala Time spent with patient: 15 completed GOALS No Information Available HEALTH CONCERNS No Information Available
--- OUTSIDE RECORDS SUMMARY | 2019-07-14 14:34 | XMS REPORT ---
Author Author Admin, [place] Organization Unknown Address Unknown Phone Unavailable PROBLEMS [...] Provider Location Encounter Diagnosis - Ambulatory Encounter Raven Thakur [facility] UNK - Ambulatory Encounter Fax Status LinkLogic [facility] Services UNK - Ambulatory [facility] - [facility]counter Nikolay CottrellLogjoy [facility] Adult Medicine UNK - Ambulatory Encounter Nikolay Sol LM Adult Medicine UNK - Ambulatory Encounter Nikolay Honeycutt Hicks [facility] Adult Medicine Transaminases, serum, elevatedSkin lesions, multipleHip pain, left - Ambulatory Encounter Tangela Hicks [facility] Adult Medicine UNK - Ambulatory Encounter Nikolay Sol LinkLogic [facility] Adult Medicine UNK - Ambulatory Encounter Dona Eng [facility] Adult Medicine UNK - Ambulatory Encounter Nikolay Armendariz [facility] Adult Medicine UNK - Ambulatory Encounter Nikolay Hernandez MedAdherence LM Adult Medicine UNK - Ambulatory Encounter Nikolay Franco MedAdherence, LM Adult Medicine UNK - Ambulatory Encounter Dona Eng [facility] Adult Medicine UNK - Ambulatory Encounter Nikolay Black MedAdherence [facility] UNK - Ambulatory Encounter Nikolay Sol LinkLogic [facility] Adult Medicine UNK - Ambulatory Encounter Nikolay CottrellLogic [facility] Adult Medicine UNK - Ambulatory Encounter Nikolay Sandyierrez [facility] Adult Medicine UNK - Ambulatory Encounter Nikolay Sol LinkLogic [facility] Adult Medicine UNK - Ambulatory Encounter Nikolay Sol LinkLogic [facility] Adult Medicine UNK - Ambulatory Encounter Nikolay Sol LinkLogic [facility] Adult Medicine UNK - Ambulatory Encounter Mario Rojas [facility] Tian Eligibility UNK - Ambulatory Encounter Naina Cordova [facility] Services UNK - Ambulatory Encounter Fax Status [facility] Services UNK - Ambulatory Encounter Fax Status [facility] Services UNK - Ambulatory Encounter Fax Status [facility] Services UNK - Ambulatory Encounter Fax Status [facility] Services UNK - Ambulatory Encounter Mac Hernandez [facility] Enrichment Specialist UNK - Ambulatory Encounter Nikolay Sol [facility] Adult Medicine UNK - Ambulatory Encounter Nikolay Hicks [facility] Adult Medicine Vaccination against influenzaVaccination for strep pneumonia with pneumovaxHepatitis C antibody test positiveImmunity status testing, antibody response - Ambulatory Encounter Nikolay Franco MedAdherence, [facility] Adult Medicine UNK - Ambulatory Encounter Paz Campbell [facility] Enrichment Specialist UNK - Ambulatory Encounter Mac Hernandez [facility] Enrichment Specialist UNK - Ambulatory Encounter Nikolay Sol LinkLogic [facility] Adult Medicine UNK - Ambulatory [facility] - Ambulatory Encounter Nikolay Sol LinkLogic LM Adult Medicine UNK - Ambulatory Encounter Nikolay Sol Max Armendariz [facility] Adult Medicine UNK - Ambulatory Encounter Nikolay Franco MedAdherence, LM Adult Medicine UNK - Ambulatory Encounter Catina Jackson LM Adult Medicine UNK - Ambulatory Encounter Antoni Wheelervas [facility] Adult Medicine UNK - Ambulatory Encounter Nikolay Sol [facility] Adult Medicine UNK - Ambulatory Encounter Fax Status [facility] UNK - Ambulatory Encounter Fax Status [facility] UNK - Ambulatory Encounter Fax Status [facility] UNK - Ambulatory Encounter Nikolay Sparrow [facility] Adult Medicine UNK - Ambulatory Encounter LM Care Coordination Desktop Lori Sparrow [facility] UNK - Ambulatory Encounter Nikolay Sol LinkLogjoy [facility] Adult Medicine UNK - Ambulatory Encounter Nikolay Sol LM Adult Medicine UNK - Ambulatory Encounter Nikolay Sol LM Adult Medicine UNK - Ambulatory Encounter Nikolay Sparrow [facility] Adult Medicine Vaccination against influenzaVaccination for strep pneumonia with pneumovaxTransaminases, serum, elevatedSkin lesions, multiple - Ambulatory Encounter Nikolay Sol [facility]ic [facility] Adult Medicine UNK - Ambulatory Encounter Dona Eng [facility] Adult Medicine UNK - Ambulatory En[facility]cepcion [facility] - Ambulatory Encounter Naina Cordova [facility] UNK - Ambulatory Encounter Nikolay Leigh [facility] UNK - Ambulatory Encounter Nikolay Sol LinkLogic [facility] Adult Medicine UNK - Ambulatory Encounter Nikolay Sol LinkLogic LM Adult Medicine UNK - Ambulatory Encounter Josesito Perry [facility] UNK - Ambulatory Encounter Nikolay Greenfield LM Adult Medicine UNK - Ambulatory Encounter Chad Navarro [facility] Adult Medicine UNK - Ambulatory Encounter Chad Navarro LinkLogic LM Adult Medicine UNK - Ambulatory Encounter Tracey Bacon [facility] UNK - Ambulatory Encounter Tracey Bacon [facility] UNK - Ambulatory Encounter Fax Status [facility] UNK - Ambulatory Encounter Fax Status [facility] Services UNK - Ambulatory Encounter Fax Status [facility] UNK - Ambulatory Encounter Nikolay Sol LM Adult Medicine UNK - Ambulatory Encounter Nikolay Sparrow [facility] Adult Medicine Immunization updateScreening for stdScreening, colon cancer - Ambulatory Encounter Barb Lopez [facility] Public Health Services UNK - Ambulatory Encounter Josesito Perry LM Vision UNK - Ambulatory Encounter Anaya Hassan [facility] Vision UNK - Ambulatory Encounter Angela Bhakhrani Angela Bhakhrani [facility] Vision UNK - Ambulatory Encounter Josesito Perry Rekha Machuca [facility] Vision UNK - Ambulatory Encounter Angela Bhakhrani Angela Bhakhrani [facility] UNK - Ambulatory Encounter Angela Bhakhrani Angela Bhakhrani [facility] UNK - Ambulatory Encounter Angela Bhakhrani Angela Bhakhrani Anaya Mo Rekha Machuca [facility] Vision Astigmatism - OUMyopia - OU - Ambulatory Encounter Chad Greenfield [facility] Adult Medicine UNK - Ambulatory Encounter Chad Corona Greenfield [facility] Adult Medicine UNK - Ambulatory Encounter Chad Greenfield [facility] Adult Medicine UNK - Ambulatory Encounter Chad Navarro LinkLogic Chloe Greenfield [facility] Adult Medicine UNK - Ambulatory Encounter Chad Greenfield [facility] Adult Medicine UNK - Ambulatory Encounter Chad CottrellLogic Chloe Greenfield [facility] Adult Medicine UNK - Ambulatory [facility] - Ambulatory Encounter Chad Rice [facility] Adult Medicine UNK - Ambulatory Encounter Chad Navarro LM Adult Medicine UNK - Ambulatory Encounter Chad Greenfield [facility] Adult Medicine UNK - Ambulatory Encounter Chad Navarro LinkLogjoy Greenfield [facility] Adult Medicine UNK - Ambulatory Encounter Montserrat Sousa [facility] UNK - Ambulatory Encounter Valentina Hernandez [facility] Adult Medicine UNK - Ambulatory Encounter Chad Navarro [facility] Adult Medicine UNK - Ambulatory Encounter Chad Navarro LinkLogic LM Adult Medicine UNK - Ambulatory Encounter Chad Navarro LM Adult Medicine UNK - Ambulatory Encounter Chad Navarro LinkLogic LM Adult Medicine UNK - Ambulatory Encounter Chad Navarro [facility] Adult Medicine Screening for std - Ambulatory Encounter Chad Greenfield [facility] Adult Medicine UNK - Ambulatory Encounter Enedelia Renetta LinkLogic Chloe Greenfield [facility] Adult Medicine UNK - Ambulatory Encounter Chad Greenfield LM Adult Medicine UNK - Ambulatory Encounter Chad Greenfield [facility] Adult Medicine UNK - Ambulatory Encounter Enedelia Renetta LinkLogic Chloe Greenfield [facility] Adult Medicine UNK - Ambulatory Encounter Enedelia Renetta LinkLogic Chloe Greenfield [facility] Adult Medicine UNK - Ambulatory Encounter Enedelia [...] Adult Medicine UNK - Ambulatory Encounter Chad Agustinucena Chavez [facility] Adult Medicine URIMyopia - OURegular astigmatism, bilateral - Ambulatory Encounter Milana Lopez [facility] Services [facility] UNK - Ambulatory Encounter [facility] UNK - Ambulatory Encounter Chad Vannlie Renetta [facility] Adult Medicine UNK - Ambulatory Encounter Enedelia Renetta [facility] Adult Medicine UNK - Ambulatory Encounter Chad Jackson [facility] Adult Medicine UNK - Ambulatory Encounter Enedelia Jackson [facility] Adult Medicine UNK - Ambulatory Encounter Radha Kalpesh Garcia Kashifedith [facility] Adult Medicine UNK - Ambulatory Encounter Josesito Perry [facility] UNK - Ambulatory Encounter Efra Tariq [facility] UNK - Ambulatory Encounter Efra Tariq [facility] UNK - Ambulatory Encounter Efra Edmond [facility] UNK - Ambulatory Encounter Radha Spearopalmarlonishan [facility]Logic C Adult Medicine UNK - Ambulatory Encounter Efra [...] Medicine UNK - Ambulatory Encounter Fax Status [facility] UNK - Ambulatory Encounter Fax Status [facility] UNK - Ambulatory Encounter Fax Status [facility] UNK - Ambulatory Encounter Radha [...] Vision UNK - Ambulatory Encounter Chad Veliz [facility] UNK - Ambulatory [...] Medicine UNK - Ambulatory Encounter Christopher Chano [facility] UNK - Ambulatory Encounter Radha Posey [facility] Adult Medicine UNK - Ambulatory Encounter Radha Posey [facility] Adult Medicine UNK - Ambulatory Encounter Radha Morah [facility] Adult Medicine UNK - Ambulatory Encounter Radha Posey [facility] Adult Medicine UNK - Ambulatory Encounter [facility] - Ambulatory Encounter Radha Psoey [facility] Adult Medicine UNK - Ambulatory Encounter [facility] UN[facility] - [facility]ulatory Encounter [facility] UN[facility] - Ambulatory Encounter Radhajuan c Rowlandnth [facility] Adult Medicine UNK - Ambulatory Encounter Radha Posey [facility] Adult Medicine UNK - Ambulatory Encounter Chad Navarro [facility] Adult Medicine UNK - Ambulatory Encounter Chad Washburnlily Zamudioles [facility] Adult Medicine Otitis media, right - Ambulatory Encounter Radha Posey [facility] Adult Medicine UNK - Ambulatory Encounter Radha Posey [facility] Adult Medicine UNK - Ambulatory Encounter Lina Dias [facility] Adult Medicine UNK - Ambulatory Encounter Radha Posey LinkLogic LM Adult Medicine UNK - Ambulatory Encounter Scott Zhao LM Adult Medicine UNK - Ambulatory Encounter Fax Status [facility] UN[facility] - Ambulatory Encounter Fax Status LinkLogic [facility] UNK - Ambulatory Encounter Fax Status LinkLogic [facility] UNK - Ambulatory Encounter Nikolay Slo [facility] Adult Medicine UNK - Ambulatory Encounter [...] Adult Medicine UNK - Ambulatory Encounter Enedelia CottrellLogjoy Greenfield [facility] Adult Medicine UNK - Ambulatory Encounter Radha Posey [facility] Adult Medicine UNK - Ambulatory Encounter Radha Lopez [facility] Adult Medicine Otitis media, rightImmunization updateObesity - Ambulatory Encounter Jen Lopez LM Adult Medicine UNK - Ambulatory Encounter Radha Posey [facility] Adult Medicine UNK - Ambulatory Encounter Elaina Burleson [facility] Services [facility] UNK - Ambulatory Encounter Chad Greenfield LM Adult Medicine UNK - Ambulatory Encounter Enedelia Greenfield LM Adult Medicine UNK - Ambulatory [...] UNK - Ambulatory Encounter Chad Navarro LinkLogic [facility] Services UNK - Ambulatory Encounter Lambert Jones [...] Medicine UNK - Ambulatory Encounter Merry Radha LinkLogic [facility] Enrichment Specialist UNK - Ambulatory Encounter Chad Navarro LinkLogic Maria Eugenia Wolfe LM Adult Medicine UNK - Ambulatory Encounter Chad Navarro [facility] Adult Medicine UNK - Ambulatory Encounter Merry Garcia [facility] Enrichment Specialist UNK - Ambulatory Encounter Chad Ruggiero [facility] Adult Medicine HYPERLIPIDEMIA - Ambulatory Encounter Cha Mitchell [facility] Adult Medicine UNK - Ambulatory Encounter Chad Navarro LinkLogic LM Adult Medicine UNK - Ambulatory Encounter Chad Navarro LinkLogic LM Adult Medicine UNK - Ambulatory Encounter Chad Ren [facility] Adult Medicine UNK - Ambulatory Encounter Chad Rodriges LM Adult Medicine UNK - Ambulatory Encounter Enedelia Renetta LinkLogic Lou Ren [facility] Adult Medicine UNK - Ambulatory Encounter Mario Bardales LM Adult Medicine UNK - Ambulatory Encounter Chad Ren [facility] Adult Medicine UNK - Ambulatory Encounter Enedelia Renetta LinkLogic Lou Ren [facility] Adult Medicine UNK - Ambulatory Encounter Enedelia Renetta LinkLogic Lou Ren [facility] Adult Medicine UNK - Ambulatory Encounter Cha Girard-Michael [facility] Adult Medicine UNK - Ambulatory Encounter Reneemendoza Palafox [facility] UNK - Ambulatory Encounter Chad Ren LM Adult Medicine UNK - Ambulatory Encounter Enedelia Jackson LinkLogic Lou Mikal [facility] Adult Medicine UNK - Ambulatory Encounter Chad You [facility] Adult Medicine UNK - Ambulatory Encounter Enedelia Jackson LinkLogic Dona You LM Adult Medicine UNK - Ambulatory Encounter Chad Peoples [facility] Adult Medicine UNK - Ambulatory Encounter Enedelia Jackson LinkLogic Dalila Peoples [facility] Adult Medicine UNK - Ambulatory Encounter Chad [...] UNK - Ambulatory Encounter Chad Navarro LinkLogic [facility] Services UNK - Ambulatory Encounter Chad Navarro [facility] Adult Medicine UNK - Ambulatory Encounter Chad Navarro [facility] Adult Medicine UNK - Ambulatory Encounter Chad Navarro Charai Mitchell [facility] Adult Medicine UNK - Ambulatory [...] - Ambulatory Encounter Kathe See [facility] Services UNK - Ambulatory Encounter [...] Adult Medicine UNK - Ambulatory Encounter Enedelia Ernetta [facility] Adult Medicine UNK - Ambulatory Encounter Enedelia Renetta [facility] Adult Medicine UNK - Ambulatory Encounter Enedelia Renetta [facility] Adult Medicine UNK - Ambulatory Encounter Enedelia Renetta [facility] Adult Medicine UNK - Ambulatory Encounter Louwolf Ren [facility] Adult Medicine UNK - Ambulatory Encounter Louwolf Ren [facility] Adult Medicine UNK - Ambulatory Encounter Enedelia Renetta LinkLogic Lou [facility] Adult Medicine UNK - Ambulatory Encounter Enedelia Renetta LinkLogic Lou [facility] Adult Medicine UNK - Ambulatory Encounter Chad Navarro [facility] Adult Medicine UNK - Ambulatory Encounter Gracie Jansen LM Adult Medicine UNK - Ambulatory Encounter Chad Galeas LM Adult Medicine - Ambulatory Encounter Chad Jackson [facility] Adult [...] Adult Medicine UNK - Ambulatory Encounter Chad Nevraez [facility] Adult Medicine - Ambulatory Encounter Dona You [facility] Adult Medicine UNK - Ambulatory Encounter Chad Navarro [facility] Adult Medicine UNK - Ambulatory Encounter Chad CottrellLogic [facility] Adult Medicine UNK - Ambulatory Encounter Chad Velázquez [facility] Adult Medicine UNK - Ambulatory Encounter Renée Young [facility] Enrichment Specialist UNK - Ambulatory Encounter Renée Young [facility] Enrichment Specialist UNK - Ambulatory Encounter Dona You LM Adult Medicine UNK - Ambulatory Encounter Chad You LM Adult Medicine UNK - Ambulatory Encounter Dona You LM Adult Medicine UNK - Ambulatory Encounter Chad You [facility] Adult Medicine UNK - Ambulatory Encounter Chelsi Fierro LM Adult Medicine UNK - Ambulatory Encounter Chelsijohn Monroyamillo [facility] Adult Medicine UNK - Ambulatory Encounter Venkata Michaels [facility] Adult Medicine - Ambulatory Encounter Chad Navarro [...] [facility] Vision - Ambulatory Encounter Martita Michaels [facility] Adult Medicine - Ambulatory Encounter Yaya CottrellLogjoy Test Location of Care UNK - Ambulatory Encounter Yaya Raúl CottrellLogjyo Test Location of Care UNK - Ambulatory Encounter LC Lab Provider [facility] Services UNK - Ambulatory Encounter LC Lab Provider [facility] Services UNK - Ambulatory Encounter LC Lab Provider [facility] Services UNK - Ambulatory Encounter LC Lab Provider [facility] Services UNK - Ambulatory Encounter LC Lab Provider [facility] Services UNK - Ambulatory Encounter LC Lab Provider [facility] Services UNK - Ambulatory Encounter LC Lab Provider [facility] Services UNK - Ambulatory Encounter LC Lab Provider [facility] Services UNK VITAL SIGNS Date Observation Value [...] pressure, diastolic, second observation 86 mm[Hg] Lori Sparrow " blood pressure, systolic, second observation 126 mm[Hg] Lori Sparrow " blood pressure, diastolic 86 mm[Hg] Nikolay Hernándezmons " blood pressure, systolic 126 mm[Hg] Nikolay Sol " oxygen saturation, oximetry 98 % Lori Sparrow " respiratory rate E&M 16 /min Lorichiki Sparrow " pulse rate E&M 87 /min Lorichiki Sparrow " temperature E&M 98.5 [degF] Lorichiki Sparrow " weight E&M 202.38 lbs. Lori Sparrow " weight in kilograms E&M 91.99 kg Lori Sparrow " method used to obtain blood pressure automatic Lori Sparrow " Blood Pressure Position 01 sitting Lori Sparrow " blood pressure, site #1 left arm Lori Sparrow " temperature site oral Lorichiki Sparrow " height E&M 67 [in_i] Lori Sparrow " height in centimeters E&M 170.18 cm Lori Sparrow blood pressure, diastolic 89 mm[Hg] Lori Sparrow " blood pressure, systolic 134 mm[Hg] Lori Sparrow " oxygen saturation, oximetry 97 % Lori Sparrow " respiratory rate E&M 16 /min Lori J Sparrow " pulse rate E&M 93 /min Lorichiki Sparrow " temperature E&M 98.6 [degF] Lorichiki Sparrow " weight E&M 204 lbs. Lorichiki Sparrow " weight in kilograms E&M 92.73 kg Lorichiki Sparrow " method used to obtain blood pressure automatic Lorichiki Sparrow " Blood Pressure Position 01 sitting Lorichiki Shahz " blood pressure, site #1 left arm Lorichiki Osmanmez " temperature site tympanic Lorichiki Sparrow " height E&M 67 [in_i] Lorichiki Sparrow " height in centimeters E&M 170.18 cm Lori J Sparrow blood pressure, diastolic 88 mm[Hg] Marilu [...] Jen John " temperature site tympanic Jen Lopez " [...] used to obtain blood pressure automatic Marilu Hcavez " Blood Pressure Position 01 sitting Marilu [...] height in centimeters E&M 170.18 cm Liudmila Meridaado blood pressure, diastolic 89 mm[Hg] Jen Lopez " blood pressure, systolic 128 mm[Hg] Jen Lopez " oxygen saturation, oximetry 97 % Jen Lopez " pulse rate E&M 115 /min Jen Lopez " temperature E&M 97.3 [degF] Jen Lopez " weight E&M 220 lbs. Jen Lopez [...] used to obtain blood pressure manual Linda Bailono " Blood Pressure Position 01 sitting Lindaaddison Bailono " blood pressure, site #1 right arm Lindaaddison Woodruffardo " blood pressure, diastolic 90 mm[Hg] Linda Ruggiero " blood pressure, systolic 142 mm[Hg] Linda Ruggiero " temperature site tympanic Lindaaddison Woodruffardo " oxygen saturation, oximetry 96 % Linda Woodruffardo " pulse rate E&M 110 /min Linda Woodruffardo " temperature E&M 97.6 [degF] Linda Woodruffardo " weight E&M 232 lbs. Linda Woodruffardo " weight in kilograms E&M 105.45 kg Linda Bailono " height E&M 67 [in_i] Linda Bialono " height in centimeters E&M 170.18 cm [...] weight in kilograms E&M 106.08 kg Sara Nevarez " height E&M 67 [in_i] Sara [...] LinkLogic 12.0-35.5 High " absolute CD8 726 LinkLog 109-897 " T-helper cells (CD4) as percent of blood lymphocytes 45.1 % LinkLogic 30.8-58.5 " T-helper cells (CD4) count 902 /UL LinkLog [id number] rapid plasma reagin antibody, [...] LinkLogic 79-97 " hematocrit, blood 47.0 % LinkLog [...] as percent of blood lymphocytes 41.5 % LinkLogic 30.8-58.5 " T-helper cells (CD4) count 872 /UL LinkLog [id number] HIV-1RNA, serum, by PCR, quantitative 40 /[facility]agin antibody, serum Non Reactive LinkLog Non Reactive " hemoglobin A1C, blood, as % of total hemoglobin 11.8 % LinkLog 4.8-5.6 High " Hepatitis C virus (HCV) RNA, PCR, quantitative HCV Not Detected IU/mL LinkLog " LDL cholesterol, serum 80 mg/dL LinkLogic [...] as percent of blood lymphocytes 41.1 % LinkLog 30.8-58.5 " T-helper cells (CD4) count 1069 /UL LinkLogic [id number] rapid plasma reagin antibody, serum Non Reactive LinkLog Non Reactive " HIV-1RNA, serum, by PCR, quantitative 20 /mL LinkLog " LDL cholesterol, serum 155 mg/dL LinkLogic [...] LinkLog Non Reactive " LDL cholesterol, serum 107 [...] " T-helper cells (CD4) count 764 /UL LinkLog [phone] Hepatitis C virus (HCV) RNA, PCR, [...] ONE TABLET BY MOUTH DAILY Lisa Black MedAdherence CLINDAMYCIN PHOSPHATE 1 % GEL APPLY TO [...] MORNING 30 MINUTES BEFORE BREAKFAST Lisa Black MedAdheryunier FENOFIBRATE MICRONIZED 130 MG ORAL CAPSULE Take [...] Provider smoking, advice to quit Yes Tangela Kurt " tobacco use (cigarettes, cigar, chew, pipe) Currently Tangela Hicks " drug use, illicit Never Tangela Kurt " alcohol use Currently Tangela Kurt " social history E&M Single. Not homeless. Born in [facility]. City: [place]. State: [place]. 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 Gender of partner(s): female. Age of first sexual intercourse: 14. Tangela Hicks " social history reviewed E&M reviewed today Tangela Hicks " is there any chance that you could be ? No Tangela Hicks " sexual orientation Heterosexual Tangela Hicks " assessment of health literacy ([facility] 2014 Standards, 3C10) Adequate Tangela Hicks " passive cigarette smoke exposure No Tangela Hicks " if the patient is using/has used a vaping item, Current, Former, Never Used, Not asked No Tangela Hicks " smoking status current some day smoker Tangela Hicks " Exercise Program Referral T Tangela Hicks " Weight Management Counseling Provided T Tangela Hicks " Nutrition intervention T Tangela Hicks drug use, illicit Never Tangela Hicks " alcohol use Currently Tangela Hicks " social history E&M Single. Not homeless. Born in [facility]. City: [place]. State: [place]. 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 Gender of partner(s): female. Age of first sexual intercourse: 14. Tangela Kurt " social history reviewed E&M reviewed today Tangela Hicks " sexual orientation Heterosexual Tangela Hicks " assessment of health literacy ([facility] 2014 Standards, 3C10) Adequate Tangela Hicks " passive cigarette smoke exposure No Tangela Hicks " smoking status former smoker Tangela Hicks " Exercise Program Referral T Tangela Kutr " Weight Management Counseling Provided T Tangela Kurt " Nutrition intervention T Tangela Hicks Exercise Program Referral T Nikolay Sol " Weight Management Counseling Provided T Nikolay Sol " Nutrition intervention T Nikolay Sol " drug use, illicit Never Lori Evelin Sparrow " alcohol use Currently Lori J Sparrow " social history E&M Single. Not homeless. Born in [facility]. City: [place]. State: [place]. 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 Gender of partner(s): female. Age of first sexual intercourse: 14. Lori Sparrow " social history reviewed E&M reviewed today Lorichiki Shahz " passive cigarette smoke exposure No Lori Sparrow " smoking status former smoker Lori Osmanmez time of call 10/29/2017 3:13 PM Magda Leigh Exercise Program Referral Jose Sol " Weight Management Counseling Provided Jose Sol " Nutrition intervention Jose Sol " sexual orientation Heterosexual Lori Osmanmez " drug use, illicit Never Lorichiki Shahz " alcohol use Currently Lori Sparrow " social history E&M Single. Not homeless. Born in [facility]. City: [place]. State: [place]. 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 Gender of partner(s): female. Age of first sexual intercourse: 14. Lori Shahz " social history reviewed E&M reviewed today Lorichiki Shahz " assessment of health literacy ([facility] 2014 Standards, 3C10) Adequate Lori Evelin Shahz " passive cigarette smoke exposure No Lori [...] Marilu Chavez " assessment of health literacy ([facility] 2014 Standards, 3C10) Adequate Marilu Chavez " social history E&M Single. Not homeless. Born in [facility]. City: [place]. State: [place]. 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 Gender of partner(s): female. Age of first sexual intercourse: 14. Marilu Chavez " social history reviewed E&M reviewed today Marilu Chavez " Exercise Program Referral T Mariludavid Chavez " Weight Management Counseling Provided T Mariludavid Chavez " Nutrition intervention T Marilu Chavez sexual orientation Heterosexual Yuko Edmond drug use, illicit Never Jen John " alcohol use Currently Jen John " social history E&M Single. Not homeless. Born in [facility]. City: [place]. State: [place]. 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 Gender of partner(s): female. Age of first sexual intercourse: 14. Jen John " social history reviewed E&M reviewed today Jen John " is there any chance that you could be ? No Jen John " passive cigarette smoke exposure No Jen John " smoking status former smoker Jen Castanedanandez time of call 11/04/2015 11:39 AM Cindi De Leon sexual orientation Heterosexual Chad Navarro " Exercise Program Referral T Chad Navarro " Weight Management Counseling Provided Jose Navarro " Nutrition intervention T Chad Navarro " drug use, illicit Never Marilu Chavez " alcohol use Currently Marilu Chavez " social history E&M Single. Not homeless. Born in [facility]. City: [place]. State: [place]. 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 Gender of partner(s): female. Age of first sexual intercourse: 14. Marilu Chavez " social history reviewed E&M reviewed today Marilu Chavez " passive cigarette smoke exposure No Marilu Chavez " smoking status former smoker Marilu Chavez sexual orientation Heterosexual Chad Willisraquel " drug use, illicit Never Marilu Chavez " alcohol use Currently Marilu Chavez " social history E&M Single. Not homeless. Born in [facility]. City: [place]. State: [place]. 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 Gender [...] Jen Lopez " alcohol use Currently Jen John " social history E&M Single. Not homeless. Born in [facility]. City: [place]. State: [place]. 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 Gender of partner(s): female. Age of first sexual intercourse: 14. Jen Lopez " social history reviewed E&M reviewed today Jen Lopez " passive cigarette smoke exposure No Jen Lopez " smoking status former smoker Jen Lopez sexual orientation Heterosexual Tracey Haarra sexual orientation Heterosexual Yuko Edmond sexual orientation Heterosexual Chad Navarro " social history E&M Single. Not homeless. Born in [facility]. City: [place]. State: [place]. 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 Gender of partner(s): female. Age of first sexual intercourse: 14. Chad Navarro " social history reviewed E&M reviewed today Chad Navarro " passive cigarette smoke exposure No Linda Woodruffardo " smoking, advice to quit Yes Lindaaddison Woodruffardo " smoking status former smoker Linda Bailono time of call 03/02/2014 3:47 PM Mario Bardales time of call 02/24/2014 8:11 AM Renee Palafox alcohol use, frequency few times per week Chad Navarro " alcohol use Currently Chad Navarro " social history E&M Single. Not homeless. Born in [facility]. City: [place]. State: [place]. 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 Gender [...] history E&M Single. Not homeless. Born in [facility]. City: [place]. State: [place]. 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 Gender [...] history E&M Single. Not homeless. Born in [facility]. City: [place]. State: [place]. 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 Gender of partner(s): female. Age of first sexual intercourse: 14. 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 Sara Vente " patient considered to [...] affect E&M good eye contact, normal affect [facility] " mental status examination: orientation E&M alert and oriented to person, place, and time Josesito Sandy Perry mental status examination: orientation E&M alert and oriented to person, place, and time Chad Tanyamarybel " assessment of mood and affect E&M good eye contact, normal affect Chad Martíneznancyraquel " Generalized Anxiety Disorder Questionnaire - Question 2 0 Marilu Chavez " Generalized Anxiety Disorder Questionnaire - Question 1 0 Marilu Chavez assessment of mood and affect E&M good eye contact, normal affect [facility] " mental status examination: orientation E&M alert and oriented to person, place, and time Josesito S Perry Generalized Anxiety Disorder Questionnaire - Question 2 0 Jen Lopez " Generalized Anxiety Disorder Questionnaire - Question 1 0 Jen Lopez assessment of mood and affect E&M no depression, anxiety, or agitation Chad Navarro " Generalized Anxiety Disorder Questionnaire - Question 2 0 Mariludavid Chavez " Generalized Anxiety Disorder Questionnaire - Question 1 0 Marilu Kathy assessment of mood and affect E&M no depression, anxiety, or agitation Chad Navarro " Generalized Anxiety Disorder Questionnaire - Question 2 0 Marilu Kathy " Generalized Anxiety Disorder Questionnaire - Question 1 0 Marilu Kathy Generalized Anxiety Disorder Questionnaire - Question 2 0 Liudmila Castellanos " Generalized Anxiety Disorder Questionnaire - Question 1 0 Liudmila Castellanos assessment of judgment and insight E&M intact Radha Morgan " assessment of mood and affect E&M no depression, anxiety, or agitation Radha Shrikanth " Generalized Anxiety Disorder Questionnaire - Question 2 0 Jen Lopez " Generalized Anxiety Disorder Questionnaire - Question 1 0 Jen Lopez assessment of mood and affect E&M good eye contact, normal affect [facility] " mental status examination: orientation E&M alert and oriented to person, place, and time Josesito Perry assessment of mood and affect E&M [...] name Policy type / Coverage type Covered libertarian ID 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 [employer] 101-200% Other [id number] [employer]rol [employer] 101-200% Other Errol [employer] 101-200% Other Errol [employer] 101-200% Other [id number] [employer]rol [employer] 101-200% Other Errol White 101-200% Other Errol White 101-200% Other Sliding Fee - Cat 5 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 [employer] [id number] Errol White 101-200% Other [id number] Errol White 101-200% Other Errol White 101-200% Other 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 White 101-200% Other Errol White 101-200% Other 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 [id number] Errol White 101-200% Other [id number] Sliding Fee - Cat 5 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 [employer] [id number] Sliding Fee Scale 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 [id number] Errol White up to 300% Other [id number] ADVANCE DIRECTIVES Name Date DISCUSSED - NO [...] - - Est Patient Exp Problem - 45921 Finger Stick Glucose Est Patient Exp Problem - 27927 Primary Care - Assesment-Brief - SLW Primary Care Service Linkage Primary Care Service Linkage Est Patient Detailed - 50502 Pneumovax Vaccine [id number] INFLUENZA VACCINE QUADRIVALENT 3 YRS PLUS IM Glucose Stick Dispensing Visit (UNLIVSTED OPHTHALMOLOGICAL SERVICE/PROCEDURE) Est Patient Exp Problem - 62644 Est Patient Exp Problem - 31041 COMPUTERIZED OPHTHALMIC IMAGING OPTIC NERVE Est Patient Comprehensive Opth - 23633 Spherocyl, SV, plano to +/- 4.00d sphere, 0.12 to 2.00d cyl, per lens Spherocyl, SV, plano to +/- 4.00d sphere, 2.12 to 4.00d cyl, per lens Add to lens; tint, any color, solid, gradient or equal, excl photochro, any niles Frames, purchases Est Patient Intermediate Opth - 53281 Ofc Vst, Est Level IV Contact Insp/Mod (MODIFICAJ CONTACT LENX SPX SUPVJ ADAPTATION) COMPUTERIZED OPHTHALMIC IMAGING OPTIC NERVE Est Patient Intermediate Opth - 16672 Dispensing Visit (Non-Billable) COMPUTERIZED OPHTHALMIC IMAGING OPTIC NERVE Contact Lens Fitting (RX&FITG C-LENS SUPVJ CRNL LENS OU XCPT APHK) Est Patient Intermediate Opth - 67585 Est Patient Detailed - 31215 INFLUENZA VACCINE QUADRIVALENT 3 YRS PLUS IM Ofc Vst, Est Level IV Nutrition - Internal Ofc Vst, Est Level IV Est Patient Exp Problem - 37260 Est Patient Detailed - 71912 Handling of specimen for transfer Venipuncture Dispensing [...] OPTIC NERVE Est Patient Intermediate Opt - 90214 Contact Lens Fitting (RX&FITG C-LENS SUPVJ CRNL LENS OU XCPT APHK) Est Patient Intermediate Opt - 75126 Primary Care - Assesment-Brief - SLW Primary [...] PACHYMETRY UNI/BI Est Patient Intermediate Opt - 67902 Contact Lens Fitting (RX&FITG C-LENS SUPVJ CRNL LENS OU XCPT APHK) Est Patient Intermediate Opt - 93173 Ofc Vst, Est Level IV Pneumovax Vaccine [...] Perry completed Est Patient Comprehensive Opt - 81593 Josesito Perry completed Spherocyl, SV, plano to +/- 4.00d sphere, 0.12 to 2.00d cyl, per lens Anaya Hassan completed Spherocyl, SV, plano to +/- 4.00d sphere, 2.12 to 4.00d cyl, per lens Anaya Hassan completed Add to lens; tint, any color, solid, gradient or equal, excl photochro, any niles Silent Edge completed Frames, purchases Silent Edge Frame #[id number] (Pd 5.00) completed Est Patient Intermediate Opt - 96499 Angela Aldrich completed Contact Insp/Mod (MODIFICAJ CONTACT LENX SPX SUPVJ ADAPTATION) Efra Tariq completed COMPUTERIZED OPHTHALMIC IMAGING OPTIC NERVE Josesito Perry completed Est Patient Intermediate Opt - 05620 Josesito Perry completed Dispensing Visit (Non-Billable) Tracey Bacon completed COMPUTERIZED OPHTHALMIC IMAGING OPTIC NERVE Tracey Bacon completed Contact Lens Fitting (RX&FITG C-LENS SUPVJ CRNL LENS OU XCPT APHK) Efra Tariq completed Est Patient Intermediate Opt - 51552 Efra Tariq completed Venipuncture Radha Posey completed [...] Perry completed Est Patient Intermediate Opt - 20814 Josesito Perry completed Contact Lens Fitting (RX&FITG C-LENS SUPVJ CRNL LENS OU XCPT APHK) Efra Tariq completed Est Patient Intermediate Opt - 08006 Efra Tariq completed Primary Care - Assesment-Brief [...] Perry completed Est Patient Intermediate Opth - 22281 Josesito Perry completed Contact Lens Fitting (RX&FITG C-LENS SUPVJ CRNL LENS OU XCPT APHK) Efra Tariq completed Est Patient Intermediate Opth - 29172 Efra Tariq completed Primary Care Medical Case Management Renée Zavala Time spent with patient: 15 completed Primary Care Medical Case Management Renée Zavala Time spent with patient: 15 completed GOALS No Information Available HEALTH CONCERNS No Information Available
--- OUTSIDE RECORDS SUMMARY | 2019-07-14 14:36 | XMS REPORT ---
Author Author Admin, [employer] Organization Unknown Address Unknown Phone Unavailable PROBLEMS [...] Diagnosis - Ambulatory Encounter Raven Thakur [facility] UNK - Ambulatory Encounter Fax Status LinkLogic [facility] Services UNK - Ambulatory Encounter [facility] - [facility] - [facility]ulatory Encounter Nikolay CottrellLogjoy [facility] Medicine UNK - Ambulatory Encounter Nikolay Sol LM Adult Medicine UNK - Ambulatory Encounter Nikolay Honeycutt Hicks [facility] Adult Medicine Transaminases, serum, elevatedSkin lesions, multipleHip pain, left - Ambulatory Encounter Tangela Hicks [facility] Adult Medicine UNK - Ambulatory Encounter Nikolay Sol LinkLogic [facility] Adult Medicine UNK - Ambulatory Encounter Dona Eng [facility] Adult Medicine UNK - Ambulatory Encounter Nikolay Armendariz [facility] Adult Medicine UNK - Ambulatory Encounter Nikolay Hernandez MedAdherence LM Adult Medicine UNK - Ambulatory Encounter Nikolay Franco MedAdherence, LM Adult Medicine UNK - Ambulatory Encounter Dona Eng [facility] Adult Medicine UNK - Ambulatory Encounter Nikolay Black MedAdherence [facility] UNK - Ambulatory Encounter Nikolay Sol LinkLogic [facility] Adult Medicine UNK - Ambulatory Encounter Nikolay CottrellLogic [facility] Adult Medicine UNK - Ambulatory Encounter Nikolay Sandyierrez [facility] Adult Medicine UNK - Ambulatory Encounter Nikolay Sol LinkLogic [facility] Adult Medicine UNK - Ambulatory Encounter Nikolay Sol LinkLogic [facility] Adult Medicine UNK - Ambulatory Encounter Nikolay Sol LinkLogic [facility] Adult Medicine UNK - Ambulatory Encounter Mario Rojas [facility] Eligibility UNK - Ambulatory Encounter Naina Cordova [facility] Services UNK - Ambulatory Encounter Fax Status [facility] Services UNK - Ambulatory Encounter Fax Status [facility] UNK - Ambulatory Encounter Fax Status [facility] UNK - Ambulatory Encounter Fax Status [facility] UNK - Ambulatory Encounter Mac Hernandez [facility] Geotechnical Department Manager UNK - Ambulatory Encounter Nikolay Sol [facility] Adult Medicine UNK - Ambulatory Encounter Nikolay Hicks [facility] Adult Medicine Vaccination against influenzaVaccination for strep pneumonia with pneumovaxHepatitis C antibody test positiveImmunity status testing, antibody response - Ambulatory Encounter Nikolay Franco MedAdherence, [facility] Medicine UNK - Ambulatory Encounter Paz Campbell [facility] Geotechnical Department Manager UNK - Ambulatory Encounter Mac Hernandez [facility] Geotechnical Department Manager UNK - Ambulatory Encounter Nikolay Sol LinkLogic [facility] Adult Medicine UNK - Ambulatory Encounter [facility] UNK - Ambulatory Encounter Nikolay Sol LinkLogic LM Adult Medicine UNK - Ambulatory Encounter Nikolay Sol Max Armendariz [facility] Adult Medicine UNK - Ambulatory Encounter Nikolay Franco MedAdherence, LM Adult Medicine UNK - Ambulatory Encounter Catina Jackson LM Adult Medicine UNK - Ambulatory Encounter Antoni Wheelervas [facility] Adult Medicine UNK - Ambulatory Encounter Nikolay Sol [facility] Adult Medicine UNK - Ambulatory Encounter Fax Status [facility] UNK - Ambulatory Encounter Fax Status [facility] UNK - Ambulatory Encounter Fax Status [facility] UNK - Ambulatory Encounter Nikolay Sparrow [facility] Adult Medicine UNK - Ambulatory Encounter LM Care Coordination Desktop Lori Sparrow [facility] UNK - Ambulatory Encounter Nikolay Sol LinkLogjoy [facility] Adult Medicine UNK - Ambulatory Encounter Nikolay Sol LM Adult Medicine UNK - Ambulatory Encounter Nikolay Sol LM Adult Medicine UNK - Ambulatory Encounter Nikolay Sparrow [facility] Adult Medicine Vaccination against influenzaVaccination for strep pneumonia with pneumovaxTransaminases, serum, elevatedSkin lesions, multiple - Ambulatory Encounter Nikolay Sol [facility]Logic [facility] Adult Medicine UNK - Ambulatory Encounter Dona Eng [facility] Adult Medicine UNK - Ambulatory Encounter Concepcion Rodgers [facility] BL[facility]ACH[facility] OPER[facility] UNK - Ambulatory Encounter [facility] UNK - Ambulatory Encounter [facility]olay [facility] UNK - Ambulatory Encounter Nikolay [...] Vision UNK - Ambulatory Encounter [facility] UNK - Ambulatory Encounter Fax Status [facility] UNK - Ambulatory Encounter Fax [facility] UNK - Ambulatory Encounter Nikolay Sol LM Adult Medicine UNK - Ambulatory Encounter Nikolay Sparrow [facility] Adult Medicine Immunization updateScreening for stdScreening, colon cancer - Ambulatory Encounter Barb Lopez [facility] Public Health Services UNK - Ambulatory Encounter Josesito Perry LM Vision UNK - Ambulatory Encounter Anaya Hassan [facility] Vision UNK - Ambulatory Encounter Angela Bhakhrani Angela Bhakhrani [facility] Vision UNK - Ambulatory Encounter Josesito Perry Rekha Machuca [facility] Vision UNK - Ambulatory Encounter Angela Bhakhrani Angela Bhakhrani [facility] Vision UNK - Ambulatory Encounter Angela Bhakhrani Angela Bhakhrani [facility] Vision UNK - Ambulatory Encounter Angela Bhakhrani Angela Bhakhrani Anaya Mo Rekha Machuca [facility] Vision Astigmatism - OUMyopia - OU - Ambulatory Encounter Chad Greenfield [facility] Adult Medicine UNK - Ambulatory Encounter Chad Corona Greenfield [facility] Adult Medicine UNK - Ambulatory Encounter Chad Greenfield [facility] Adult Medicine UNK - Ambulatory Encounter Chad Navarro LinkLogic Chloe Greenfield [facility] Adult Medicine UNK - Ambulatory Encounter Chad Greenfield [facility] Adult Medicine UNK - Ambulatory Encounter Chad CottrellLogic Chloe Greenfield [facility] Adult Medicine UNK - Ambulatory Encounter [facility] UNK - Ambulatory Encounter Chad Rice [facility] Adult Medicine UNK - Ambulatory Encounter Chda Navarro LM Adult Medicine UNK - Ambulatory Encounter Chad Greenfield [facility] Adult Medicine UNK - Ambulatory Encounter Chad Navarro LinkLogjoy Greenfield [facility] Adult Medicine UNK - Ambulatory Encounter Montserrat Sousa [facility] Center UNK - Ambulatory Encounter Valentina Hernandez [facility] Adult Medicine UNK - Ambulatory Encounter Chad Navarro [facility] Adult Medicine UNK - Ambulatory Encounter Chad Navarro LinkLogic LM Adult Medicine UNK - Ambulatory Encounter Chad Navarro LM Adult Medicine UNK - Ambulatory Encounter Chad Navarro LinkLogic LM Adult Medicine UNK - Ambulatory Encounter Chad Navarro [facility] Adult Medicine Screening for std - Ambulatory Encounter Chad Greenfield [facility] Adult Medicine UNK - Ambulatory Encounter Enedelia Renetta LinkLogic Chloe Greenfield [facility] Adult Medicine UNK - Ambulatory Encounter Chad Greenfield LM Adult Medicine UNK - Ambulatory Encounter Chad Greenfield [facility] Adult Medicine UNK - Ambulatory Encounter Enedelia Renetta LinkLogic Chloe Greenfield [facility] Adult Medicine UNK - Ambulatory Encounter Enedelia Renetta LinkLogic Chloe Greenfield [facility] Adult Medicine UNK - Ambulatory Encounter Enedelia [...] - Ambulatory Encounter Milana Lopez [facility] Services [facility] UNK - Ambulatory Encounter Kati Tian [...] Medicine UNK - Ambulatory Encounter Fax Status [facility] UNK - Ambulatory Encounter Fax Status [facility] UNK - Ambulatory Encounter Fax Status [facility] UNK - Ambulatory Encounter Radha oPsey LM Adult Medicine UNK - Ambulatory Encounter [...] Vision UNK - Ambulatory Encounter [facility] UNK - Ambulatory [...] Medicine UNK - Ambulatory Encounter Christopher Chano [facility] Services UNK - Ambulatory Encounter Radha Posey [facility] Adult Medicine UNK - Ambulatory Encounter Radha Posey [facility] Adult Medicine UNK - Ambulatory Encounter Radha Morah [facility] Adult Medicine UNK - Ambulatory Encounter Radha Posey [facility] Adult Medicine UNK - Ambulatory Encounter [facility] - Ambulatory Encounter Radha Posey [facility] Adult Medicine UNK - Ambulatory Encounter [facility] - Ambulatory Encounter [facility] - [...] UNK - Ambulatory Encounter Fax Status [facility] UNK - Ambulatory Encounter Fax Status LinkLogic [facility] Services UNK - Ambulatory Encounter Fax Status LinkLogic [facility] Services UNK - Ambulatory Encounter Nikolay [...] - Ambulatory Encounter Elaina Burleson [facility] Services [facility] UNK - Ambulatory Encounter Chad Greenfield [...] - Ambulatory Encounter Enedelia Renetta LinkLogic Chloe Greenifeld LM Adult Medicine UNK - Ambulatory Encounter [...] UNK - Ambulatory Encounter Chad Navarro [facility] UNK - Ambulatory Encounter [...] UNK - Ambulatory Encounter Merry Radha LinkLogic [facility] Geotechnical Department Manager UNK - Ambulatory Encounter Chad Navarro LinkLogic Amria Eugenia Wolfe LM Adult Medicine UNK - Ambulatory Encounter Chad Navarro [facility] Adult Medicine UNK - Ambulatory Encounter Merry Garcia [facility] Geotechnical Department Manager UNK - Ambulatory Encounter Chad Ruggiero [facility] Adult Medicine HYPERLIPIDEMIA - Ambulatory Encounter Cha Mitchell [facility] Adult Medicine UNK - Ambulatory Encounter Chad Navarro LinkLogic LM Adult Medicine UNK - Ambulatory Encounter Chad Navarro LinkLogic LM Adult Medicine UNK - Ambulatory Encounter Chad Ren [facility] Adult Medicine UNK - Ambulatory Encounter Chad Rodriges LM Adult Medicine UNK - Ambulatory Encounter Enedelia Renetta LinkLogic Lou Ren [facility] Adult Medicine UNK - Ambulatory Encounter Mario Bardales LM Adult Medicine UNK - Ambulatory Encounter Chad Ren [facility] Adult Medicine UNK - Ambulatory Encounter Enedelia Renetta LinkLogic Lou Ren [facility] Adult Medicine UNK - Ambulatory Encounter Enedelia Renetta LinkLogic Lou Ren [facility] Adult Medicine UNK - Ambulatory Encounter Cha Girard-Michael [facility] Adult Medicine UNK - Ambulatory Encounter Reneemendoza Palafox [facility] UNK - Ambulatory Encounter Chad Ren LM Adult Medicine UNK - Ambulatory Encounter Enedelia Jackson LinkLogic Lou Mikal [facility] Adult Medicine UNK - Ambulatory Encounter Chad You [facility] Adult Medicine UNK - Ambulatory Encounter Enedelia Jackson LinkLogic Dona You LM Adult Medicine UNK - Ambulatory Encounter Chad Peoples [facility] Adult Medicine UNK - Ambulatory Encounter Enedelia Jackson LinkLogic Dalila Peoples [facility] Adult Medicine UNK - Ambulatory Encounter Chad [...] Ambulatory Encounter Chad Navarro LinkLogic [facility] Services UNK - Ambulatory Encounter Chad [...] - Ambulatory Encounter Kathe See [facility] Services UNK - Ambulatory Encounter Lou [...] Medicine UNK - Ambulatory Encounter Louwolf Ren [facility] Adult Medicine UNK - Ambulatory Encounter Louwolf Ren [facility] Adult Medicine UNK - Ambulatory Encounter Enedelia Renetta LinkLogic [facility] Adult Medicine UNK - Ambulatory Encounter Enedelia Renetta LinkLogic [facility] Adult Medicine UNK - Ambulatory [...] Medicine UNK - Ambulatory Encounter Chad Velázquez [facility] Adult Medicine UNK - Ambulatory Encounter Renée Young [facility] Geotechnical Department Manager UNK - Ambulatory Encounter Renée Young [facility] Geotechnical Department Manager UNK - Ambulatory Encounter Dona You LM Adult Medicine UNK - Ambulatory Encounter Chad You LM Adult Medicine UNK - Ambulatory Encounter Dona You LM Adult Medicine UNK - Ambulatory Encounter Chad You [facility] Adult Medicine UNK - Ambulatory Encounter Chelsi Fierro LM Adult Medicine UNK - Ambulatory Encounter Chelsijohn Monroyamillo [facility] Adult Medicine UNK - Ambulatory Encounter Venkata Michaels [facility] Adult Medicine - Ambulatory Encounter Chad Navarro [...] [facility] Vision - Ambulatory Encounter Martita Michaels [facility] Adult Medicine - Ambulatory Encounter Yaya CottrellLogjoy Test Location of Care UNK - Ambulatory Encounter Yaya Raúl CottrellLogjoy Test Location of Care UNK - Ambulatory Encounter LC Lab Provider [facility] Services UNK - Ambulatory Encounter LC Lab Provider [facility] Services UNK - Ambulatory Encounter LC Lab Provider [facility] Services UNK - Ambulatory Encounter LC Lab Provider [facility] Services UNK - Ambulatory Encounter LC Lab Provider [facility] Services UNK - Ambulatory Encounter LC Lab Provider [facility] Services UNK - Ambulatory Encounter LC Lab Provider [facility] Services UNK - Ambulatory Encounter LC Lab Provider [facility] Services UNK VITAL SIGNS Date Observation Value [...] " Blood Pressure Position 01 sitting Jen Lopze " blood pressure, site #1 left arm [...] HIV-1RNA, serum, by PCR, quantitative 40 /[facility] rapid plasma reagin antibody, serum Non Reactive [...] history E&M Single. Not homeless. Born in [facility]. City: [place]. State: [place]. 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 Gender of partner(s): female. Age of first sexual intercourse: 14. Tangela Hicks " social history reviewed E&M reviewed today Tangela Hicks " is there any chance that you could be ? No Tangela Hicks " sexual orientation Heterosexual Tangela Hicks " assessment of health literacy ([facility] 2014 Standards, 3C10) Adequate Tangela Hicks " [...] history E&M Single. Not homeless. Born in [facility]. City: [place]. State: [place]. 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 Gender of partner(s): female. Age of first sexual intercourse: 14. Tangela Kurt " social history reviewed E&M reviewed today Tangela Hicks " sexual orientation Heterosexual Tangela Hicks " assessment of health literacy ([facility] 2014 Standards, 3C10) Adequate Tangela Hicks " passive cigarette smoke exposure No Tangela Hicks " smoking status former smoker Tangela Hicks " Exercise Program Referral T Tangela Kurt " Weight Management Counseling Provided T Tangela Kurt " Nutrition intervention T Tangela Hicks Exercise Program Referral T Nikolay Sol " Weight Management Counseling Provided T Nikolay Sol " Nutrition intervention T Nikolay Sol " drug use, illicit Never Lori Evelin Sparrow " alcohol use Currently Lori J Sparrow " social history E&M Single. Not homeless. Born in [facility]. City: [place]. State: [place]. 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 Gender of partner(s): female. Age of first sexual intercourse: 14. Loir Sparrow " social history reviewed E&M reviewed [...] history E&M Single. Not homeless. Born in [facility]. City: [place]. State: [place]. 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 Gender of partner(s): female. Age of first sexual intercourse: 14. Lori Shahz " social history reviewed E&M reviewed today Lorichiki Shahz " assessment of health literacy ([facility] 2014 Standards, 3C10) Adequate Lori Evelin Shahz [...] Marilu Chavez " assessment of health literacy ([facility] 2014 Standards, 3C10) Adequate Marilu Chavez " social history E&M Single. Not homeless. Born in [facility]. City: [place]. State: [place]. 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 Gender [...] history E&M Single. Not homeless. Born in [facility]. City: [place]. State: [place]. 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 Gender [...] Never Marilu Chavez " alcohol use Currently Amrilu Chavez " social history E&M Single. Not homeless. Born in [facility]. City: [place]. State: [place]. 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 Gender [...] history E&M Single. Not homeless. Born in [facility]. City: [place]. State: [place]. 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 Gender [...] history E&M Single. Not homeless. Born in [facility]. City: [place]. State: [place]. 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 Gender [...] history E&M Single. Not homeless. Born in [facility]. City: [place]. State: [place]. 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 Gender [...] history E&M Single. Not homeless. Born in [facility]. City: [place]. State: [place]. 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 Gender [...] history E&M Single. Not homeless. Born in [facility]. City: [place]. State: [place]. 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 Gender [...] history E&M Single. Not homeless. Born in [facility]. City: [place]. State: [place]. 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 Gender of partner(s): female. Age of first sexual intercourse: 14. 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 Sara Vente " patient considered to be homeless No Sara Vente " passive cigarette smoke exposure No Sara Vente " smoking, advice to quit Yes Sara Vente " smoking status current every day smoker Saar Vente FUNCTIONAL STATUS No Information Available MENTAL [...] affect E&M good eye contact, normal affect [facility] " mental status examination: orientation E&M alert [...] affect E&M good eye contact, normal affect [facility] " mental status examination: orientation E&M alert [...] Anxiety Disorder Questionnaire - Question 1 0 Mariul Kathy assessment of mood and affect E&M [...] affect E&M good eye contact, normal affect [facility] " mental status examination: orientation E&M alert [...] 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 White 101-200% Other [id number] Errol White 101-200% Other Errol White 101-200% Other Errol White 101-200% Other [id number] Errol White 101-200% Other Errol White 101-200% Other Errol White 101-200% Other Sliding Fee - Cat 5 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 [employer] [id number] Errol White 101-200% Other [id number] Errol White 101-200% Other Errol White 101-200% Other 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 White 101-200% Other Errol White 101-200% Other 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 [id number] Errol White 101-200% Other [id number] Sliding Fee - Cat 5 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 [employer] [id number] Sliding Fee Scale 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 [id number] Errol White up to 300% Other [id number] ADVANCE DIRECTIVES Name Date DISCUSSED - NO [...] - - Est Patient Exp Problem - 21787 Finger Stick Glucose Est Patient Exp Problem - 95748 Primary Care - Assesment-Brief - SLW Primary Care Service Linkage Primary Care Service Linkage Est Patient Detailed - 12366 Pneumovax Vaccine PPSV23 INFLUENZA VACCINE QUADRIVALENT 3 YRS PLUS IM Glucose Stick Dispensing Visit (UNLIVSTED OPHTHALMOLOGICAL SERVICE/PROCEDURE) Est Patient Exp Problem - 39980 Est Patient Exp Problem - 71244 COMPUTERIZED OPHTHALMIC IMAGING OPTIC NERVE Est Patient Comprehensive Opth - 03193 Spherocyl, SV, plano to +/- 4.00d sphere, 0.12 to 2.00d cyl, per lens Spherocyl, SV, plano to +/- 4.00d sphere, 2.12 to 4.00d cyl, per lens Add to lens; tint, any color, solid, gradient or equal, excl photochro, any niles Frames, purchases Est Patient Intermediate Opth - 97014 Ofc Vst, Est Level IV Contact Insp/Mod (MODIFICAJ CONTACT LENX SPX SUPVJ ADAPTATION) COMPUTERIZED OPHTHALMIC IMAGING OPTIC NERVE Est Patient Intermediate Opth - 06257 Dispensing Visit (Non-Billable) COMPUTERIZED OPHTHALMIC IMAGING OPTIC NERVE Contact Lens Fitting (RX&FITG C-LENS SUPVJ CRNL LENS OU XCPT APHK) Est Patient Intermediate Opth - 20032 Est Patient Detailed - 44001 INFLUENZA VACCINE QUADRIVALENT 3 YRS PLUS IM Ofc Vst, Est Level IV Nutrition - Internal Ofc Vst, Est Level IV Est Patient Exp Problem - 76961 Est Patient Detailed - 08639 Handling of specimen for transfer Venipuncture Dispensing [...] OPTIC NERVE Est Patient Intermediate Opt - 18415 Contact Lens Fitting (RX&FITG C-LENS SUPVJ CRNL LENS OU XCPT APHK) Est Patient Intermediate Opt - 00074 Primary Care - Assesment-Brief - SLW Primary [...] PACHYMETRY UNI/BI Est Patient Intermediate Opt - 01954 Contact Lens Fitting (RX&FITG C-LENS SUPVJ CRNL LENS OU XCPT APHK) Est Patient Intermediate Opt - 24311 Ofc Vst, Est Level IV Pneumovax Vaccine [...] Perry completed Est Patient Comprehensive Opt - 47762 Josesito Perry completed Spherocyl, SV, plano to +/- 4.00d sphere, 0.12 to 2.00d cyl, per lens Anaya Hassan completed Spherocyl, SV, plano to +/- 4.00d sphere, 2.12 to 4.00d cyl, per lens Anaya Hassan completed Add to lens; tint, any color, solid, gradient or equal, excl photochro, any niles [employer] completed Frames, purchases [employer] Frame #1162 (Pd 5.00) completed Est Patient Intermediate Opt - 27708 Angela Aldrich completed Contact Insp/Mod (MODIFICAJ CONTACT LENX SPX SUPVJ ADAPTATION) Efra Tariq completed COMPUTERIZED OPHTHALMIC IMAGING OPTIC NERVE Josesito Perry completed Est Patient Intermediate Opt - 40404 Josesito Perry completed Dispensing Visit (Non-Billable) Tracey Bacon completed COMPUTERIZED OPHTHALMIC IMAGING OPTIC NERVE Tracey Bacon completed Contact Lens Fitting (RX&FITG C-LENS SUPVJ CRNL LENS OU XCPT APHK) Efra Tariq completed Est Patient Intermediate Opt - 13457 Efra Tariq completed Venipuncture Radha Posey completed [...] Perry completed Est Patient Intermediate Opt - 92957 Josesito Perry completed Contact Lens Fitting (RX&FITG C-LENS SUPVJ CRNL LENS OU XCPT APHK) Efra Tariq completed Est Patient Intermediate Opt - 45953 Efra Tariq completed Primary Care - Assesment-Brief [...] Perry completed Est Patient Intermediate Opth - 38539 Josesito Perry completed Contact Lens Fitting (RX&FITG C-LENS SUPVJ CRNL LENS OU XCPT APHK) Efra Tariq completed Est Patient Intermediate Opth - 50708 Efra Tariq completed Primary Care Medical Case Management Renée Zavala Time spent with patient: 15 completed Primary Care Medical Case Management Renée Zavala Time spent with patient: 15 completed GOALS No Information Available HEALTH CONCERNS No Information Available
--- OUTSIDE RECORDS SUMMARY | 2019-07-14 14:38 | XMS REPORT ---
Author Author Admin, [place] Organization Unknown Address Unknown Phone Unavailable PROBLEMS [...] Diagnosis - Ambulatory Encounter Nikolay Sol LinkLogic [facility] Medicine UNK - Ambulatory Encounter Stephanie Whittaker [facility] UNK - Ambulatory Encounter Tangela Arriaza [facility] Contact Center UNK - Ambulatory Encounter Raven Ricky [facility] Practice UNK - Ambulatory Encounter Fax Status [facility] UNK - Ambulatory Encounter Fax Status [facility] UNK - Ambulatory Encounter Fax Status [facility] UNK - Ambulatory Encounter Nikolay CottrellLogic [facility] Medicine UNK - Ambulatory Encounter Nikolay Sol [facility] Medicine UNK - Ambulatory Encounter Nikolay Hicks [facility] Transaminases, serum, elevatedSkin lesions, multipleHip pain, left - Ambulatory Encounter Tangela Hicks [facility] Medicine UNK - Ambulatory Encounter Nikolay Sol LinkLogic [facility] Medicine UNK - Ambulatory Encounter Dona Eng [facility] Medicine UNK - Ambulatory Encounter Nikolay Armendariz [facility] Medicine UNK - Ambulatory Encounter Nikolay Hernandez [facility] Adult Medicine UNK - Ambulatory Encounter Nikolay Franco MedAdherence, [facility] Medicine UNK - Ambulatory Encounter Dona Eng [facility] Medicine UNK - Ambulatory Encounter Nikolay Black MedAdherence [facility] UNK - Ambulatory Encounter Nikolay Sol LinkLogic [facility] Adult Medicine UNK - Ambulatory Encounter Nikolay Sol LinkLogic [facility] Adult Medicine UNK - Ambulatory Encounter Nikolay Eng [facility] Adult Medicine UNK - Ambulatory Encounter Nikolay Sol LinkLogic [facility] Adult Medicine UNK - Ambulatory Encounter Nikolay Sol LinkLogic [facility] Adult Medicine UNK - [facility]ulatory [facility] - Ambulatory Encounter Mario Canales [place] [facility] Eligibility UNK - Ambulatory Encounter Naina Cordova [facility] UNK - Ambulatory Encounter [facility] - [facility] - [facility] - [facility] - Ambulatory Encounter Mac Hernandez [facility] Etl Informatica Developer UNK - Ambulatory Encounter Nikolay Sol [facility] Adult Medicine UNK - Ambulatory Encounter Nikolay Hicks [facility] Medicine Vaccination against influenzaVaccination for strep pneumonia with pneumovaxHepatitis C antibody test positiveImmunity status testing, antibody response - Ambulatory Encounter Nikolay Franco MedAdherence, [facility] UNK - Ambulatory Encounter Paz Shannan [facility] [employer] Informatica Developer UNK - Ambulatory Encounter Mac David [facility] Etl Informatica Developer UNK - Ambulatory Encounter Nikolay Sol LinkLogic [facility] Adult Medicine UNK - Ambulatory Encounter Nikolay Sol [facility]ic [facility] Adult [facility] UNK - Ambulatory Encounter Nikolay Sol LinkLogic [facility] Adult Medicine UNK - Ambulatory Encounter Nikolay Armendariz [facility] Medicine UNK - Ambulatory Encounter Nikolay Franco MedAdherence, [facility] Adult Medicine UNK - Ambulatory Encounter Catina Jackson LM Adult Medicine UNK - Ambulatory Encounter Antoni Hurtado [facility] Medicine UNK - Ambulatory Encounter Nikolay Sol LM Adult Medicine UNK - Ambulatory [facility]counter [facility] - [facility]ulatory [facility] UNK - Ambulatory Encounter Fax Status [facility] UNK - Ambulatory Encounter Nikolay Sparrow [facility] Adult Medicine UNK - Ambulatory Encounter [facility] Care Coordination Desktop Lori Scott [facility] Services Contact Center UNK - Ambulatory Encounter Nikolay Sol LinkLogic LM Adult Medicine UNK - Ambulatory Encounter Nikolay Sol [facility] Adult Medicine UNK - Ambulatory Encounter Nikolay Sol [facility] Adult Medicine UNK - Ambulatory Encounter Nikolay Sparrow [facility] Medicine Vaccination against influenzaVaccination for strep pneumonia with pneumovaxTransaminases, serum, elevatedSkin lesions, multiple - Ambulatory Encounter Nikolay Sol LinkLogic LM Adult Medicine UNK - Ambulatory Encounter Dona Sandyierrez [facility] Medicine UNK - Ambulatory Encounter Payalonesimo Rodgers [facility] INTERFACE DEVELOPER UNK - Ambulatory Encounter Naina Cordova [facility] UNK - Ambulatory Encounter Nikolay Faganrade [facility] UNK - Ambulatory Encounter Nikolay Sol LinkLogic LM Adult Medicine UNK - Ambulatory Encounter Nikolay Sol LinkLogic LM Adult Medicine UNK - Ambulatory Encounter Josesito Perry LinkLogic [facility] Vision UNK - Ambulatory Encounter Nikolay Greenfield LM Adult Medicine UNK - Ambulatory Encounter Chad Navarro [facility] Adult Medicine UNK - Ambulatory Encounter Chad Navarro LinkLogic LM Adult Medicine UNK - Ambulatory Encounter Tracey Haarra [facility] Vision UNK - Ambulatory Encounter Tracey Haarra [facility] Vision UNK - Ambulatory Encounter Fax Status [facility] UNK - Ambulatory Encounter Fax Status [facility] UNK - Ambulatory Encounter Fax Status [facility] UNK - Ambulatory Encounter Nikolay Sol [facility] Adult Medicine UNK - Ambulatory Encounter Nikolay Sparrow [facility] Adult Medicine Immunization updateScreening for stdScreening, colon cancer - Ambulatory Encounter Barb Lopez [facility] Public Health Services UNK - Ambulatory Encounter Josesito Perry [facility] Vision UNK - Ambulatory Encounter Anaya Hassan [facility] Vision UNK - Ambulatory Encounter Angela Bhakhrani Angela Bhakhrani [facility] Vision UNK - Ambulatory Encounter Josesito Perry Rekha Machuca [facility] Vision UNK - Ambulatory Encounter Angela Bhakhrani Angela Bhakhrani [facility] Vision UNK - Ambulatory Encounter Angela Bhakhrani Angela Bhakhrani [facility] Vision UNK - Ambulatory Encounter Angela Bhakhrani Angela Bhakhrani Anaya Gonzalezra Grayes [facility] Vision Astigmatism - OUMyopia - OU - Ambulatory Encounter Chad Greenfield [facility] Adult Medicine UNK - Ambulatory Encounter Chad Greenfield [facility] Adult Medicine UNK - Ambulatory Encounter Chad Greenfield [facility] Adult Medicine UNK - Ambulatory Encounter Chad Greenfield [facility] Adult Medicine UNK - Ambulatory Encounter Chad Navarro LinkLogjoy Greenfield [facility] Adult Medicine UNK - Ambulatory Encounter Chad Navarro LinkLogjoy Corona Greenfield LM Adult Medicine UNK - Ambulatory Encounter Chad Navarro [facility]Logic [facility] Adult Medicine UNK - Ambulatory Encounter Chad Lundcy Jose Juan Rice [facility] Adult Medicine UNK - Ambulatory Encounter Chad Navarro LM Adult Medicine UNK - Ambulatory Encounter Chad Greenfield [facility] Adult Medicine UNK - Ambulatory Encounter Chad Navarro LinkLogic Chloe Greenfield [facility] Adult Medicine UNK - Ambulatory Encounter Montserrat [facility] UNK - Ambulatory Encounter Valentina Hernandez [facility] Adult Medicine UNK - Ambulatory Encounter Chad Navarro LM Adult Medicine UNK - Ambulatory Encounter Chad Navarro LinkLogic LM Adult Medicine UNK - Ambulatory Encounter Chad Navarro LM Adult Medicine UNK - Ambulatory Encounter Chad Navarro LinkLogic LM Adult Medicine UNK - Ambulatory Encounter Chad Navarro [facility] Adult Medicine Screening for std - Ambulatory Encounter Chad Greenfield LM Adult Medicine UNK - Ambulatory Encounter Enedelia CottrellLogjoy Greenfield [facility] Adult Medicine UNK - Ambulatory Encounter Chad [...] Adult Medicine UNK - Ambulatory Encounter Chad Haroila [facility] Adult Medicine URIMyopia - OURegular astigmatism, bilateral - Ambulatory Encounter Milana John [facility] Contact Center UNK - Ambulatory Encounter Kati Tian [...] ear disorders - Ambulatory Encounter Efra Tariq [facility] Vision UNK - Ambulatory Encounter Efra Tariq [facility] Vision UNK - Ambulatory Encounter Efra Tariq Yuko Edmond [facility] Vision Open angle with borderline findings, high risk, bilateralMyopia - OURegular astigmatism, bilateralCorneal scar, left - Ambulatory Encounter Chad Navarro LinkLogic [facility] Medicine UNK - Ambulatory Encounter [facility] - Ambulatory Encounter Fax Status [facility] UNK - Ambulatory Encounter Fax Status [facility] UNK - Ambulatory Encounter Radha Posey LM Adult Medicine UNK - Ambulatory Encounter Radhajuan c Morah LinkLogic LM Adult Medicine UNK - Ambulatory Encounter Radhajuan c [place]ah LinkLogic LM Adult Medicine UNK - Ambulatory Encounter Radhajuan c Lopez [facility] Adult Medicine UNK - Ambulatory Encounter Radha Morganh Radha Kashifnth Jen Whittaker [facility] Adult Medicine UNK - Ambulatory Encounter Chad Navarro LinkLogic [facility] Adult Medicine UNK - Ambulatory Encounter Chad Navarro LinkLogic [facility] Adult Medicine UNK - Ambulatory Encounter Chad Greenfield LM Adult Medicine UNK - Ambulatory Encounter Lina Dias [facility] Adult Medicine UNK - Ambulatory Encounter Yuko Edmond [facility] Vision UNK - Ambulatory Encounter Chad Veliz [facility] Contact Center UNK - [...] Medicine UNK - Ambulatory Encounter Michael Madden [facility] UNK - Ambulatory Encounter Radha Posey [facility] Adult Medicine UNK - Ambulatory Encounter Radha Posey LinkLogic [facility] Adult Medicine UNK - Ambulatory Encounter Radha Rowlandnth [facility] Adult Medicine UNK - Ambulatory Encounter Radha Posey [facility] Adult Medicine UNK - Ambulatory Encounter Michael Madden [facility] UNK - Ambulatory Encounter Radha Posey LinkLogic [facility] Adult Medicine UNK - Ambulatory Encounter Michael Madden [facility] UNK - Ambulatory Encounter Michael Madden [facility] UNK - Ambulatory Encounter Radha Posey [facility] Adult Medicine UNK - Ambulatory Encounter Radha Posey LinkLogic [facility] Adult Medicine UNK - Ambulatory Encounter Chad Navarro [facility] Adult Medicine UNK - Ambulatory Encounter Chad Murciajoshua Chano [facility] Medicine Otitis media, right - Ambulatory Encounter Radha Posey [facility] Adult Medicine UNK - Ambulatory Encounter Radha Posey LinkLogic LM Adult Medicine UNK - Ambulatory Encounter Lina Dias LM Adult Medicine UNK - Ambulatory Encounter Radha Posey LinkLogic LM Adult Medicine UNK - Ambulatory Encounter Scott Zhao LM Adult Medicine UNK - Ambulatory Encounter Fax Status [facility] - Ambulatory Encounter Fax Status [facility] UNK - Ambulatory Encounter Fax Status [facility] UNK - Ambulatory Encounter [...] Medicine UNK - Ambulatory Encounter Radha Kalpesh Posey LinkLogic [facility] Adult Medicine UNK - [...] UNK - Ambulatory Encounter Elaina Burleson [facility] UNK - Ambulatory Encounter Chad Greenifeld [facility] Adult Medicine UNK - Ambulatory Encounter Enedelia Greenfield [facility] Adult Medicine UNK - Ambulatory Encounter Radha King [facility] Adult Medicine UNK - Ambulatory Encounter Chad Greenfield [facility] Adult Medicine UNK - Ambulatory Encounter Chad Navarro Chloe Greenfield [facility] Adult Medicine UNK - Ambulatory Encounter Chad Navarro Chloedaniele Greenfield [facility] Adult Medicine UNK - Ambulatory Encounter Chad Navarro Chloedaniele Greenfield [facility] Adult Medicine UNK - Ambulatory Encounter Chad Navarro Chloe Greenfield [facility] Adult Medicine UNK - Ambulatory Encounter Enedelia Renetta LinkLogic Chloe Greenfield [facility] Adult Medicine UNK - Ambulatory Encounter Enedelia Renetta LinkLogic Chloe Greenfield [facility] Adult Medicine UNK - Ambulatory Encounter Enedelia Renetta LinkLogic Chloe Greenfield [facility] Adult Medicine UNK - Ambulatory Encounter Enedelia Renetta LinkLogic Chloe Greenfield [facility] Adult Medicine UNK - Ambulatory Encounter Enedelia Renetta LinkLogic Chloe Greenfield [facility] Adult Medicine UNK - Ambulatory Encounter Chad [...] - Ambulatory Encounter Chad Navarro LinkLogic [facility] UNK - Ambulatory Encounter Lambert Jones [facility] Adult Medicine UNK - Ambulatory Encounter Josesito Delgado Orlando Josesito Perry [facility]ic [facility] Vision UNK - Ambulatory Encounter Efra Tariq [facility] Vision UNK - Ambulatory Encounter Tracey Bacon [facility] Vision UNK - Ambulatory Encounter Lambert Jones [facility] Adult Medicine UNK - Ambulatory Encounter Josesito Sandy [place] Josesito Perry [facility]ic [facility] Vision UNK - Ambulatory Encounter Yuko Edmond [facility] Vision UNK - Ambulatory Encounter Efra Tariq [facility] Vision UNK - Ambulatory Encounter Chad Navarro LinkLogic [facility] Adult Medicine UNK - Ambulatory Encounter Josesito Delgado Perry Josesito Perry [facility] Vision UNK - Ambulatory Encounter Josesito Delgado Orlando Josesito Perry [facility] Vision UNK - Ambulatory Encounter Josesito Delgado [place] Josesito Perry Tracey Bacon [facility] Vision UNK - Ambulatory Encounter Efra Tariq [facility] Vision UNK - Ambulatory Encounter Efra Tariq [facility] Vision UNK - Ambulatory Encounter Efra Tariq [facility] Vision UNK - Ambulatory Encounter Efra Tariq Yuko Edmond [facility] Vision - Ambulatory Encounter Chad [...] Medicine UNK - Ambulatory Encounter Dona Avelino LM Adult Medicine UNK - Ambulatory Encounter Enedelia Renetta LinkLogic Dona Avelino LM Adult Medicine UNK - Ambulatory Encounter Enedeliasujit Oseiez LinkLogic Dona Avelino LM Adult Medicine UNK - Ambulatory Encounter Enedelia Renetta LinkLogic Dona Avelino LM Adult Medicine UNK - Ambulatory Encounter Enedeliasujit Oseiez LinkLogic Dona Avelino LM Adult Medicine UNK - Ambulatory Encounter Merry Garcia LinkLogic [facility] Etl Informatica Developer UNK - Ambulatory Encounter Chad Navarro LinkLogic Maria Eugenia Wolfe [facility] Adult Medicine UNK - Ambulatory Encounter Chad Navarro LinkLogic LM Adult Medicine UNK - Ambulatory Encounter Merry Garcia [facility] Etl Informatica Developer UNK - Ambulatory Encounter Chad Ruggiero [facility] Adult Medicine HYPERLIPIDEMIA - Ambulatory Encounter Cha Mitchell [facility] Adult Medicine UNK - Ambulatory Encounter Chad Navarro [facility]Logic [facility] Adult Medicine UNK - Ambulatory Encounter Chad Navarro LinkLogic LM Adult Medicine UNK - Ambulatory Encounter Chad Ren [facility] Adult Medicine UNK - Ambulatory Encounter Chad Rodriges [facility] Adult Medicine UNK - Ambulatory Encounter Enedelia Jackson LinkLogjoy Ren [facility] Adult Medicine UNK - Ambulatory Encounter Mario Bardales [facility] Adult Medicine UNK - Ambulatory Encounter Chad Navarro Lou Mikal [facility] Adult Medicine UNK - Ambulatory Encounter Enedelia Renetta LinkLogic Lou Ren [facility] Adult Medicine UNK - Ambulatory Encounter Enedelia Renetta LinkLogic Lou Ren [facility] Adult Medicine UNK - Ambulatory Encounter Cha Mitchell LM Adult Medicine UNK - Ambulatory Encounter Reneerai Palafox [facility] Dental UNK - Ambulatory Encounter Chad Navarro Lou Ren [facility] Adult Medicine UNK - Ambulatory Encounter Enedelia Renetta LinkLogic Lou Ren [facility] Adult Medicine UNK - Ambulatory Encounter Chad You LM Adult Medicine UNK - Ambulatory Encounter Enedelia Renetta LinkLogic Dona You LM Adult Medicine UNK - Ambulatory Encounter Chad Peoples LM Adult Medicine UNK - Ambulatory Encounter Enedelia Renetta LinkLogic Dalila Peoples [facility] Adult Medicine UNK - Ambulatory Encounter Chad [...] [facility] Adult Medicine UNK - Ambulatory Encounter Charikki Arriaza [facility] Adult Medicine UNK - Ambulatory Encounter Chad Navarro LinkLogic [facility] UNK - Ambulatory Encounter Chad Navarro LinkLogic [facility] Adult Medicine UNK - Ambulatory Encounter Chad Navarro LinkLogic [facility] Adult Medicine UNK - Ambulatory Encounter Chad Mitchell [facility] Adult Medicine UNK - Ambulatory Encounter Robert Mott [facility] Adult Medicine UNK - Ambulatory Encounter Chad Navarro Louwolf Ren [facility] Adult Medicine UNK - Ambulatory Encounter Enedelia Renetta LinkLogic Lou Mikal [facility] Adult Medicine UNK - Ambulatory Encounter Chad Navarro Enedelia Renetta [facility] Adult Medicine UNK - Ambulatory Encounter Enedelia Renetta LinkLogic [facility] Adult Medicine UNK - Ambulatory Encounter Kathe See [facility] UNK - Ambulatory Encounter Lou Mikal C Adult Medicine UNK - Ambulatory Encounter Lou Mikal C Adult Medicine UNK - Ambulatory Encounter Enedelia Renetta LinkLogic Lou Mikal [facility] Adult Medicine UNK - Ambulatory Encounter Enedelia Renetta LinkLogic Lou Mikal [facility] Adult Medicine UNK - Ambulatory Encounter Enedelia [...] Medicine UNK - Ambulatory Encounter Lou Mikal C Adult Medicine UNK - Ambulatory Encounter Lou Mikal C Adult Medicine UNK - Ambulatory Encounter Enedelia Renetta LinkLog[facility] Adult Medicine UNK - Ambulatory Encounter Enedelia Renetta LinkLogic [facility] Adult Medicine UNK - Ambulatory Encounter Chad Navarro LinkLogic [facility] Adult Medicine UNK - Ambulatory Encounter Gracie Jansen LM Adult Medicine UNK - Ambulatory Encounter Chad Galeas [facility] Adult Medicine - Ambulatory Encounter Chad Navarro Enedelia Renetat [facility] Adult Medicine UNK - Ambulatory Encounter Enedelia Renetta LinkLogic Chad Navarro [facility] Adult Medicine UNK - Ambulatory Encounter Chad Dianeia Fierro [facility] Adult Medicine UNK - Ambulatory [...] Medicine UNK - Ambulatory Encounter Enedelia Ernetta LinkLogic [facility] Adult Medicine UNK - Ambulatory Encounter Enedelia Renetta LinkLogic [facility] Adult Medicine UNK - Ambulatory Encounter Efra Tariq LinkLogic [facility] Vision UNK - Ambulatory Encounter Tracey Bacon [facility] Vision UNK - Ambulatory Encounter Yuko Edmond [facility] Vision UNK - Ambulatory Encounter Efra Ricoshaheen Edmond [facility] Vision UNK - Ambulatory Encounter Yuko Edmond [facility] Vision UNK - Ambulatory Encounter Yuko Edmond [facility] Vision UNK - Ambulatory Encounter Josesito Perry C Vision UNK - Ambulatory Encounter Efra Ricoshaheen Edmond [facility] Vision Open angle with borderline findings, high risk, bilateral - Ambulatory Encounter Chad Navarro LinkLogic [facility] Adult Medicine UNK - Ambulatory Encounter Chad Diazthia Katinashabnam LM Adult Medicine - Ambulatory Encounter Dona You LM Adult Medicine UNK - Ambulatory Encounter Chad CottrellLogic [facility] Adult Medicine UNK - Ambulatory Encounter Chad Navarro LinkLogic [facility] Adult Medicine UNK - Ambulatory Encounter Chad Velázquez [facility] Adult Medicine UNK - Ambulatory Encounter Renée Young [facility] Etl Informatica Developer UNK - Ambulatory Encounter Renée Zavala [facility] Etl Informatica Developer UNK - Ambulatory Encounter Dona Avelino LM Adult Medicine UNK - Ambulatory Encounter Chad You LM Adult Medicine UNK - Ambulatory Encounter Dona Avelino LM Adult Medicine UNK - [...] Medicine UNK - Ambulatory Encounter Chad CottrellLogic [facility] Adult Medicine UNK - Ambulatory Encounter Chad Navarro LinkLogic [facility] Adult Medicine UNK - Ambulatory Encounter Elise Mejia [facility] Vision - Ambulatory Encounter Martita Onofre Duranary Mejia Cherrie Michaels [facility] Adult Medicine - Ambulatory Encounter Yaya Olsen LinkLogic Test Location of Care UNK - Ambulatory Encounter Yaya Olsen LinkLogic Test Location of Care UNK - Ambulatory Encounter LC Lab Provider [facility] UNK - Ambulatory Encounter LC Lab Provider [facility] UNK - Ambulatory Encounter [facility] Ambulatory Encounter [facility] UNK - Ambulatory Encounter LC Lab Provider [facility] UNK - Ambulatory Encounter LC Lab Provider [facility] UNK - Ambulatory Encounter LC Lab Provider [facility] UNK - Ambulatory Encounter LC Lab Provider [facility] UNK VITAL SIGNS Date Observation [...] Tangela Hicks " temperature site oral Tangela Hciks " height E&M 67 [in_i] Tangela Hicks " height in centimeters E&M 170.18 cm Tangela Hicks blood pressure, diastolic, second observation 93 mm[Hg] Tangela Hicks " blood pressure, systolic, second observation 137 mm[Hg] Tangela Hicks " temperature E&M 98.0 [degF] Tangela Reyados " pulse rate E&M 97 /min Tangela [...] used to obtain blood pressure automatic Tangela Reyados " temperature site oral Tangela Hicks " height E&M 67 [in_i] Tangela Reyados " height in centimeters E&M 170.18 cm Tangela Reyados BP diastolic #1 66 mm[Hg] Nikolay Sol " BP systolic #1 86 mm[Hg] Nikolay Sol " blood pressure, diastolic, second observation 86 mm[Hg] Lori J Andrews " blood pressure, systolic, second observation 126 mm[Hg] Lori Sparrow " blood pressure, diastolic 86 mm[Hg] Nikolay Sol " blood pressure, systolic 126 mm[Hg] Nikolay Sol " oxygen saturation, oximetry 98 % Lori Sprarow " respiratory rate E&M 16 /min Lor[place] [...] Sparrow blood pressure, diastolic 89 mm[Hg] Lori Waters Andrews " blood pressure, systolic 134 mm[Hg] [...] used to obtain blood pressure automatic Lori Evelin Andrews " Blood Pressure Position 01 sitting Lori J Andrews " blood pressure, site #1 left arm Lori Waters Andrews " temperature site tympanic Lori Waters [...] " oxygen saturation, oximetry 98 % Marilu Cahvez " temperature E&M 97.5 [degF] Marilu Chavez [...] " oxygen saturation, oximetry 98 % Marilu Hcavez " weight E&M 218.20 lbs. Marilu Chavez [...] John " weight E&M 220 lbs. Jen Lopze " weight in kilograms E&M 100 kg [...] height in centimeters E&M 170.18 cm Sara Vente oxygen saturation, oximetry 95 % Venkata Michaels " pulse rate E&M 105 /min Venkatawilmer Michaels " temperature E&M 98.4 [degF] Venkata [...] [id number] blood glucose, random 226 mg/dL Tangela Kurt Neisseria gonorrhoeae DNA probe Negative [facility] Negative [...] " T-helper cells (CD4) count 872 /UL [facility] [phone] HIV-1RNA, serum, by PCR, quantitative 40 /mL [facility] rapid plasma reagin antibody, serum Non Reactive [facility] Non Reactive " hemoglobin A1C, blood, as % of total hemoglobin 11.8 % [facility] 4.8-5.6 High " Hepatitis C virus (HCV) RNA, PCR, quantitative HCV Not Detected IU/mL [facility] " LDL cholesterol, serum 80 mg/dL [facility] [...] X10E3/UL [facility] 3.4-10.8 " CD4/CD8 ratio 1.04 [facility] 0.92-3.72 " T-suppressor cells (CD8) as percent of blood lymphocytes 38.3 % [facility] 12.0-35.5 High " absolute CD8 804 [facility] [id number] " T-helper cells (CD4) as percent of blood lymphocytes 39.9 % [facility] 30.8-58.5 " T-helper cells (CD4) count 838 /UL [facility] [phone] HIV-1RNA, serum, by PCR, quantitative <20 copies/mL [facility] " rapid plasma reagin antibody, serum Non Reactive [facility] Non Reactive " LDL cholesterol, serum 134 [...] 0.95 [facility] 0.92-3.72 " absolute CD8 629 [facility] [id number] " T-helper cells (CD4) as [...] RNA, PCR, quantitative HCV Not Detected IU/mL [facility] " HIV-1RNA, serum, by PCR, quantitative <20 copies/mL [facility] rapid plasma reagin antibody, serum Non [...] ORAL TABLET use as directed - Nikolay Slo BENZOYL PEROXIDE-ERYTHROMYCIN 5-3 % EXTERNAL GEL Apply [...] by mouth once daily with food Nikolay Hernándezmons REYATAZ 300 MG ORAL CAPSULE Take one capsule by mouth once daily with food Nikolay Sol SOCIAL HISTORY Date Observation Value Provider time of call 06/16/2019 9:13 AM Myah Shook smoking, advice to quit Yes Tangela Hicks " tobacco use (cigarettes, cigar, chew, pipe) Currently Tangela Hicks " drug use, illicit Never Tangela Hicks " alcohol use Currently Tangela Hicks " social history E&M Single. Not homeless. Born in [facility]. City: [place]. State: [place]. 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 Gender of partner(s): female. Age of first sexual intercourse: 14. Tangela Hicks " social history reviewed E&M reviewed today Tangela Hicks " is there any chance that you could be ? No Tangela Hicks " sexual orientation Heterosexual Tangela Hicks " assessment of health literacy ([facility] 2014 Standards, 3C10) Adequate Tangela Hicks [...] E&M Single. Not homeless. Born in [facility]. City: [place]. State: [place]. 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 Gender of partner(s): female. Age of first sexual intercourse: 14. Tangela Hicks " social history reviewed E&M reviewed today Tangela Hicks " sexual orientation Heterosexual Tangela Hicks " assessment of health literacy ([facility] 2014 Standards, 3C10) Adequate Tangela Hicks [...] E&M Single. Not homeless. Born in [facility]. City: [place]. State: [place]. 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 Gender of partner(s): female. Age of first sexual intercourse: 14. Lori J Andrews " social history reviewed E&M reviewed today [...] E&M Single. Not homeless. Born in [facility]. City: [place]. State: [place]. 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 Gender of partner(s): female. Age of first sexual intercourse: 14. Lori J Andrews " social history reviewed E&M reviewed today Lori Sparrow " assessment of health literacy ([facility] 2014 Standards, 3C10) Adequate Lori J Sparrow " passive cigarette smoke exposure No Lori J Sparrow " smoking status former smoker Lori Osmanmez time of call 09/10/2017 2:49 PM Barb Lopez sexual orientation Heterosexual Rekha Grayes sexual orientation Heterosexual Anaya Hassan time of call 07/05/2017 4:26 PM Renetta Sousa drug use, illicit Never Marilu Chavez " alcohol use Currently Marilu Chavez " sexual orientation Heterosexual Marilu Chavez " smoking status former smoker Marilu Chavez " passive cigarette smoke exposure No Marilu Chavez " assessment of health literacy ([facility] 2014 Standards, 3C10) Adequate Marilu Chavez " social history E&M Single. Not homeless. Born in [facility]. City: [place]. State: [place]. 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 Gender of [...] E&M Single. Not homeless. Born in [facility]. City: [place]. State: [place]. 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 Gender of [...] Chad Navarro " Weight Management Counseling Provided T Chad Navarro " Nutrition intervention T Chad Navarro " drug use, illicit Never Marilu Chavez " alcohol use Currently Marilu Chavez " social history E&M Single. Not homeless. Born in [facility]. City: [place]. State: [place]. 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 Gender of [...] E&M Single. Not homeless. Born in [facility]. City: [place]. State: [place]. 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 Gender of partner(s): female. Age of first sexual intercourse: 14. Marilu Chavez " social history reviewed E&M reviewed today Marilu Chavez " passive cigarette smoke exposure No Mariul Chavez " smoking status former smoker Marilu Chavez drug use, illicit Never Liudmila Castellanos " alcohol use Currently Liudmila Castellanos " passive cigarette smoke exposure No Liudmila Castellanos " smoking status former smoker Liudmila Castellanos drug use, illicit Never Jen John " alcohol use Currently Jen Jonh " social history E&M Single. Not homeless. Born in [facility]. City: [place]. State: [place]. 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 Gender of partner(s): female. Age of first sexual intercourse: 14. Jen John " social history reviewed E&M reviewed today Jen John " passive cigarette smoke exposure No Jen John " smoking status former smoker Jen Loepz sexual orientation Heterosexual Tracey Bacon sexual orientation Heterosexual Yuko Edmond sexual orientation Heterosexual Chad Navarro " social history E&M Single. Not homeless. Born in [facility]. City: [place]. State: [place] 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 Gender of partner(s): female. Age of first sexual intercourse: 14. Chad Nemmarybel " social history reviewed E&M reviewed today Chad Navarro " passive cigarette smoke exposure No Linda Bahman " smoking, advice to quit Yes Linda Ruggiero " smoking status former smoker Linda Bahman time of call 03/02/2014 3:47 PM Mario Bardales time of call 02/24/2014 8:11 AM Renee Palafox alcohol use, frequency few times per week Chad Navarro " alcohol use Currently Chad Navarro " social history E&M Single. Not homeless. Born in [facility]. City: [place]. State: [place]. 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 Gender of partner(s): female. Age of first sexual intercourse: 14. Chad Navarro " social history reviewed E&M reviewed today Chad Navarro " sexual orientation Heterosexual Chad Navarro " sex at male Linda Ruggiero " passive cigarette smoke exposure No Linda Ruggiero " cigarettes, number smoked per day 20 a week Linda Ruggiero " smoking, advice to quit Yes Ilnda Ruggiero " smoking status current every day smoker Lindaaddison Woodruffardo " social history E&M Single. Not homeless. Born in [facility]. City: [place]. State: [place]. 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 Gender of [...] E&M Single. Not homeless. Born in [facility]. City: [place]. State: [place]. 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 Gender of partner(s): female. Age of first sexual intercourse: 14. 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 Sara Vente " patient considered to be [...] Disorder Questionnaire - Question 1 0 Tangela Reyados assessment of mood and affect E&M no agitation Nikolay Sol " Generalized Anxiety Disorder Questionnaire - Question 2 0 Tangela Hicks " Generalized Anxiety Disorder Questionnaire - Question 1 0 Tangela Reyados assessment of mood and affect E&M no [...] E&M good eye contact, normal affect Josesito Sandy Perry " mental status examination: orientation E&M [...] E&M good eye contact, normal affect Josesito Sandy Perry " mental status examination: orientation E&M [...] of judgment and insight E&M intact Radha Rowlandmarlonishan " assessment of mood and affect E&M no depression, anxiety, or agitation Radha Rainerikanth " Generalized Anxiety Disorder Questionnaire - Question [...] libertarian ID Sliding Fee - Cat 5 [employer] Errol White 101-200% Other [id number] Errol White 101-200% Other Errol White 101-200% Other Errol White 101-200% Other [id number] Errol White 101-200% Other Errol White 101-200% Other Errol White 101-200% Other Sliding Fee - Cat 5 [employer] [id number] Errol White 101-200% Other [id number] Errol White 101-200% Other Errol White 101-200% Other 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 White 101-200% Other Errol White 101-200% Other Sliding Fee - Cat 5 [employer] [id number] Errol White 101-200% Other [id number] Sliding Fee - Cat 5 [employer] [id number] Sliding Fee Scale [employer] [id number] Errol White up to 300% Other [id number] ADVANCE DIRECTIVES Name Date DISCUSSED - NO [...] - - Est Patient Exp Problem - 38419 Finger Stick Glucose Est Patient Exp Problem - 39659 Primary Care - Assesment-Brief - SLW Primary Care Service Linkage Primary Care Service Linkage Est Patient Detailed - 80206 Pneumovax Vaccine PPSV23 INFLUENZA VACCINE QUADRIVALENT 3 YRS PLUS IM Glucose Stick Dispensing Visit (UNLIVSTED OPHTHALMOLOGICAL SERVICE/PROCEDURE) Est Patient Exp Problem - 53048 Est Patient Exp Problem - 34282 COMPUTERIZED OPHTHALMIC IMAGING OPTIC NERVE Est Patient Comprehensive Opth - 94141 Spherocyl, SV, plano to +/- 4.00d sphere, 0.12 to 2.00d cyl, per lens Spherocyl, SV, plano to +/- 4.00d sphere, 2.12 to 4.00d cyl, per lens Add to lens; tint, any color, solid, gradient or equal, excl photochro, any niles Frames, purchases Est Patient Intermediate Opth - 29945 Ofc Vst, Est Level IV Contact Insp/Mod (MODIFICAJ CONTACT LENX SPX SUPVJ ADAPTATION) COMPUTERIZED OPHTHALMIC IMAGING OPTIC NERVE Est Patient Intermediate Opt - 89391 Dispensing Visit (Non-Billable) COMPUTERIZED OPHTHALMIC IMAGING OPTIC NERVE Contact Lens Fitting (RX&FITG C-LENS SUPVJ CRNL LENS OU XCPT APHK) Est Patient Intermediate Opth - 89398 Est Patient Detailed - 79159 INFLUENZA VACCINE QUADRIVALENT 3 YRS PLUS IM Ofc Vst, Est Level IV Nutrition - Internal Ofc Vst, Est Level IV Est Patient Exp Problem - 77499 Est Patient Detailed - 67496 Handling of specimen for transfer Venipuncture Dispensing [...] OPTIC NERVE Est Patient Intermediate Opth - 09985 Contact Lens Fitting (RX&FITG C-LENS SUPVJ CRNL LENS OU XCPT APHK) Est Patient Intermediate Opth - 21297 Primary Care - Assesment-Brief - SLW Primary [...] PACHYMETRY UNI/BI Est Patient Intermediate Opt - 74124 Contact Lens Fitting (RX&FITG C-LENS SUPVJ CRNL LENS OU XCPT APHK) Est Patient Intermediate Opt - 41070 Ofc Vst, Est Level IV Pneumovax Vaccine Primary Care Medical Case Management Primary Care Medical Case Management HISTORY OF PROCEDURES Procedure Date Procedure Name Provider Procedure Notes Status Finger Stick Glucose Nikolay Sol completed Primary Care - Assesment-Brief - SLW aMc Hernandez Time spent with patient: 15 completed Primary Care Service Linkage Mac Hernandez Time spent with patient: 60 completed Primary Care Service Linkage Mac Hernandez Time spent with patient: 20 completed Glucose Stick Nikolay Sol completed Dispensing Visit (UNLIVSTED OPHTHALMOLOGICAL SERVICE/PROCEDURE) Tracey Bacon completed COMPUTERIZED OPHTHALMIC IMAGING OPTIC NERVE Josesito Perry completed Est Patient Comprehensive Opt - 43499 Josesito Perry completed Spherocyl, SV, plano to [...] 5.00) completed Est Patient Intermediate Opt - 25945 Angela Kenyadaniele completed Contact Insp/Mod (MODIFICAJ CONTACT LENX SPX SUPVJ ADAPTATION) Efra Tariq completed COMPUTERIZED OPHTHALMIC IMAGING OPTIC NERVE Josesito Perry completed Est Patient Intermediate Opt - 94668 Josesito Delgado Orlando completed Dispensing Visit (Non-Billable) Tracey Bacon completed COMPUTERIZED OPHTHALMIC IMAGING OPTIC NERVE Tracey Jordi completed Contact Lens Fitting (RX&FITG C-LENS SUPVJ CRNL LENS OU XCPT APHK) Efra Tariq completed Est Patient Intermediate Opt - 36015 Efra Tariq completed Venipuncture Radha Posey completed [...] Perry completed Est Patient Intermediate Opt - 16352 Josesito Delgado Orlando completed Contact Lens Fitting (RX&FITG C-LENS SUPVJ CRNL LENS OU XCPT APHK) Efra Tariq completed Est Patient Intermediate Opt - 22626 Efra Tariq completed Primary Care - Assesment-Brief [...] Perry completed Est Patient Intermediate Opth - 59344 Josesito Perry completed Contact Lens Fitting (RX&FITG C-LENS SUPVJ CRNL LENS OU XCPT APHK) Efra Tariq completed Est Patient Intermediate Opth - 72205 Efra Tariq completed Primary Care Medical Case Management Renée Zavala Time spent with patient: 15 completed Primary Care Medical Case Management Renée Zavala Time spent with patient: 15 completed GOALS No Information Available [facility]ERNS No Information Available
--- OUTSIDE RECORDS SUMMARY | 2019-07-14 14:39 | XMS REPORT ---
Author Author Admin, [place] Organization Unknown Address Unknown Phone Unavailable PROBLEMS Condition Status Date Provider Notes Hip pain, left active Nikolay Sol Immunity status testing, antibody response active Nikolay Sol Hepatitis C antibody test positive active Nikolay Sol Skin lesions, multiple completed - Nikolay Sol Transaminases, serum, elevated completed - Nikolay Sol Vaccination for strep pneumonia with pneumovax completed - Nikolay Sol Vaccination against influenza completed - iNkolay Sol Screening, colon cancer active Nikolay Sol [...] Location Encounter Diagnosis - Ambulatory Encounter Tangela Armenta [facility] Contact Center UNK - Ambulatory Encounter Nikolay CottrellLogic [facility] Adult Medicine UNK - Ambulatory Encounter Stephanie Whittaker [facility] Services UNK - Ambulatory Encounter Tangela Arriaza [facility] Contact Center UNK - Ambulatory Encounter Raven García [facility] UNK - Ambulatory Encounter Fax Status [facility] UNK - Ambulatory Encounter Fax Status [facility] Services UNK - Ambulatory Encounter Fax Status [facility] Services UNK - Ambulatory Encounter Nikolay CottrellLogjoy [facility] Adult Medicine UNK - Ambulatory Encounter Nikolay Sol [facility] Adult Medicine UNK - Ambulatory Encounter Nikolay Hicks [facility] Adult Medicine Transaminases, serum, elevatedSkin lesions, multipleHip pain, left - Ambulatory Encounter Tangela Hicks [facility] Adult Medicine UNK - Ambulatory Encounter Nikolay CottrellLogjoy [facility] Adult Medicine UNK - Ambulatory Encounter Dona Eng [facility] Adult Medicine UNK - Ambulatory Encounter Nikolay Armendariz [facility] Adult Medicine UNK - Ambulatory Encounter Nikolay Hernandez MedAdherence [facility] Adult Medicine UNK - Ambulatory Encounter Nikolay Franco MedAdherence, LM Adult Medicine UNK - Ambulatory Encounter Dona Eng [facility] Adult Medicine UNK - [facility] Encounter Nikolay Sol LinkLogic [facility] Adult Medicine UNK - Ambulatory Encounter Nikolay Sol LinkLogic [facility] Adult Medicine UNK - Ambulatory Encounter Nikolay Sol Dona Adamsrez [facility] Adult Medicine UNK - Ambulatory Encounter Nikolay Sol LinkLog[facility] Adult Medicine UNK - Ambulatory Encounter Nikolay Sol LinkLogic [facility] Adult Medicine UNK - Ambulatory Encounter Nikolay Sol LinkLogic [facility] Adult Medicine UNK - Ambulatory Encounter Mario Canales Mullens Tian Eligibility UNK - Ambulatory Encounter Naina Cordova [facility] UNK - Ambulatory Encounter [facility] - Ambulatory Encounter [facility] UNK - Ambulatory Encounter F[facility] UNK - Ambulatory Encounter F[facility] UNK - Ambulatory Encounter Mca Hernandez [facility] Group Leader [employer] Processing UNK - Ambulatory Encounter Nikolay Sol [facility] Adult Medicine UNK - Ambulatory Encounter Nikolay Hicks [facility] Adult Medicine Vaccination against influenzaVaccination for strep pneumonia with pneumovaxHepatitis C antibody test positiveImmunity status testing, antibody response - Ambulatory Encounter Nikolay Franco [facility] Adult Medicine UNK - Ambulatory Encounter Paz Shannan [facility] Group Leader [employer] Processing UNK - Ambulatory Encounter Mac Hernandez [facility] Group Leader [employer] Processing UNK - Ambulatory Encounter Nikolay Sol [facility] Adult Medicine UNK - Ambulatory Encounter Nikolay Sol [facility] Adult Medicine UNK - Ambulatory Encounter Nikolay Sol [facility] Adult Medicine UNK - Ambulatory Encounter Nikolay Armendariz [facility] Adult Medicine UNK - Ambulatory Encounter Nikolay Franco [facility] Adult Medicine UNK - Ambulatory Encounter Denabeulah Jakcson [facility] Adult Medicine UNK - Ambulatory Encounter Antoni Hurtado LM Adult Medicine UNK - Ambulatory Encounter Nikolay Sol LM Adult Medicine UNK - Ambulatory Encounter Fax Status [facility] UNK - Ambulatory Encounter [facility] - [facility]ulatory [facility] - Ambulatory Encounter Nikolay Sparrow LM Adult Medicine UNK - Ambulatory Encounter [facility] Care Coordination Desjeremy Scott [facility] Services Contact Center UNK - Ambulatory Encounter Nikolay Sol LinkLogic LM Adult Medicine UNK - Ambulatory Encounter Nikolay Sol [facility] Adult Medicine UNK - Ambulatory Encounter Nikolay Sol [facility] Adult Medicine UNK - Ambulatory Encounter Nikolay Sparrow C Adult Medicine Vaccination against influenzaVaccination for strep pneumonia with pneumovaxTransaminases, serum, elevatedSkin lesions, multiple - Ambulatory Encounter Nikolay Sol [facility] Adult Medicine UNK - Ambulatory Encounter Dona Eng LM Adult Medicine UNK - Ambulatory Encounter Concepcion [facility] [employer] UNK - Ambulatory Encounter Naina Cordova [facility] UNK - Ambulatory Encounter Nikolay Leigh [facility] UNK - Ambulatory Encounter Nikolay [...] Vision UNK - Ambulatory [facility]counter [facility] - Ambulatory Encounter Fax Status LinkLogic [facility] Services UNK - Ambulatory Encounter Fax Status LinkLogic [facility] UNK - Ambulatory Encounter Nikolay Sol [facility] Adult Medicine UNK - Ambulatory Encounter Nikolay Sparrow [facility] Adult Medicine Immunization updateScreening for stdScreening, colon cancer - Ambulatory Encounter Barb Lopez [facility] Public Health Services UNK - Ambulatory Encounter Josesito Perry [facility] Vision UNK - Ambulatory Encounter Anaya Hassan [facility] Vision UNK - Ambulatory Encounter Angela Bhakhrani Angela Bhakhrani [facility] Vision UNK - Ambulatory Encounter Josesito Perry Rekha Machuca [facility] Vision UNK - Ambulatory Encounter Angela Bhakhrani Angela Bhakhrani [facility] Vision UNK - Ambulatory Encounter Angela Bhakhrani Angela Bhakhrani [facility] Vision UNK - Ambulatory Encounter Angela Bhakhrani Angela Bhakhrani Anaya Landonndra Machuca [facility] Vision Astigmatism - OUMyopia - OU - Ambulatory Encounter Chad Greenfield [facility] Adult Medicine UNK - Ambulatory Encounter Chad Greenfield [facility] Adult Medicine UNK - Ambulatory Encounter Chad Greenfield [facility] Adult Medicine UNK - Ambulatory Encounter Chad Navarro [employer]Log[employer] Chloe Greenfield [facility] Adult Medicine UNK - Ambulatory Encounter Chad Navarro LinkLog[facility] LM Adult Medicine UNK - Ambulatory Encounter Chad Navarro LinkLogic Chloe Greenfield LM Adult Medicine UNK - Ambulatory Encounter Chad Navarro LinkLogic LM Adult Medicine UNK - Ambulatory Encounter Chad Manzano Rice [facility] Adult Medicine UNK - Ambulatory Encounter Chad Navarro LM Adult Medicine UNK - Ambulatory Encounter Chad Greenfield [facility] Adult Medicine UNK - Ambulatory Encounter Chad Navarro LinkLogic Chloe Greenfield [facility] Adult Medicine UNK - Ambulatory Encounter Montserrat Sousa [facility] UNK - Ambulatory Encounter Valentina Hernandez [facility] Adult Medicine UNK - Ambulatory Encounter Chad Navarro LM Adult Medicine UNK - Ambulatory Encounter Chad Navarro LinkLogic LM Adult Medicine UNK - Ambulatory Encounter Chad Navarro LM Adult Medicine UNK - Ambulatory Encounter Chad Navarro [facility]Logic LM Adult Medicine UNK - Ambulatory Encounter Chad Navarro [facility] Adult Medicine Screening for std - Ambulatory Encounter Chad Greenfield [facility] Adult Medicine UNK - Ambulatory Encounter Enedelia CottrellLogjoy Greenfield [facility] Adult Medicine UNK - Ambulatory Encounter Chad [...] Ambulatory Encounter Chad Chavez [facility] Adult Medicine URIMyopia - OURegular astigmatism, bilateral - Ambulatory Encounter Milana Lopez [facility] UNK - Ambulatory Encounter Kati Hernandez [facility] UNK - Ambulatory Encounter Chad Mcdaniels Renetta [facility] Adult Medicine UNK - Ambulatory Encounter Enedelia Jackson [facility] Adult Medicine UNK - Ambulatory Encounter Chad Jackson [facility] Adult Medicine UNK - Ambulatory Encounter Enedleia Jackson [facility] Adult Medicine UNK - [...] - Ambulatory Encounter Josesito Perry Tracey Bacon [facility] Vision Encounter for screening for eye and ear disorders - Ambulatory Encounter Efra Tariq [facility] Vision UNK - Ambulatory Encounter Efra Tariq [facility] Vision UNK - Ambulatory Encounter Efra Ricoshaheen Edmond [facility] Vision Open angle with borderline findings, high risk, bilateralMyopia - OURegular astigmatism, bilateralCorneal scar, left - Ambulatory Encounter Chad Navarro LinkLogic [facility] Adult Medicine UNK - Ambulatory Encounter Fax Status [facility] Services UNK - Ambulatory Encounter Fax Status [facility] Services UNK - Ambulatory Encounter Fax Status [facility] Services UNK - Ambulatory Encounter Radha Posey [facility] Adult Medicine UNK - Ambulatory Encounter Radha Posey LinkLogic [facility] Adult Medicine UNK - Ambulatory Encounter Radha Posey Link[facility]ic LM Adult Medicine UNK - Ambulatory Encounter Radha Lopez LM Adult Medicine UNK - Ambulatory [...] Vision UNK - Ambulatory Encounter Chad Veliz [facility] UNK - Ambulatory Encounter Chad [...] Medicine UNK - Ambulatory Encounter Michael Madden [facility] Services UNK - Ambulatory Encounter Radha Posey [facility] Adult Medicine UNK - Ambulatory Encounter Radha Posey [facility] Adult Medicine UNK - Ambulatory Encounter Radha Rowlandnth [facility] Adult Medicine UNK - Ambulatory Encounter Radha Rowlandnth [facility] Adult Medicine UNK - Ambulatory Encounter Christophjoshua Madden [facility] Services UNK - Ambulatory Encounter Radhajuan c Posey [facility]ic [facility] Adult Medicine UNK - Ambulatory Encounter Michael Madden [facility] Services UNK - Ambulatory Encounter Michael Madden [facility] Services UNK - Ambulatory Encounter Radhajuan c Posey [facility] Adult Medicine UNK - Ambulatory Encounter Radhajuan c Posey [facility] Adult Medicine UNK - Ambulatory Encounter Chad Navarro [facility] Adult Medicine UNK - Ambulatory Encounter Chad Madden [facility] Adult Medicine Otitis media, right - Ambulatory Encounter Radha Posey [facility] Adult Medicine UNK - Ambulatory Encounter Radhajuan c Posey [facility] Adult Medicine UNK - Ambulatory Encounter Lina Dias [facility] Adult Medicine UNK - Ambulatory Encounter Radha Posey [facility] Adult Medicine UNK - Ambulatory Encounter Scott Zhao [facility] Adult Medicine UNK - Ambulatory Encounter [facility] - [facility]ulatory Encounter Fax Status [facility] - Ambulatory Encounter Fax Status [facility] - Ambulatory Encounter Nikolay Sol [facility] Adult Medicine UNK - Ambulatory Encounter Nikolay Castellanos [facility] Adult Medicine UNK - Ambulatory Encounter Razia [facility] UNK - Ambulatory Encounter Radha [...] Medicine UNK - Ambulatory Encounter Elaina Burleson [facility] UNK - Ambulatory Encounter Chad Greenfield LM Adult Medicine UNK - Ambulatory Encounter Enedelia Greenfield LM Adult Medicine UNK - Ambulatory Encounter Radha King [facility] Adult Medicine UNK - Ambulatory Encounter Chad Navarro Chloe Gin [facility] Adult Medicine UNK - Ambulatory Encounter Chad Navarro Chloe Greenfield [facility] Adult Medicine UNK - Ambulatory Encounter Chad Navarro Chloe Greenfield [facility] Adult Medicine UNK - Ambulatory Encounter Chad Navarro Chloe Greenfield [facility] Adult Medicine UNK - Ambulatory Encounter Chad Navarro Chloe Greenfield [facility] Adult Medicine UNK - Ambulatory Encounter Enedelia Renetta LinkLogic Chloe Greenfield [facility] Adult Medicine UNK - Ambulatory Encounter Enedelia Renetta [facility]Log[facility] Chloe Greenfield [facility] Adult Medicine UNK - Ambulatory Encounter Enedelia Renetta LinkLogic Chloe Greenfield [facility] Adult Medicine UNK - Ambulatory Encounter Enedelia Renetta LinkLogic Chloe Greenfield [facility] Adult Medicine UNK - Ambulatory Encounter Enedelia Renetta LinkLogic Chloe Greenfield [facility] Adult Medicine UNK - Ambulatory Encounter Chad [...] UNK - Ambulatory Encounter Chad Navarro [facility] Services UNK - Ambulatory Encounter Lambert Jones [facility] Adult Medicine UNK - Ambulatory Encounter Josesito Perry [facility] Vision UNK - Ambulatory Encounter Efra Tariq [facility] Vision UNK - Ambulatory Encounter Tracey Bacon [facility] Vision UNK - Ambulatory Encounter Lambert Jones [facility] Adult Medicine UNK - Ambulatory Encounter Josesito Perry [facility] Vision UNK - Ambulatory Encounter Yuko Mayito [facility] Vision UNK - Ambulatory Encounter Efra [...] Ambulatory Encounter Enedelia Renetta Link[facility] Dona Avelino [facility] Adult Medicine UNK - Ambulatory Encounter Enedelia Renetta LinkLogic Dona Avelino LM Adult Medicine UNK - Ambulatory Encounter Enedelia Renetta LinkLogic Dona Avelino [facility] Adult Medicine UNK - Ambulatory Encounter Merry Garcia LinkLogic [facility] Group Leader [employer] Processing UNK - Ambulatory Encounter Chad Navarro LinkLogic Maria Eugenia Wolfe LM Adult Medicine UNK - Ambulatory Encounter Chad Navarro LinkLogic LM Adult Medicine UNK - Ambulatory Encounter Merry Garcia [facility] Group Leader [employer] Processing UNK - Ambulatory Encounter Chad Ruggiero [facility] Adult Medicine HYPERLIPIDEMIA - Ambulatory Encounter Cha Girard-Michael LM Adult Medicine UNK - Ambulatory Encounter Chad Navarro [facility] Adult Medicine UNK - Ambulatory Encounter Chad Navarro [facility] Adult Medicine UNK - Ambulatory Encounter Chad Ren [facility] Adult Medicine UNK - Ambulatory Encounter Chad Rodrgies LM Adult Medicine UNK - Ambulatory Encounter Enedelia Jackson LinkLogic Lou Ren [facility] Adult Medicine UNK - Ambulatory Encounter Mario Bardales [facility] Adult Medicine UNK - Ambulatory Encounter Chad Navarro Lou Ren [facility] Adult Medicine UNK - Ambulatory Encounter Enedelia Renetta [employer]Log[facility] Lou Ren [facility] Adult Medicine UNK - Ambulatory Encounter Enedelia Renetta [employer] Lou Ren [facility] Adult Medicine UNK - Ambulatory Encounter Cha Mitchell [facility] Adult Medicine UNK - Ambulatory Encounter Reneerai Palafox [facility] Dental UNK - Ambulatory Encounter Chad Navarro [facility] Adult Medicine UNK - Ambulatory Encounter Enedelia Renetta LinkLogic Lou Ren [facility] Adult Medicine UNK - Ambulatory Encounter Chad You LM Adult Medicine UNK - Ambulatory Encounter Enedelia Renetta LinkLogic Dona You LM Adult Medicine UNK - Ambulatory Encounter Chad Peoples [facility] Adult Medicine UNK - Ambulatory Encounter Enedelia Renetta LinkLogic Dalila Peoples LM Adult Medicine UNK - Ambulatory Encounter Chad Navarro Enedelia Renetta LM Adult Medicine UNK - Ambulatory Encounter Enedelia Renetta [facility] Chad Navarro [facility] Adult Medicine UNK - Ambulatory Encounter Chad Navarro LinkLogjoy LM Adult Medicine UNK - Ambulatory Encounter Cahd Navarro LM Adult Medicine UNK - Ambulatory Encounter Chad Ruggiero [facility] Adult Medicine UNK - Ambulatory Encounter Aurora Vail [facility] Adult Medicine UNK - Ambulatory Encounter Chad Navarro [facility] Adult Medicine UNK - Ambulatory Encounter Cha Arriaza [facility] Adult Medicine UNK - Ambulatory Encounter Chad CottrellLogic [facility] Services UNK - Ambulatory Encounter Chad Navarro [facility] Adult Medicine UNK - Ambulatory Encounter Chad Navarro [facility] Adult Medicine UNK - Ambulatory Encounter Chad Mitchell [facility] Adult Medicine UNK - Ambulatory Encounter Robert Mott [facility] Adult Medicine UNK - Ambulatory Encounter Chad Navarro Lou Mikal [facility] Adult Medicine UNK - Ambulatory Encounter Enedelia Renetta LinkLogic Louwolf Ren [facility] Adult Medicine UNK - Ambulatory Encounter Chad Navarro Enedelia Renetta [facility] Adult Medicine UNK - Ambulatory Encounter Enedelia Renetta [facility] Adult Medicine UNK - Ambulatory Encounter Kathe See [facility] Services UNK - Ambulatory Encounter Lou [...] UNK - Ambulatory Encounter Enedelia Renetta LinkLogic Louwolf Ren [facility] Adult Medicine UNK - Ambulatory Encounter Enedelia Renetta [facility]Log[facility] Lou Mikal [facility] Adult Medicine UNK - Ambulatory Encounter Chad Navarro [facility] Adult Medicine UNK - Ambulatory Encounter Gracie Jansen LM Adult Medicine UNK - Ambulatory Encounter Chad Galeas [facility] Adult Medicine - Ambulatory Encounter Chad Navarro Enedelia Renetta [facility] Adult Medicine UNK - Ambulatory Encounter Enedelia Renetta [facility]Log[facility] Chad Navarro [facility] Adult Medicine UNK - Ambulatory Encounter Chad Fierro [facility] Adult Medicine UNK - Ambulatory Encounter Enedelia Renetta [employer]Logic Chelsi Padillalo LM Adult Medicine UNK - Ambulatory Encounter [...] Vision UNK - Ambulatory Encounter Efra Ricoshaheen Roqueews [facility] Vision UNK - Ambulatory Encounter Yuko Edmond [facility] Vision UNK - Ambulatory Encounter Yuko Edmond [facility] Vision UNK - Ambulatory Encounter Josesito Perry [facility] Vision UNK - Ambulatory Encounter Efra Ricoshaheen Edmond [facility] Vision Open angle with borderline findings, high risk, bilateral - Ambulatory Encounter Chad Navarro [facility] Adult Medicine UNK - Ambulatory Encounter Chad Lopeza Geri [facility] Adult Medicine - Ambulatory Encounter Dona You [facility] Adult Medicine UNK - Ambulatory Encounter Chda Navarro [facility] Adult Medicine UNK - Ambulatory Encounter Chad Navarro [facility] Adult Medicine UNK - Ambulatory Encounter Chad Velázquez [facility] Adult Medicine UNK - Ambulatory Encounter Renée Zavala C [employer] Leader [employer] Processing UNK - Ambulatory Encounter Renée Zavala C Group Leader [employer] Processing UNK - Ambulatory Encounter Dona You LM Adult Medicine UNK - Ambulatory Encounter Chad You [facility] Adult Medicine UNK - Ambulatory Encounter Dona You [facility] Adult Medicine UNK - Ambulatory Encounter Chad You [facility] Adult Medicine UNK - Ambulatory Encounter Chelsi Fierro [facility] Adult Medicine UNK - Ambulatory Encounter Chelsi Fierro [facility] Adult Medicine UNK - Ambulatory Encounter Venkata Michaels [facility] Adult Medicine - Ambulatory Encounter Chad Navarro [facility] Adult Medicine UNK - Ambulatory Encounter Chad CottrellLogic [facility] Adult Medicine UNK - Ambulatory Encounter Chad CottrellLogic [facility] Adult Medicine UNK - Ambulatory Encounter Chad Navarro LinkLogic [facility] Adult Medicine UNK - Ambulatory Encounter Chad Navarro LinkLogic [facility] Adult Medicine UNK - Ambulatory Encounter Chad Martínezmarybel Navarro LinkLogic [facility] Adult Medicine UNK - Ambulatory Encounter Elise Mejia C Vision - Ambulatory Encounter Martita Michaels [facility] Adult Medicine - Ambulatory Encounter Yaya Olsen [facility] Test Location of Care UNK - Ambulatory Encounter Yaya Olsen [facility]Logic Test Location of Care UNK - Ambulatory Encounter LC Lab Provider [facility] Services UNK - Ambulatory Encounter LC Lab Provider [facility] Services UNK - Ambulatory Encounter LC Lab Provider [facility] UNK - Ambulatory Encounter [facility] - Ambulatory Encounter [facility] UNK - Ambulatory Encounter LC Lab Provider [facility] UNK - Ambulatory Encounter LC Lab Provider [facility] UNK - Ambulatory Encounter LC Lab Provider [facility] UNK VITAL SIGNS Date Observation [...] weight in kilograms E&M 88.75 kg Tangela Reyados " blood pressure, site #1 left arm [...] " Blood Pressure Position 01 sitting Lori Shahz " blood pressure, site #1 left arm Lori Sparrow " temperature site oral Lori Osmanmez " height E&M 67 [in_i] Lorichiki Osmanmez " height in centimeters E&M 170.18 cm Lori J Andrews blood pressure, diastolic 89 mm[Hg] Lori J Sparrow " blood pressure, systolic 134 mm[Hg] Lori J Andrews " oxygen saturation, oximetry 97 % Lori Evelin Andrews " respiratory rate E&M 16 /min Lori J Sparrow " pulse rate E&M 93 /min Lorichiki Osmanmez " temperature E&M 98.6 [degF] Lorichiki Osmanmez " weight E&M 204 lbs. Lorichiki Osmanmez " weight in kilograms E&M 92.73 kg Lori J Andrews " method used to obtain blood pressure automatic Lori Osmanmez " Blood Pressure Position 01 sitting Lori Waters Andrews " blood pressure, site #1 left arm Lori Osmanmez " temperature site tympanic Lori Sparrow " height E&M 67 [in_i] Lori Osmanmez " height in centimeters E&M 170.18 cm Lori Evelin Andrews blood pressure, diastolic 88 mm[Hg] Marilu Chavez [...] " blood pressure, systolic 136 mm[Hg] Jen Lopez " method used to obtain [...] " height in centimeters E&M 170.18 cm Jenrichelle Lopez blood pressure, diastolic 85 mm[Hg] Marilu [...] " oxygen saturation, oximetry 98 % Marilu Chvaez " weight E&M 218.20 lbs. Marilu Chavez [...] blood pressure, site #1 left arm Jen Lopze " temperature site tympanic Jen Lopez " [...] height in centimeters E&M 170.18 cm Linda Bailono blood pressure, site #1 right arm Cammy [...] Michaels " height E&M 67 [in_i] Venkatawilmer DubonMichaels oxygen saturation, oximetry 98 % Martita Adhikari [...] LinkLogic [id number] " hematocrit, blood 47.7 % LinkLog [...] " T-helper cells (CD4) count 838 /UL LinkLog [id number] HIV-1RNA, serum, by PCR, quantitative <20 [...] RNA, PCR, quantitative HCV Not Detected IU/[facility] " HIV-1RNA, serum, by PCR, quantitative <20 copies/mL [facility] plasma reagin antibody, serum Non Reactive [...] serum Non Reactive LinkLog Non Reactive " testosterone, total 515 ng/dL [...] ONE TABLET BY MOUTH DAILY Lisa Black MedEssie CLINDAMYCIN PHOSPHATE 1 % GEL APPLY TO [...] a tablet PO at bedtime - Chad Martíneznancyraquel VALACYCLOVIR HCL 1 GRAM TABLET TAKE ONE [...] use (cigarettes, cigar, chew, pipe) Currently Tangela Hikcs " drug use, illicit Never Tangela Hicks " alcohol use Currently Tangela Hicks " social history E&M Single. Not homeless. Born in [facility] [place]. City: [place]. State: [place]. 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 Gender of partner(s): female. Age of first sexual intercourse: 14. Tangela Hicks " social history reviewed E&M reviewed today Tangela Hicks " is there any chance that you could be ? No Tangela Hicks " sexual orientation Heterosexual Tangela Hicks " assessment of health literacy ([facility] 2014 Standards, 3C10) Adequate Tangela Hicks " [...] Born in [facility] [place]. City: [place]. State: [place]. 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 Gender of partner(s): female. Age of first sexual intercourse: 14. Tangela Hicks " social history reviewed E&M reviewed today Tangela Hicks " sexual orientation Heterosexual Tangela Hicks " assessment of health literacy ([facility] 2014 Standards, 3C10) Adequate Tangela Hicks " passive cigarette smoke exposure No Tangela Hicks " smoking status former smoker Tangela Hicks " Exercise Program Referral T Tangela Hicks " Weight Management Counseling Provided Jose Hicks " Nutrition intervention Jose Hicks Exercise Program Referral T Nikolay Sol " Weight Management Counseling Provided T Nikolay Sol " Nutrition intervention T Nikolay Sol " drug use, illicit Never Lori J Sparrow " alcohol use Currently Lori J Sparrow " social history E&M Single. Not homeless. Born in [facility] [place]. City: [place]. State: [place]. 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 Gender [...] Born in [facility] [place]. City: [place]. State: [place]. 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 Gender of partner(s): female. Age of first sexual intercourse: 14. Lori J Sparrow " social history reviewed E&M reviewed today Lori J Sparrow " assessment of health literacy ([facility] 2014 Standards, 3C10) Adequate Lori J Sparrow " passive cigarette smoke exposure No Lori J Sparrow " smoking status former smoker Lori J Sparrow time of call 09/10/2017 2:49 PM Barb Lopez sexual orientation Heterosexual Rekha Machuca sexual orientation Heterosexual Anaya Hassan time of call 07/05/2017 4:26 PM Renetta Lars drug use, illicit Never Marilu Chavez " alcohol use Currently Marilu Chavez " sexual orientation Heterosexual Marilu Chavez " smoking status former smoker Marilu Chavez " passive cigarette smoke exposure No Marilu Chavez " assessment of health literacy ([facility] 2014 Standards, 3C10) Adequate Marilu Chavez " social history E&M Single. Not homeless. Born in [facility] [place]. City: [place]. State: [place]. 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 Gender [...] Born in [facility] [place]. City: [place]. State: [place]. 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 Gender [...] Born in [facility] [place]. City: [place]. State: [place]. 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 Gender [...] Born in [facility] [place]. City: [place]. State: [place]. 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 Gender [...] Born in [facility] [place]. City: [place]. State: [place]. 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 Gender of partner(s): female. Age of first sexual intercourse: 14. Jen John " social history reviewed E&M reviewed today Jen John " passive cigarette smoke exposure No Jen John " smoking status former smoker Jenrai Lopez sexual orientation Heterosexual Tracey Bacon sexual orientation Heterosexual Yuko Edmond sexual orientation Heterosexual Chad Navarro " social history E&M Single. Not homeless. Born in [facility] [place]. City: [place]. State: [place]. 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 Gender [...] Chad Melanie " alcohol use Currently Chad Melanie " social history E&M Single. Not homeless. Born in [facility] [place]. City: [place]. State: [place]. 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 Gender of partner(s): female. Age of first sexual intercourse: 14. Chad Melanie " social history reviewed E&M reviewed today Chad Navarro " sexual orientation Heterosexual Chad Navarro " sex at male Linda Bailono " passive cigarette smoke exposure No Linda Ruggiero " cigarettes, number smoked per day 20 a week Linda Ruggiero " smoking, advice to quit Yes Linda Ruggiero " smoking status current every day smoker Linda Ruggiero " social history E&M Single. Not homeless. Born in [facility] [place]. City: [place]. State: [place]. 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 Gender [...] Born in [facility] [place]. City: [place]. State: [place]. 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 Gender of partner(s): female. Age of first sexual intercourse: 14. 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 Sara Vente " patient considered to be homeless No Sara Vente " passive cigarette smoke exposure No Sara Vente " smoking, advice to quit Yes Sara Ventshabnam " smoking status current every day smoker Sara Nevarez FUNCTIONAL STATUS No Information Available MENTAL STATUS Date Observation Value Provider assessment of mood and affect E&M no agitation Nikolay Sol " Generalized Anxiety Disorder Questionnaire - Question 2 0 Tangelarai eRyHicks " Generalized Anxiety Disorder Questionnaire - Question 1 0 Tangela Reyados assessment of mood and affect E&M no agitation Nikolay Sol " Generalized Anxiety Disorder Questionnaire - Question 2 0 Tangela Reyados " Generalized Anxiety Disorder Questionnaire - Question [...] to person, place, and time Josesito S Orlando mental status examination: orientation E&M alert and oriented to person, place, and time Chad Navarro " assessment of mood and affect E&M good eye contact, normal affect Chad Nemnancyk " Generalized Anxiety Disorder Questionnaire - Question [...] assessment of judgment and insight E&M intact Radhajuan c Posey " assessment of mood and affect [...] E&M good eye contact, normal affect Chad Melanie " Generalized Anxiety Disorder Questionnaire - Question [...] libertarian ID Sliding Fee - Cat 5 [employer] insurance company Errol White 101-200% Other [id number] Errol White 101-200% Other Errol White 101-200% Other Errol White 101-200% Other [id number] Errol White 101-200% Other Errol White 101-200% Other Errol White 101-200% Other Sliding Fee - Cat 5 [employer] [id number] Errol White 101-200% Other [id number] Errol White 101-200% Other Errol White 101-200% Other Sliding Fee - Cat 5 [employer] insurance company Errol White 101-200% Other Errol White 101-200% Other Sliding Fee - Cat 5 [employer] [id number] Errol White 101-200% Other [id number] Sliding Fee - Cat 5 [employer] insurance Chauf[employer]ur Prive [id number] Sliding Fee Scale 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 [id number] Errol White up to 300% Other [id number] ADVANCE DIRECTIVES Name Date DISCUSSED - NO [...] - - Est Patient Exp Problem - 54619 Finger Stick Glucose Est Patient Exp Problem - 65275 Primary Care - Assesment-Brief - SLW Primary Care Service Linkage Primary Care Service Linkage Est Patient Detailed - 16330 Pneumovax Vaccine PPSV23 INFLUENZA VACCINE QUADRIVALENT 3 YRS PLUS IM Glucose Stick Dispensing Visit (UNLIVSTED OPHTHALMOLOGICAL SERVICE/PROCEDURE) Est Patient Exp Problem - 41970 Est Patient Exp Problem - 50966 COMPUTERIZED OPHTHALMIC IMAGING OPTIC NERVE Est Patient Comprehensive Opt - 56587 Spherocyl, SV, plano to +/- 4.00d sphere, 0.12 to 2.00d cyl, per lens Spherocyl, SV, plano to +/- 4.00d sphere, 2.12 to 4.00d cyl, per lens Add to lens; tint, any color, solid, gradient or equal, excl photochro, any niles Frames, purchases Est Patient Intermediate Opt - 62093 Ofc Vst, Est Level IV Contact Insp/Mod (MODIFICAJ CONTACT LENX SPX SUPVJ ADAPTATION) COMPUTERIZED OPHTHALMIC IMAGING OPTIC NERVE Est Patient Intermediate Opt - 05821 Dispensing Visit (Non-Billable) COMPUTERIZED OPHTHALMIC IMAGING OPTIC NERVE Contact Lens Fitting (RX&FITG C-LENS SUPVJ CRNL LENS OU XCPT APHK) Est Patient Intermediate Opt - 80967 Est Patient Detailed - 14580 INFLUENZA VACCINE QUADRIVALENT 3 YRS PLUS IM Ofc Vst, Est Level IV Nutrition - Internal Ofc Vst, Est Level IV Est Patient Exp Problem - 19633 Est Patient Detailed - 70769 Handling of specimen for transfer Venipuncture Dispensing [...] OPTIC NERVE Est Patient Intermediate Opt - 36644 Contact Lens Fitting (RX&FITG C-LENS SUPVJ CRNL LENS OU XCPT APHK) Est Patient Intermediate Opt - 72714 Primary Care - Assesment-Brief - SLW Primary Care Service Linkage Ofc Vst, Est Level IV Influenza - Adult - Injection Handling of specimen for transfer Venipuncture Ofc Vst, Est Level III Prevnar (PCV13) IM Handling of specimen for transfer Venipuncture Ofc Vst, Est Level III Pfh Referral (N) Pf Message Delivered (C) Pfh Clinic Visit (R) Pf Session Conducted (Y) Dispensing Visit (UNLIVSTED OPHTHALMOLOGICAL SERVICE/PROCEDURE) Contact lens, gas permeable, spherical, per lens Contact Insp/Mod (MODIFICAJ CONTACT LENX SPX SUPVJ ADAPTATION) Tint, photochromatic, per lens Frames, purchases Spherocyl, SV, +/- 4.25 to +/- 7.00 sphere, 0.12 to 2.00d cyl, per lens OPH US DX CRNL PACHYMETRY UNI/BI Est Patient Intermediate Opt - 40936 Contact Lens Fitting (RX&FITG C-LENS SUPVJ CRNL LENS OU XCPT APHK) Est Patient Intermediate Opt - 23894 Ofc Vst, Est Level IV Pneumovax Vaccine [...] completed COMPUTERIZED OPHTHALMIC IMAGING OPTIC NERVE Josesito ePrry completed Est Patient Comprehensive Opt - 19196 Josesito Perry completed Spherocyl, SV, plano to [...] 5.00) completed Est Patient Intermediate Opt - 02682 Angela Aldrich completed Contact Insp/Mod (MODIFICAJ CONTACT LENX SPX SUPVJ ADAPTATION) Efra Tariq completed COMPUTERIZED OPHTHALMIC IMAGING OPTIC NERVE Josesito Perry completed Est Patient Intermediate Opt - 35785 Josesito Perry completed Dispensing Visit (Non-Billable) Tracey Bacon completed COMPUTERIZED OPHTHALMIC IMAGING OPTIC NERVE Tracey Bacon completed Contact Lens Fitting (RX&FITG C-LENS SUPVJ CRNL LENS OU XCPT APHK) Efra Tariq completed [facility] completed Venipuncture Radha Posey completed [...] NERVE Josesito Delgado Perry completed Est Patient Intermediate Opt - 11413 Josesito Delgado Orlando completed Contact Lens Fitting (RX&FITG C-LENS SUPVJ CRNL LENS OU XCPT APHK) Efra Tariq completed Est Patient Intermediate Opt - 01161 Efra Tariq completed Primary Care - Assesment-Brief - SLW Merry Garcia Time spent with patient:15 completed Primary Care Service Linkage Merry Garcia Time spent with patient:60 completed Venipuncture Chad Navarro completed Venipuncture Chad Navarro completed Pfh Referral (N) Chad Navarro completed Pfh Message Delivered (C) Chad Naavrro completed Pfh Clinic Visit (R) Chad Navarro [...] Perry completed Est Patient Intermediate Opth - 71619 Josesito Perry completed Contact Lens Fitting (RX&FITG C-LENS SUPVJ CRNL LENS OU XCPT APHK) Efra Tariq completed Est Patient Intermediate Opt - 35897 Efra Tariq completed Primary Care Medical Case Management Renée Zavala Time spent with patient: 15 completed Primary Care Medical Case Management Renée Zavala Time spent with patient: 15 completed GOALS No Information Available HEALTH CONCERNS No Information Available
[2019-07-14 15:27] LABS: BASOPHILS % 0.6 % (0.0-1.0); EOSINOPHILS # (AUTO) 0.3 (0.0-0.4); HEMOGLOBIN 13.6 g/dL (14.0-18.0); LYMPHOCYTES # (AUTO) 1.4 (1.0-3.2); LYMPHOCYTES % 19.3 % (18.0-39.1); MEAN CORPUSCULAR HEMOGLOBIN 31.5 pg (28-32); MEAN CORPUSCULAR HGB CONC 34.9 g/dL (31-35); MEAN CORPUSCULAR VOLUME 90.3 fL (81-99); MONOCYTES # (AUTO) 0.5 (0.2-0.8); MONOCYTES % 7.4 % (4.4-11.3); NEUTROPHILS # (AUTO) 4.9 (2.1-6.9); NEUTROPHILS % 68.3 % (38.7-80.0); PLATELET COUNT 189 x10e3/uL (140-360); RED BLOOD COUNT 4.32 x10e6/uL (4.3-5.7); RED CELL DISTRIBUTION WIDTH 11.9 % (11.7-14.4)
[2019-07-14 15:30] LABS: INR 0.84
[2019-07-14 15:31] LABS: PARTIAL THROMBOPLASTIN TIME 27.5 seconds (23.8-35.5)
[2019-07-14 15:40] LABS: ALANINE AMINOTRANSFERASE 22 IU/L (0-55); ALBUMIN 3.4 g/dL (3.5-5.0); ALBUMIN/GLOBULIN RATIO 1.1 (0.8-2.0); ALKALINE PHOSPHATASE 127 IU/L (40-150); ANION GAP 11.4 mmol/L (8-16); BLOOD UREA NITROGEN 16 mg/dL (7-26); BUN/CREATININE RATIO 17 (6-25); CARBON DIOXIDE 27 mmol/L (22-29); CHLORIDE 99 mmol/L (98-107); CREATINE KINASE 66 IU/L (30-200); CREATININE, SERUM 0.95 mg/dL (0.72-1.25); EST GLOMERULAR FILTRATION RATE > 60 ML/MIN (60-); GLUCOSE 334 mg/dL (74-118); POTASSIUM 4.4 mmol/L (3.5-5.1); SODIUM 133 mmol/L (136-145)
--- NOTE | 2019-07-14 16:12 | Diagnostic Imaging Report ---
EXAMINATION: CHEST SINGLE (PORTABLE) INDICATION: Hyperglycemia, panic attack COMPARISON: None FINDINGS: LINES/TUBES:EKG leads overlie the chest. LUNGS:The lungs are well-inflated. No focal consolidation or pulmonary edema. PLEURA:No pleural effusion or pneumothorax. MEDIASTINUM:The cardiomediastinal silhouette appears normal in size and shape. BONES/SOFT TISSUES:No acute osseous injury. ABDOMEN:No free air under the diaphragm. IMPRESSION: No focal pneumonia or pulmonary edema. Signed by: Thierry Tran MD on 07/14/2019 4:09 PM
[2019-07-14 16:35] LABS: BILIRUBIN,URINE NEGATIVE (NEGATIVE); CLARITY,URINE SL CLOUDY (CLEAR); COLOR,URINE YELLOW (YELLOW); KETONES,URINE NEGATIVE (NEGATIVE); LEUKOCYTE ESTERASE ,URINE NEGATIVE (NEGATIVE); NITRITE,URINE NEGATIVE (NEGATIVE); PROTEIN,URINE DIPSTICK NEGATIVE (NEGATIVE); URINE UROBILINOGEN 0.2 mg/dL (0.2 - 1)
[2019-07-14 16:46] LABS: AMORPHOUS SEDIMENT,URINE FEW (FEW); BACTERIA,URINE RARE /HPF
[2019-07-14] MEDS ORDERED: SODIUM CHLORIDE FLUSH 10 ML SYR INJ PRN (17:30)
[2019-07-14] MEDS ORDERED: ASPIRIN 81 MG CHEW TAB PO ONE (17:30)
[2019-07-14] MEDS ORDERED: ONDANSETRON HCL INJ 2MG/ML 2ML 2 MG/ML VIAL IV PRN (17:30)
[2019-07-14 19:00] VITALS: BP 131/88
--- NOTE | 2019-07-14 19:10 | Diagnostic Imaging Report ---
HIP LEFT 2-3 VW (+/- PELVIS) - Multiple views HISTORY: PAIN COMPARISON: None available. FINDINGS: Bones: No acute displaced fracture. Osseous alignment is within normal limits. Joints: There is moderate joint space narrowing and bone production compatible with osteoarthritis. Soft tissues: The soft tissues appear unremarkable. IMPRESSION: No acute radiographic abnormality. Signed by: Duarte Douglas MD on 07/14/2019 7:07 PM
[2019-07-14] MEDS ORDERED: ATAZANAVIR SUL300 MG PO (19:42)
[2019-07-14] MEDS ORDERED: VALTREX1000 MG PO (19:46)
[2019-07-14] MEDS ORDERED: DESCOVY 200-251 EACH PO (19:46)
[2019-07-14] MEDS ORDERED: SUBOXONE 8 MG-1 EAC2 PO (19:46)
[2019-07-14] MEDS ORDERED: ATORVASTATIN CA20 MG PO (19:46)
[2019-07-14 20:47] VITALS: BP 131/88
[2019-07-14 20:49] VITALS: BP 131/88
[2019-07-14] MEDS: TEMAZEPAM 15 MG CAP PO PRN (22:59)
[2019-07-14 23:52] LABS: CREATINE KINASE 73 IU/L (30-200)
[2019-07-15] VITALS (8 sets, daily range): BP systolic 124–147; BP diastolic 78–94
[2019-07-15 05:33] LABS: BASOPHILS % 0.5 % (0.0-1.0); EOSINOPHILS # (AUTO) 0.1 (0.0-0.4); EOSINOPHILS % 1.3 % (0.0-6.0); HEMATOCRIT 41.5 % (38.2-49.6); HEMOGLOBIN 14.1 g/dL (14.0-18.0); LYMPHOCYTES # (AUTO) 1.7 (1.0-3.2); MEAN CORPUSCULAR HEMOGLOBIN 30.7 pg (28-32); MEAN CORPUSCULAR VOLUME 90.2 fL (81-99); MONOCYTES # (AUTO) 0.4 (0.2-0.8); MONOCYTES % 6.5 % (4.4-11.3); NEUTROPHILS # (AUTO) 3.7 (2.1-6.9); PLATELET COUNT 199 x10e3/uL (140-360)
[2019-07-15 05:48] LABS: ANION GAP 12.1 mmol/L (8-16); BLOOD UREA NITROGEN 12 mg/dL (7-26); BUN/CREATININE RATIO 15 (6-25); CALCIUM 9.3 mg/dL (8.4-10.2); CARBON DIOXIDE 25 mmol/L (22-29); CHLORIDE 102 mmol/L (98-107); CREATININE, SERUM 0.81 mg/dL (0.72-1.25); EST GLOMERULAR FILTRATION RATE > 60 ML/MIN (60-); GLUCOSE 230 mg/dL (74-118); POTASSIUM 4.1 mmol/L (3.5-5.1); SODIUM 135 mmol/L (136-145)
[2019-07-15 06:21] LABS: CREATINE KINASE 70 IU/L (30-200)
[2019-07-15] MEDS ORDERED: METFORMIN HCL500 MG PO (06:21)
--- NOTE | 2019-07-15 06:46 | Diagnostic Imaging Report ---
EXAMINATION: CHEST SINGLE (PORTABLE) INDICATION: ^Y ^CP ^[id number] ^0620 COMPARISON: 07/14/2019 FINDINGS: AP view TUBES and LINES: None. LUNGS: The lungs are well inflated. Questionable ill-defined 2.9 cm right lower lobe airspace opacity, new when compared to the previous radiograph from yesterday. The left lung is clear. PLEURA: No pleural effusion or pneumothorax. HEART AND MEDIASTINUM: The cardiomediastinal silhouette is unremarkable. BONES AND SOFT TISSUES: No acute osseous lesion. Soft tissues are unremarkable. UPPER ABDOMEN: No free air under the diaphragm. IMPRESSION: A questionable left lower lobe airspace opacity is new when compared to the previous chest radiograph from yesterday. Given the short time interval, this likely represents atelectasis or artifact. Interval development of pneumonia may appear similar. Signed by: Cesar Hernandez MD on 07/15/2019 6:42 AM
[2019-07-15] MEDS ORDERED: DEXTROSE 50% SYRINGE 50 ML IV PRN (09:30)
--- NOTE | 2019-07-15 10:20 | NUR ---
DR. HOLGUIN HERE TO SEE PT.
--- NOTE | 2019-07-15 11:23 | NUR ---
ASSESSMENT: Spiritual Distress Pt afraid to sleep. Pt states he hasn't slept in several nights due to fear of not being able to breathe when he wakes up. Pt describes episodes of fear as "panic attacks." Pt states he is tearful when he thinks about his mother. Pt states his mother May 2018. Pt states he first having "panic attacks" last January. Pt states he lives with his son. Intervention: Provided unhurried empathic listening and pastoral presence. Facilitated illness review and identification of emotions. Outcome: Pt requested follow up visits. Will follow as able. ELIDA [employer] Manager Spiritual Care Department O: [phone]
[2019-07-15] MEDS: INSULIN REGULAR, HUMAN 100 UNIT/1 ML 3ML VIAL SQ SCH ×3 (11:30→21:00)
[2019-07-15 11:44] LABS: CHOL/HDL RATIO 3.2 (3.9-4.7)
[2019-07-15] MEDS: ASPIRIN 81 MG ENTERIC COATED PO SCH (11:57)
[2019-07-15] MEDS: VALACYCLOVIR HCL 500 MG TAB PO SCH (11:58)
[2019-07-15 12:03] LABS: THYROID STIMULATING HORMONE 0.31 uIU/mL (0.350-4.940)
[2019-07-15] MEDS ORDERED: CLOPIDOGREL BISULFATE 75 MG TAB PO ONE (12:10)
--- NOTE | 2019-07-15 12:51 | Consultation ---
DATE OF CONSULTATION: Cardiac Consultation REASON FOR CONSULTATION: Chest pain. HISTORY OF PRESENT ILLNESS: A 58-year-old gentleman, very poorly historian, known with HIV diagnosed in 1998, diabetic diagnosed for the last one and half year early 2018 and anxiety, and severe back pain status post surgery and severe left hip pain. The patient also known to have skin lesion chronic on the lower extremities. Regardless, he does have also family history of coronary artery disease. For the last week or so, he is having episodes, where he feels like he is going to pass out, start with chest tightness, he hyperventilate, and he almost passed out. He was very frightened about it. He is having this chest pressure, chest tightness, and he decided to come to the emergency room. His first set of cardiac enzymes are normal. His EKG showed no acute changes. Chest x-ray showed no infiltrate. Cardiac consultation is obtained. The patient is really very poor historian. He is very anxious. He smokes few cigarettes every now and then. He drinks wine every now and then. He does have strong family history of coronary artery disease. He does have easy fatigability and with activity some time his left hip act on him, lets him to stop. He does have chronic problem and chronic left hip pain. But also he does have shortness of breath, chest tightness, chest pressure with and without activity and it is worse when he becomes anxious about his symptoms and he is almost going to pass out at that time. He feel his heart palpating when he is feeling to going to pass out. He does have no orthopnea, no paroxysmal nocturnal dyspnea, occasional cough. REVIEW OF SYSTEMS: GENERAL: No fever. No chills. No weight loss. No weight gain. HEENT: Asymmetry of face of long time. PULMONARY AND CARDIAC: As per above history. GI: Occasional nausea, vomiting. Occasional abdominal pain. : No hematuria. No dysuria. MUSCULOSKELETAL: Back pain, left hip pain. HEMATOLOGY: Easy bruising, bleeding. SKIN: Has several skin lesions of the lower extremity and discoloration. NEUROLOGY: No seizure activity. No weakness. Asymmetry of face for long duration. He does not notice that. PSYCHIATRIC: Very anxious man. SOCIAL HISTORY: He is divorcee. He smokes one cigarette every now and then. He stopped drinking alcohol. 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 PAST MEDICAL HISTORY: HIV since 1998, diabetes since early 2018, anxiety, back surgery, left hip problems. FAMILY HISTORY: Mother with no premature coronary artery disease, congestive heart failure, coronary artery bypass, several PCI and pacemaker. Father is also known with diabetes. Several siblings with coronary artery disease at young age. PHYSICAL EXAMINATION: VITAL SIGNS: Height of 5 feet 6 inches, weight of 207 pounds, blood pressure 130/80, heart rate of 70, respiratory rate of 18. HEENT: Pupils are equal and reactive. NECK: No elevation of jugular venous pulsation. No bruit. CHEST: Clear to auscultation and percussion. HEART: PMI in 5th left intercostal space. Normal first and second heart sounds. ABDOMEN: Soft with good bowel sounds. No organomegaly. No abdominal bruits. EXTREMITIES: Skin discoloration noted on the lower extremities. Several chronic skin changes noted. Decreased pulses in both feet. NEUROLOGIC: Awake, alert, and oriented. There is asymmetry of the left face. No localized deficits. PSYCHIATRIC: The patient is very anxious man, having insomnia for several days. IMPRESSION AND PLAN: 1. Human immunodeficiency virus. 2. Diabetes mellitus. 3. Chest pain. 4. Back pain. 5. Left hip. 6. Anxiety. 7. Insomnia. 8. Asymmetry of the face. 9. Strong family history of coronary artery disease. 10. Chest pain compatible with possible angina and shortness of breath. Cardiac skinner, we will do serial cardiac enzymes. We will keep the patient on aspirin and Plavix. We will schedule an echocardiogram and nuclear cardiac stress test. Care discussed and explained to the patient. His questions are answered. Case discussed with nursing staff. MD TESS lAcala/JULIANL /[id number]
--- NOTE | 2019-07-15 13:39 | NUR ---
CONSENT FOR STRESS TEST DONE.
[2019-07-15 13:54] LABS: CREATINE KINASE 67 IU/L (30-200)
[2019-07-15] MEDS ORDERED: REGADENOSON 0.4 MG/5 ML SYR IV ONE (14:22)
[2019-07-15] MEDS ORDERED: [UNRECOGNIZED DRUG - OTHER] PO SCH (15:00)
[2019-07-15] MEDS ORDERED: ATAZANAVIR SULFATE 300 MG PO SCH (15:00)
[2019-07-15] MEDS: LORAZEPAM 1 MG TAB PO SCH ×2 (15:46→23:55)
[2019-07-15] MEDS ORDERED: METFORMIN HCL 500 MG TAB PO SCH (17:00)
[2019-07-15] MEDS ORDERED: BUPRENORPHINE HCL PO SCH (17:00)
[2019-07-15] MEDS ORDERED: [UNRECOGNIZED DRUG - OTHER] PO SCH (17:00)
[2019-07-15] MEDS ORDERED: NALOXONE HCL PO SCH (17:00)
--- NOTE | 2019-07-15 19:20 | NUR ---
walking rounds complete, pt stable at shift change.
[2019-07-15] MEDS ORDERED: ATORVASTATIN 20 MG TAB PO SCH (21:00)
[2019-07-15] MEDS: TEMAZEPAM 15 MG CAP PO PRN (23:55)
[2019-07-16] VITALS (7 sets, daily range): BP systolic 125–171; BP diastolic 77–96
[2019-07-16 05:07] LABS: BASOPHILS % 0.6 % (0.0-1.0); EOSINOPHILS # (AUTO) 0.3 (0.0-0.4); EOSINOPHILS % 4.1 % (0.0-6.0); HEMATOCRIT 42.7 % (38.2-49.6); HEMOGLOBIN 14.8 g/dL (14.0-18.0); LYMPHOCYTES # (AUTO) 2.4 (1.0-3.2); LYMPHOCYTES % 34.7 % (18.0-39.1); MEAN CORPUSCULAR HEMOGLOBIN 30.8 pg (28-32); MEAN CORPUSCULAR HGB CONC 34.7 g/dL (31-35); MONOCYTES # (AUTO) 0.6 (0.2-0.8); MONOCYTES % 8.3 % (4.4-11.3); NEUTROPHILS # (AUTO) 3.6 (2.1-6.9); NEUTROPHILS % 51.9 % (38.7-80.0); PLATELET COUNT 205 x10e3/uL (140-360); RED CELL DISTRIBUTION WIDTH 11.9 % (11.7-14.4)
[2019-07-16 05:40] LABS: ALANINE AMINOTRANSFERASE 29 IU/L (0-55); ALBUMIN 3.6 g/dL (3.5-5.0); ALBUMIN/GLOBULIN RATIO 1.1 (0.8-2.0); ALKALINE PHOSPHATASE 78 IU/L (40-150); ANION GAP 11.7 mmol/L (8-16); BLOOD UREA NITROGEN 13 mg/dL (7-26); BUN/CREATININE RATIO 16 (6-25); CALCIUM 9.3 mg/dL (8.4-10.2); CARBON DIOXIDE 25 mmol/L (22-29); CHLORIDE 104 mmol/L (98-107); CREATININE, SERUM 0.81 mg/dL (0.72-1.25); EST GLOMERULAR FILTRATION RATE > 60 ML/MIN (60-); GLUCOSE 212 mg/dL (74-118); POTASSIUM 3.7 mmol/L (3.5-5.1); SODIUM 137 mmol/L (136-145)
[2019-07-16] MEDS: SODIUM CHLORIDE 0.9% 1000ML 1,000 ML IV SCH ×2 (06:13→12:50)
--- NOTE | 2019-07-16 07:30 | NUR ---
The pt. has been maintained on n p o status for heart cath today. He has no issues or concerns at this time
[2019-07-16] MEDS: INSULIN REGULAR, HUMAN 100 UNIT/1 ML 3ML VIAL SQ SCH ×3 (08:26→16:30)
[2019-07-16] MEDS ORDERED: CLOPIDOGREL BISULFATE 75 MG TAB PO SCH (09:00)
--- NOTE | 2019-07-16 09:27 | NUR ---
slab inspector personnel called to report that they will be coming for the pt. shortly.
--- NOTE | 2019-07-16 09:45 | NUR ---
Spoke to Dr. Carmichael, pt is 2 day obs. Plan is to discharge today if heart cath negative
[2019-07-16] MEDS ORDERED: HEPARIN SOD (PORCINE) 1000 UNIT/ML 30ML ONE (09:51)
[2019-07-16] MEDS ORDERED: IOPAMIDOL 370 MG/ML 200 ML INFUS..BTL INJ ONE (09:52)
[2019-07-16] MEDS ORDERED: HEPARIN SOD/SOD CHLORIDE 2,000 ML ONE (09:52)
[2019-07-16] MEDS ORDERED: SODIUM CHLORIDE 0.9% 1000ML 1,000 ML ONE (09:52)
[2019-07-16] MEDS ORDERED: MIDAZOLAM HCL 2 MG/2 ML VIAL ONE (09:52)
[2019-07-16] MEDS ORDERED: FENTANYL CITRATE/PF 100MCG/2 ML INJ ONE (09:52)
[2019-07-16] MEDS ORDERED: LIDOCAINE HCL 2% LOCAL 20 ML VIAL ONE (09:52)
[2019-07-16] MEDS ORDERED: NITROGLYCERIN/D5W 200 MCG/ML 0 ML ONE (09:52)
--- NOTE | 2019-07-16 11:16 | Operative Report ---
DATE OF PROCEDURE: SURGEON: Rashmi Jalloh MD TITLE OF PROCEDURE: Left cardiac catheterization. INDICATIONS: Admission from the emergency room with repeated chest pain, angina. The patient had stress test, which was abnormal. The patient continued to have symptoms. TECHNICAL DETAILS: After the usual sterile preparation and draping procedure, intravenous Versed and fentanyl given for sedation, local Xylocaine for anesthesia. A 4-Lithuanian sheath established in the right common femoral artery. Layne left 4 and 3DRC catheters to engage the coronary, pigtail for hemodynamic measurement and left ventriculogram. At the end of the procedure, sheath was removed. Hemostasis was achieved manually. No complication. No blood loss. RESULTS: 1. Coronary angiogram: a. Left main calcified with 10-20% stenosis. b. LAD, very large dominant, wrapping around the apex, proximally calcified area of approximately 40% stenosis. c. Circumflex coronary artery giving 2 medium size OM with mild disease. d. Right coronary artery, a lopez's crook, calcified with several lesion at 20-30%. 2. Hemodynamics: a. Aorta pressure 130/80, LV pressure 130/20. 3. Left ventriculogram in the right anterior oblique view showed normal size ventricle with left ventricular ejection fraction of 60%. IMPRESSION: 1. Heavily calcified arteries. 2. Left ventricular ejection fraction of 60%. 3. Calcified coronaries. 4. A 40% proximal left anterior descending. 5. Lopez's crook right coronary artery. 6. Preserved ventricular systolic function. COMPLICATION: None. BLOOD LOSS: None. RECOMMENDATION: Aggressive medical therapy. Rashmi Jalloh MD MOJ/MODL /[id number]
[2019-07-16] MEDS: ASPIRIN 81 MG ENTERIC COATED PO SCH (11:36)
[2019-07-16] MEDS: VALACYCLOVIR HCL 500 MG TAB PO SCH (11:36)
[2019-07-16] MEDS: LORAZEPAM 1 MG TAB PO SCH ×2 (11:36→15:00)
--- NOTE | 2019-07-16 16:45 | NUR ---
Out of room to radiology for chest films to r/o PNA.
--- NOTE | 2019-07-16 17:24 | Diagnostic Imaging Report ---
EXAMINATION: CHEST 2 VIEWS INDICATION: Rule out pneumonia COMPARISON: Multiple prior chest x-ray examinations most recent dated 07/15/2019 FINDINGS: PA and lateral views TUBES and LINES: None. LUNGS/PLEURA: Lungs are well inflated. There is no evidence of pneumonia or pulmonary edema.. The previously seen right basilar 2.9 cm opacity has resolved. There is no pleural effusion or pneumothorax. HEART AND MEDIASTINUM: The cardiomediastinal silhouette is unremarkable. BONES AND SOFT TISSUES: No acute osseous lesion. Soft tissues are unremarkable. UPPER ABDOMEN: No free air under the diaphragm. IMPRESSION: No evidence of pneumonia. The previously seen right basilar 2.9 cm opacity has resolved Signed by: Duarte Douglas MD on 07/16/2019 5:20 PM
--- NOTE | 2019-07-16 20:20 | NUR ---
discharged patient home with all belongings and prescription from MD. vital sign stable at this time.
--- NOTE | 2019-07-19 17:44 | Myoview Stress Test ---
DATE OF STUDY: 07/15/2019 11:19:00 Stress Test - Treadmill ONLY TITLE OF REPORT: Lexiscan nuclear stress test. INDICATION FOR STUDY: Chest pain. Family history of CAD. TECHNICAL DETAILS: After risks, benefits, pros and cons of Lexiscan nuclear stress test were explained to the patient, the patient agreed to proceed. He was brought down to the nuclear lab where he has received 10.5 mCi dose of technetium-99m tetrofosmin intravenously and after 40 minutes, the patient was taken to the [facility] in [place] SPECT camera for resting myocardial perfusion imaging. Afterwards, the patient was then brought to the stress lab where 12-lead EKG monitoring and blood pressure monitoring were obtained. He received a dose of Lexiscan 0.4 mg intravenously followed by 27.0 mCi dose of technetium-99m tetrofosmin intravenously. Resting heart rate went from baseline of 67 beats per minute to a maximum of 99 beats per minute. Blood pressure went from baseline of 123/75 to 120/72, which is an appropriate hemodynamic response. Underlying EKG revealed normal sinus rhythm, normal axis and no ST-T wave changes. With Lexiscan infusion, there were no ischemic EKG changes or symptoms. After about 25 minutes, the patient was then taken to the SPECT camera for stress myocardial perfusion imaging. FINDINGS: 1. Resting myocardial perfusion imaging reveals largely normal tracer uptake and no defects. 2. Stress myocardial perfusion imaging reveals a nciaq-ki-vuspewie size decreased uptake in the inferior wall that is mild in intensity, that is not present at resting imaging. 3. The following gated measurements were obtained. End-diastolic volume 114 mL, end-systolic volume 41 mL, calculated left ventricular ejection fraction is 64% with normal wall motion. CONCLUSIONS: 1. Abnormal myocardial perfusion imaging study revealing a sjltj-ur-ldasntid size area of decreased uptake in the inferior wall, stress imaging consistent with perhaps ischemia. 2. Normal left ventricular function with calculated ejection fraction of about 64%. 3. Overall findings of the stress test are compatible with a moderate stress test. This a dictation is supposed to be associated with dictation [id number]. MD STEPHEN Ann/JACK /[id number]
--- NOTE | 2019-08-25 22:52 | Discharge Summary ---
CHIEF COMPLAINT: Two-week history of intermittent chest tightness. FINAL DIAGNOSES: 1. Mild coronary artery disease. 2. Osteoarthritis. 3. HIV. 4. . DISPOSITION: Home. HOSPITAL COURSE: A 58-year-old male, known history of diabetes type 2, hypertension, HIV, brought to the ER with 2-week history of intermittent chest tightness associated with extreme anxiety and panic attack. No diaphoresis. No nausea or vomiting. No fever or chills. No shortness of breath. No cough. Evaluation was conducted in the emergency room. Admission was made for treatment regarding chest pain atypical, HIV, diabetes type 2, hypertension, osteoarthritis, and anxiety. With admission, he will be monitoring cardiac enzymes. We will be requesting a Cardiology followup. We will also be addressing anxiolytics. We will also monitor the patient's blood sugars. Regarding the complaints of chest pain, the patient was being reviewed by Cardiology, Dr. Jalloh and following his workup and evaluation, his impression was HIV, diabetes mellitus, chest pain, back pain, left hip pain, anxiety, insomnia, asymmetry of the face, strong family history of coronary artery disease. States that the chest pain is compatible with possible angina and shortness of breath. We will be monitoring cardiac enzymes. The patient will be on aspirin and Plavix. We will be reviewing echocardiogram with schedule nuclear stress test. The stress test was performed by Dr. Jalloh, underwent a Lexiscan nuclear study. Findings were showing an abnormal myocardial perfusion. Imaging study revealing a utgiu-oy-wlgalcvb sized area of decreased uptake in the inferior wall. Stress imaging consistent with perhaps ischemia. Calculated ejection fraction noted to be about 64%. Overall, findings of the stress test are compatible with moderate stress test. These findings were discussed with the patient further. Cardiac catheterization was set up and the patient underwent the catheterization by Dr. Jalloh. Finding shows heavily calcified arteries. Left ventricular ejection fraction of 60%, calcified coronary 40% proximal left anterior descending, a lopez's crook right coronary artery, preserved left ventricular systolic function. There were no complications. Recommendations were made for aggressive medical therapy. The patient was on the Med-Surg floor, was on a cardiac diet, and was admitted. The patient was noted to continue to be restless, agitated, claims of being very nervous. His lab studies were being further reviewed. His cardiac investigation was underway. A stress test was performed, which led to catheterization. Postprocedure, the patient stabilized. We will continue with aggressive medical coverage and the patient will be discharged home stable, but guarded condition. IMAGING: Chest x-ray finding shows no focal pneumonia or pulmonary edema. X-ray to the hip left shows no acute radiographic abnormality. Followup chest x-ray compared to earlier studies shows no evidence of pneumonia. The previously seen right basilar 2.9 cm opacity has resolved. Further laboratory studies shows a CBC to be unremarkable. Urinalysis unremarkable. Chemistries shows electrolyte panel to be stable. Glucose was 334. First set of cardiac enzymes were normal. Two more sets of cardiac enzymes were normal as well. Electrolytes continued to be stable. Followup glucose was now 230. Followup studies beronica back up to 295, began up to 313, final study 282. The patient recovered well and was able to be discharged home in stable condition. The patient will continue on his current diet. No equipments or supplies were necessary. No drain or Richards was needed. Activity level as directed by me as well as by Dr. Jalloh. As noted on his demographic sheet, he has no PCP. My card was given to the patient. He has opportunity to follow up with me in my office in the next 2 to 3 weeks for review. I was instructed that he choose a PCP to obtain compliance with medical care. Also continue to either choose Dr. Jalloh or find the photovoltaic installation technician to maintain compliance as well. Dictated by GAEL Rajput Audie Carmichael MD CC/MODL /[id number]
== END 2019-07-16 20:39 | disposition home or self-care (01) ==
LOC: ER 14:22 → ERHOLD 17:27 → MED/SURG2 19:03
DX: I25.10 Atherosclerotic heart disease of native coronary artery without angina pectoris (principal); R07.89 Other chest pain; I10 Essential (primary) hypertension; E11.9 Type 2 diabetes mellitus without complications; M19.90 Unspecified osteoarthritis, unspecified site; F41.9 Anxiety disorder, unspecified; Z21 Asymptomatic human immunodeficiency virus [HIV] infection status; Z83.3 Family history of diabetes mellitus; Z82.49 Family history of ischemic heart disease and other diseases of the circulatory system; M54.9 Dorsalgia, unspecified; M25.552 Pain in left hip; G47.00 Insomnia, unspecified; Q67.0 Congenital facial asymmetry; Z72.0 Tobacco use; Z11.59 Encounter for screening for other viral diseases; Z79.84 Long term (current) use of oral hypoglycemic drugs
CPT/HCPCS: 36415 ×3; 71045 ×2; 71046; 73502; 78452; 80048; 80053 ×2; 80061; 81001; 82550 ×2; 82553 ×2; 82948 ×2; 83690; 84443; 84484 ×2; 85025 ×3; 85610; 85730; 87635; 93005 ×2; 93017; 93306; 93458; 99284; A9502; C1766; C1887; G0378 ×3; J2001; J2250; J2785; J3010; J7030 ×3; Q9967; 99152; 99153; J1644

== ENCOUNTER 2024-02-19 20:29 | Emergency (ER) | payer MEDICARE ==
[~2024-02-19] VITALS: Ht 167.6 cm; Wt 92.5 kg
[~2024-02-19 20:29] MED LIST changes: +ATAZANAVIR SUL300 MG PO; +ATORVASTATIN CA20 MG PO; +DESCOVY 200-251 EACH PO; +METFORMIN HCL500 MG PO; +SUBOXONE 8 MG-1 EAC2 PO; +VALTREX1000 MG PO
[2024-02-19 20:44] VITALS: PULSE 93; RESP 20; TEMP 98.4; O2SAT 100
[2024-02-19] MEDS ORDERED: KETOROLAC TROMETHAMINE 60 MG/2 ML VIAL ONE (20:52)
[2024-02-19] MEDS: KETOROLAC TROMETHAMINE 60 MG/2 ML VIAL IM STA (20:54)
[2024-02-19] MEDS ORDERED: KETOROLAC TROME10 MG PO (22:39)
[2024-02-19] MEDS ORDERED: PREDNISONE20 MG PO (22:39)
== END 2024-02-19 22:48 | disposition home or self-care (01) ==
LOC: ER 20:32
DX: M54.42 Lumbago with sciatica, left side (principal); M87.052 Idiopathic aseptic necrosis of left femur; I10 Essential (primary) hypertension; E11.9 Type 2 diabetes mellitus without complications; B20 Human immunodeficiency virus [HIV] disease; F41.9 Anxiety disorder, unspecified
CPT/HCPCS: 72100; 73502; 99283; J1885